=== PATIENT | female | born 1980 | race Caucasian/White ===

== ENCOUNTER 2018-10-27 20:20 | Emergency (ER) | payer SELFPAY ==
[2018-10-27 20:30] VITALS: BP 128/86; PULSE 115; RESP 16; TEMP 36.8; O2SAT 97
--- NOTE | 2018-10-27 21:16 | ED.GENADUL_ITS ---
Discharge Plan Disposition Patient Disposition: HOME Condition: Good Discharge Details Chief Complaint: DentalOral Clinical Impression: Dental abscess Primary Care Provider: Maranda Gamboa ED Provider: Ag Patel Meds and New Rx's Prescriptions: New clindamycin HCl 150 mg capsule 450 mg PO TID Qty: 60 RF: 0 ibuprofen 600 mg tablet 600 mg PO TID-QID PRN (Reason: pain) Qty: 30 RF: 0 Continued methadone 5 MG tablet 58 mg PO DAILY RF: 0 acetaminophen [Mapap Extra Strength] 500 MG tablet 1,000 mg PO Q6H PRNRF: 0 Discontinued amoxicillin-pot clavulanate [Augmentin] 1 EACH tablet 1 ea PO BID Qty: 14 RF: 0 Discharge Instructions Instructions: Dental Abscess (ED) Additional Instructions: Stop the penicillin and start clindamycin. May continue acetaminophen and ibuprofen as needed for pain. Follow-up with a dentist CECILIO. Return to ED for high fevers, difficulty breathing, inability to swallow, facial swelling. Discharge Data Discharge Date/Time-TO BE ENTERED AT DEPARTURE: 10/27/18 21:37 Medical Decision Making Patient with dental abscess involving the hard palate on the right. Topical benzocaine used for anesthetic. Needle aspiration done with a couple of passes made in attempt to drain all of the pus. Ultimately drained a little over 1 mL. We will start patient on clindamycin and discontinue the penicillin. Encouraged to follow-up with a dentist CECILIO. Return to the emergency department for increasing swelling, facial swelling/pain, difficulty breathing, inability to swallow. HPI General Mode of arrival: ambulatory . Date/Time Provider Initiated Documentation: 10/27/18 20:49 . Limitations to Documentation: no limitations . Information obtained by: patient . HPI Narrative: Patient presents to ED with worsening dental pain and now swelling in the roof of her mouth. She has been taking penicillin since Wednesday. She did not see anyone for this, she had a bottle of penicillin left over from previous dental infection. She has pretty severe dental decay to begin with. She reports that the pain from the toothache has been better but now she has swelling to the roof of her mouth. She has had no fever. She has no difficulty swallowing. She has no difficulty breathing. Related Data Home Medications Medication Instructions Recorded Confirmed methadone 58 mg PO DAILY 06/11/17 11/18/17 acetaminophen [Mapap Extra 1,000 mg PO Q6H PRN 11/18/17 01/12/18 Strength] clindamycin HCl 450 mg PO TID #60 cap 10/27/18 ibuprofen 600 mg PO TID-QID PRN #30 tab 10/27/18 Previous Rx's Medication Instructions Recorded clindamycin HCl 450 mg PO TID #60 cap 10/27/18 ibuprofen 600 mg PO TID-QID PRN #30 tab 10/27/18 Allergies Allergy/AdvReac Type Severity Reaction Status Date / Time No Known Allergies Allergy Unverified 01/12/18 10:23 General Stated Complaint: DentalOral JACQUELINE: 4 Review of Systems Review of Systems As documented in HPI otherwise negative as below. Const: no fever, chills, weakness Resp: no cough, SOB, pleuritic pain CV: no CP, diaphoresis, edema, syncope GI: no abdominal pain, nausea, vomiting, diarrhea Neuro: no headache, numbness, focal weakness, confusion PFSH Medical History Hepatitis C Substance use disorder Tobacco use disorder Surgical History Ligation of fallopian tube (08/19/05) Replacement of total knee joint (~2015) left medial minisectomy (03/17/10) Family History Mother Diabetes Essential hypertension HF (heart failure) Neoplasm COPD (chronic obstructive pulmonary disease) MS (multiple sclerosis) Father No problems noted. Maternal Aunt Neoplasm Maternal Aunt Neoplasm Maternal Aunt Neoplasm Maternal Aunt Neoplasm Grandmother Diabetes Social History Smoking/Tobacco Use Status: Current every day Tobacco Type: cigarettes Alcohol Intake: current Drug use: Never Do you feel safe at home: Yes Do you feel safe in your relationship?: Yes Exam Const General: cooperative, comfortable and no acute distress Orientation: alert and oriented x3 HENMT Head: normocephalic and atraumatic Face and sinus: normal facial exam Teeth and gingiva: poor dentition (Extensive decay and fractured teeth throughout.) Other: Fluctuant swelling to the hard palate behind teeth #4, 5, 6. Neck Neck: normal visual inspection, trachea midline and supple Course Vital Signs Temperature 98.2 F 10/27/18 20:30 Pulse 115 H 10/27/18 20:30 Respiratory Rate 16 10/27/18 20:30 Blood Pressure 128/86 10/27/18 20:30 Pulse Oximetry 97 10/27/18 20:30 Temperature 98.2 F 10/27/18 20:30 Temperature Source Skin 10/27/18 20:30 Pulse 115 H 10/27/18 20:30 Respiratory Rate 16 10/27/18 20:30 Blood Pressure 128/86 10/27/18 20:30 Pulse Oximetry 97 10/27/18 20:30 Oxygen Delivery Method Room Air 10/27/18 20:30 Oxygen Flow Rate 0 10/27/18 20:30 Pain Level 8 10/27/18 20:30 Procedures Abscess I/D Site: Other (hard palate) Side (if applicable): Right Local Anesthetic: Other Anesthetic (Topical benzocaine) Technique: Needle Aspiration Amount of fluid expressed (mL): 1 Packing used?: None Complications: Pain
[2018-10-27] MEDS: Ibuprofen 600 MG TAB PO (21:32)
[2018-10-27] MEDS: Clindamycin 150 MG CAP 450 MG PO (21:32)
[2018-10-27] MEDS: Benzocaine 20% Gel 30 GM JAR MM (21:34)
== END 2018-10-27 21:37 | disposition home or self-care (01) ==
PROVIDERS: Emergency Provider Emergency Medicine; PCP Nurse Practitioner Family
DX: K04.7 Periapical abscess without sinus (principal)
CPT/HCPCS: 99283

== ENCOUNTER 2019-07-18 21:16 | Emergency (ER) | payer SELFPAY ==
[2019-07-18 21:21] VITALS: BP 120/73; PULSE 98; RESP 16; TEMP 36.7; O2SAT 99
--- NOTE | 2019-07-18 21:26 | W.ED.GENAD ---
Discharge Plan Disposition Patient Disposition: HOME Condition: Stable Discharge Details Chief Complaint: Orthopedic Clinical Impression: Strain of groin Primary Care Provider: Maranda Gamboa ED Provider: Christa cMcarty Home Meds and New Rx's Prescriptions: New cyclobenzaprine 10 mg tablet 10 mg PO TID PRN (Reason: muscle spasm) Qty: 14 RF: 0 No Action methadone 5 MG tablet 58 mg PO DAILY RF: 0 ibuprofen 600 mg tablet 600 mg PO TID-QID PRN (Reason: pain) Qty: 30 RF: 0 Discharge Instructions Instructions: Groin Strain (ED), RICE Therapy (ED) Additional Instructions: Rest, Ice, elevation. Use crutches and brace as needed for comfort. Take medications as directed. Ibuprofen every 4-6 hours as needed for pain. Referrals: Maranda Gamboa, KNOWLEDGE MANAGEMENT CONSULTANT [Primary Care Provider] - Medical Decision Making Right leg pain after slip and fall yesterday. No crepitus, no deformity. Med orders in place of flexeril and knee brace and crutches ordered. Prescription given for Flexeril 10 mg TID PRN muscle spasm and Lidocaine patch ordered and given in ED by operations staff specialist security. Patient demonstrated proper use of crutches prior to discharge. Instructed to follow up with PCP and RICE procedures given. Return for any concerns. Verbalized understanding. Differential Diagnosis Differential Diagnosis: Fracture, Sprain, Strain, Sciatica Medical Records Medical records reviewed: Yes I reviewed the patient's medical records. HPI General Date/Time Provider Initiated Documentation: 07/18/19 21:22. Limitations to Documentation: no limitations. Information obtained by: patient. History of Present Illness 38 year old F presents to the emergency department with the chief complaint of Right lower extremity pain, described as mild, with intensity rated at 5. Quality is described as other (Shooting), and is localized to the right and lower extremity. Patient extremity. Patient started experiencing this day(s) (1) and it has been intermittent. Immobilization improves symptom(s), Movement worsens symptoms . Patient notes no other symptoms.. Patient did receive the following treatments prior to arrival, NSAID HPI Narrative: Patient here with right leg pain after a slip and fall yesterday while getting into a truck. Reports doing a spread eagleand c/o right groin pain and pain radiation to lateral leg and calf. Related Data Home Medications Medication Instructions Recorded Confirmed methadone 58 mg PO DAILY 06/11/17 11/18/17 ibuprofen 600 mg PO TID-QID PRN #30 tab 10/27/18 cyclobenzaprine 10 mg PO TID PRN #14 tab 07/18/19 Previous Rx's Medication Instructions Recorded ibuprofen 600 mg PO TID-QID PRN #30 tab 10/27/18 cyclobenzaprine 10 mg PO TID PRN #14 tab 07/18/19 Allergies Allergy/AdvReac Type Severity Reaction Status Date / Time No Known Allergies Allergy Unverified 01/12/18 10:23 General Stated Complaint: Orthopedic JACQUELINE: 4 [facility] Medical History Hepatitis C Substance use disorder Tobacco use disorder Surgical History left medial minisectomy (03/17/10) Ligation of fallopian tube (08/19/05) 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 Maternal Aunt , Breast CA at age 41. Neoplasm Breast CA Maternal Aunt , Breast CA at age 43. Neoplasm Breast CA Maternal Aunt , Breast CA at age 44. Neoplasm Breast CA Maternal Aunt Neoplasm Breast CA Grandmother Diabetes Social History Smoking/Tobacco Use Status: Current every day Tobacco Type: cigarettes Alcohol Intake: current Drug use: Never Do you feel safe at home: Yes Do you feel safe in your relationship?: Yes Exam Narrative Exam Narrative: Poor dentition. Alert and oriented. No midline C, T, L-spine pain, Full passive ROM, dorsal pedal pulses intact. Pain with palpation to right hip. Const General: cooperative, comfortable, no acute distress and well developed Nutritional Appearance: average body habitus and well nourished Orientation: alert and oriented x3 Neck Neck: full ROM, supple, nontender and no torticollis Chest Chest: normal inspection of the chest Resp Effort & Inspection: normal respiratory effort and able to speak in complete sentences Auscultation: clear to auscultation bilaterally, no rales, no rhonchi and no wheezes Cardio Rate: regular rate Rhythm: regular rhythm Heart Sounds: S1 normal and S2 normal Back/Spine/Pelvis Back: no CVA tenderness Cervical Spine: normal cervical lordosis, cervical ROM normal, No cervical spinal tenderness and No step off deformity Thoracic/Lumbar Spine: thoracic and lumbar spine normal to inspection, No thoracic spinal tenderness and No lumbar spinal tenderness Pelvis: no unilateral elevation of iliac crest Sacrum: tenderness (Pain with palpation over right illiac crest) on the right Skin General skin exam: no rashes or lesions noted Neuro General: alert, awake, oriented x3, moves all extremities and normal light touch, pain and propioception Motor: muscle tone normal throughout Sensory Exam: no sensory deficits noted Plantar Reflexes: Downgoing: bilateral and Upgoing: bilateral Extrem General: normal capillary refill, normal exam except as noted and no pedal edema Right lower extremity: hip/thigh Details: tenderness and lower leg Details: tenderness and no edema Course Vital Signs Vital signs: Vital Signs Temperature 36.7 C 07/18/19 21:21 Pulse 98 H 07/18/19 21:21 Respiratory Rate 16 07/18/19 21:21 Blood Pressure 120/73 07/18/19 21:21 Pulse Oximetry 99 07/18/19 21:21 Temperature 36.7 C 07/18/19 21:21 Temperature Source Skin 07/18/19 21:21 Pulse 98 H 07/18/19 21:21 Respiratory Rate 16 07/18/19 21:21 Respiratory Effort Non-Labored 07/18/19 21:23 Blood Pressure 120/73 07/18/19 21:21 Blood Pressure Position Sitting 07/18/19 21:21 Pulse Oximetry 99 07/18/19 21:21 Oxygen Delivery Method Room Air 07/18/19 21:21 Oxygen Flow Rate 0 07/18/19 21:21 Pain Level 8 07/18/19 21:23
[2019-07-18] MEDS: Cyclobenzaprine 10 MG TAB PO (22:10)
[2019-07-18] MEDS: Lidocaine 5% Patch 1 PATCH (22:10)
[2019-07-18 22:11] VITALS: BP 120/73; PULSE 98; RESP 16; TEMP 36.7; O2SAT 99
== END 2019-07-18 22:00 | disposition home or self-care (01) ==
PROVIDERS: Emergency Provider Registered Nurse Emergency; PCP Nurse Practitioner Family
DX: S76.811A Strain of other specified muscles, fascia and tendons at thigh level, right thigh, initial encounter (principal); M79.604 Pain in right leg; W00.0XXA Fall on same level due to ice and snow, initial encounter
CPT/HCPCS: 29505; 99283; E0114; L1830

== ENCOUNTER 2019-08-24 18:49 | Emergency (ER) | payer SELFPAY ==
[2019-08-24 18:54] VITALS: BP 121/85; PULSE 100; RESP 20; TEMP 36.3; O2SAT 100
--- NOTE | 2019-08-24 19:03 | W.ED.GENAD ---
Discharge Plan Disposition Patient Disposition: HOME Condition: Stable Discharge Details Chief Complaint: DentalOral Clinical Impression: Acute necrotizing gingivitis Primary Care Provider: Maranda Gamboa ED Provider: Sneha Mallory Home Meds and New Rx's Prescriptions: New clindamycin HCl 300 mg capsule 300 mg PO TID Qty: 29 RF: 0 Lidocaine Viscous 2 % solution 15 ml MM QID PRN (Reason: pain) Qty: 300 RF: 0 hydrogen peroxide 3 % solution 15 ml TP QID Qty: 360 RF: 0 Continued ibuprofen 600 mg tablet 600 mg PO TID-QID PRN (Reason: pain) Qty: 30 RF: 0 Discharge Instructions Instructions: Clindamycin (By mouth), Lidocaine (By mouth), Hydrogen Peroxide (By mouth), Gingivostomatitis (ED) Additional Instructions: Please return immediately to the emergency department if you develop any new or worsening symptoms, if your condition does not improve as expected, or if you become otherwise concerned. It is extremely important that you call soon as possible to make an appointment to be seen in follow-up for this visit by your primary care doctor and by a dentist. Referrals: Maranda Gamboa, BOB [Primary Care Provider] - Medical Decision Making Mora Patel is a 38-year-old woman with a history of opiate use disorder on methadone, poor dentition who presented to the emergency department with painful upper and lower gums without focality, no fevers. On exam patient is well and nontoxic appearing. She has diffuse inflammation of the gingiva without evidence of abscess. Concern for acute necrotizing gingivitis. Exam/history is not not consistent at this time with Radu's angina, impending airway compromise, abscess, sepsis, other acute emergent life-threatening process. Plan for hydrogen peroxide swish and spit, 2% viscous lidocaine swish and spit, clindamycin. Hydroperoxide and lidocaine swish and spit performed in the emergency department. Patient given 3 doses of 2% viscous lidocaine for home use as she reports that she will have difficulty feeling prescriptions tonight. I had a lengthy discussion with Patient regarding return to emergency department precautions, home care including swish and spit hydrogen peroxide and lidocaine, and importance of outpatient follow-up. Pt verbalizes understanding of the plan and is amenable. Patient discharged to home with clear plan for outpatient follow-up. All questions were answered. Disposition decision was made weighing the risks and benefits of hospitalization versus outpatient treatment, the risk for further decompensation, and the patient's wishes. Medical Records Medical records reviewed: Yes I reviewed the patient's medical records. HPI General Mode of arrival: ambulatory. Date/Time Provider Initiated Documentation: 08/24/19 18:53. Limitations to Documentation: no limitations. Information obtained by: patient, RN notes reviewed and old records reviewed. HPI Narrative: Mora Patel is a 38-year-old woman with a history of opioid abuse currently on methadone, poor dentition with recurrent dental infections presenting to the emergency department with mouth pain. Patient reports that all of my teeth and gums started to hurt 2 days ago. Patient reports the pain has been gradually worsening. No localized area of worst pain, she reports that pain is equal throughout her upper and lower gums bilaterally. She denies any other pain, fever, vomiting, diarrhea, rash, difficulty swallowing. Patient reports that she she feels otherwise in her usual state of health. Has been eating and drinking as usual. Patient states that she has been told that she has had multiple teeth pulled, and states that she is planning to do that when she moves to [place] in the next week or so. Related Data Home Medications Medication Instructions Recorded Confirmed ibuprofen 600 mg PO TID-QID PRN #30 tab 10/27/18 08/24/19 clindamycin HCl 300 mg PO TID #29 cap 08/24/19 hydrogen peroxide 15 ml TP QID #360 ml 08/24/19 lidocaine HCl [Lidocaine Viscous] 15 ml MM QID PRN #300 ml 08/24/19 Previous Rx's Medication Instructions Recorded ibuprofen 600 mg PO TID-QID PRN #30 tab 10/27/18 clindamycin HCl 300 mg PO TID #29 cap 08/24/19 hydrogen peroxide 15 ml TP QID #360 ml 08/24/19 lidocaine HCl [Lidocaine Viscous] 15 ml MM QID PRN #300 ml 08/24/19 Allergies Allergy/AdvReac Type Severity Reaction Status Date / Time No Known Allergies Allergy Unverified 08/24/19 18:55 General Stated Complaint: DentalOral JACQUELINE: 4 Review of Systems Narrative: Constitutional: denies fevers Eyes: denies eye pain ENT: denies ear pain, sore throat, reports generalized pain to her gums without focal dental pain Cardiovascular: denies chest pain Respiratory: denies SOB, cough GI: denies abdominal pain, vomiting, diarrhea : denies flank pain MSK: denies back pain, neck pain, arthralgias, myalgias Skin: denies rash Neuro: denies headaches, numbness, weakness [facility] Medical History Hepatitis C Substance use disorder Tobacco use disorder Social History Smoking/Tobacco Use Status: Current every day Tobacco Type: cigarettes Alcohol Intake: current Alcohol Intake frequency: a few times a month Drug use: Never Substance use type: does not use Do you feel safe at home: Yes Do you feel safe in your relationship?: Yes Exam Narrative Exam Narrative: Constitutional: well and [id number], pleasant, conversing normally HENT: head atraumatic/normocephalic/normal inspection, mucous membranes moist, poor dentition throughout with several broken teeth, diffuse inflammation of the gingiva without focal edema or fluctuance, otherwise normal exam of the oropharynx without lesion, edema, elevation of the tongue, pooling of secretions, or drooling. Normal voice. Eyes: conjunctiva normal, sclera normal, pupils 3mm b/l Neck: no stridor, normal ROM, trachea midline Chest: normal inspection Resp: normal work of breathing, LCTAB Cardio: normal rate, normal rhythm, no murmur appreciated Back: normal inspection, no rash Skin: warm, dry, normal color, no rash Neuro: alert, not altered, grossly non-focal, normal tone Ext: Moving all extremities equally Psych: normal mood, normal affect, normal behavior Course Vital Signs Vital signs: Vital Signs Temperature 36.3 C L 08/24/19 18:54 Pulse 100 H 08/24/19 18:54 Respiratory Rate 20 08/24/19 18:54 Blood Pressure 121/85 08/24/19 18:54 Pulse Oximetry 100 08/24/19 18:54 Temperature 36.3 C L 08/24/19 18:54 Temperature Source Temporal Artery Scan 08/24/19 18:54 Pulse 100 H 08/24/19 18:54 Respiratory Rate 20 08/24/19 18:54 Respiratory Effort Non-Labored 08/24/19 18:56 Blood Pressure 121/85 08/24/19 18:54 Blood Pressure Position Sitting 08/24/19 18:54 Pulse Oximetry 100 08/24/19 18:54 Oxygen Delivery Method Room Air 08/24/19 18:54 Oxygen Flow Rate 0 08/24/19 18:54 Pain Level 10 08/24/19 18:56
[2019-08-24] MEDS: Hydrogen Peroxide 3% 480 ML BTL 15 ML TP (19:23)
[2019-08-24] MEDS: Lidocaine 2% Viscous 15 ML CUP PO (19:23)
[2019-08-24] MEDS: Clindamycin 300 MG CAP PO (19:23)
== END 2019-08-24 20:00 | disposition home or self-care (01) ==
PROVIDERS: Emergency Provider Student in an Organized Health Care Education/Training Program; PCP Nurse Practitioner Family
DX: A69.1 Other Vincent's infections (principal); F11.20 Opioid dependence, uncomplicated
CPT/HCPCS: 99283; 99284

== ENCOUNTER 2020-05-20 14:18 | Emergency (ER) | payer SELFPAY ==
[2020-05-20 14:27] VITALS: BP 118/79; PULSE 102; RESP 16; TEMP 36.7; O2SAT 100
[2020-05-20] MEDS: Amoxicillin 500 MG CAP PO (14:51)
[2020-05-20] MEDS: Ketorolac 30 MG/ML VIAL IM (14:56)
--- NOTE | 2020-05-20 15:04 | ED.GENADUL_ITS ---
Discharge Plan Disposition Patient Disposition: HOME Condition: Stable Discharge Details Clinical Impression: Otitis media Primary Care Provider: Maranda Gamboa ED Provider: Sneha Mallory Home Meds and New Rx's Prescriptions: New amoxicillin 500 mg tablet 500 mg PO BID Qty: 19 RF: 0 Discharge Instructions Instructions: Amoxicillin (By mouth), Ruptured Eardrum (ED), Ear Infection (ED) Additional Instructions: Please return immediately to the emergency department if you develop any new or worsening symptoms, if your condition does not improve as expected, or if you become otherwise concerned. It is extremely important that you call soon as possible to make an appointment to be seen in follow-up for this visit by your primary care doctor and an ear, nose, and throat specialist as we discussed. Referrals: Maranda Gamboa NP [Primary Care Provider] - Herson Palomares DO [OSTEOPATHIC DOCTOR] - Discharge Data Discharge Date/Time-TO BE ENTERED AT DEPARTURE: 05/20/20 15:03 Medical Decision Making Mora Patel is a 39-year-old woman with a history of hepatitis C who presented to the emergency department with left-sided ear pain for 5 days. On exam patient is well and nontoxic-appearing. Normal examination of the right ear. There is no facial rash, normal inspection of the last external ear and mastoid, no mastoid tenderness, no pain with manipulation of the pinna or tragus. Normal left canal without discharge. Left TM dull with serous effusion, no perforation noted no inferior medial medial aspect of the TM not fully visualized. Concern for otitis media. Given patient's recent move out of state (6 days ago) and caring for an elderly relative. Will perform Covid testing. Exam/history is not consistent with sepsis, meningitis, mastoiditis, abscess, other deep space infection, acute emergent intracranial process. Plan for amoxicillin. I had a lengthy discussion with Patient regarding return to emergency department precautions, home care, and importance of outpatient follow-up. Pt verbalizes understanding of the plan and is amenable. Patient discharged to home with clear plan for outpatient follow-up. All questions were answered. Disposition decision was made weighing the risks and benefits of hospitalization versus outpatient treatment, the risk for further decompensation, and the patient's wishes. Medical Records Medical records reviewed: Yes I reviewed the patient's medical records. HPI General Mode of arrival: ambulatory . Date/Time Provider Initiated Documentation: 05/20/20 14:42 . Limitations to Documentation: no limitations . Information obtained by: patient, RN notes reviewed and old records reviewed . HPI Narrative: Mora Patel is a 39-year-old woman with a history of hepatitis C presenting to the emergency department with left-sided ear pain. Patient reports the pain started gradually 5 days ago. Patient reports that pain worsened at approximately 3:00 this morning. She reports that when she woke up she noticed discharge from her ear and on her pillow. Patient reports that pain seems somewhat improved but has still been persistent throughout the day. No change in hearing, no ringing in the ears. She denies any trauma. She denies pain to the outside of her ear. She denies any other pain, fevers, shortness of breath, cough, vomiting, diarrhea, numbness, weakness, vertigo. Patient reports that as a child she had many ear infections, but has not had an ear infection as an adult. No known inciting factor. Patient states that she recently moved here from out of state and is caring for a 93-year-old relative. She is concerned about whether she has an ear infection that may be related to Covid. No known positive exposures. Related Data Home Medications Medication Instructions Recorded Confirmed amoxicillin 500 mg PO BID #19 tab 05/20/20 Previous Rx's Medication Instructions Recorded amoxicillin 500 mg PO BID #19 tab 05/20/20 Allergies Allergy/AdvReac Type Severity Reaction Status Date / Time No Known Allergies Allergy Unverified 05/20/20 14:33 General Stated Complaint: EarProblem JACQUELINE: 4 Review of Systems Narrative: Constitutional: denies fevers Eyes: denies eye pain ENT: denies dental pain, sore throat, reports ear pain Cardiovascular: denies chest pain Respiratory: denies SOB, cough GI: denies abdominal pain, vomiting, diarrhea : denies flank pain MSK: denies back pain, neck pain, arthralgias, myalgias Skin: denies rash Neuro: denies headaches, numbness, weakness [facility] Medical History (Updated 05/20/20 @ 14:53 by Sneha Mallory MD) Hepatitis C Substance use disorder Tobacco use disorder Surgical History left medial minisectomy (03/17/10) Ligation of fallopian tube (08/19/05) 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 Maternal Aunt , Breast CA at age 41. Neoplasm Breast CA Maternal Aunt , Breast CA at age 43. Neoplasm Breast CA Maternal Aunt , Breast CA at age 44. Neoplasm Breast CA Maternal Aunt Neoplasm Breast CA Grandmother Diabetes Social History Smoking/Tobacco Use Status: Current every day Tobacco Type: cigarettes Smoking risk assessment performed?: Yes Alcohol Intake: current Alcohol Intake frequency: a few times a month Drug use: Never Substance use type: does not use Do you feel safe at home: Yes Do you feel safe in your relationship?: Yes Exam Narrative Exam Narrative: Constitutional: well and [id number], pleasant, conversing normally HENT: head atraumatic/normocephalic/normal inspection, mucous membranes moist, no facial rash, normal inspection of the left external ear and mastoid, no mastoid tenderness, no pain with manipulation of the pinna or tragus. Normal left canal without discharge. Left TM dull with serous effusion, no perforation noted though inferior medial medial aspect of the TM not fully visualized. TM not injected. Normal external right ear, normal right TM and canal. Normal oropharynx without lesion or edema. Eyes: conjunctiva normal, sclera normal, pupils 3mm b/l Neck: no stridor, normal ROM, trachea midline Resp: normal work of breathing, speaking in full sentences Cardio: normal rate, normal rhythm Skin: warm, dry, normal color, no rash Neuro: alert, not altered, grossly non-focal, normal tone, normal gait Ext: Moving all extremities equally Psych: normal mood, normal affect, normal behavior Course Vital Signs Vital signs: Vital Signs Temperature 36.7 C 05/20/20 14:27 Pulse 102 H 05/20/20 14:27 Respiratory Rate 16 05/20/20 14:27 Blood Pressure 118/79 05/20/20 14:27 Pulse Oximetry 100 05/20/20 14:27 Temperature 36.7 C 05/20/20 14:27 Temperature Source Tympanic 05/20/20 14:27 Pulse 102 H 05/20/20 14:27 Respiratory Rate 16 05/20/20 14:27 Respiratory Effort 05/20/20 14:35 Blood Pressure 118/79 05/20/20 14:27 Pulse Oximetry 100 05/20/20 14:27 Oxygen Delivery Method Room Air 05/20/20 14:27 Oxygen Flow Rate 0 05/20/20 14:27 Pain Level 9 05/20/20 14:56
[2020-05-23 03:57] LABS: Patient Race White; SARS-CoV-2 RNA Undetected (Undetected); SARS-CoV-2 Specimen Source Nasopharynx
--- NOTE | 2020-05-23 08:21 | NUR.NOTE ---
0824--attempted call--unable to leave message-No voice mail set up.Nursing Note:
--- NOTE | 2020-05-23 10:01 | NUR.NOTE ---
Nursing [id number] [facility] Cutter called er--Negative Covid test result given.:
== END 2020-05-20 15:03 | disposition home or self-care (01) ==
PROVIDERS: Emergency Provider Student in an Organized Health Care Education/Training Program; PCP Nurse Practitioner Family
DX: H65.02 Acute serous otitis media, left ear (principal); Z03.818 Encounter for observation for suspected exposure to other biological agents ruled out
CPT/HCPCS: 96372; 99284; U0003; 99283; J1885

== ENCOUNTER 2020-08-01 17:18 | Emergency (ER) | payer SELFPAY ==
[2020-08-01 17:22] VITALS: BP 129/82; PULSE 90; RESP 18; TEMP 36.6; O2SAT 99
--- NOTE | 2020-08-01 18:30 | DI.RAD_ITS ---
EXAM: XR KNEE LT 3V AP,LAT,THEA CLINICAL HISTORY: trauma swelling. TECHNIQUE: 2D digital imaging was performed. COMPARISON: CR LEFT KNEE LIMITED 1 OR 2 VIEWS from 10/30/2015 CR LEFT KNEE LIMITED 1 OR 2 VIEWS from 12/30/2015 FINDINGS: There is stable alignment of the components of the prosthesis. No evidence of fracture. IMPRESSION: DATA REPOSITORY: RADIATION DOSE DELIVERED:
--- NOTE | 2020-08-01 18:42 | ED.GENADUL_ITS ---
Discharge Plan Disposition Patient Disposition: HOME Condition: Stable Discharge Details Clinical Impression: Contusion of knee, left Primary Care Provider: Maranda Gamboa ED Provider: Yesica De La Cruz Home Meds and New Rx's Prescriptions: No Action Multi For Her 18 mg iron-600 mcg-40 mcg Capsule 1 tab-cap PO DAILY RF: 0 Discharge Instructions Instructions: Contusion in Adults (ED) Additional Instructions: Wear Godfrey wrap to provide compression and support. Wear brace as directed Crutches for toe-touch weightbearing only as tolerated Continue ibuprofen 800 mg 3 times daily with food for the next 5 days Can add acetaminophen 650 mg 4 times daily for breakthrough pain Referrals: John Villaseñor MD [MD [facility] STAFF PHYSICIAN] - (Please call in a.m. for a follow-up appointment) Discharge Data Discharge Date/Time-TO BE ENTERED AT DEPARTURE: 08/01/20 19:05 Medical Decision Making <Yesica De La Cruz NP - Last Filed: 08/01/20 18:53> Fall injury yesterday while ice skating. Reports increased pain and swelling today has been using ibuprofen has ambulated in X-rays ordered Will refer outpatient to orthopedics. Godfrey wrap crutches NSAIDs ice Medical Records Medical records reviewed: Yes I reviewed the patient's medical records. Medical records narrative: PROCEDURE INFORMATION: Exam: XR Left Knee Exam date and time: 08/01/2020 6:30 PM Age: 39 years old Clinical indication: Prior surgery; Surgery date: 6+ months; Surgery type: Multiple left knee surgeries, knee replacement +5 years ago. ; Patient HX: Left knee pain after fall ice skating today, pain mainly posteriorly. TECHNIQUE: Imaging protocol: XR Left knee. Views: 3 views. COMPARISON: CR LEFT KNEE LIMITED 1 OR 2 VIEWS 12/30/2015 1:02 PM FINDINGS: Bones/joints: A small suprapatellar effusion is not totally excluded.The patient is status post total left knee replacement. The prosthesis is in place. Soft tissues: There is slight soft tissue swelling anterior to the patella. IMPRESSION: Status post total left knee replacement. The prosthesis is in place. A small suprapatellar effusion is not totally excluded. Dictated and Authenticated by: Jasper Stearns MD. Ordering:LENORA Robert MD <Thierry Mallory MD - Last Filed: 08/17/20 11:07> I did not evaluate this patient. Patient was seen and dispositioned by BOB greco. HPI <Yesica De La Cruz NP - Last Filed: 08/01/20 18:53> General Mode of arrival: ambulatory . Date/Time Provider Initiated Documentation: 08/01/20 17:25 . Limitations to Documentation: no limitations . Information obtained by: patient . HPI Narrative: Hyperextension injury to left knee yesterday while ice skating. She states she fell on her left side also but was able to get up and continued skating. Today reporting increased pain and posterior knee swelling. She is taking ibuprofen last dose prior to arrival 800 mg. Related Data Home Medications Medication Instructions Recorded Confirmed [id number] K 1 tab-cap PO DAILY 08/01/20 08/01/20 [Multi For Her] Allergies Allergy/AdvReac Type Severity Reaction Status Date / Time No Known Allergies Allergy Unverified 08/01/20 17:27 General Stated Complaint: Orthopedic JACQUELINE: 3 Review of Systems <Yesica De La Cruz NP - Last Filed: 08/01/20 18:53> All systems reviewed & are unremarkable except as noted in HPI and below Constitutional Constitutional: Denies fever(s) ENT Ears, Nose, Mouth, and Throat: Denies neck pain Musculoskeletal Musculoskeletal: Denies back pain, Reports myalgias, Denies deformity, Reports arthralgias, Reports joint swelling, Denies neck pain and Reports numbness (Reports numbness and tingling of her entire leg) Integumentary/Breasts Skin/Breast: Denies new lesions and Denies rash Neurologic Neurologic: Reports numbness (Reports numbness and tingling of her entire leg) Hematologic/Lymphatic Hematologic/Lymphatic: Denies easy bleeding and Denies easy bruising PFSH <Yesica De La Cruz NP - Last Filed: 08/01/20 18:53> Medical History (Updated 08/01/20 @ 18:51 by Yesica De La Cruz NP) Acute necrotizing gingivitis Cocaine use disorder remission last 4 years Hepatitis C Hyperlipidemia, unspecified (06/16/17) IFG (impaired fasting glucose) (06/16/17) Opioid use disorder Substance use disorder Tobacco use disorder Surgical History left medial minisectomy (09/13/10) Ligation of fallopian tube (08/19/05) Replacement of total knee joint (~2016) left Family History Mother Diabetes Essential hypertension HF (heart failure) Neoplasm Colon CA COPD (chronic obstructive pulmonary disease) Smoker MS (multiple sclerosis) Father No problems noted. Maternal Aunt , Breast CA at age 41. Neoplasm Breast CA Maternal Aunt , Breast CA at age 43. Neoplasm Breast CA Maternal Aunt , Breast CA at age 44. Neoplasm Breast CA Maternal Aunt Neoplasm Breast CA Grandmother Diabetes Social History Smoking/Tobacco Use Status: Current every day Tobacco Type: cigarettes Smoking risk assessment performed?: Yes Alcohol Intake: former Drug use: Never Substance use type: does not use Do you feel safe at home: Yes Do you feel safe in your relationship?: Yes Exam <Yesica De La Cruz NP - Last Filed: 08/01/20 18:53> Const General: cooperative, disheveled and ill appearing (Older appearing than stated age) chronically Nutritional Appearance: average body habitus Orientation: alert, awake and oriented x3 HENMT Head: normal to inspection, normocephalic and atraumatic Mouth: oral mucosae normal Resp Effort & Inspection: normal respiratory effort Cardio Rate: regular rate (Good pedal pulse) and other Rhythm: regular rhythm Skin General skin exam: no rashes or lesions noted Extrem Left lower extremity: knee (All surgical incisions are well-healed no obvious bruising or swelling note) Details: no lacerations and no ecchymosis; abnormal to inspection Course <Yesica De La Cruz NP - Last Filed: 08/01/20 18:53> Vital Signs Vital signs: Vital Signs Temperature 36.6 C 08/01/20 17:22 Pulse 90 08/01/20 17:22 Respiratory Rate 18 08/01/20 17:22 Blood Pressure 129/82 08/01/20 17:22 Pulse Oximetry 99 08/01/20 17:22 Temperature 36.6 C 08/01/20 17:22 Temperature Source Skin 08/01/20 17:22 Pulse 90 08/01/20 17:22 Respiratory Rate 18 08/01/20 17:22 Respiratory Effort Non-Labored 08/01/20 17:25 Blood Pressure 129/82 08/01/20 17:22 Blood Pressure Position Sitting 08/01/20 17:22 Pulse Oximetry 99 08/01/20 17:22 Oxygen Delivery Method Room Air 08/01/20 17:22 Oxygen Flow Rate 0 08/01/20 17:22 Pain Level 8 08/01/20 17:27
[2020-08-01] MEDS: Acetaminophen 500 MG TAB 1000 MG PO (19:14)
== END 2020-08-01 19:05 | disposition home or self-care (01) ==
PROVIDERS: Emergency Provider Nurse Practitioner Acute Care; PCP Nurse Practitioner Family
DX: S80.02XA Contusion of left knee, initial encounter (principal); V00.211A Fall from ice-skates, initial encounter; Y93.21 Activity, ice skating; Z96.652 Presence of left artificial knee joint
CPT/HCPCS: 29505; 73562; 99283; 99284

== ENCOUNTER 2021-05-19 05:59 | Inpatient (IN) | payer SELFPAY ==
[2021-05-19] VITALS (17 sets, daily range): BP systolic 96–156; BP diastolic 42–98; PULSE 83–110; RESP 16–20; TEMP 36.1–36.8; O2SAT 95–100
--- NOTE | 2021-05-19 06:19 | ED.GENADUL_ITS ---
Discharge Plan Discharge Details Chief Complaint: RespSymp Admit Date/Time: 05/19/21 08:25 Admit Provider: Kevin Sanchez Attending Provider: Kevin Sanchez Primary Care Provider: Maranda Gamboa ED Provider: Sneha Mallory Discharge Data Discharge Date/Time-TO BE ENTERED AT DEPARTURE: 05/19/21 10:32 Medical Decision Making <Eddi Bella DO - Last Filed: 05/19/21 07:34> Patient is a 40-year-old female with a past medical history of prev ious substance abuse, hepatitis C, high cholesterol, previous left knee replacement with subsequent DVT at that time, and no longer on anticoagulants, who presents today for evaluation of multiple symptoms. Patient states that she has been around someone in their family who all tested positive for Covid, and for the last 4 to 5 days she has had fever with T-max of 103, cough, shortness of breath, pleuritic chest pain, congestion, loss of taste, loss of smell, and then in the last 2 to 3 days she has developed abdominal pain, nausea, occasional bloody stool, lower pelvic pain. She denies any vaginal discharge. She denies any recent STDs. Pulmonary complaints are made worse with breathing. Otherwise improved by nothing. Abdominal complaints are worse with movement. She denies any urinary complaints. No other complaints at this time. Patient has not gotten her flu shot or Covid vaccine. Physical exam demonstrates notable lower abdominal tenderness, and also tenderness over the bilateral inguinal canals. Bedside ultrasound shows free air in the right lower quadrant however this may be from the bowel, it is difficult to tell. Concern for ruptured appendix, in conjunction with notable Covid, and dehydration. PE is on the differential as well with the patient's history of DVTs, and her worsening chest pain shortness of breath. Will evaluate for these etiologies, rehydrate, monitor closely and reassess. FINDINGS: Pulmonary arteries: Normal. No pulmonary emboli. Aorta: Unremarkable. No aortic aneurysm. No aortic dissection. Lungs: Bilateral pulmonary opacities include ground-glass infiltrates and areas of crazy paving. The findings are nonspecific but are highly suggestive of COVID-19 pulmonary involvement in the correct clinical setting.. Pleural spaces: Unremarkable. No pneumothorax. No pleural effusion. Heart: Unremarkable. No cardiomegaly. No pericardial effusion. Lymph nodes: Nonspecific small mediastinal lymph nodes are noted. Bones/joints: Unremarkable. No acute fracture. Soft tissues: Unremarkable. IMPRESSION: Bilateral pulmonary opacities include ground-glass infiltrates and areas of crazy paving. The findings are nonspecific but are highly suggestive of COVID-19 pulmonary involvement in the correct clinical setting.. FINDINGS: Aorta: No aortic aneurysm. No aortic dissection. Celiac trunk and mesenteric arteries: No occlusion or significant stenosis. Renal arteries: No occlusion or significant stenosis. Liver: Normal. No mass. Gallbladder and bile ducts: Normal. No calcified stones. No ductal dilation. Pancreas: Normal. No ductal dilation. Spleen: Normal. No splenomegaly. Adrenals: Normal. No mass. Kidneys and ureters: Normal. No hydronephrosis. Stomach and bowel: Unremarkable. No obstruction. No mucosal thickening. Lymph nodes: Unremarkable. No enlarged lymph nodes. Intraperitoneal space: Unremarkable. No free air. No significant fluid collection. Reproductive: Myomatous uterus incidentally noted Bones/joints: Unremarkable. No acute fracture. No dislocation. Soft tissues: Unremarkable IMPRESSION: No acute findings Thank you for allowing us to participate in the care of your patient. Dictated and Authenticated by: Melchor Poe MD 05/19/2021 7:23 AM Eastern Time ([place] & [place]) <Sneha Mallory MD - Last Filed: 05/19/21 12:44> Pt admitted to Dr. Sanchez prior to sign out. Pt signed out at time of shift change with admission pending. Patient admitted upstairs without further issue. Medical Records Medical records reviewed: Yes I reviewed the patient's medical records. HPI <Eddi Bella DO - Last Filed: 05/19/21 07:34> General Date/Time Provider Initiated Documentation: 05/19/21 06:01 . HPI Narrative: Ange torres is a 40-year-old female with a past medical history of previous substance abuse, hepatitis C, high cholesterol, previous left knee replacement with subsequent DVT at that time, and no longer on anticoagulants, who presents today for evaluation of multiple symptoms. Patient states that she has been around someone in their family who all tested positive for Covid, and for the last 4 to 5 days she has had fever with T-max of 103, cough, shortness of breath, pleuritic chest pain, congestion, loss of taste, loss of smell, and then in the last 2 to 3 days she has developed abdominal pain, nausea, occasional bloody stool, lower pelvic pain. She denies any vaginal discharge. She denies any recent STDs. Pulmonary complaints are made worse with breathing. Otherwise improved by nothing. Abdominal complaints are worse with movement. She denies any urinary complaints. No other complaints at this time. Patient has not gotten her flu shot or Covid vaccine. Related Data Home Medications Medication Instructions Recorded Confirmed Unknown [No Known Home Meds] 05/19/21 05/19/21 Allergies Allergy/AdvReac Type Severity Reaction Status Date / Time No Known Allergies Allergy Unverified 08/01/20 17:27 General Stated Complaint: RespSymp JACQUELINE: 3 Review of Systems <Eddi Bella DO - Last Filed: 05/19/21 07:34> All systems reviewed & are unremarkable except as noted in HPI and below PFSH <Eddi Bella DO - Last Filed: 05/19/21 07:34> Medical History Acute necrotizing gingivitis Cocaine use disorder 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 Maternal Aunt , Breast CA at age 41. Neoplasm Breast CA Maternal Aunt , Breast CA at age 43. Neoplasm Breast CA Maternal Aunt , Breast CA at age 44. Neoplasm Breast CA Maternal Aunt Neoplasm Breast CA Grandmother Diabetes Social History Smoking/Tobacco Use Status: Current every day Tobacco Type: cigarettes Smoking risk assessment performed?: Yes Alcohol Intake: former Drug use: Never Substance use type: does not use Do you feel safe at home: Yes Do you feel safe in your relationship?: Yes Exam <Eddi Bella DO - Last Filed: 05/19/21 07:34> Narrative Exam Narrative: 1.Const: Well-nourished, Well-developed, appearing stated age 2.Eyes: PERRL, no conjunctival injection, and symmetrical lids. 3.ENT: Atraumatic external nose and ears. Notably dry MM. Neck: Symmetric, trachea midline, No thyromegaly. 4.CVS: +S1/S2, No murmurs or gallops. Peripheral pulses 2+ and equal in all extremities. Brisk capillary refill in all extremities. 5.RESP: Unlabored respiratory effort. Clear to auscultation bilaterally. No wheezes rales or rhonchi 6.GI: Soft, nondistended, notable tenderness in the left and right lower abdominal quadrants. Minimal pelvic tenderness. There is also tenderness at the inguinal canal bilaterally. Bedside ultrasound demonstrates air in the right lower quadrant however it is challenging to differentiate between bowel air and free air due to her thin habitus.. No clear evidence of DVT in the femoral veins bilaterally. 7.MSK: Normocephalic/Atraumatic, Extremities w/o deformity or ttp No cyanosis or clubbing, Normal movement of all extremities, no calf tenderness. 8.Skin: Warm, Dry. No rashes or lesions. 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 Sensation grossly intact, no focal neurologic deficits. 10.Psych: (AAO) x3. Appropriate mood and affect Course <Eddi Bella DO - Last Filed: 05/19/21 07:34> Vital Signs Vital signs: Vital Signs Temperature 36.8 C 05/19/21 06:06 Pulse 110 H 05/19/21 06:06 Respiratory Rate 20 05/19/21 06:06 Blood Pressure 156/98 H 05/19/21 06:06 Pulse Oximetry 98 05/19/21 06:06 Temperature 36.8 C 05/19/21 06:06 Temperature Source Tympanic 05/19/21 06:06 Pulse 110 H 05/19/21 06:06 Respiratory Rate 20 05/19/21 06:06 Respiratory Effort 05/19/21 06:11 Respiratory Depth Normal 05/19/21 06:11 Blood Pressure 156/98 H 05/19/21 06:06 Blood Pressure Position Sitting 05/19/21 06:06 Pulse Oximetry 98 05/19/21 06:06 Oxygen Delivery Method Room Air 05/19/21 06:06 Oxygen Flow Rate 0 05/19/21 06:06 Pain Level 6 05/19/21 06:06 Lab/Test Results Lab/Test Results: 05/19/21 06:17 Blood Blood Culture - Pending 05/19/21 06:17 Blood Blood Culture - Pending Sign Out <Eddi Bella DO - Last Filed: 05/19/21 07:34> Sign Out Data: Sign Out Comment: Recent Covid, shortness of breath, hypoxemia, generalized pain, reassess after potassium and fluid Last updated by Eddi Bella DO at 05/19/21 08:14
--- NOTE | 2021-05-19 06:30 | RT.EKG_ITS ---
APPROVED REPORT Exam: Resting ECG Reason for Exam: sob Patient Location: E HR:100 bpm ECG Measurements Heart Rate 100 AXIS MS 160 P 58 QRSd 135 QRS 25 QT 411 T 61 QTc 531 Conclusion Sinus tachycardia...rate> 99 Left bundle branch block...QRSd>120, broad/notched R Physician: new LBBB
[2021-05-19] MEDS: HYDROmorphone 2 MG/ML VIAL 1 MG IVP (06:41)
[2021-05-19] MEDS: Normal Saline 1,000 ML 1000 ML IV ×2 (06:42→08:24)
[2021-05-19] MEDS: Ondansetron 4 MG/2 ML VIAL IVP (06:42)
[2021-05-19 06:46] LABS: Source Nasal/Nares
[2021-05-19 06:47] LABS: Abs Immature Grans 0.03 10^3/uL (0.0-0.06); Absolute Basophil Count 0.02 10^3/uL (0.0-0.2); Absolute Eosinophil Count 0.06 10^3/uL (0.0-0.7); Absolute Lymphocyte Count 1.67 10^3/uL (1.2-3.4); Absolute Monocyte Count 0.67 10^3/uL (0.1-0.8); Absolute Neutrophil Count 7.61 10^3/uL (1.2-6.7); Basophils % 0.2; Eosinophils % 0.6; HCT 35.5 % (36.0-46.0); HGB 12.1 g/dL (11.2-15.7); Immature Grans % 0.3; Lymphocytes % 16.6; MCH 32.4 pg (27.0-33.0); MCHC 34.1 % (32.0-36.0); MCV 95.2 fL (80-95); MPV 11.3 fL (8.0-11.0); Monocytes % 6.7; Neutrophils % 75.6; Nucleated RBC 0 %; Platelet Count 269 10^3/uL (130-400); RBC 3.73 10^6/uL (3.93-5.22); RDW 14.6 % (11.7-14.6); RDW-SD 50.7 fL; WBC 10.06 10^3/uL (4.4-10.8)
[2021-05-19 06:49] LABS: Lactate 1.4 mmol/L (0.6-1.4)
--- NOTE | 2021-05-19 07:05 | DI.CT_ITS ---
Exam(s) CT CHEST PE ABD PELVIS W EXAM: CT CHEST PE ABD PELVIS W CLINICAL HISTORY: suspect covid, cp, sob, fever. TECHNIQUE: Imaging Protocol: Axial CT angiography was performed with multi-slice acquisition and m ulti-planar and/or 3D reconstructions. CONTRAST MATERIAL: Intravenous: Omnipaque 350 Contrast volume:100 ml Oral: None COMPARISON: No exams were available for comparison FINDINGS: CHEST: PULMONARY ARTERIES: There are no intra-arterial filling defects to suggest the presence of acute pulm onary emboli. LUNGS: There are patchy ground-glass infiltrates both upper lobes as well as superior segment both lo wer lobes with relative sparing of the basal segments of both lower lobes. There are no pleural effu sions.Suspicious for Covid pneumonia. MEDIASTINUM: There is no hilar nor mediastinal adenopathy. Visualized thyroid unremarkable. CARDIAC: Heart size is normal. There is no pericardial effusion. There is no significant shift of t he interventricular septum.Caliber of the thoracic aorta is within normal limits. OSSEOUS: No significant osseous lesions.. ABDOMEN: There is no ascites. LIVER: There are no focal hepatic lesions nor dilatation of intrahepatic ducts. GALLBLADDER/BILIARY: No obvious gallbladder pathology. CBD is not dilated. PANCREAS: No evidence of pancreatic mass nor dilatation of the pancreatic duct. SPLEEN: Spleen is not enlarged. There are no intrasplenic lesions. Splenic and portal veins are seymour nt. ADRENALS: There are no significant adrenal masses. KIDNEYS:No cysts evident. No calculi nor hydronephrosis. No solid renal masses. ABDOMINAL AORTA: Abdominal aorta is not enlarged. LYMPH NODES: There is no retroperitoneal or para-aortic adenopathy. ABDOMINAL WALL/GI: No evidence of significant anterior abdominal wall hernia. No bowel obstruction. PELVIS: LYMPH NODES: There is no intrapelvic nor inguinal adenopathy. GI: No evidence of appendicitis.No evidence of sigmoid diverticulitis. URINARY BLADDER: No calculi nor masses evident REPRODUCTIVE: There are multiple uterine fibroids. The largest is located right of center and measur es approximately 5 by 4 by 3.5 cm. There are no obvious ovarian masses. Small follicular cysts are noted in both ovaries, largest measuring 1.2 cm. OSSEOUS: No significant osseous lesions. IMPRESSION: 1. The main finding here is patchy and partially confluent ground-glass type infiltrates in both lung s, not associated with pleural effusions nor adenopathy. First consideration is for Covid-19 pneumonia. 2. No significant focal findings in the abdomen. 3. There is no ascites. 4. Fibroid uterus. The largest fibroid is on the right side of the uterus measuring approximately 5 x 4 x 3.5 cm. RADIATION DOSE DELIVERED: 851.53mGy.cm Total DLP DATA REPOSITORY: All CT scans at this facility are submitted to the National Radiology Data Registry (NRDR) Dose Index Registry (DIR) with the [employer] (ACR). RADIATION OPTIMIZATION: All CT scans at this facility use at least one of these dose optimization te chniques: automated exposure control; mA and/or kV adjustment per patient size (includes targeted exa ms where dose is matched to clinical indication); or iterative reconstruction.
[2021-05-19 07:08] LABS: BUN 5 mg/dL (7-18); CREATININE 0.7 mg/dL (0.55-1.02); Calcium 8.9 mg/dL (8.5-10.1); Glucose 135 mg/dL (74-106); Total Protein 8.4 g/dL (6.4-8.2)
[2021-05-19 07:09] LABS: ALT 13 U/L (14-59); AST 11 U/L (15-37); Alkaline Phosphatase 85 U/L (46-116); Anion Gap 13.7 mmol/L (3-11); Bilirubin, Total 0.8 mg/dL (0.2-1.0); CO2 23.3 mmol/L (21.0-32.0); Chloride 102 mmol/L (98-107); Lipase 43 U/L (73-393); Sodium 139 mmol/L (136-145); Troponin I < 0.05 ng/mL (<0.06)
[2021-05-19 07:10] LABS: Potassium 2.9 mmol/L (3.5-5.1)
[2021-05-19] MEDS: Normal Saline - Diluent 50 ML VIAL IV (07:13)
[2021-05-19] MEDS: Omnipaque 350 MG/ML 100 ML BTL IJ (07:14)
--- NOTE | 2021-05-19 07:24 | DI.VRAD_ITS ---
PROCEDURE INFORMATION: Exam: CTA Chest With Contrast Exam date and time: 05/19/2021 6:37 AM Age: 40 years old Clinical indication: Fever and shortness of breath; Patient HX: Suspect covid, cp, SOB fever TECHNIQUE: Imaging protocol: Computed tomographic angiography of the chest with contrast. 3D rendering (Not supervised by radiologist): MIP and/or 3D reconstructed images were created by the technologist. Radiation optimization: All CT scans at this facility use at least one of these dose optimization techniques: automated exposure control; mA and/or kV adjustment per patient size (includes targeted exams where dose is matched to clinical indication); or iterative reconstruction. Contrast material: OMNI-PAQUE 350; Contrast volume: 100 ml; Contrast route: INTRAVENOUS (IV); COMPARISON: No relevant prior studies available. FINDINGS: Pulmonary arteries: Normal. No pulmonary emboli. Aorta: Unremarkable. No aortic aneurysm. No aortic dissection. Lungs: Bilateral pulmonary opacities include ground-glass infiltrates and areas of crazy paving. The findings are nonspecific but are highly suggestive of COVID-19 pulmonary involvement in the correct clinical setting.. Pleural spaces: Unremarkable. No pneumothorax. No pleural effusion. Heart: Unremarkable. No cardiomegaly. No pericardial effusion. Lymph nodes: Nonspecific small mediastinal lymph nodes are noted. Bones/joints: Unremarkable. No acute fracture. Soft tissues: Unremarkable. IMPRESSION: Bilateral pulmonary opacities include ground-glass infiltrates and areas of crazy paving. The findings are nonspecific but are highly suggestive of COVID-19 pulmonary involvement in the correct clinical setting.. PROCEDURE INFORMATION: Exam: CT Angiography Abdomen With Contrast Exam date and time: 05/19/2021 6:37 AM Age: 40 years old Clinical indication: Fever and shortness of breath; Patient HX: Suspect covid, cp, SOB fever TECHNIQUE: Imaging protocol: Computed tomographic angiography images of the abdomen with intravenous contrast material. 3D rendering (Not supervised by radiologist): MIP and/or 3D reconstructed images were created by the technologist. Radiation optimization: All CT scans at this facility use at least one of these dose optimization techniques: automated exposure control; mA and/or kV adjustment per patient size (includes targeted exams where dose is matched to clinical indication); or iterative reconstruction. Contrast material: OMNI-PAQUE 350; Contrast volume: 100 ml; Contrast route: INTRAVENOUS (IV); COMPARISON: No relevant prior studies available. FINDINGS: Aorta: No aortic aneurysm. No aortic dissection. Celiac trunk and mesenteric arteries: No occlusion or significant stenosis. Renal arteries: No occlusion or significant stenosis. Liver: Normal. No mass. Gallbladder and bile ducts: Normal. No calcified stones. No ductal dilation. Pancreas: Normal. No ductal dilation. Spleen: Normal. No splenomegaly. Adrenals: Normal. No mass. Kidneys and ureters: Normal. No hydronephrosis. Stomach and bowel: Unremarkable. No obstruction. No mucosal thickening. Lymph nodes: Unremarkable. No enlarged lymph nodes. Intraperitoneal space: Unremarkable. No free air. No significant fluid collection. Reproductive: Myomatous uterus incidentally noted Bones/joints: Unremarkable. No acute fracture. No dislocation. Soft tissues: Unremarkable. IMPRESSION: No acute findings Dictated and Authenticated by: Melchor Poe MD. Ordering:LUIS MIGUEL Montague MD
--- NOTE | 2021-05-19 07:37 | NUR.NOTE ---
4 silver colored rings given to me by pt with instruction to be given to her daughter Lisa Wagoner who is a pt in ER room #8.
[2021-05-19 07:43] LABS: COVID-19 PCR Negative (Negative)
[2021-05-19] MEDS: Potassium Chloride 20 MEQ TABCR 40 MEQ PO (08:14)
[2021-05-19] MEDS: POTASSIUM CHLORIDE 20 MEQ/100 ML BAG 50 MEQ IVPB (08:20)
[2021-05-19 08:43] LABS: Magnesium 2.1 mg/dL (1.8-2.4)
[2021-05-19 10:01] LABS: COVID-19 PCR Negative (Negative)
[2021-05-19 10:03] LABS: LDH 193 U/L (81-234)
[2021-05-19 10:39] LABS: Procalcitonin 0.5 ng/mL
[2021-05-19 10:47] LABS: Ferritin 52 ng/mL (8-252)
[2021-05-19 10:54] LABS: D-Dimer 255 ng/mlFEU (<500)
[2021-05-19 11:10] LABS: Troponin I < 0.05 ng/mL (<0.06)
[2021-05-19 11:22] LABS: Creatine Kinase 86 U/L (26-192)
[2021-05-19 11:23] LABS: C-Reactive Protein 9.14 mg/dL (0.0-0.3); NT-proBNP 181 pg/mL (<300)
[2021-05-19] MEDS: Enoxaparin 40 MG/0.4 ML SYR SC (11:40)
[2021-05-19] MEDS: Azithromycin 250 MG TAB 500 MG PO (12:21)
[2021-05-19] MEDS: cefTRIAXone 2 GM/50 ML BAG IVPB (12:21)
--- NOTE | 2021-05-19 13:41 | PHA.REVIEW ---
Pharmacy Admission Review - Admission Clinical Review No Known Allergies Allergy (Unverified 08/01/20 17:27) Resuscitation Status Full Code Height 5 ft 2 in Weight 65 kg - Renal Dosing Renal Dosing: BUN 5 mg/dL (7-18) L 05/19/21 06:30 Creatinine 0.7 mg/dL (0.55-1.02) 05/19/21 06:30 Medications needing adjustments: Reviewed (Crcl ~73.19 mL/min current meds okay.) - Anticoagulation Anticoagulation: Hgb 12.1 g/dL (11.2-15.7) 05/19/21 06:30 Hct 35.5 % (36.0-46.0) L 05/19/21 06:30 Plt Count 269 10^3/uL (130-400) 05/19/21 06:30 Creatinine 0.7 mg/dL (0.55-1.02) 05/19/21 06:30 DVT Prophylaxis: Reviewed Medications: Enoxaparin Therapeutic Anticoagulation: N/A - Opiate Usage Evaluate Pain Scale/Pains Meds: N/A - Relevant Labs Sodium 139 mmol/L (136-145) 05/19/21 06:30 Potassium 2.9 mmol/L (3.5-5.1) L 05/19/21 06:30 Chloride 102 mmol/L (98-107) 05/19/21 06:30 Magnesium 2.1 mg/dL (1.8-2.4) 05/19/21 06:30 C-Reactive Protein 9.14 mg/dL (0.0-0.3) H 05/19/21 09:20 Electrolytes, C-Reactive P, ESR: Reviewed (IV and PO K+ replacement given.) - DM Control DM Control: Glucose 135 mg/dL (74-106) H 05/19/21 06:30 Insulin Dosing: N/A - Heart Failure/AK Heart Failure/AK: Troponin I < 0.05 ng/mL (<0.06) 05/19/21 09:20 NT-Pro-B Natriuret Pep 181 pg/mL (<300) 05/19/21 09:20 EF%, OJ's, B-Blockers, Diuretics: Reviewed - BP Control BP Control: Blood Pressure 112/75 Blood Pressure 127/78 Blood Pressure 127/78 Blood Pressure 107/74 Blood Pressure 156/98 If elevated: Reviewed (BP was elevated on admission, but has been within normal limits since.) - Qtc Review If Elevated: Reviewed (QTc 531 on admission, currently has azithromycin ordered.) - IV to PO Switch IV Medications: Reviewed - Home Meds Home Med List reviewed: Reviewed (no known home meds) - Current meds Current Medication Order Review: Intervened (Discontinued DI meds that had already been given.) - Comments Comments/Follow Ups: Watch VS, K+, labs, for culture results and for med changes (avoid QT prolonging meds). Antibiotic Activity - Pharmacy Antibiotic Review Pharmacy Antibiotic Activity: Reviewed, no change (Ceftriaxone and azithromycin started. Blood cultures pending.)
[2021-05-19 15:14] LABS: Potassium 3.7 mmol/L (3.5-5.1); Troponin I < 0.05 ng/mL (<0.06)
--- NOTE | 2021-05-19 17:02 | HPE_ITS ---
Date of service: 05/19/21 Time of Service: 17:03 Assessment and Plan Assessment and plan (1) Pneumonia due to COVID-19 virus: Status: Suspected Assessment and plan: Her hx and sx are certainly consistent w/ COVID-19 pneumonia however, the two negative PCR done in the ER, the normal ferritin, normal LFT (despite her hx of HCV), the lack of a lymphocytopenia and her normal d-dimer all are in contradiction of a COVID-19 pneumonia. I suspect that she probably either has another viral pneumonia or an atypical pneumonia but happened to be exposed to friends w/ COVID. Nevertheless, her close contact w/ people with COVID-19 warrants her close observation and repeat testing. She probably should not have received the MAB in light of two negative PCR tests in the ER. Of note her procalcitonin is not normal at 0.5 and this would suggest another origin for her pneumonia. If her repeat PCR is negative for SARS-COV2 then I will speak w/ our pathologist about running test controls to ensure that no false negative has developed. If she has no worsening of her condition then she could be discharged home. I will test her for mycoplasma and legionella and also RSV and get influenza testing. For now she does not need steroids nor does she require oxygen. I will give her cough medicine and encourage use of Acapella and IS. I will repeat her labs in the a.m. (2) Atypical pneumonia: Status: Acute (3) Hypokalemia: Status: Acute Assessment and plan: repleted (4) Diarrhea: Status: Acute Assessment and plan: will check stool studies i.e. lactoferrin, stool OB, stool bacterial antigens. 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 Patient states that she was exposed to her friend and her friend's children who have COVID-19. Exposure took place approximately 10 days ago. 3 days after exposure she started with her symptoms which was a week ago. At first her symptoms were just loss of sense of taste and smell but was followed by harsh non-productive cough and now she is having fevver up to 101.6 (her temp at home) and now she also has symptoms of nausea but no vomiting and she has been having diarrhea and crampy abdominal pain. She reportedly had some blood w/ her stools today. Workup in the ER included CT scan of the chest/abdomen/pelvis which showed bilateral patchy ground glass opacities, uterine fibroids but otherwise no abdominal pathology. Nasal PCR for COVID-19 was negative. CBC did not demonstrate any leukocytosis but it also did not demonstrate any lymphopenia. CMP did not show any transaminitis. Ferritin and d-dimer were not initially ordered but have since been ordered and both are normal. Her CRP is elevated at 9.1. Pro-BNP and troponin levels are norrmal. Her potassium was low at 2.9 and she was given supplementation and her repeat level is now 3.7. She was started on monoclonal antibodies while repeat SARS-COV2 nasopharyngeal swab was obtained and surprisingly it also came back negative. She is now admitted to the hospital for treatment of an undifferentiated pneumonia w/ ground glass opacities suggestive of a viral pneumonia. Her oxygen levels are normal at 95 to 100% on room air. She will be treated w/ antibiotics (Rocephin and doxcycline; azithromycin was initially given but her EKG shows prolonged QTC of 531 msec. She also has a LBBB on her EKG of undetermined age. She denies any chest pain/pressure despite her coughing. She mostly has lower abdominal pains that she says feels like it is in her pelvis and radiating through to her back. She does not qualify for steroids nor Remdesivir and even giving her the MAB is questionable d/t negative PCR. However, repeat SARS-COV2 will be done tomorrow to ensure that this was not a false negative. Review of Systems All systems reviewed & are unremarkable except as noted in HPI and below [facility] Active Problem List (Updated 05/19/21 @ 20:47 by Kevin Sanchez) Diarrhea (Acute) Atypical pneumonia (Acute) Hypokalemia (Acute) Medical History (Updated 05/19/21 @ 20:47 by Kevin Sanchez) Acute necrotizing gingivitis Cocaine use disorder 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 Maternal Aunt , Breast CA at age 41. Neoplasm Breast CA Maternal Aunt , Breast CA at age 43. Neoplasm Breast CA Maternal Aunt , Breast CA at age 44. Neoplasm Breast CA Maternal Aunt Neoplasm Breast CA Grandmother Diabetes Social History Smoking/Tobacco Use Status: Current every day Tobacco Type: cigarettes Smoking risk assessment performed?: Yes Alcohol Intake: former Drug use: Never Substance use type: does not use Do you feel safe at home: Yes Do you feel safe in your relationship?: Yes Meds Allergies and Home Medications Allergies Allergy/AdvReac Type Severity Reaction Status Date / Time No Known Allergies Allergy Unverified 08/01/20 17:27 Home Medications Medication Instructions Recorded Confirmed Type Unknown [No Known Home Meds] 05/19/21 05/19/21 History Exam Const General: cooperative, well groomed and ill appearing acutely Nutritional Appearance: average body habitus Orientation: alert, awake and oriented x3 HENMT Head: normal to inspection, normocephalic and atraumatic Ears: hearing grossly normal bilaterally and external ears normal General nose exam: external nose normal and nares normal Face and sinus: normal facial exam Mouth: oral mucosae normal, lip normal, tongue normal, oropharynx normal and moist mucous membranes Throat: posterior oropharynx normal Eyes General: appearance normal, both eyes and all related structures Alignment and Position: alignment normal Periorbital: periorbital findings normal Eyelids: eyelids normal Conjunctivae: conjunctivae normal Sclera: sclerae normal Cornea: corneas normal Pupils: PERRL EOM: EOM intact bilaterally Neck Neck: normal visual inspection, full ROM, no lymphadenopathy, no meningeal signs, trachea midline and supple Thyroid: thyroid normal Carotids: normal carotid upstroke Lymphatic: no lymphadenopathy noted Resp Effort & Inspection: able to speak in complete sentences and tachypneic Auscultation: crackles bilaterally at the base, no rhonchi and no wheezes Cardio Jugular venous pressure: no JVD Palpation: normal PMI Rate: regular rate Rhythm: regular rhythm Heart Sounds: S1 normal, S2 normal, no gallops and no murmurs Pulses: normal peripheral pulses GI Inspection: normal to inspection Palpation: soft, no hepatosplenomegaly, no guarding, no hepatosplenomegaly and tender in the LLQ and in the RLQ; with no rebound tenderness Percussion: normal to percussion Auscultation: normal bowel sounds General: bladder normal to palpation and No CVA tenderness Bimanual Exam- Vagina & Uterus: bladder normal to palpation Back/Spine/Pelvis Back: no CVA tenderness Cervical Spine: normal cervical lordosis Thoracic/Lumbar Spine: thoracic and lumbar spine normal to inspection Skin General skin exam: elasticity normal and turgor normal Rashes: other (tatoos over both arms; left forearm has her daughter's name; right has mom) Wounds: no wounds Hair: normal Nails: normal Neuro General: patient alert, patient awake, patient oriented x3, tone normal, moves all extremities, no meningeal signs and no focal motor deficits Cognition: normal cognition Speech: speech normal Motor: muscle tone normal throughout Sensory Exam: no sensory deficits noted Extrem General: normal to inspection, full ROM and capillary refill normal Psych Appearance: grossly normal Mental Status: mental status grossly normal Speech and Movement: speech and movement normal Mood: congruent mood Affect: normal affect Attitude: cooperative Thought Process: normal Thought Content: normal Insight: insight good Judgment: judgment good Results Imaging Abdomen CT scan report/results: report reviewed CT scan - chest: report reviewed and image reviewed CT scan - pelvis: report reviewed EKG: image reviewed Labs Result diagrams: 05/19/21 06:30 05/19/21 14:40 Labs: Laboratory Results - last 24 hr 05/19/21 05/19/21 05/19/21 06:30 06:30 06:30 WBC RBC Hgb Hct MCV MCH MCHC RDW Plt Count MPV Immature Gran % Neutrophils % Lymphocytes % Monocytes % Eosinophils % Basophils % Nucleated RBC % Absolute Neutrophils Absolute Lymphocytes Absolute Monocytes Absolute Eosinophils Absolute Basophils D-Dimer VBG Lactate 1.4 Sodium 139 Potassium 2.9 L Chloride 102 Carbon Dioxide 23.3 Anion Gap 13.7 H BUN 5 L Creatinine 0.7 Estimated GFR/1.73 m2 >= 60.00 Glucose 135 H Calcium 8.9 Magnesium Ferritin Total Bilirubin 0.8 AST 11 L ALT 13 L Alkaline Phosphatase 85 Lactate Dehydrogenase Creatine Kinase Troponin I < 0.05 C-Reactive Protein NT-Pro-B Natriuret Pep Total Protein 8.4 H Albumin 4.0 Lipase 43 Procalcitonin COVID-19 Source Nasal/Nares SARS-CoV-2 (PCR) Negative Patient ABO/Rh Antibody Screen 05/19/21 05/19/21 05/19/21 06:30 06:30 06:30 WBC 10.06 RBC 3.73 L Hgb 12.1 Hct 35.5 L MCV 95.2 H MCH 32.4 MCHC 34.1 RDW 14.6 Plt Count 269 MPV 11.3 H Immature Gran % 0.3 Neutrophils % 75.6 Lymphocytes % 16.6 Monocytes % 6.7 Eosinophils % 0.6 Basophils % 0.2 Nucleated RBC % 0 Absolute Neutrophils 7.61 H Absolute Lymphocytes 1.67 Absolute Monocytes 0.67 Absolute Eosinophils 0.06 Absolute Basophils 0.02 D-Dimer VBG Lactate Sodium Potassium Chloride Carbon Dioxide Anion Gap BUN Creatinine Estimated GFR/1.73 m2 Glucose Calcium Magnesium 2.1 Ferritin Total Bilirubin AST ALT Alkaline Phosphatase Lactate Dehydrogenase Creatine Kinase Troponin I C-Reactive Protein NT-Pro-B Natriuret Pep Total Protein Albumin Lipase Procalcitonin 0.5 COVID-19 Source SARS-CoV-2 (PCR) Patient ABO/Rh Antibody Screen 05/19/21 05/19/21 05/19/21 06:30 08:40 09:20 WBC RBC Hgb Hct MCV MCH MCHC RDW Plt Count MPV Immature Gran % Neutrophils % Lymphocytes % Monocytes % Eosinophils % Basophils % Nucleated RBC % Absolute Neutrophils Absolute Lymphocytes Absolute Monocytes Absolute Eosinophils Absolute Basophils D-Dimer VBG Lactate Sodium Potassium Chloride Carbon Dioxide Anion Gap BUN Creatinine Estimated GFR/1.73 m2 Glucose Calcium Magnesium Ferritin 52 Total Bilirubin AST ALT Alkaline Phosphatase Lactate Dehydrogenase 193 Creatine Kinase 86 Troponin I C-Reactive Protein 9.14 H NT-Pro-B Natriuret Pep 181 Total Protein Albumin Lipase Procalcitonin COVID-19 Source NASOPHARYX SARS-CoV-2 (PCR) Negative Patient ABO/Rh Antibody Screen 05/19/21 05/19/21 05/19/21 09:20 09:20 09:20 WBC RBC Hgb Hct MCV MCH MCHC RDW Plt Count MPV Immature Gran % Neutrophils % Lymphocytes % Monocytes % Eosinophils % Basophils % Nucleated RBC % Absolute Neutrophils Absolute Lymphocytes Absolute Monocytes Absolute Eosinophils Absolute Basophils D-Dimer 255 VBG Lactate Sodium Potassium Chloride Carbon Dioxide Anion Gap BUN Creatinine Estimated GFR/1.73 m2 Glucose Calcium Magnesium Ferritin Total Bilirubin AST ALT Alkaline Phosphatase Lactate Dehydrogenase Creatine Kinase Troponin I < 0.05 C-Reactive Protein NT-Pro-B Natriuret Pep Total Protein Albumin Lipase Procalcitonin COVID-19 Source SARS-CoV-2 (PCR) Patient ABO/Rh A Positive Antibody Screen NEGATIVE 05/19/21 14:40 WBC RBC Hgb Hct MCV MCH MCHC RDW Plt Count MPV Immature Gran % Neutrophils % Lymphocytes % Monocytes % Eosinophils % Basophils % Nucleated RBC % Absolute Neutrophils Absolute Lymphocytes Absolute Monocytes Absolute Eosinophils Absolute Basophils D-Dimer VBG Lactate Sodium Potassium 3.7 D Chloride Carbon Dioxide Anion Gap BUN Creatinine Estimated GFR/1.73 m2 Glucose Calcium Magnesium Ferritin Total Bilirubin AST ALT Alkaline Phosphatase Lactate Dehydrogenase Creatine Kinase Troponin I < 0.05 C-Reactive Protein NT-Pro-B Natriuret Pep Total Protein Albumin Lipase Procalcitonin COVID-19 Source SARS-CoV-2 (PCR) Patient ABO/Rh Antibody Screen Last Vital Signs Temp 36.3 C L 05/19/21 10:26 Pulse 101 H 05/19/21 15:03 Resp 18 05/19/21 11:20 BP 112/75 05/19/21 10:26 Pulse Ox 95 05/19/21 11:20
[2021-05-19] MEDS: DOXYCYCLINE 100 MG in Normal Saline 100 ML IVPB (18:39)
[2021-05-19] MEDS: Normal Saline Flush 10 ML SYR IVP (20:56)
[2021-05-19] MEDS: Normal Saline 500 ML 30 ML IV (20:58)
[2021-05-19] MEDS: Benzonatate 200 MG CAP PO (21:04)
[2021-05-19] MEDS: guaiFENesin/D-METHORPHAN HB 5 ML CUP 10 ML PO (21:05)
[2021-05-20] MEDS: DOXYCYCLINE 100 MG in Normal Saline 100 ML IVPB ×2 (06:00→17:51)
[2021-05-20 07:03] VITALS: PULSE 75
[2021-05-20] MEDS: Benzonatate 200 MG CAP PO ×3 (08:39→20:04)
[2021-05-20 08:44] VITALS: BP 100/66; PULSE 90; RESP 22; TEMP 36.5; O2SAT 98
--- NOTE | 2021-05-20 10:26 | INITIAL_ITS ---
- If Service Date Differs Date of service: 05/20/21 Time of Service: 10:26 Care Management Initial Assess REASON FOR HOSPITALIZATION:: Fever, Dyspnea, Probable Covid 19 Pneumonia PAST MEDICAL HISTORY/PAST SURGICAL HISTORY:: Diarrhea (Acute). Atypical pneumo verna (Acute). Hypokalemia (Acute). Acute necrotizing gingivitis. Cocaine use disorder. remission last 4 years. Hepatitis C. Hyperlipidemia, unspecified (06/16/17). IFG (impaired fasting glucose) (06/16/17). Opioid use disorder. Substance use disorder. Tobacco use disorder. left medial minisectomy (03/17/10). Ligation of fallopian tube (08/19/05). Replacement of total knee joint (~2015). left PREVIOUS FUNCTIONAL STATUS/SOCIAL/FAMILY SUPPORTS:: Resides in [facility], , independent at baseline in the community. CURRENT FUNCTIONAL STATUS:: Mora is currently on med/surg in isolation for CV- 19. ADVANCE DIRECTIVES:: None on file Has patient been provided with info about the portal/API?: Yes Did the patient sign up for the portal?: No CODE STATUS:: Full Code INSURANCE COVERAGE / FINANCIAL ISSUES:: None-[facility] referral anticipated CURRENT HOME/COMMUNITY SERVICES/EQUIPMENT:: None, currently. PRIMARY CARE PHYSICIAN:: Maranda Gamboa POTENTIAL DISCHARGE NEEDS:: Follow up appointments. PATIENT/FAMILY EDUCATION NEEDS:: Review of options for insurance attachment. ANTICIPATED BARRIERS TO DISCHARGE:: None identified. TRANSPORTATION:: Via private vehicle. PLAN:: Anticipate Mora will return home when ready per MD. She will follow up with her PCP and plan of care as prescribed. She will transport via private vehicle with family or a friend.
[2021-05-20 11:13] LABS: HIV-1/2 Ag & Ab Screen Negative (Negative)
[2021-05-20] MEDS: Enoxaparin 40 MG/0.4 ML SYR SC (11:24)
[2021-05-20] MEDS: cefTRIAXone 2 GM/50 ML BAG IVPB (11:24)
[2021-05-20 11:27] LABS: HCT 30.1 % (36.0-46.0); MCV 96.8 fL (80-95); RBC 3.11 10^6/uL (3.93-5.22); WBC 5.34 10^3/uL (4.4-10.8)
[2021-05-20 11:28] LABS: Abs Immature Grans 0.02 10^3/uL (0.0-0.06); Absolute Basophil Count 0.02 10^3/uL (0.0-0.2); Absolute Lymphocyte Count 1.54 10^3/uL (1.2-3.4); Absolute Monocyte Count 0.41 10^3/uL (0.1-0.8); Absolute Neutrophil Count 3.15 10^3/uL (1.2-6.7); Basophils % 0.4; Eosinophils % 3.7; Immature Grans % 0.4; Lymphocytes % 28.8; MCH 32.2 pg (27.0-33.0); MCHC 33.2 % (32.0-36.0); MPV 11.7 fL (8.0-11.0); Monocytes % 7.7; Nucleated RBC 0 %; Platelet Count 199 10^3/uL (130-400); RDW 14.8 % (11.7-14.6); RDW-SD 52.8 fL
[2021-05-20 11:29] LABS: Calcium 7.9 mg/dL (8.5-10.1)
[2021-05-20 11:30] LABS: ALT 12 U/L (14-59); AST 7 U/L (15-37); Albumin 2.7 g/dL (3.4-5.0); Alkaline Phosphatase 60 U/L (46-116); Anion Gap 9.7 mmol/L (3-11); BUN 3 mg/dL (7-18); Bilirubin, Total 0.3 mg/dL (0.2-1.0); CO2 25.3 mmol/L (21.0-32.0); CREATININE 0.5 mg/dL (0.55-1.02); Chloride 109 mmol/L (98-107); Ferritin 41 ng/mL (8-252); Glucose 99 mg/dL (74-106); Potassium 3.6 mmol/L (3.5-5.1); Sodium 144 mmol/L (136-145); TSH (W/Ref FT4) 0.77 uIU/mL (0.36-3.74); Total Protein 6.2 g/dL (6.4-8.2)
[2021-05-20 11:31] LABS: C-Reactive Protein 7.44 mg/dL (0.0-0.3)
[2021-05-20 12:39] LABS: HBs Antibody, Qual Negative (See Note); HBs Antibody, Quant <3.1 mIU/mL (See Note); Hepatitis B Core Antibody Negative (Negative); Hepatitis B surface Ag Negative (Negative); Hepatitis C Ab w Rflx HCV PCR Reactive (Negative)
[2021-05-20 14:38] VITALS: BP 119/74; PULSE 89; RESP 20; TEMP 36; O2SAT 96
--- NOTE | 2021-05-20 14:46 | PGE_ITS ---
Date of Service Date of service: 05/20/21 Time of Service: 14:46 Assessment and Plan Assessment and plan (1) Atypical pneumonia: Status: Acute Assessment and plan: Differential diagnosis includes COVID-19 pneumonia versus other viral pneumonias i.e. RSV, other adenoviruses, versus mycoplasma. Awaiting results of atypical studies as well as repeat nasopharyngeal PCR testing for SARS-CoV-2. Continue supportive care with antitussives, acapella, I-S. We will treat her insomnia with Richard kurtz. Continue current antimicrobial therapy with Rocephin and doxycycline. Of note her CRP was elevated at 9.1 and has come down slightly to 7.4 today and her procalcitonin level on admission was elevated at 0.5. I will recheck her CRP and procalcitonin in the morning. The rest of her inflammatory markers were unremarkable including a normal ferritin level, normal D-dimer, normal troponin, normal LDH and normal transaminases. Also she never had a lymphocytopenia which is in contradistinction to SARS-CoV-2 pneumonia. I will ask Dr. Amanda Joya, cook house laborer to consult on the case tomorrow morning. Subjective Subjective Interval history since last seen: Mora is still having a harsh dry cough. She said she did not sleep well last night. I told her I would give her some Richard kurtz to see if she gets better sleep. Because she has had two negative nasal swabs for PCR testing for COVID-19 I have ordered antibody testing for the core antibody against SARS-CoV-2 and I have ordered repeat nasopharyngeal PCR. I spoke with Dr. Leandro Emanuel, pathologist, about this patient's particular case and he indicated that they are going to run it on a different SARS-CoV-2 platform and if this third test is negative then I think we have to consider either she has an alternative atypical or another viral pneumonia or perhaps she is in a recovery phase from SARS-CoV-2 is no longer shedding virus. He indicated to me that they generally do not order core antibody testing against SARS-CoV-2 but I told him that it would be helpful to know whether she is in the recovery phase from SARS-CoV-2 or do we need to still consider alternative causes for her groundglass pneumonic infiltrates and symptoms of cough and dyspnea. Fortunately the patient has not become hypoxemic has not required further support. Patient did receive monoclonal antibodies while in the emergency department against SARS-CoV-2. However this should not affect the testing for the core antibodies. Exam Narrative Exam Narrative: Thin middle-aged white female sitting up in her bed watching TV talking with her nurse she is wearing her mask. Lungs with bibasilar fine rales no rhonchi no expiratory wheezing Heart regular rate and rhythm Abdomen soft nondistended nontender to palpation Objective Last Vital Signs Temp 36.0 C L 05/20/21 14:38 Pulse 89 05/20/21 14:38 Resp 20 05/20/21 14:38 BP 119/74 05/20/21 14:38 Pulse Ox 96 05/20/21 14:38 Laboratory Results - last 24 hr 05/19/21 05/19/21 05/19/21 09:20 09:20 14:40 WBC RBC Hgb Hct MCV MCH MCHC RDW Plt Count MPV Immature Gran % Neutrophils % Lymphocytes % Monocytes % Eosinophils % Basophils % Nucleated RBC % Absolute Neutrophils Absolute Lymphocytes Absolute Monocytes Absolute Eosinophils Absolute Basophils Sodium Potassium 3.7 D Chloride Carbon Dioxide Anion Gap BUN Creatinine Estimated GFR/1.73 m2 Glucose Calcium Ferritin Total Bilirubin AST ALT Alkaline Phosphatase Troponin I < 0.05 C-Reactive Protein Total Protein Albumin TSH COVID-19 Source Hep Bs Antigen Negative Hep Bs Antibody Negative Hep Bs Antibody, Quant <3.1 Hep B Core Total Ab Negative Hepatitis C Antibody Reactive A HIV 1&2 Ag/Ab, 4th Gen Negative 05/20/21 05/20/21 05/20/21 07:00 07:00 11:53 WBC 5.34 D RBC 3.11 L Hgb 10.0 L D Hct 30.1 L MCV 96.8 H MCH 32.2 MCHC 33.2 RDW 14.8 H Plt Count 199 MPV 11.7 H Immature Gran % 0.4 Neutrophils % 59.0 Lymphocytes % 28.8 Monocytes % 7.7 Eosinophils % 3.7 Basophils % 0.4 Nucleated RBC % 0 Absolute Neutrophils 3.15 Absolute Lymphocytes 1.54 Absolute Monocytes 0.41 Absolute Eosinophils 0.20 Absolute Basophils 0.02 Sodium 144 Potassium 3.6 Chloride 109 H Carbon Dioxide 25.3 Anion Gap 9.7 BUN 3 L Creatinine 0.5 L Estimated GFR/1.73 m2 >= 60.00 Glucose 99 Calcium 7.9 L Ferritin 41 Total Bilirubin 0.3 AST 7 L ALT 12 L Alkaline Phosphatase 60 Troponin I C-Reactive Protein 7.44 H Total Protein 6.2 L Albumin 2.7 L TSH 0.77 COVID-19 Source NASOPHARYX Hep Bs Antigen Hep Bs Antibody Hep Bs Antibody, Quant Hep B Core Total Ab Hepatitis C Antibody HIV 1&2 Ag/Ab, 4th Gen
[2021-05-20 16:42] VITALS: BP 103/71; PULSE 84; RESP 12; TEMP 36.6; O2SAT 96
[2021-05-20 17:36] LABS: COVID-19 PCR Negative (Negative)
[2021-05-20 18:38] LABS: Legionella Ag Detection Urine Negative (Negative)
[2021-05-20 19:56] VITALS: BP 101/75; PULSE 82; RESP 14; TEMP 36; O2SAT 96
[2021-05-20] MEDS: guaiFENesin/D-METHORPHAN HB 5 ML CUP 10 ML PO (21:37)
[2021-05-20] MEDS: Zolpidem 6.25 MG TABCR PO (21:37)
[2021-05-20 22:00] LABS: Influenza A RNA Result Negative (Negative); Influenza B RNA Result Negative (Negative); RSV RNA Result Negative (Negative)
[2021-05-21 00:30] VITALS: BP 103/70; PULSE 76; RESP 18; TEMP 35; O2SAT 97
[2021-05-21 04:20] VITALS: BP 100/65; PULSE 71; RESP 16; TEMP 36.5; O2SAT 97
[2021-05-21] MEDS: DOXYCYCLINE 100 MG in Normal Saline 100 ML IVPB (05:52)
[2021-05-21 06:58] VITALS: PULSE 69
[2021-05-21 07:13] LABS: Abs Immature Grans 0.02 10^3/uL (0.0-0.06); Absolute Basophil Count 0.02 10^3/uL (0.0-0.2); Absolute Eosinophil Count 0.24 10^3/uL (0.0-0.7); Absolute Lymphocyte Count 1.45 10^3/uL (1.2-3.4); Absolute Monocyte Count 0.33 10^3/uL (0.1-0.8); Absolute Neutrophil Count 1.58 10^3/uL (1.2-6.7); Basophils % 0.5; Eosinophils % 6.6; HCT 29.2 % (36.0-46.0); HGB 9.5 g/dL (11.2-15.7); Immature Grans % 0.5; Lymphocytes % 39.8; MCH 31.8 pg (27.0-33.0); MCHC 32.5 % (32.0-36.0); MCV 97.7 fL (80-95); MPV 11.8 fL (8.0-11.0); Monocytes % 9.1; Neutrophils % 43.5; Nucleated RBC 0 %; Platelet Count 216 10^3/uL (130-400); RBC 2.99 10^6/uL (3.93-5.22); RDW 14.6 % (11.7-14.6); RDW-SD 51.9 fL; WBC 3.64 10^3/uL (4.4-10.8)
[2021-05-21 07:33] LABS: ALT 10 U/L (14-59); AST 6 U/L (15-37); Albumin 2.6 g/dL (3.4-5.0); Alkaline Phosphatase 53 U/L (46-116); Anion Gap 10.5 mmol/L (3-11); BUN 5 mg/dL (7-18); Bilirubin, Total 0.2 mg/dL (0.2-1.0); CO2 23.5 mmol/L (21.0-32.0); CREATININE 0.5 mg/dL (0.55-1.02); Calcium 7.7 mg/dL (8.5-10.1); Chloride 110 mmol/L (98-107); Glucose 97 mg/dL (74-106); Potassium 3.9 mmol/L (3.5-5.1); Sodium 144 mmol/L (136-145); Total Protein 6.2 g/dL (6.4-8.2)
[2021-05-21 08:23] VITALS: BP 105/75; PULSE 76; RESP 19; TEMP 36; O2SAT 98
[2021-05-21] MEDS: Benzonatate 200 MG CAP PO ×2 (08:23→13:45)
[2021-05-21 08:41] LABS: Clarity Cloudy (Clear)
[2021-05-21 08:44] LABS: Bacteria Moderate HPF (Negative); Bilirubin Negative (Negative); Blood Large (Negative); Casts Negative LPF (Negative); Crystals Negative HPF (Negative); Epithelial Cells Few HPF (Negative); Glucose Negative (Negative); Ketones Negative (Negative); Leukocyte Esterase Small (Negative); Mucus Negative (Negative); Nitrite Negative (Negative); RBC >50 HPF (0-2); Specific Gravity 1.015 (1.005-1.025); Urobilinogen 0.2 EU/dL (Up TO 0.2); WBC >50 HPF (0-5); pH 6.5 (5-8)
[2021-05-21 08:45] LABS: C & S Indicated? Yes
--- NOTE | 2021-05-21 08:49 | PUCON_ITS ---
General Date Of Service Date of service: 05/21/21 Time of Service: 08:00 Reason for Consult: Abnormal CT SOB Assessment and Plan Assessment and plan (1) Diarrhea: Status: Acute Qualifiers: Diarrhea type: unspecified type Qualified Code(s): R19.7 - Diarrhea, unspecified (2) Atypical pneumonia: Status: Acute (3) Tobacco use disorder: Assessment and plan: This is a 40 yo female admitted for atypical pneumonia. Given the data available, it seems most likely that she is suffering from a viral syndrome that is unlikely to be COVID given [address] negative tests. The chest CT findings, SOB, dry cough and diarrhea point to a viral syndrome. She is on room air and is likely safe for transfer. She should have repeat imaging completed in 2-3 months to ensure that the abnormalities seen in her lungs resolved once she is better from her infection. Viral Syndrome - continue Tessalon Pearles and prn cough syrup - can complete a PO course of antibiotics for atypical pneumonia such as doxycycline - recommend repeat chest imaging in 3 months to assess resolution of infiltrate seen on chest CT - continue good hydration History of Present Illness Narrative: This is a 40 yo female who was admitted for pneumonia and a concern for COVID. She had worsening shortness of breath, dry cough and diarrhea. She also had a significant COVID exposure 2 weeks ago. She was admitted for COVID r/o and has had 3 negative COVID tests during her admission. Her urine antigens are negative for strep pneumo and legionella and her procalcitonin in borderline. She has remained on COVID precautions out of an abundance of caution given her symptoms. Her flu and RSV are negative. She has been receiving ceftriaxone and doxycycline without improvement in her symptoms. She tells me that she has a dry hacking cough and has not been producing much in the way of sputum. She is a smoker (1 pack lasts her 1 week). She denies vaping or other drug inhalations. She does say that her appetite is slowly improving. Looking at her CT, her findings are most consistent with an atypical pneumonia, likely viral given her work up thus far. 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 Maternal Aunt , Breast CA at age 41. Neoplasm Breast CA Maternal Aunt , Breast CA at age 43. Neoplasm Breast CA Maternal Aunt , Breast CA at age 44. Neoplasm Breast CA Maternal Aunt Neoplasm Breast CA Grandmother Diabetes Social History Smoking/Tobacco Use Status: Current every day Tobacco Type: cigarettes Smoking risk assessment performed?: Yes Alcohol Intake: former Drug use: Never Substance use type: does not use Do you feel safe at home: Yes Do you feel safe in your relationship?: Yes Visit Medication and Allergies Active Medications Generic Name Dose Route Start Last Admin Trade Name Freq PRN Reason Stop Dose Admin Acetaminophen 0 mg 05/19/21 08:30 Acetaminophen 325 Mg Tab PO Q4H PRN PRN Al Hydrox/Mg Hydrox/Simethicone 30 ml 05/19/21 08:30 Mylanta Suspension 30 Ml Cup PO Q2H PRN PRN Benzonatate 200 mg 05/19/21 20:50 05/21/21 08:23 Benzonatate 200 Mg Cap PO 200 mg TID RADHA Administration Dimethicone/Zinc Oxide 0 gm 05/19/21 08:30 Adeline Protect Cream 142 Gm Tube TP PRN PRN Docusate Sodium 100 mg 05/19/21 08:30 Docusate Sodium 100 Mg Cap PO TID PRN PRN Enoxaparin Sodium 40 mg 05/19/21 10:00 05/20/21 11:24 Enoxaparin 40 Mg/0.4 Ml Syr SC 40 mg Q24H RADHA Administration Guaifenesin/Dextromethorphan 10 ml 05/19/21 20:50 05/20/21 21:37 Guaifenesin/D-Methorphan Hb 5 Ml Cup PO 10 ml Q4H PRN PRN Administration Ceftriaxone Sodium/Dextrose 2 gm in 50 mls @ 100 mls/hr 05/19/21 12:00 05/20/21 11:24 Rocephin IVPB 100 mls/hr Q24H RADHA Administration Doxycycline Hyclate 100 mg/ 100 mls @ 100 mls/hr 05/19/21 18:00 05/21/21 05:52 Sodium Chloride IVPB 100 mls/hr Q12H RADHA Administration Magnesium Hydroxide 30 ml 05/19/21 08:30 Milk Of Magnesia 30 Ml Cup PO DAILY PRN PRN Polyethylene Glycol 17 gm 05/19/21 08:30 Polyethylene Glycol 3350 17 Gm Packet PO DAILY PRN PRN Constipation Zolpidem Tartrate 6.25 mg 05/20/21 22:00 05/20/21 21:37 Zolpidem 6.25 Mg Tabcr PO 6.25 mg HS RADHA Administration Allergies No Known Allergies Allergy (Unverified 08/01/20 17:27) Exam Const General: no acute distress Nutritional Appearance: well nourished [facility] Head: normocephalic Ears: external ears normal and no periauricular adenopathy General nose exam: external nose normal Face and sinus: sinuses nontender Mouth: oropharynx normal and moist mucous membranes Teeth and gingiva: caries and poor dentition Eyes General: appearance normal, both eyes and all related structures Pupils: PERRL Neck Neck: normal visual inspection and no lymphadenopathy Chest Chest: normal inspection of the chest Resp Effort & Inspection: normal respiratory effort Auscultation: clear to auscultation bilaterally, no rales, no rhonchi and no wheezes Cardio Rate: regular rate Rhythm: regular rhythm Heart Sounds: S1 normal, S2 normal and no murmurs Pulses: radial pulses present bilaterally GI Inspection: normal to inspection Palpation: soft Skin General skin exam: no rashes or lesions noted Neuro General: patient alert, patient awake and patient oriented x3 Extrem General: no clubbing, cyanosis or edema Psych Mental Status: mental status grossly normal Affect: normal affect Attitude: cooperative Results Last Vital Signs Temp 36.0 C L 05/21/21 08:23 Pulse 76 05/21/21 08:23 Resp 19 05/21/21 08:23 BP 105/75 05/21/21 08:23 Pulse Ox 98 05/21/21 08:23 Labs Result diagrams: 05/21/21 06:15 05/21/21 06:15 Labs: Laboratory Results - last 24 hr 05/19/21 05/19/21 05/19/21 09:20 09:20 21:00 WBC RBC Hgb Hct MCV MCH MCHC RDW Plt Count MPV Immature Gran % Neutrophils % Lymphocytes % Monocytes % Eosinophils % Basophils % Nucleated RBC % Absolute Neutrophils Absolute Lymphocytes Absolute Monocytes Absolute Eosinophils Absolute Basophils Sodium Potassium Chloride Carbon Dioxide Anion Gap BUN Creatinine Estimated GFR/1.73 m2 Glucose Calcium Ferritin Total Bilirubin AST ALT Alkaline Phosphatase C-Reactive Protein Total Protein Albumin TSH Urine Color Urine Clarity Urine pH Ur Specific [place] Urine Protein Urine Ketones Urine Blood Urine Nitrite Urine Bilirubin Urine Urobilinogen Ur Leukocyte Esterase Urine RBC Urine WBC Ur Epithelial Cells Urine Crystals Urine Bacteria Urine Casts Urine Mucus Ur Culture Indicated? Urine Glucose Specimen Type Not Applicable COVID-19 Source SARS-CoV-2 (PCR) Hep Bs Antigen Negative Hep Bs Antibody Negative Hep Bs Antibody, Quant <3.1 Hep B Core Total Ab Negative Hepatitis C Antibody Reactive A HIV 1&2 Ag/Ab, 4th Gen Negative Influenza Type A RNA Negative Influenza Type B RNA Negative Urine Legionella Ag RSV RNA Qual (PCR) Negative 05/20/21 05/20/21 05/20/21 07:00 07:00 09:30 WBC 5.34 D RBC 3.11 L Hgb 10.0 L D Hct 30.1 L MCV 96.8 H MCH 32.2 MCHC 33.2 RDW 14.8 H Plt Count 199 MPV 11.7 H Immature Gran % 0.4 Neutrophils % 59.0 Lymphocytes % 28.8 Monocytes % 7.7 Eosinophils % 3.7 Basophils % 0.4 Nucleated RBC % 0 Absolute Neutrophils 3.15 Absolute Lymphocytes 1.54 Absolute Monocytes 0.41 Absolute Eosinophils 0.20 Absolute Basophils 0.02 Sodium 144 Potassium 3.6 Chloride 109 H Carbon Dioxide 25.3 Anion Gap 9.7 BUN 3 L Creatinine 0.5 L Estimated GFR/1.73 m2 >= 60.00 Glucose 99 Calcium 7.9 L Ferritin 41 Total Bilirubin 0.3 AST 7 L ALT 12 L Alkaline Phosphatase 60 C-Reactive Protein 7.44 H Total Protein 6.2 L Albumin 2.7 L TSH 0.77 Urine Color Red Urine Clarity Cloudy Urine pH 6.5 Ur Specific [place] 1.015 Urine Protein 100 H Urine Ketones Negative Urine Blood Large H Urine Nitrite Negative Urine Bilirubin Negative Urine Urobilinogen 0.2 Ur Leukocyte Esterase Small Urine RBC >50 H Urine WBC >50 H Ur Epithelial Cells Few Urine Crystals Negative Urine Bacteria Moderate Urine Casts Negative Urine Mucus Negative Ur Culture Indicated? Yes Urine Glucose Negative Specimen Type COVID-19 Source SARS-CoV-2 (PCR) Hep Bs Antigen Hep Bs Antibody Hep Bs Antibody, Quant Hep B Core Total Ab Hepatitis C Antibody HIV 1&2 Ag/Ab, 4th Gen Influenza Type A RNA Influenza Type B RNA Urine Legionella Ag RSV RNA Qual (PCR) 05/20/21 05/20/21 05/21/21 09:30 11:53 06:15 WBC RBC Hgb Hct MCV MCH MCHC RDW Plt Count MPV Immature Gran % Neutrophils % Lymphocytes % Monocytes % Eosinophils % Basophils % Nucleated RBC % Absolute Neutrophils Absolute Lymphocytes Absolute Monocytes Absolute Eosinophils Absolute Basophils Sodium 144 Potassium 3.9 Chloride 110 H Carbon Dioxide 23.5 Anion Gap 10.5 BUN 5 L Creatinine 0.5 L Estimated GFR/1.73 m2 >= 60.00 Glucose 97 Calcium 7.7 L Ferritin Total Bilirubin 0.2 AST 6 L ALT 10 L Alkaline Phosphatase 53 C-Reactive Protein 3.10 H Total Protein 6.2 L Albumin 2.6 L TSH Urine Color Urine Clarity Urine pH Ur Specific [place] Urine Protein Urine Ketones Urine Blood Urine Nitrite Urine Bilirubin Urine Urobilinogen Ur Leukocyte Esterase Urine RBC Urine WBC Ur Epithelial Cells Urine Crystals Urine Bacteria Urine Casts Urine Mucus Ur Culture Indicated? Urine Glucose Specimen Type COVID-19 Source NASOPHARYX SARS-CoV-2 (PCR) Negative Hep Bs Antigen Hep Bs Antibody Hep Bs Antibody, Quant Hep B Core Total Ab Hepatitis C Antibody HIV 1&2 Ag/Ab, 4th Gen Influenza Type A RNA Influenza Type B RNA Urine Legionella Ag Negative RSV RNA Qual (PCR) 05/21/21 06:15 WBC 3.64 L D RBC 2.99 L Hgb 9.5 L Hct 29.2 L MCV 97.7 H MCH 31.8 MCHC 32.5 RDW 14.6 Plt Count 216 MPV 11.8 H Immature Gran % 0.5 Neutrophils % 43.5 Lymphocytes % 39.8 Monocytes % 9.1 Eosinophils % 6.6 Basophils % 0.5 Nucleated RBC % 0 Absolute Neutrophils 1.58 Absolute Lymphocytes 1.45 Absolute Monocytes 0.33 Absolute Eosinophils 0.24 Absolute Basophils 0.02 Sodium Potassium Chloride Carbon Dioxide Anion Gap BUN Creatinine Estimated GFR/1.73 m2 Glucose Calcium Ferritin Total Bilirubin AST ALT Alkaline Phosphatase C-Reactive Protein Total Protein Albumin TSH Urine Color Urine Clarity Urine pH Ur Specific [place] Urine Protein Urine Ketones Urine Blood Urine Nitrite Urine Bilirubin Urine Urobilinogen Ur Leukocyte Esterase Urine RBC Urine WBC Ur Epithelial Cells Urine Crystals Urine Bacteria Urine Casts Urine Mucus Ur Culture Indicated? Urine Glucose Specimen Type COVID-19 Source SARS-CoV-2 (PCR) Hep Bs Antigen Hep Bs Antibody Hep Bs Antibody, Quant Hep B Core Total Ab Hepatitis C Antibody HIV 1&2 Ag/Ab, 4th Gen Influenza Type A RNA Influenza Type B RNA Urine Legionella Ag RSV RNA Qual (PCR)
[2021-05-21] MEDS: cefTRIAXone 2 GM/50 ML BAG IVPB (11:35)
[2021-05-21] MEDS: Enoxaparin 40 MG/0.4 ML SYR SC (11:36)
[2021-05-21 13:13] VITALS: PULSE 75
--- NOTE | 2021-05-21 13:19 | DSE_ITS ---
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 Patient states that she was exposed to her friend and her friend's children who have COVID-19. Exposure took place approximately 10 days ago. 3 days after exposure she started with her symptoms which was a week ago. At first her symptoms were just loss of sense of taste and smell but was followed by harsh non-productive cough and now she is having fevver up to 101.6 (her temp at home) and now she also has symptoms of nausea but no vomiting and she has been having diarrhea and crampy abdominal pain. She reportedly had some blood w/ her stools today. Workup in the ER included CT scan of the chest/abdomen/pelvis which showed bilateral patchy ground glass opacities, uterine fibroids but otherwise no abdominal pathology. Nasal PCR for COVID-19 was negative. CBC did not demonstrate any leukocytosis but it also did not demonstrate any lymphopenia. CMP did not show any transaminitis. Ferritin and d-dimer were not initially ordered but have since been ordered and both are normal. Her CRP is elevated at 9.1. Pro-BNP and troponin levels are norrmal. Her potassium was low at 2.9 and she was given supplementation and her repeat level is now 3.7. She was started on monoclonal antibodies while repeat SARS-COV2 nasopharyngeal swab was obtained and surprisingly it also came back negative. She is now admitted to the hospital for treatment of an undifferentiated pneumonia w/ ground glass opacities suggestive of a viral pneumonia. Her oxygen levels are normal at 95 to 100% on room air. She will be treated w/ antibiotics (Rocephin and doxcycline; azithromycin was initially given but her EKG shows prolonged QTC of 531 msec. She also has a LBBB on her EKG of undetermined age. She denies any chest pain/pressure despite her coughing. She mostly has lower abdominal pains that she says feels like it is in her pelvis and radiating through to her back. She does not qualify for steroids nor Remdesivir and even giving her the MAB is questionable d/t negative PCR. However, repeat SARS-COV2 will be done tomorrow to ensure that this was not a false negative. Bilateral ground glass opacifications on her admission CT scan c/w viral pneumonitis. Clinically patient improved on doxycycline and Rocephin and bronchodilators but she was not given steroids and multiple nasal and naso- pharyngeal swabs by PCR were negative for SARS-COV2. Nevertheless patient did receive the monoclonal antibody infusion while in the ER. This was given when the first nasal swab was negative and the 2nd OVERLOCK HEMMER swab was pending. Her other lab markers that usually are present in COVID-19 were absent including she had normal d-dimer, she did not have a lymphocytopenia and she did not have elevation of her LDH nor her transaminases. Legionella antigen was negative. Influenza A and B PCR and RSV PCR testing were all negative. Urine strep antigen is pending. Patient never required oxygen supplementation and never went on corticosteroids. Patient will be dc home on 5 days of doxycycline along w/ cough medicine and instructions to stop smoking, get a flu vaccine, get a COVID vaccine and to get repeat CT scan of her chest in 3 months to ensure complete resolution of her bilateral ground glass opacifications. (2) Diarrhea: Status: Resolved Asessment and Plan: part of her viral syndrome and this has resolved. lactoferrin was negative. therefore no evidence for infectious diarrhea. (3) Tobacco use disorder: Asessment and Plan: patient is encouraged to quit smoking. (4) Pneumonia due to COVID-19 virus: Status: Ruled-out Asessment and Plan: Covid pneumonia was ruled out by multiple nasal and nasal-pharyngeal PCR tests. Also many of her labs did not fit the picture of COVID-19 including normal LFT's, normal d-dimer, and lack of a lymphocytopenia. Her bilateral ground glass opacifications on her CT scan are probably d/t another viral pneumonitis. Discharge Plan Disposition Patient Disposition: HOME Condition: Improving Discharge Details Reason For Visit: Fever, Dyspnea, Probable Covid 19 Pneumonia Admit Date/Time: 05/19/21 08:25 Admit Provider: Kevin Sanchez Attending Provider: Kevin Sanchez Primary Care Provider: Maranda Gamboa Home Meds and New Rx's Prescriptions: New doxycycline hyclate 100 mg tablet 100 mg PO BID Qty: 10 RF: 0 benzonatate 200 mg capsule 200 mg PO TID PRN5 Days Qty: 15 RF: 0 guaifenesin [Mucinex] 600 mg tablet extended release 12hr 600 mg PO BID PRN (Reason: congestion) 5 Days Qty: 10 RF: 0 hydrocodone-chlorpheniramine 10-8 mg/5 mL suspension,extended rel 12 hr 5 ml PO Q12H PRN (Reason: cough) Qty: 70 RF: 0 Discharge Instructions Instructions: Viral Pneumonia (DC), Superficial Thrombophlebitis (DC), COVID- 19: Slow the Coronavirus Spread (DC), Face Coverings (Masks) and COVID-19 (DC) Additional Instructions: You presented w/ a viral syndrome of cough, dyspnea and diarrhea and were found to have an atypical pneumonin on your CT scan of the chest which demonstrated bilateral diffuse ground glass opacities. Because of your recent exposure to people w/ Covid-19 there was a high suspicion that you might have Covid-19. However, you have had multiple nasal and nasal/pharyngeal swabs to test for the SARS-Cov2 virus and you have been negative 3 times. This makes it certain w/ great accuracy that you are not currently suffering w/ COVID-19. Your vital signs have been stable and your oxygen levels are normal. You can be safely discharged home. You were treated w/ iv antibiotics but we did not identify any particular organisms. Your blood cultures showed no growth of bacteria. Your studies for Legionella, and for RSV virus as well as for Strep were negative. You are being sent home on a 5 day course of doxycycline which is an antibiotic that treats for atypical bacterial organisms such as mycoplasma. You should get a COVID-19 vaccine in the next 2 to 4 weeks after your recovery. You should wear a mask when out of your home to avoid your coming in contact w/ people who do have COVID-19. Avoid family member who are ill w/ COVID-19 even if you do have your claudia on. Anyone diagnosed w/ Covid-19 will be contagious for 10 to 14 days after they develope symptoms. It is recommended by Dr. Kwan, the drywall application supervisor that you have a follow up CT scan of your chest in 3 months to ensure that there has been complete resolution of the ground glass changes in your lungs. You should try to quit smoking as continued smoking will further damage your lungs. Be sure to get a flu shot after you recover from your current illness. You developed a superficial vein thrombosis in your right arm as a result of an infiltrated iv in which you recevied parenteral potassium supplement. This appears to be improving but you should try to elevate the right arm and use a warming pack or pad to help the thrombosis to resolve. Do this for 3 days. If there is any redness or worsening of the swelling or it looks like it is spredding into the upper arm then return to the ER for evaluation. Stand Alone Forms: Nursing Discharge Form Referrals: Maranda Gamboa NP [Primary Care Provider] - 06/04/21 3:00 pm Activity:: Activity as Tolerated Equipment/Supplies:: No Equipment Needed Diet:: Normal Diet Discharge Orders Discharge Orders: Discharge Order (Routine); Ordered 05/21/21 Ordered By: Kevin Sanchez Other Ambulatory Orders: Basic Metabolic Panel (Routine) Timeframe: 3 Months Facility: [facility] - Location: Laboratory Outpatient Ordered By: Kevin Sanchez CT chest w (Routine) Timeframe: 3 Months Facility: [facility] - Location: DIAGNOSTIC IMAGING DEPT Ordered By: Kevin Sanchez DS: Summary Time Spent with Patient providing and/or coordinating discharge services: Less than 30 minutes Status at Discharge Functional status at discharge: independent ambulation Overall status at discharge: patient is progressing back to baseline Mental Status: mental status grossly normal Speech and Movement: speech and movement normal Mood: congruent mood Affect: normal affect Exam Narrative Exam Narrative: Thin middle-aged white female sitting up in her bed watching TV. she is wearing her mask. Lungs with bibasilar fine rales no rhonchi no expiratory wheezing Heart regular rate and rhythm Abdomen soft nondistended nontender to palpation Psych Mental Status: mental status grossly normal Speech and Movement: speech and movement normal Mood: congruent mood Affect: normal affect DS: Data Vitals/I&O Vitals and I&O: Vital Signs Temperature 36.0 C L 05/21/21 08:23 Temperature Source Tympanic 05/21/21 08:23 Pulse 76 05/21/21 08:23 Pulse Rhythm Regular 05/21/21 08:27 Respiratory Rate 19 05/21/21 08:23 Respiratory Effort Non-Labored 05/21/21 08:27 Respiratory Depth Normal 05/21/21 08:27 Respiratory Pattern Normal 05/21/21 08:27 Blood Pressure 105/75 05/21/21 08:23 Blood Pressure Mean 91 05/19/21 09:30 Blood Pressure Position Sitting 05/19/21 06:06 Pulse Oximetry 98 05/21/21 08:23 Oxygen Delivery Method Room Air 05/21/21 08:23 Oxygen Flow Rate 0 05/21/21 08:23 Pain Level 3 05/21/21 08:23 Intake & Output 05/20/21 05/21/21 05/21/21 23:59 11:59 23:59 Intake Total 100 / 200 290 / 290 Balance 100 / 200 290 / 290 Intake: IV 100 / 200 50 / 50 Oral 240 / 240 Other: Urine Appearance Clear Clear Comment Patient is up voiding independently. Voiding Methods Toilet Data Completed and Pending Labs on day of discharge: Labs from last 24 hours 05/21/21 05/21/21 05/20/21 06:15 06:15 14:30 WBC 3.64 L D RBC 2.99 L Hgb 9.5 L Hct 29.2 L MCV 97.7 H MCH 31.8 MCHC 32.5 RDW 14.6 Plt Count 216 MPV 11.8 H Immature Gran % 0.5 Neutrophils % 43.5 Lymphocytes % 39.8 Monocytes % 9.1 Eosinophils % 6.6 Basophils % 0.5 Nucleated RBC % 0 Absolute Neutrophils 1.58 Absolute Lymphocytes 1.45 Absolute Monocytes 0.33 Absolute Eosinophils 0.24 Absolute Basophils 0.02 Sodium 144 Potassium 3.9 Chloride 110 H Carbon Dioxide 23.5 Anion Gap 10.5 BUN 5 L Creatinine 0.5 L Estimated GFR/1.73 m2 >= 60.00 Glucose 97 Calcium 7.7 L Total Bilirubin 0.2 AST 6 L ALT 10 L Alkaline Phosphatase 53 C-Reactive Protein 3.10 H Total Protein 6.2 L Albumin 2.6 L Urine Color Urine Clarity Urine pH Ur Specific [place] Urine Protein Urine Ketones Urine Blood Urine Nitrite Urine Bilirubin Urine Urobilinogen Ur Leukocyte Esterase Urine RBC Urine WBC Ur Epithelial Cells Urine Crystals Urine Bacteria Urine Casts Urine Mucus Ur Culture Indicated? Urine Glucose Specimen Type Stool Campylobacter PCR Pending Stool Salmonella PCR Pending Stool Shigella PCR Pending SARS-CoV-2 (PCR) Hep Bs Antigen Hep Bs Antibody Hep Bs Antibody, Quant Hep B Core Total Ab Hepatitis C Antibody HCV RNA Qual (PCR) Hepatitis C RNA Quant Influenza Type A RNA Influenza Type B RNA Urine Legionella Ag RSV RNA Qual (PCR) Shiga Toxin (PCR) Pending 05/20/21 05/20/21 05/20/21 11:53 09:30 09:30 WBC RBC Hgb Hct MCV MCH MCHC RDW Plt Count MPV Immature Gran % Neutrophils % Lymphocytes % Monocytes % Eosinophils % Basophils % Nucleated RBC % Absolute Neutrophils Absolute Lymphocytes Absolute Monocytes Absolute Eosinophils Absolute Basophils Sodium Potassium Chloride Carbon Dioxide Anion Gap BUN Creatinine Estimated GFR/1.73 m2 Glucose Calcium Total Bilirubin AST ALT Alkaline Phosphatase C-Reactive Protein Total Protein Albumin Urine Color Red Urine Clarity Cloudy Urine pH 6.5 Ur Specific [place] 1.015 Urine Protein 100 H Urine Ketones Negative Urine Blood Large H Urine Nitrite Negative Urine Bilirubin Negative Urine Urobilinogen 0.2 Ur Leukocyte Esterase Small Urine RBC >50 H Urine WBC >50 H Ur Epithelial Cells Few Urine Crystals Negative Urine Bacteria Moderate Urine Casts Negative Urine Mucus Negative Ur Culture Indicated? Yes Urine Glucose Negative Specimen Type Stool Campylobacter PCR Stool Salmonella PCR Stool Shigella PCR SARS-CoV-2 (PCR) Negative Hep Bs Antigen Hep Bs Antibody Hep Bs Antibody, Quant Hep B Core Total Ab Hepatitis C Antibody HCV RNA Qual (PCR) Hepatitis C RNA Quant Influenza Type A RNA Influenza Type B RNA Urine Legionella Ag Negative RSV RNA Qual (PCR) Shiga Toxin (PCR) 05/19/21 05/19/21 21:00 09:20 WBC RBC Hgb Hct MCV MCH MCHC RDW Plt Count MPV Immature Gran % Neutrophils % Lymphocytes % Monocytes % Eosinophils % Basophils % Nucleated RBC % Absolute Neutrophils Absolute Lymphocytes Absolute Monocytes Absolute Eosinophils Absolute Basophils Sodium Potassium Chloride Carbon Dioxide Anion Gap BUN Creatinine Estimated GFR/1.73 m2 Glucose Calcium Total Bilirubin AST ALT Alkaline Phosphatase C-Reactive Protein Total Protein Albumin Urine Color Urine Clarity Urine pH Ur Specific [place] Urine Protein Urine Ketones Urine Blood Urine Nitrite Urine Bilirubin Urine Urobilinogen Ur Leukocyte Esterase Urine RBC Urine WBC Ur Epithelial Cells Urine Crystals Urine Bacteria Urine Casts Urine Mucus Ur Culture Indicated? Urine Glucose Specimen Type Not Applicable Stool Campylobacter PCR Stool Salmonella PCR Stool Shigella PCR SARS-CoV-2 (PCR) Hep Bs Antigen Negative Hep Bs Antibody Negative Hep Bs Antibody, Quant <3.1 Hep B Core Total Ab Negative Hepatitis C Antibody Reactive A HCV RNA Qual (PCR) Pending Hepatitis C RNA Quant Pending Influenza Type A RNA Negative Influenza Type B RNA Negative Urine Legionella Ag RSV RNA Qual (PCR) Negative Shiga Toxin (PCR) 05/20/21 09:30 Urine - Reflex from Ua Urine Culture - Pending Preliminary micro results at discharge 05/19/21 08:00 Blood Culture - Preliminary Blood NO GROWTH 48 HOURS 05/20/21 09:30 Urine Culture - Pending Urine - Reflex from Ua 05/19/21 06:30 Blood Culture - Preliminary Blood NO GROWTH 48 HOURS PFSH Active Problem List Diarrhea (Acute) Atypical pneumonia (Acute) Hypokalemia (Acute) Medical History Acute necrotizing gingivitis Cocaine use disorder 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 Maternal Aunt , Breast CA at age 41. Neoplasm Breast CA Maternal Aunt , Breast CA at age 43. Neoplasm Breast CA Maternal Aunt , Breast CA at age 44. Neoplasm Breast CA Maternal Aunt Neoplasm Breast CA Grandmother Diabetes Social History Smoking/Tobacco Use Status: Current every day Tobacco Type: cigarettes Smoking risk assessment performed?: Yes Alcohol Intake: former Drug use: Never Substance use type: does not use Do you feel safe at home: Yes Do you feel safe in your relationship?: Yes
[2021-05-21 14:51] LABS: Streptococcus Pneumoniae Ag, U Negative (Negative)
[2021-05-21 15:25] LABS: HCV RNA Qualitative Undetected (Undetected)
--- NOTE | 2021-05-21 16:44 | PDOC.CMDIS ---
- If Service Date Differs Date of service: 05/21/21 Time of Service: 16:44 LACE Index Scoring Tool - Questions: Length of Stay (in days): 2 Acuity (Admit via E.D.?): Yes E.D. Visits: 3 - Answers: Total Score: 8 Risk of Readmission: Low Risk Care Management Discharge Reason for Hospitalization: Fever, Dyspnea, Probable Covid 19 Pneumonia Discharge Plan: Mora returned home today with no new services. She was driven home via private vehicle by family. She will follow up with her PCP and discharge plan of care. Patient/Family Education Needs: Review discharge instructions and limitations, discussion of self care needs including ask me three.
[2021-05-21 20:18] LABS: Campylobacter PCR Negative (Negative); Salmonella PCR Negative (Negative); Shiga Toxin PCR Negative (Negative); Shigella/Enteroinvasive Ecoli Negative (Negative)
[2021-05-22 17:44] LABS: SARS-CoV-2 Nucleocapsid Tot Ab Positive (Negative)
== END 2021-05-21 15:38 | disposition home or self-care (01) | DRG 195 ==
LOC: ER 10:23 → MS 10:32
PROVIDERS: Student in an Organized Health Care Education/Training Program; Admitting Provider Internal Medicine; Emergency Provider Student in an Organized Health Care Education/Training Program; PCP Nurse Practitioner Family; Visit Provider Internal Medicine
DX: J12.9 Viral pneumonia, unspecified (principal); E87.6 Hypokalemia; R19.7 Diarrhea, unspecified; F17.210 Nicotine dependence, cigarettes, uncomplicated; I44.7 Left bundle-branch block, unspecified; Z20.822 Contact with and (suspected) exposure to COVID-19; F14.11 Cocaine abuse, in remission; B19.20 Unspecified viral hepatitis C without hepatic coma; R73.01 Impaired fasting glucose
CPT/HCPCS: 36415; 71275; 74177; 80053; 82550; 83690; 84145; 86704; 86706; 86769; 86803; 86850; 86900; 86901; 87040; 87340; 87389; 87449; 87505; 87522; 87631; 87635; 93005; 96361; 96365; 96366; 96375; 99285; J1650; 81003; 81015; 82728; 83605; 83615; 83630; 83735; 83880; 84132; 84443; 84484; 85025; 85379; 86140; 87086; 87899; 93010; 99223; 99232; 99238; J2405; J3480; J3490

== ENCOUNTER 2021-10-30 07:45 | Emergency (ER) | payer SELFPAY ==
[2021-10-30] VITALS (12 sets, daily range): BP systolic 110–122; BP diastolic 69–79; PULSE 79–100; RESP 10–19; TEMP 36.2; O2SAT 99–100
--- NOTE | 2021-10-30 08:00 | DI.RAD_ITS ---
Exam(s) XR PORTABLE CHEST AP EXAM: XR PORTABLE CHEST AP CLINICAL HISTORY: cough, PUI TECHNIQUE: COMPARISON: No exams were available for comparison FINDINGS: Semi upright chest at 0815 hours. Heart is not enlarged. There are predominantly clear lungs. Dens e costal cartilage calcifications are noted, no definite focal pulmonary consolidation. No pleural e ffusion seen on this frontal film. IMPRESSION: No evidence of acute process. RADIATION DOSE DELIVERED: Total DLP
--- NOTE | 2021-10-30 08:15 | ED.GENADUL_ITS ---
Discharge Plan Disposition Patient Disposition: HOME Condition: Improving Discharge Details Clinical Impression: Hypokalemia, Acute bronchitis Primary Care Provider: Maranda Gamboa ED Provider: John Reyna Home Meds and New Rx's Prescriptions: New doxycycline hyclate 100 mg capsule 100 mg PO BID 10 Days Qty: 20 0RF benzonatate 100 mg capsule 100 mg PO BID PRN (Reason: cough) Qty: 10 0RF hydrocodone-chlorpheniramine 10-8 mg/5 mL suspension,extended rel 12 hr 5 ml PO Q12H PRN (Reason: cough) Qty: 70 0RF Discontinued doxycycline hyclate 100 mg tablet 100 mg PO BID Qty: 10 0RF hydrocodone-chlorpheniramine 10-8 mg/5 mL suspension,extended rel 12 hr 5 ml PO Q12H PRN (Reason: cough) Qty: 70 0RF Discharge Instructions Instructions: Acute Bronchitis (ED), Hypokalemia (ED) Additional Instructions: Your potassium was slightly low today and supplemented in the emergency department. You would benefit from increased dietary potassium over the next 2 days including bananas, strawberries, tree nuts such as almonds and cashews, or leafy greens. Take antibiotics as prescribed until finished. Tessalon as needed for cough during the daytime with the hydrocodone suspension if needed for persistent cough and at bedtime. Follow-up regular doctor if not improved in 5 to 7 days time. Return to the ER for any acute concerns. Medical Decision Making 41-year-old female presents from home with 2 days of cough, body ache, malaise. She is afebrile and oxygenating normally but appears somewhat dehydrated and has borderline tachycardia. High likelihood of viral syndrome including COVID or flu. I screen labs obtained, patient given fluids, parenteral medications. She is given antitussive control with morphine. Portable chest x-ray obtained which does not show focal infiltrate or evidence of acute process. Laboratories note a white count of 6, hematocrit 35, platelets 312. Chemistries with sodium 140, potassium 3.1, chloride 105, bicarb 26, BUN 5, creatinine 0.7. LFTs unremarkable. Influenza/RSV/COVID-negative. Potassium was supplemented in the emergency department. Following 1 L of fluid and medications, patient significantly improved. Cough improved. Most consistent with bronchitis given known findings. Will prescribe antibiotic and antitussive. She is stable for discharge to home. HPI General Mode of arrival: ambulatory . Date/Time Provider Initiated Documentation: 10/30/21 07:56 . Limitations to Documentation: no limitations . Information obtained by: patient . History of Present Illness 41 year old F presents to the emergency department with the chief complaint of 2 days of cough, body ache, persistent coughing fits, malaise., described as moderate, Quality is described as dull and constant, and is localized to the chest. Patient reports no radiation. Patient started experiencing this day(s) and it has been constant. improves with No relieving factors improve symptom(s), No exacerbating factors reported . Patient notes cough, loss of appetite and malaise; denies chest pain, nausea/vomiting, shortness of breath and syncope. Patient did receive the following treatments prior to arrival, none Related Data Home Medications Medication Instructions Recorded Confirmed benzonatate 100 mg capsule 100 mg PO BID PRN #10 cap 10/30/21 doxycycline hyclate 100 mg capsule 100 mg PO BID 10 Days #20 cap 10/30/21 hydrocodone 10 mg-chlorpheniramine 5 ml PO Q12H PRN #70 ml 10/30/21 8 mg/5 mL oral susp extend.rel 12hr Previous Rx's Medication Instructions Recorded benzonatate 100 mg capsule 100 mg PO BID PRN #10 cap 10/30/21 doxycycline hyclate 100 mg capsule 100 mg PO BID 10 Days #20 cap 10/30/21 hydrocodone 10 mg-chlorpheniramine 5 ml PO Q12H PRN #70 ml 10/30/21 8 mg/5 mL oral susp extend.rel 12hr Allergies Allergy/AdvReac Type Severity Reaction Status Date / Time No Known Allergies Allergy Unverified 10/30/21 07:54 General Stated Complaint: RespSymp JACQUELINE: 3 Review of Systems Narrative: No leg pain or swelling. Her partner has been ill with similar symptoms but less so. 8 systems were reviewed and otherwise negative. 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 Maternal Aunt , Breast CA at age 41. Neoplasm Breast CA Maternal Aunt , Breast CA at age 43. Neoplasm Breast CA Maternal Aunt , Breast CA at age 44. Neoplasm Breast CA Maternal Aunt Neoplasm Breast CA Grandmother Diabetes Social History Smoking/Tobacco Use Status: Former Tobacco Use Smoking risk assessment performed?: Yes Alcohol Intake: current Alcohol Intake frequency: a few times a month Drug use: Current Sobriety Do you feel safe at home: Yes Do you feel safe in your relationship?: Yes Exam Narrative Exam Narrative: GEN: awake, alert, oriented 3. Pleasant, well groomed, interactive. HEAD: Normocephalic, atraumatic ENT: Mucous membranes moist, oropharynx unremarkable with note of mild erythema, no swelling or exudate, tympanic membranes clear bilaterally. External ear exam unremarkable EYES: PERRL, EOMI NECK: Full ROM, no GORDY, no menigismus CHEST/RESP: Nontender, persistent coughing fits with slight end expiratory wheeze. No inspiratory wheeze. CARDIOVASCULAR: RRR, no murmur, rub jass. 2+ Rad pulse bilateral ABDOMEN: Soft, nontender, no mass. +Bowel sounds EXT: Full ROM, no edema, no rash Neuro: Grossly normal neurologic exam, conversant, interactive. Psych: Speech fluent, thoughts congruent, affect normal Course Vital Signs Vital signs: Vital Signs Temperature 36.2 C L 10/30/21 07:51 Pulse 100 H 10/30/21 07:51 Respiratory Rate 18 10/30/21 07:51 Blood Pressure 122/79 10/30/21 07:51 Pulse Oximetry 99 10/30/21 07:51 Temperature 36.2 C L 10/30/21 07:51 Temperature Source Temporal Artery Scan 10/30/21 07:51 Pulse 100 H 10/30/21 07:51 Respiratory Rate 18 10/30/21 07:51 Respiratory Effort 10/30/21 07:55 Respiratory Depth Normal 10/30/21 07:55 Blood Pressure 122/79 10/30/21 07:51 Blood Pressure Position Sitting 10/30/21 07:51 Pulse Oximetry 99 10/30/21 07:51 Oxygen Delivery Method Room Air 10/30/21 07:51 Oxygen Flow Rate 0 10/30/21 07:51
[2021-10-30] MEDS: Normal Saline 1,000 ML 1000 ML IV (08:57)
[2021-10-30] MEDS: MORPHine 4 MG/ML SYR IVP (08:58)
[2021-10-30] MEDS: Ketorolac 15 MG/ML VIAL IVP (08:59)
[2021-10-30] MEDS: Ondansetron 4 MG/2 ML VIAL IVP ×2 (08:59→10:28)
[2021-10-30] MEDS: Normal Saline Flush 10 ML SYR IVP (09:00)
[2021-10-30 09:16] LABS: Abs Immature Grans 0.01 10^3/uL (0.0-0.06); Absolute Basophil Count 0.03 10^3/uL (0.0-0.2); Absolute Eosinophil Count 0.15 10^3/uL (0.0-0.7); Absolute Lymphocyte Count 1.62 10^3/uL (1.2-3.4); Absolute Monocyte Count 0.46 10^3/uL (0.1-0.8); Absolute Neutrophil Count 3.78 10^3/uL (1.2-6.7); Basophils % 0.5; Eosinophils % 2.5; HCT 35.1 % (36.0-46.0); HGB 11.3 g/dL (11.2-15.7); Immature Grans % 0.2; Lymphocytes % 26.8; MCH 30.5 pg (27.0-33.0); MCHC 32.2 % (32.0-36.0); MCV 94.6 fL (80-95); MPV 11.1 fL (8.0-11.0); Monocytes % 7.6; Neutrophils % 62.4; Platelet Count 312 10^3/uL (130-400); RBC 3.71 10^6/uL (3.93-5.22); RDW 14.8 % (11.7-14.6); RDW-SD 50.9 fL; WBC 6.05 10^3/uL (4.4-10.8)
[2021-10-30 09:23] LABS: ALT 15 U/L (14-59); AST 10 U/L (15-37); Albumin 3.5 g/dL (3.4-5.0); Alkaline Phosphatase 75 U/L (46-116); Anion Gap 8.9 mmol/L (3-11); BUN 5 mg/dL (7-18); Bilirubin, Total 0.5 mg/dL (0.2-1.0); CO2 26.1 mmol/L (21.0-32.0); CREATININE 0.7 mg/dL (0.55-1.02); Calcium 8.5 mg/dL (8.5-10.1); Chloride 105 mmol/L (98-107); Glucose 106 mg/dL (74-106); Potassium 3.1 mmol/L (3.5-5.1); Sodium 140 mmol/L (136-145); Total Protein 7.2 g/dL (6.4-8.2)
[2021-10-30] MEDS: POTASSIUM CHLORIDE 10 MEQ/100 ML BAG 100 MEQ IVPB (10:20)
[2021-10-30] MEDS: Potassium Chloride 10 MEQ TABCR PO (10:20)
[2021-10-30 10:44] LABS: Bilirubin Negative (Negative); Blood Large (Negative); Clarity Clear (Clear); Glucose Negative (Negative); Ketones Negative (Negative); Leukocyte Esterase Small (Negative); Nitrite Negative (Negative); Urobilinogen 0.2 EU/dL (Up TO 0.2); pH 6.5 (5-8)
[2021-10-30 11:08] LABS: Bacteria Few HPF (Negative); Casts Negative LPF (Negative); Crystals Negative HPF (Negative); Epithelial Cells Many HPF (Negative); Mucus Trace (Negative); RBC 20-50 HPF (0-2)
[2021-10-30 11:09] LABS: C & S Indicated? No/Sq. Contamination
[2021-10-30 11:14] LABS: COVID-19 PCR Negative (Negative); Influenza A PCR Negative (Negative); Influenza B PCR Negative (Negative); RSV PCR Negative (Negative)
--- NOTE | 2021-10-30 11:17 | NUR.NOTE ---
ted provided Nursing Note:
[2021-10-30 11:47] LABS: Source Nasopharynx
== END 2021-10-30 12:11 | disposition home or self-care (01) ==
PROVIDERS: Emergency Provider Emergency Medicine; PCP Nurse Practitioner Family
DX: E87.6 Hypokalemia (principal); J20.9 Acute bronchitis, unspecified
CPT/HCPCS: 80053; 87637; 96361; 96365; 96375; 96376; 99284; 71045; 81003; 81015; 85025; J1885; J2270; J2405; J3480

== ENCOUNTER 2023-05-15 23:34 | Observation (INO) | payer SELFPAY ==
--- NOTE | 2023-05-15 23:30 | DI.CT_ITS ---
Exam(s) CT ABDOMEN PELVIS CTA EXAM: CT ABDOMEN PELVIS CTA CLINICAL HISTORY: pain RLQ, out of proportion, sudden onset. TECHNIQUE: Imaging Protocol: Axial computed tomography images with coronal and sagittal reformatted images were created and reviewed CONTRAST MATERIAL: Intravenous: Omnipaque 350 Contrast volume:100 ml Oral: None FINDINGS: Visualized lung bases are clear and there are no pleural effusions. AORTA: There are no significant atherosclerotic findings in the abdominal aorta, aortic bifurcation and aort o iliac segments. Both common femoral arteries also appear unremarkable. No aneurysms. Evidence of dissection. With respect to the abdominal aortic branches: The celiac and superior mesenteric arteries are patent.No evidence of plaque and no intraluminal fill ing defects to suggest emboli. The inferior mesenteric artery is also patent. Both renal arteries a re patent without ostial stenosis nor other stenosis nor evidence of fibromuscular dysplasia of the r enal arteries. GI: There are no ischemic appearing bowel loops. No ascites. No free air. Small cyst or hemangioma is noted in the medial right hepatic lobe measuring approximately 9 x 6 mm. There is no ascites. LIVER: There are no focal hepatic lesions nor dilatation of intrahepatic ducts. GALLBLADDER/BILIARY: No obvious gallbladder pathology. CBD is not dilated. PANCREAS: No evidence of pancreatic mass nor dilatation of the pancreatic duct. SPLEEN: Spleen is not enlarged. There are no intrasplenic lesions. ADRENALS: There are no significant adrenal masses. KIDNEYS: No cysts evident. No calculi nor hydronephrosis. No solid renal masses. ABDOMINAL AORTA: As above. Unremarkable. LYMPH NODES: There is no retroperitoneal nor para-aortic adenopathy. No obvious mesenteric masses. ABDOMINAL WALL: No evidence of significant anterior abdominal wall hernia. GI: There is no evidence of bowel obstruction, free air, nor abscess. PELVIS: LYMPH NODES: There is no intrapelvic nor inguinal adenopathy. GI: No evidence of appendicitis.No evidence of sigmoid diverticulitis. URINARY BLADDER: Uniform thickening of the bladder wall noted but possibly exaggerated by under diste nsion. REPRODUCTIVE: There is a large enhancing 5 x 4.5 cm right-sided uterine fibroid. Another smaller fib roid is seen at the fundus level measuring approximately 2 point 2 x 1.8 cm. There is a peripherally enhancing corpus luteal cyst in the right ovary which measures 1.6 x 1.5 cm. No findings in the lef t adnexa. No free fluid in the adnexal regions are cul-de-sac. OSSEOUS: No significant osseous lesions. No fractures. IMPRESSION: 1. No significant findings in the abdominal aorta, aortoiliac segments and main branches of the abdom inal aorta. No ischemic appearing bowel loops. No significant atherosclerotic disease nor embolus e vident within the mesenteric arteries. 2. Large 5 x 4.5 cm right-sided myometrial fibroid in the uterus and a smaller fibroid is noted at th e level the fundus. 3. Corpus luteal cyst noted in the right ovary measuring 16 x 15 mm. No free fluid. No extraovarian adnexal masses. RADIATION DOSE DELIVERED: Total DLP DATA REPOSITORY: All CT scans at this facility are submitted to the National Radiology Data Registry (NRDR) Dose Index Registry (DIR) with the [employer] (ACR). RADIATION OPTIMIZATION: All CT scans at this facility use at least one of these dose optimization te chniques: automated exposure control; mA and/or kV adjustment per patient size (includes targeted exa ms where dose is matched to clinical indication); or iterative reconstruction.
[2023-05-15 23:39] VITALS: O2SAT 98
[2023-05-15 23:41] VITALS: PULSE 142; RESP 26; TEMP 36.1; O2SAT 97
--- NOTE | 2023-05-15 23:42 | ED.GENADUL_ITS ---
Discharge Plan Disposition Patient Disposition: Admit to [facility] Condition: Stable Discharge Details Chief Complaint: Abd Prob Clinical Impression: Abdominal pain, right lower quadrant, Fibroid, uterine Primary Care Provider: Maranda Gamboa ED Provider: Eddi Bella Home Meds and New Rx's Prescriptions: No Action benzonatate 100 mg capsule 100 mg PO BID PRN (Reason: cough) Qty: 10 0RF hydrocodone-chlorpheniramine 10-8 mg/5 mL suspension,extended rel 12 hr 5 ml PO Q12H PRN (Reason: cough) Qty: 70 0RF Medical Decision Making Patient is a 42-year-old female with a past medical history of previous substance abuse, hepatitis C, high cholesterol, previous left knee replacement with subsequent DVT at that time, and no longer on anticoagulants, presents today for evaluation of sudden onset right lower quadrant abdominal pain. Patient states that 1 hour ago the pain came on, cause vomiting secondary to its severity. She describes it as constant, unremitting, and unchanging. She states that it is the worst pain she has ever felt in her life. She denies any radiation anywhere else. She denies any urinary frequency or hematuria. She did admit to some diarrhea earlier today, but none currently. She denies any chest pain or shortness of breath. No fever or chills. No other complaints at this time. Exam demonstrates an extremely uncomfortable patient, unable to sit still at all secondary to the pain. Pain appears to be localized to the right lower quadrant. Worsened on exam with palpation. Differential is high for kidney stone, appendicitis, mesenteric ischemia, less likely ovarian torsion. Patient denies any vaginal discharge or other complaints otherwise. We will get a CTA, treat the patient's pain, monitor closely and reassess. 1 AM Laboratory work-up demonstrates no white count bandemia or left shift. Lactate minimally elevated at 1.6. Renal function stable. Urinalysis shows no evidence of significant infection, or blood. Pain is still somewhat severe. It is transitioned from constant to a bit more colicky in nature now. CTA shows large fibroid in the uterus, on the right. No other acute process. I did call the radiologist and discussed the case and findings specifically with him. He really reviewed the image. He sees no evidence of mesenteric ischemia, vascular blockage, appendicitis, or kidney stone. There is a small ovarian cyst noted, but there is good vascular flow in the right ovary per radiology. We will reach out to obstetrics for further discussion. 1:46 AM Despite 3 mg of Dilaudid, Toradol, and Ofirmev patient still has somewhat severe colicky pain localized in the right lower quadrant. No right upper left upper or left lower pain. Patient denies any vaginal discharge or bleeding. No irregularity to her periods. No bloody stools. She has had some dry heaving while here. Dr. Resendez of obstetrics has come and evaluated the patient. With the vascular flow present in the ovaries, symptoms appear inconsistent with ovarian torsion on imaging. We did contact Dr. Siddiqui of surgery as well, discussed the case and imaging findings with him. With no evidence of perforation, mesenteric ischemia, dissection, or other abnormality, he to does not see an indication for emergent surgical intervention. With the patient's continued pain and symptoms I do not feel that discharge is appropriate at this time. We will keep the patient for continued monitoring, lactate trending, potential reimaging and potential surgical assessment/potential operative management in the morning if clinically indicated. Discussed the case with Dr. Resendez. She agrees with the plan and will admit. I have extensively reviewed the treatment plan with the patient. I have addressed all patient concerns at this time. I have also discussed the plan with the admitting physician and they agree with the current assessment and plan and have agreed to assume responsibility for the patient. All parties demonstrate verbal understanding and agreement with our assessment and plan at this time. The documentation in this chart was dictated using [employer] dictation software. Please excuse any dictation errors. FINDINGS: Aorta: No aortic aneurysm. No aortic dissection. Celiac trunk and mesenteric arteries: No occlusion or significant stenosis. Renal arteries: No occlusion or significant stenosis. Right iliac arteries: No occlusion or significant stenosis. Left iliac arteries: No occlusion or significant stenosis. Liver: No mass. Gallbladder and bile ducts: Unremarkable. No calcified stones. No ductal dilation. Pancreas: Unremarkable. No mass. No ductal dilation. Spleen: Unremarkable. No splenomegaly. Adrenal glands: Unremarkable. No mass. Kidneys and ureters: Unremarkable. No solid mass. No hydronephrosis. Stomach and bowel: Unremarkable. No obstruction. No mucosal thickening. Appendix: No evidence of appendicitis. Intraperitoneal space: Unremarkable. No free air. No significant fluid collection. Lymph nodes: Unremarkable. No enlarged lymph nodes. Urinary bladder: Unremarkable. No mass. Reproductive: Uterus is enlarged with multiple mass lesions compatible with uterine fibroids, the largest measuring 6.4 cm in the right side of the uterus. 1.5 cm peripherally enhancing cyst in the right ovary compatible with corpus luteum cyst. Bones/joints: Moderate degenerative disc changes at L2-L3. No vertebral body compression or acute fracture. Soft tissues: Unremarkable. IMPRESSION: No acute abnormality evident. Fibroid uterus and small right ovarian cyst, likely physiologic. No further imaging is recommended. (Reference: Vini) HPI General Date/Time Provider Initiated Documentation: 05/15/23 23:35 . HPI Narrative: Patient is a 42-year-old female with a past medical history of previous substance abuse, hepatitis C, high cholesterol, previous left knee replacement with subsequent DVT at that time, and no longer on anticoagulants, presents today for evaluation of sudden onset right lower quadrant abdominal pain. Patient states that 1 hour ago the pain came on, cause vomiting secondary to its severity. She describes it as constant, unremitting, and unchanging. She states that it is the worst pain she has ever felt in her life. She denies any radiation anywhere else. She denies any urinary frequency or hematuria. She did admit to some diarrhea earlier today, but none currently. She denies any chest pain or shortness of breath. No fever or chills. No other complaints at this time. Related Data Home Medications Medication Instructions Recorded Confirmed benzonatate 100 mg capsule 100 mg PO BID PRN cough #10 caps 10/30/21 hydrocodone 10 mg-chlorpheniramine 5 ml PO Q12H PRN cough #70 mL 10/30/21 8 mg/5 mL oral susp extend.rel 12hr Previous Rx's Medication Instructions Recorded benzonatate 100 mg capsule 100 mg PO BID PRN cough #10 caps 10/30/21 hydrocodone 10 mg-chlorpheniramine 5 ml PO Q12H PRN cough #70 mL 10/30/21 8 mg/5 mL oral susp extend.rel 12hr Allergies Allergy/AdvReac Type Severity Reaction Status Date / Time No Known Allergies Allergy Unverified 05/15/23 23:39 General JACQUELINE: 3 Review of Systems All systems reviewed & are unremarkable except as noted in HPI and below PFSH All Active Problems (Updated 05/16/23 @ 01:50 by Eddi R Montrose, DO) Fibroid, uterine (Acute) Abdominal pain, right lower quadrant (Acute) Atypical pneumonia (Acute) Hypokalemia (Acute) Medical History Acute necrotizing gingivitis Cocaine use disorder 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 Maternal Aunt , Breast CA at age 41. Neoplasm Breast CA Maternal Aunt , Breast CA at age 43. Neoplasm Breast CA Maternal Aunt , Breast CA at age 44. Neoplasm Breast CA Maternal Aunt Neoplasm Breast CA Grandmother Diabetes Social History Smoking/Tobacco Use Status: Former Tobacco Use Smoking risk assessment performed?: Yes Alcohol Intake: current Alcohol Intake frequency: a few times a month Alcohol type: beer Drug use: Current Sobriety Housing: house Do you feel safe at home: Yes Do you feel safe in your relationship?: Yes Exam Narrative Exam Narrative: 1.Const: Well-nourished, Well-developed, appearing stated age 2.Eyes: PERRL, no conjunctival injection, and symmetrical lids. 3.ENT: Atraumatic external nose and ears. Moist MM. Neck: Symmetric, trachea midline, No thyromegaly. 4.CVS: +S1/S2, No murmurs or gallops. Peripheral pulses 2+ and equal in all extremities. Brisk capillary refill in all extremities. 5.RESP: Unlabored respiratory effort. Clear to auscultation bilaterally. No wheezes rales or rhonchi 6.GI: Soft, nondistended. Guarding is present on the right lower quadrant. Pain notably present on palpation in the right lower quadrant. Generalized tenderness throughout though. Focal examination notably challenging secondary to the patient's persistent movement and discomfort 7.MSK: Normocephalic/Atraumatic, Extremities w/o deformity or ttp No cyanosis or clubbing, Normal movement of all extremities 8.Skin: Warm, Dry. No rashes or lesions. 9.Neuro: front end driver II-XII grossly intact. Sensation grossly intact, no focal neurologic deficits. 10.Psych: (AAO) x3. Extremely agitated, unable to sit still at all.
[2023-05-15] MEDS: Normal Saline 1,000 ML 1000 ML IV (23:50)
[2023-05-15] MEDS: Normal Saline Flush 10 ML SYR IVP (23:50)
[2023-05-15] MEDS: HYDROmorphone 2 MG/ML SYR 1 MG IVP (23:50)
[2023-05-15] MEDS: Ondansetron 4 MG/2 ML VIAL IVP (23:50)
[2023-05-15] MEDS: Normal Saline - Diluent 50 ML VIAL IJ (23:51)
[2023-05-15] MEDS: Omnipaque 350 MG/ML 100 ML BTL IJ (23:52)
[2023-05-15 23:53] LABS: Lactate 1.6 mmol/L (0.6-1.4)
[2023-05-15 23:55] LABS: Abs Immature Grans 0.02 10^3/uL (0.0-0.06); Absolute Basophil Count 0.07 10^3/uL (0.0-0.2); Absolute Lymphocyte Count 3.29 10^3/uL (1.2-3.4); Absolute Neutrophil Count 2.46 10^3/uL (1.2-6.7); Basophils % 1.1; Eosinophils % 1.5; HCT 34.8 % (36.0-46.0); HGB 11.6 g/dL (11.2-15.7); Immature Grans % 0.3; Lymphocytes % 50.3; MCH 29.9 pg (27.0-33.0); MCHC 33.3 % (32.0-36.0); MCV 90 fL (80-95); MPV 11.2 fL (8.0-11.0); Monocytes % 9.2; Neutrophils % 37.6; Platelet Count 287 10^3/uL (130-400); RBC 3.88 10^6/uL (3.93-5.22); RDW 14.6 % (11.7-14.6); WBC 6.54 10^3/uL (4.4-10.8)
[2023-05-15 23:59] LABS: Bilirubin Negative (Negative); Blood Negative (Negative); Clarity Clear (Clear); Glucose Negative (Negative); Ketones Negative (Negative); Leukocyte Esterase Trace (Negative); Nitrite Negative (Negative); Urobilinogen 0.2 mg/dL (Up to 0.2); pH 5.5 (5-8)
[2023-05-16] VITALS (22 sets, daily range): BP systolic 85–109; BP diastolic 52–89; PULSE 78–99; RESP 14–20; TEMP 36–37.5; O2SAT 89–98
--- NOTE | 2023-05-16 | DI.US_ITS ---
Exam(s) US PELVIS TRANSVAGINAL EXAM: US PELVIS TRANSVAGINAL CLINICAL HISTORY: pelvic pain TECHNIQUE: Ultrasound of the pelvis was performed both transabdominal and transvaginal. COMPARISON: US ABDOMEN ULTRASOUND (P) from 06/21/[address] ABDOMEN PELVIS CTA from 05/15/2023 FINDINGS: UTERUS: Nongravid and anteverted and contains multiple fibroids. The largest is on the right side of the uterus and measures approximately 6 x 5 cm, corresponding to what is seen on recent CT scan. A smaller 2 cm fibroid is noted left of center at the fundus level. Measures 10 cm length x 5 cm AP x 6 cm wide. Endometrial thickness measures 15 mm. There is no fluid in the endometrial canal. CERVIX: There are no obvious nabothian cysts. RIGHT OVARY: Measures 2.2 x 2.1 x 2.1 cm Contains a corpus luteal cyst measuring 1.8 x 1.6 x 1.6 cm. No surrounding fluid. Vascular flow in the ovary demonstrated. LEFT OVARY: Measures 2.6 x 0.9 x 1.9 cm No significant cysts nor masses evident in the left ovary. There no extraovarian adnexal masses evident. CUL-DE-SAC: No free fluid evident. IMPRESSION: 1. Large 6 cm x 5 cm fibroid noted on the right side of the uterus, commensurate with what is seen on CT scan 2. There is a corpus luteal cyst in the right ovary measuring 18 x 16 x 16 mm. No evidence of torsio n. 3. Endometrium is thickened at 15 mm thickness. No free fluid in the endometrial cavity evident. 4. No free fluid evident DATA REPOSITORY:
[2023-05-16 00:06] LABS: Bacteria Few HPF (Negative); C & S Indicated? Yes; Casts Negative LPF (Negative); Crystals Negative HPF (Negative); Epithelial Cells Few HPF (Negative); Mucus Negative (Negative); RBC Negative HPF (0-2)
[2023-05-16 00:08] LABS: PTT Activated 23.6 sec (23.6-32.8); Prothrombin Time 10.2 sec (9.1-11.1)
[2023-05-16 00:10] LABS: ALT 18 U/L (14-59); AST 29 U/L (15-37); Alkaline Phosphatase 59 U/L (46-116); Anion Gap 12.6 mmol/L (3-11); BUN 1 mg/dL (7-18); Bilirubin, Total 0.4 mg/dL (0.2-1.0); CO2 20.4 mmol/L (21.0-32.0); CREATININE 0.6 mg/dL (0.55-1.02); Calcium 8.8 mg/dL (8.5-10.1); Chloride 107 mmol/L (98-107); Estimated GFR 114.15 (mL/min/1.73m2); Glucose 116 mg/dL (74-106); Lipase 57 U/L (16-77); Potassium 4.5 mmol/L (3.5-5.1); Sodium 140 mmol/L (136-145); Total Protein 7.5 g/dL (6.4-8.2)
--- NOTE | 2023-05-16 00:34 | DI.VRAD_ITS ---
Addendum created by Matthew Major MD on 05/16/2023 12:55:20 AM EST: Findings were discussed with RHONDA PYLE at 05/16/2023 12:55 AM EST. Initial report created on 05/16/2023 12:33:51 AM EST: PROCEDURE INFORMATION: Exam: CTA Abdomen and Pelvis With Contrast Exam date and time: 05/15/2023 11:52 PM Age: 42 years old Clinical indication: Abdominal pain; Localized; Right lower quadrant (rlq); Patient HX: Pain rlq, out of proportion, sudden onset, ? mesenteric ischemia TECHNIQUE: Imaging protocol: Computed tomographic angiography of the abdomen and pelvis with contrast. Exam focused on the arteries. 3D rendering (Not supervised by radiologist): MIP and/or 3D reconstructed images were created by the technologist. Contrast material: OMNIPAQUE 350; Contrast volume: 100 ml; Contrast route: INTRAVENOUS (IV); COMPARISON: CT CHEST PE ABD PELVIS W 05/19/2021 7:00 AM FINDINGS: Aorta: No aortic aneurysm. No aortic dissection. Celiac trunk and mesenteric arteries: No occlusion or significant stenosis. Renal arteries: No occlusion or significant stenosis. Right iliac arteries: No occlusion or significant stenosis. Left iliac arteries: No occlusion or significant stenosis. Liver: No mass. Gallbladder and bile ducts: Unremarkable. No calcified stones. No ductal dilation. Pancreas: Unremarkable. No mass. No ductal dilation. Spleen: Unremarkable. No splenomegaly. Adrenal glands: Unremarkable. No mass. Kidneys and ureters: Unremarkable. No solid mass. No hydronephrosis. Stomach and bowel: Unremarkable. No obstruction. No mucosal thickening. Appendix: No evidence of appendicitis. Intraperitoneal space: Unremarkable. No free air. No significant fluid collection. Lymph nodes: Unremarkable. No enlarged lymph nodes. Urinary bladder: Unremarkable. No mass. Reproductive: Uterus is enlarged with multiple mass lesions compatible with uterine fibroids, the largest measuring 6.4 cm in the right side of the uterus. 1.5 cm peripherally enhancing cyst in the right ovary compatible with corpus luteum cyst. Bones/joints: Moderate degenerative disc changes at L2-L3. No vertebral body compression or acute fracture. Soft tissues: Unremarkable. IMPRESSION: No acute abnormality evident. Fibroid uterus and small right ovarian cyst, likely physiologic. No further imaging is recommended. (Reference: Vini) References: Vini et al. Management of Incidental Adnexal Findings on CT and MRI: A White Paper of the ACR Incidental Findings Committee, J Am Jakob Radiol. 2019;17(2):248-254. Dictated and Authenticated by: Matthew Major MD. Ordering:LUIS MIGUEL Montague MD
[2023-05-16] MEDS: ACETAMINOPHEN 1,000 MG/100 ML BTL 400 MG IVPB (00:46)
[2023-05-16] MEDS: Ketorolac 15 MG/ML VIAL IVP (00:46)
[2023-05-16] MEDS: HYDROmorphone 2 MG/ML SYR IVP (00:50)
[2023-05-16 01:08] LABS: Source Nasal/Nares
[2023-05-16 01:36] LABS: COVID-19 PCR Negative (Negative)
[2023-05-16] MEDS: HYDROmorphone 2 MG/ML SYR 1 MG IVP ×3 (01:52→17:04)
--- NOTE | 2023-05-16 02:03 | W.PM.HP.N ---
Date of service: 05/16/23 Time of Service: 02:03 Assessment and Plan Assessment and plan (1) Abdominal pain, right lower quadrant: Status: Acute Assessment and plan: Patient is a 42-year-old 2 para 2 with acute onset of right lower quadrant pain. She has a normal-appearing right ovary with a 1.5 cm ovarian cyst. She has multiple uterine fibroids, largest being approximately 6 cm in greatest dimension which is consistent with her previous imaging studies. There is no other intra-abdominal or pelvic pathology that is noted. The angiogram had been performed without evidence of vascular abnormality. She does have a mildly elevated lactate at 1.6 which will be followed in a serial fashion. We will repeat her CBC in the morning as well. We will have pain control and repeat imaging studies in the morning. General surgical consultation has been asked for in light of this is unclear picture of the etiology of her right lower quadrant pain. Differential could be early vascular abnormality, degenerating uterine fibroid, intermittent right ovarian torsion. (2) Fibroid, uterine: Status: Acute (3) Hepatitis C: (4) Cocaine use disorder: Assessment and plan: Denies use in the last 4 years (5) Ligation of fallopian tube: (6) History of DVT of lower extremity: Status: Acute Assessment and plan: No current anticoagulation. History of Present Illness History of Present Illness Chief Complaint: Right lower quadrant pain Consults Consult date: 05/16/23 Requesting physician: Melchor Siddiqui Narrative: Patient is a 42-year-old female 2 para 2 with acute onset of right lower quadrant pain. She states she was ambulating in the the pain began and brought her to her knees. She was with her sister at the time of the event. She was brought to the emergency department in significant pain. She had laboratory studies and diagnostic imaging performed she has a normal white blood cell count. She is afebrile. Remainder of her laboratory studies are relatively normal. She does have a mildly elevated lactate at 1.6. She is currently afebrile. She was tachycardic in the 140s on presentation which is now to the low 100s. She had a CT scan that was performed which shows no evidence of intra-abdominal or pelvic pathology with the exception of uterine fibroids which measures 6 cm in greatest dimension. On review of her previous imaging. She has had multiple fibroids in the past as well with a very slight enlargement over the course of the past 2 to 3 years. She is also noted to have a 1.5 cm ovarian cyst which appears benign and normal with good blood flow. There is no evidence of mesenteric ischemia, nor is there evidence of gynecologic pathology. She herself states that she had some associated nausea with the pain. She has had regular normal bowel movements and a normal appetite. She denies any abdominal trauma, or any precipitating events. In significant pain and writhing. The pain appears colicky in nature when she was seen in the emergency department she was alert and coherent, though intermittently Review of Systems Narrative: As per HPI, patient had acute onset of right lower quadrant pain with associated nausea vomiting. This is pain is now colicky in nature and rated as a 10 out of 10 when it is the most intense. She denies fevers or chills. She has had no recent change in her medical conditions or social history. Constitutional Constitutional: Reports as per HPI, Denies body ache(s), Denies chills, Denies fever(s), Denies headache(s), Denies increased appetite, Denies lethargy, Denies poor appetite and Denies weakness Eyes Eyes: Reports system reviewed and no additional complaints, except as documented ENT Ears, Nose, Mouth, and Throat: Reports system reviewed and no additional complaints, except as documented and Denies headache(s) Cardiovascular Cardiovascular: Reports as per HPI, Denies chest pain, Denies syncope and Denies irregular heart rhythm Respiratory Respiratory: Reports as per HPI, Denies chest congestion and Denies cough Gastrointestinal Gastrointestinal: Reports as per HPI, Denies change in bowel habits, Denies change in stool character, Denies constipation, Reports cramping, Denies diarrhea, Denies loose stools and Reports nausea Genitourinary Genitourinary: Reports system reviewed and no additional complaints, except as documented, Reports as per HPI, Denies abnormal menses, Denies abnormal vaginal bleeding, Denies amenorrhea, Denies difficulty voiding, Denies menorrhagia, Denies dysmenorrhea, Denies dysuria, Reports pelvic pain and Denies vaginal discharge Musculoskeletal Musculoskeletal: Reports system reviewed and no additional complaints, except as documented, Reports as per HPI and Reports back pain Integumentary/Breasts Skin/Breast: Reports system reviewed and no additional complaints, except as documented Neurologic Neurologic: Reports system reviewed and no additional complaints, except as documented, Denies syncope, Denies headache(s) and Denies weakness Psychiatric Psychiatric: Reports system reviewed and no additional complaints, except as documented Endocrine Endocrine: Reports system reviewed and no additional complaints, except as documented Hematologic/Lymphatic Hematologic/Lymphatic: Reports system reviewed and no additional complaints, except as documented PFSH All Active Problems (Updated 05/16/23 @ 02:13 by Shruti Resendez DO) History of DVT of lower extremity (Acute) Fibroid, uterine (Acute) Abdominal pain, right lower quadrant (Acute) Atypical pneumonia (Acute) Medical History Acute necrotizing gingivitis Cocaine use disorder 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 Maternal Aunt , Breast CA at age 41. Neoplasm Breast CA Maternal Aunt , Breast CA at age 43. Neoplasm Breast CA Maternal Aunt , Breast CA at age 44. Neoplasm Breast CA Maternal Aunt Neoplasm Breast CA Grandmother Diabetes Social History Smoking/Tobacco Use Status: Former Tobacco Use Smoking risk assessment performed?: Yes Alcohol Intake: current Alcohol Intake frequency: a few times a month Alcohol type: beer Drug use: Current Sobriety Housing: house Do you feel safe at home: Yes Do you feel safe in your relationship?: Yes Female Reproductive History Menstrual Age of Menarche: 11 Duration of menses: 3-5 days Date of last menstrual period: 04/25/23 control method: permanent sterilization History History 2 Para Hx # Term Pregnancies 2 Multiple births Hx # Pregnancies Ectopic pregnancies AB induced Hx Number of Living Children 2 AB spontaneous Meds Allergies and Home Medications Allergies Allergy/AdvReac Type Severity Reaction Status Date / Time No Known Allergies Allergy Unverified 05/15/23 23:39 Home Medications Medication Instructions Recorded Confirmed Type benzonatate 100 mg capsule 100 mg PO BID PRN cough #10 caps 10/30/21 Rx hydrocodone 10 mg-chlorpheniramine 5 ml PO Q12H PRN cough #70 mL 10/30/21 Rx 8 mg/5 mL oral susp extend.rel 12hr Exam Narrative Exam Narrative: Patient seen, with colicky abdominal pain, worse in the right lower quadrant, and low back. Const General: cooperative, in distress, anxious and disheveled Nutritional Appearance: average body habitus Orientation: alert, awake and oriented x3 HENMT Head: normal to inspection Mouth: oral mucosae normal Teeth and gingiva: poor dentition Eyes General: appearance normal, both eyes and all related structures Eyelids: eyelids normal Conjunctivae: conjunctivae normal Sclera: sclerae normal Neck Neck: normal visual inspection Resp Effort & Inspection: normal respiratory effort Auscultation: clear to auscultation bilaterally, no rales and no rhonchi GI Inspection: normal to inspection, no edema, non-distended and no obesity Palpation: soft, not firm, guarding, no masses, not rigid and tender Skin General skin exam: no rashes or lesions noted Extrem General: normal to inspection Results Labs 05/15/23 23:45 05/15/23 23:45 Labs: Laboratory Results - last 24 hr 05/15/23 05/15/23 05/16/23 23:45 23:55 01:03 WBC 6.54 RBC 3.88 L Hgb 11.6 Hct 34.8 L MCV 90 MCH 29.9 MCHC 33.3 RDW 14.6 Plt Count 287 MPV 11.2 H Immature Gran % 0.3 Neutrophils % 37.6 Lymphocytes % 50.3 Monocytes % 9.2 Eosinophils % 1.5 Basophils % 1.1 Nucleated RBC % 0.0 Absolute Neutrophils 2.46 Absolute Lymphocytes 3.29 Absolute Monocytes 0.60 Absolute Eosinophils 0.10 Absolute Basophils 0.07 PT 10.2 INR 1.0 APTT 23.6 VBG Lactate 1.6 H Sodium 140 Potassium 4.5 Chloride 107 Carbon Dioxide 20.4 L Anion Gap 12.6 H BUN 1 L Creatinine 0.6 Est GFR (CKD-EPI 2020) 114.15 Glucose 116 H Calcium 8.8 Total Bilirubin 0.4 AST 29 ALT 18 Alkaline Phosphatase 59 Total Protein 7.5 Albumin 4.0 Lipase 57 Urine Color Yellow Urine Clarity Clear Urine pH 5.5 Ur Specific [place] 1.010 Urine Protein Negative Urine Ketones Negative Urine Blood Negative Urine Nitrite Negative Urine Bilirubin Negative Urine Urobilinogen 0.2 Ur Leukocyte Esterase Trace H Urine RBC Negative Urine WBC 3-5 Ur Epithelial Cells Few Urine Crystals Negative Urine Bacteria Few Urine Casts Negative Urine Mucus Negative Ur Culture Indicated? Yes Urine Glucose Negative COVID-19 Source Nasal/Nares SARS-CoV-2 (PCR) Negative Patient ABO/Rh A Positive Antibody Screen NEGATIVE Last Vital Signs Temp 97 F L 05/15/23 23:41 Pulse 90 05/16/23 01:27 Resp 26 H 05/15/23 23:41 BP 107/84 05/16/23 01:27 Pulse Ox 95 05/16/23 01:40 PAWSS Have you Been Recently Intoxicated or Drunk Within the Last 30 days?: No Have you Ever Experienced Previous Episodes of Alcohol Withdrawal?: No Have you ever Experienced Withdrawal Seizures?: No Have you ever Experienced Delirium Tremens(DT)s?: No Have you ever undergone Alcohol Rehabilitation Treatment (i.e, inpt ot outpatient treatment programs)?: No Have you ever Experienced Blackouts?: No Have you ever Combined Alcohol with other Downers within the last 90 days?: No Have you ever Combined Alcohol with any other Substance of Abuse during the last 90 days?: No Positive Blood Alcohol level on Presentation? [PCS.BAL]: No Evidence of Increased Autonomic Activity (i.e. HR>120, tremor, sweating, agitation, nausea)?: No Result: 0 Time Spent Time spent with Patient: 55-74 minutes Time was spent: preparing to see the patient(eg.review tests), obtaining and/or reviewing separately otained hiistory, ordering medications,tests, procedures, referring, communicating with other health animal caretaker, indepentently interpreting results, counseling the patient and care coordination
[2023-05-16 02:05] LABS: *AMPHETAMINES SCREEN URINE Negative (Negative); *BARBITURATES SCREEN URINE Negative (Negative); *BENZODIAZEPINES SCREEN URINE Negative (Negative); Cannabinoids THC Negative (Negative); Cocaine Screen,Urine Positive (Negative); METHADONE URINE SCREEN Negative (Negative); OPIATES URINE SCREEN Negative (Negative)
[2023-05-16 02:08] LABS: Tricyclic Antidepressants Negative (Negative)
--- NOTE | 2023-05-16 03:56 | PGE_ITS ---
Date of Service Date of service: 05/16/23 Time of Service: 03:56 Assessment and Plan Assessment and plan (1) Abdominal pain, right lower quadrant: Status: Acute Assessment and plan: Some improvement of right lower quadrant pain though increasing nausea and vomiting with some coffee-ground emesis. We will add Pepcid, and Reglan. (2) Fibroid, uterine: Status: Acute (3) History of DVT of lower extremity: Status: Acute (4) Elevated ETOH level: Status: Acute Assessment and plan: Monitor for signs of withdrawal. Stable electrolytes. (5) Positive urine drug screen: Status: Acute Assessment and plan: Continue to monitor closely for signs of withdrawal Subjective Subjective Interval history since last seen: Patient seen and examined this morning, pain is better. She is continuing to have some nausea with some coffee-ground appearing emesis. She has significant anxiety. Nursing assessment was that she appeared to have some alcohol on board. Retrospective alcohol level performed with her previous blood level was noted to be 231. Urine drug screen was also positive for cocaine, the patient denies use of substances other than alcohol. Exam Const General: comfortable, anxious, disheveled and intoxicated appearing Orientation: alert, awake and oriented x3 HENMT Head: normal to inspection Eyes General: appearance normal, both eyes and all related structures Cardio Rate: regular rate Rhythm: regular rhythm Psych Appearance: disheveled Mental Status: mental status grossly normal Speech and Movement: agitated and restless Affect: animated and anxious affect Objective Last Vital Signs Temp 96.8 F L 05/16/23 03:11 Pulse 90 05/16/23 03:11 Resp 19 05/16/23 03:11 BP 96/63 L 05/16/23 03:11 Pulse Ox 98 05/16/23 03:11 Laboratory Results - last 24 hr 05/15/23 05/15/23 05/15/23 00:00 23:45 23:55 WBC 6.54 RBC 3.88 L Hgb 11.6 Hct 34.8 L MCV 90 MCH 29.9 MCHC 33.3 RDW 14.6 Plt Count 287 MPV 11.2 H Immature Gran % 0.3 Neutrophils % 37.6 Lymphocytes % 50.3 Monocytes % 9.2 Eosinophils % 1.5 Basophils % 1.1 Nucleated RBC % 0.0 Absolute Neutrophils 2.46 Absolute Lymphocytes 3.29 Absolute Monocytes 0.60 Absolute Eosinophils 0.10 Absolute Basophils 0.07 PT 10.2 INR 1.0 APTT 23.6 VBG Lactate 1.6 H Sodium 140 Potassium 4.5 Chloride 107 Carbon Dioxide 20.4 L Anion Gap 12.6 H BUN 1 L Creatinine 0.6 Est GFR (CKD-EPI 2020) 114.15 Glucose 116 H Calcium 8.8 Total Bilirubin 0.4 AST 29 ALT 18 Alkaline Phosphatase 59 Total Protein 7.5 Albumin 4.0 Lipase 57 Urine Color Yellow Urine Clarity Clear Urine pH 5.5 Ur Specific [place] 1.010 Urine Protein Negative Urine Ketones Negative Urine Blood Negative Urine Nitrite Negative Urine Bilirubin Negative Urine Urobilinogen 0.2 Ur Leukocyte Esterase Trace H Urine RBC Negative Urine WBC 3-5 Ur Epithelial Cells Few Urine Crystals Negative Urine Bacteria Few Urine Casts Negative Urine Mucus Negative Ur Culture Indicated? Yes Urine Glucose Negative Urine Opiates Screen Urine Methadone Screen Ur Barbiturates Screen Ur Tricyclics Screen Ur Amphetamines Screen U Benzodiazepines Scrn Urine Cocaine Screen Ur THC Screen Ethyl Alcohol 231.0 H COVID-19 Source SARS-CoV-2 (PCR) Patient ABO/Rh A Positive Antibody Screen NEGATIVE 05/16/23 05/16/23 00:00 01:03 WBC RBC Hgb Hct MCV MCH MCHC RDW Plt Count MPV Immature Gran % Neutrophils % Lymphocytes % Monocytes % Eosinophils % Basophils % Nucleated RBC % Absolute Neutrophils Absolute Lymphocytes Absolute Monocytes Absolute Eosinophils Absolute Basophils PT INR APTT VBG Lactate Sodium Potassium Chloride Carbon Dioxide Anion Gap BUN Creatinine Est GFR (CKD-EPI 2020) Glucose Calcium Total Bilirubin AST ALT Alkaline Phosphatase Total Protein Albumin Lipase Urine Color Urine Clarity Urine pH Ur Specific [place] Urine Protein Urine Ketones Urine Blood Urine Nitrite Urine Bilirubin Urine Urobilinogen Ur Leukocyte Esterase Urine RBC Urine WBC Ur Epithelial Cells Urine Crystals Urine Bacteria Urine Casts Urine Mucus Ur Culture Indicated? Urine Glucose Urine Opiates Screen Negative Urine Methadone Screen Negative Ur Barbiturates Screen Negative Ur Tricyclics Screen Negative Ur Amphetamines Screen Negative U Benzodiazepines Scrn Negative Urine Cocaine Screen Positive A Ur THC Screen Negative Ethyl Alcohol COVID-19 Source Nasal/Nares SARS-CoV-2 (PCR) Negative Patient ABO/Rh Antibody Screen PAWSS Have you Been Recently Intoxicated or Drunk Within the Last 30 days?: No Have you Ever Experienced Previous Episodes of Alcohol Withdrawal?: No Have you ever Experienced Withdrawal Seizures?: No Have you ever Experienced Delirium Tremens(DT)s?: No Have you ever undergone Alcohol Rehabilitation Treatment (i.e, inpt ot outpatient treatment programs)?: No Have you ever Experienced Blackouts?: No Have you ever Combined Alcohol with other Downers within the last 90 days?: No Have you ever Combined Alcohol with any other Substance of Abuse during the last 90 days?: No Positive Blood Alcohol level on Presentation? [PCS.BAL]: No Evidence of Increased Autonomic Activity (i.e. HR>120, tremor, sweating, agitation, nausea)?: No Result: 0 Time Spent with Patient Time Spent with Patient: 25-34 minutes Time was spent: preparing to see the patient(eg.review tests), obtaining and/or reviewing separately otained hiistory, ordering medications,tests, procedures, referring, communicating with other health critical care nurse practitioner, indepentently interpreting results and counseling the patient
[2023-05-16] MEDS: Metoclopramide 10 MG/2 ML VIAL IVP (04:09)
[2023-05-16] MEDS: Famotidine 20 MG/2 ML VIAL IVP (04:09)
[2023-05-16 05:44] LABS: HCT 30.9 % (36.0-46.0); HGB 10.1 g/dL (11.2-15.7); Lactate 1.2 mmol/L (0.6-1.4); MCH 30.1 pg (27.0-33.0); MCHC 32.7 % (32.0-36.0); MCV 92 fL (80-95); MPV 10.8 fL (8.0-11.0); Platelet Count 206 10^3/uL (130-400); RBC 3.35 10^6/uL (3.93-5.22); RDW 14.8 % (11.7-14.6); RDW-SD 50.5 fL; WBC 8.55 10^3/uL (4.4-10.8)
[2023-05-16] MEDS: Ondansetron 4 MG/2 ML VIAL IVP (06:43)
--- NOTE | 2023-05-16 06:58 | PGE_ITS ---
Date of Service Date of service: 05/16/23 Time of Service: 06:58 Assessment and Plan Assessment and plan (1) Abdominal pain, right lower quadrant: Status: Acute Assessment and plan: Right lower quadrant pain. Nausea vomiting. Await evaluation per general surgery. Etiology of her pain is unclear in light of the fact that she has had a persistent fibroid, and small, benign appearing ovarian cyst. (2) Fibroid, uterine: Status: Acute Assessment and plan: Uterine fibroid as seen on CT scan, and in previous imaging studies. (3) History of DVT of lower extremity: Status: Acute (4) Elevated ETOH level: Status: Acute (5) Positive urine drug screen: Status: Acute Subjective Subjective Interval history since last seen: Patient seen and examined this morning. Continues to have intermittent, colicky, lower pelvic and abdominal pain. She continues to have nausea with dry heaving, scant emesis. She remains afebrile with stable vital signs, relatively normal laboratory studies with a slight drop in hemoglobin, most likely due to hydration status. Exam Const General: cooperative, anxious and disheveled Nutritional Appearance: average body habitus [facility] Head: normal to inspection Eyes General: appearance normal, both eyes and all related structures Neck Neck: normal visual inspection and supple Resp Effort & Inspection: normal respiratory effort and no cough Cardio Rate: regular rate Rhythm: regular rhythm GI Inspection: normal to inspection and non-distended Palpation: soft and tender Extrem General: normal to inspection and no clubbing, cyanosis or edema Objective Last Vital Signs Temp 96.8 F L 05/16/23 03:11 Pulse 90 05/16/23 03:11 Resp 19 05/16/23 03:11 BP 109/89 05/16/23 04:26 Pulse Ox 98 05/16/23 03:11 Laboratory Results - last 24 hr 05/15/23 05/15/23 05/15/23 00:00 23:45 23:55 WBC 6.54 RBC 3.88 L Hgb 11.6 Hct 34.8 L MCV 90 MCH 29.9 MCHC 33.3 RDW 14.6 Plt Count 287 MPV 11.2 H Immature Gran % 0.3 Neutrophils % 37.6 Lymphocytes % 50.3 Monocytes % 9.2 Eosinophils % 1.5 Basophils % 1.1 Nucleated RBC % 0.0 Absolute Neutrophils 2.46 Absolute Lymphocytes 3.29 Absolute Monocytes 0.60 Absolute Eosinophils 0.10 Absolute Basophils 0.07 PT 10.2 INR 1.0 APTT 23.6 VBG Lactate 1.6 H Sodium 140 Potassium 4.5 Chloride 107 Carbon Dioxide 20.4 L Anion Gap 12.6 H BUN 1 L Creatinine 0.6 Est GFR (CKD-EPI 2020) 114.15 Glucose 116 H Calcium 8.8 Total Bilirubin 0.4 AST 29 ALT 18 Alkaline Phosphatase 59 Total Protein 7.5 Albumin 4.0 Lipase 57 Urine Color Yellow Urine Clarity Clear Urine pH 5.5 Ur Specific [place] 1.010 Urine Protein Negative Urine Ketones Negative Urine Blood Negative Urine Nitrite Negative Urine Bilirubin Negative Urine Urobilinogen 0.2 Ur Leukocyte Esterase Trace H Urine RBC Negative Urine WBC 3-5 Ur Epithelial Cells Few Urine Crystals Negative Urine Bacteria Few Urine Casts Negative Urine Mucus Negative Ur Culture Indicated? Yes Urine Glucose Negative Urine Opiates Screen Urine Methadone Screen Ur Barbiturates Screen Ur Tricyclics Screen Ur Amphetamines Screen U Benzodiazepines Scrn Urine Cocaine Screen Ur THC Screen Ethyl Alcohol 231.0 H COVID-19 Source SARS-CoV-2 (PCR) Patient ABO/Rh A Positive Antibody Screen NEGATIVE 05/16/23 05/16/23 05/16/23 00:00 01:03 05:35 WBC 8.55 RBC 3.35 L Hgb 10.1 L Hct 30.9 L MCV 92 MCH 30.1 MCHC 32.7 RDW 14.8 H Plt Count 206 MPV 10.8 Immature Gran % Neutrophils % Lymphocytes % Monocytes % Eosinophils % Basophils % Nucleated RBC % Absolute Neutrophils Absolute Lymphocytes Absolute Monocytes Absolute Eosinophils Absolute Basophils PT INR APTT VBG Lactate 1.2 Sodium Potassium Chloride Carbon Dioxide Anion Gap BUN Creatinine Est GFR (CKD-EPI 2020) Glucose Calcium Total Bilirubin AST ALT Alkaline Phosphatase Total Protein Albumin Lipase Urine Color Urine Clarity Urine pH Ur Specific [place] Urine Protein Urine Ketones Urine Blood Urine Nitrite Urine Bilirubin Urine Urobilinogen Ur Leukocyte Esterase Urine RBC Urine WBC Ur Epithelial Cells Urine Crystals Urine Bacteria Urine Casts Urine Mucus Ur Culture Indicated? Urine Glucose Urine Opiates Screen Negative Urine Methadone Screen Negative Ur Barbiturates Screen Negative Ur Tricyclics Screen Negative Ur Amphetamines Screen Negative U Benzodiazepines Scrn Negative Urine Cocaine Screen Positive A Ur THC Screen Negative Ethyl Alcohol COVID-19 Source Nasal/Nares SARS-CoV-2 (PCR) Negative Patient ABO/Rh Antibody Screen PAWSS Have you Been Recently Intoxicated or Drunk Within the Last 30 days?: No Have you Ever Experienced Previous Episodes of Alcohol Withdrawal?: No Have you ever Experienced Withdrawal Seizures?: No Have you ever Experienced Delirium Tremens(DT)s?: No Have you ever undergone Alcohol Rehabilitation Treatment (i.e, inpt ot outpatient treatment programs)?: No Have you ever Experienced Blackouts?: No Have you ever Combined Alcohol with other Downers within the last 90 days?: No Have you ever Combined Alcohol with any other Substance of Abuse during the last 90 days?: No Positive Blood Alcohol level on Presentation? [PCS.BAL]: No Evidence of Increased Autonomic Activity (i.e. HR>120, tremor, sweating, agitation, nausea)?: No Result: 0 Time Spent with Patient Time Spent with Patient: 25-34 minutes Time was spent: preparing to see the patient(eg.review tests), obtaining and/or reviewing separately otained hiistory, ordering medications,tests, procedures, referring, communicating with other health home care and home health aides teacher, indepentently interpreting results and counseling the patient
--- NOTE | 2023-05-16 07:24 | W.SURGCON ---
Date of service: 05/16/23 Time of Service: 08:30 Assessment and Plan Assessment and plan (1) Abdominal pain, right lower quadrant: Status: Acute Assessment and plan: 42-year-old woman with acute on chronic lower abdominal/pelvic pain of unknown etiology or significance. She is hemodynamically stable and is certainly not dying or getting worse. She definitely arrived intoxicated and at this point the nausea and vomiting that she is having is probably secondary to the amount of alcohol she had board and is essentially a hangover. I do not think this explains her abdominal pain, but the amount of alcohol she had would definitely explain the dry heaving and nausea. Who knows, perhaps the dry heaving and persistent vomiting has irritated whatever chronic lower pelvic/abdominal process is happening. It is very difficult to tell. Even now she is still somewhat under the influence of alcohol. Her story has changed a fair amount between last night and this morning in between family members and today, her fianc?. She definitely has significant tenderness in the right lower quadrant and it is very low. It is hard to ignore the fibroid seen on CT scan since it is either directly underneath or within a couple of centimeters of the focal tenderness that the patient has. There is no CAT scan evidence of appendicitis or any other inflammatory process in the abdomen. There is no free air and there is no free fluid. The differential diagnosis here of course includes appendicitis as well as Meckel's diverticulitis as well as sigmoid diverticulitis to name a few. Any of these are possibilities and it may be that the imaging was done too soon to catch the inflammation. For that reason I recommended that no antibiotics be given in case this is an inflammatory process that needs to come to fruition in order for us to better understand and identify it. I have personally reviewed her CTA scan in careful detail. I do not see free air or free fluid anywhere. I do not see any stranding to suggest inflammation anywhere. I looked carefully on coronal and axial images for any mesenteric swirling and none is appreciated. All the vessels are patent. The SMA is patent all the way down to the small tributary branches. The KIRA is also visible and patent. There is nothing that looks like a bowel obstruction or volvulus. No inflammation in the right lower quadrant. The gallbladder looks normal. The uterine fibroid has a lot of vasculature going to it and is directly in the region of pain. I just wonder if this is the underlying culprit. At this time, in the absence of peritoneal signs and in the absence of any findings that warrant emergency exploration on cross-sectional imaging, observation remains the best management strategy. I do not think this is pain out of proportion to exam because I actually found that her abdominal exam was more tender than her subjective complaints. She says she is having abdominal pain but is able to easily and quickly move about and converse and discuss it which would be unusual if her pain was as severe as she says it is. However, on exam, she is pretty tender, focal, in the right lower quadrant. I have no objective or subjective findings, at this point, to be concerned about acute mesenteric ischemia. I am pessimistic that she is probably going to need operative exploration in the near future for what ever this chronic process has been since it sounds like she has been suffering from abdominal and pelvic pain for the last month or so. Certainly my guess is that this is related to the uterine fibroid 1 way or another and it may be causing adhesions to small bowel or something like that which is causing her chronic pain. So in short I do think she is probably going to need operative exploration at some point in tandem with [facility] surgery to explore the right lower quadrant. Nonetheless, she remains under the influence of alcohol at the time of this dictation note and does not have any laboratory values, hemodynamics/vital sign concerns, physical exam or radiographic findings that warrant operative exploration and I think it would be prudent for us to take her time and ensure a complete and thorough work-up. For now she can have sips of clear liquids as she continues to detox from the acute alcohol ingestion. She can have pain control as needed. We will continue to observe and monitor her for any worsening signs or symptoms but for now, I think the best management strategy is to repeat cross-sectional imaging this evening after 12-18 hours has passed since the onset of her symptoms. If this is something such as appendicitis or some sort of colitis or other inflammatory process, it may have been missed by having imaging done too soon and perhaps we will better?identify her acute problem now that some time is passed and she has not gotten any antibiotics. Her lab work remains unimpressive so I do not know if this is going to be beneficial or not. Certainly we may not see any process and be in the same position of wondering. We will continue IV fluid hydration. I discussed all of this management strategy and care plan with the attending [facility] [employer] [facility] Dr. Resendez. She is in agreement. Overall plan: Repeat CT abdomen pelvis later this afternoon Serial abdominal exams/observation If no significant improvement by tomorrow afternoon, then a semi-urgent, scheduled surgical exploration in tandem with [facility] If anything worsens or there are new findings on CT scan, potential laparoscopic exploration this evening. History of Present Illness Narrative: Called by ED last night because of the patient with acute, sudden onset of right lower quadrant/pelvic pain that dropped her to her knees. CTA was negative and showed intact blood flow throughout the mesenteric mesocolon blood vessels. No evidence of intra-abdominal inflammation or any other pathology. No free air. [facility] excepted patient for observation because of the low?pelvic discomfort, the only finding on CT scan being a large fibroid on the right?side and concerned about possible ovarian torsion. The patient had a blood alcohol level of 231 at the time that her blood was drawn. Her fianc? and her both say she does not drink very often. Her urine tox screen was positive for cocaine. She admits to cocaine use but says that was 5 or 6 years ago. She has been clean for years now. At the bedside, the patient is more awake this morning, her recent blood alcohol from an hour or 2 ago is down to 68. Her fianc? is with her in the room. This history is per the patient and her fianc? together. She is a 42-year-old woman. Her and her fianc? endorse that she has been dealing with progressive lower abdominal pain over the last month or so. She says over the last 2 weeks it has been slowly worsening. She went to [facility] a month ago and was evaluated in the emergency department and there were no findings other than a fibroid on her uterus is what she says. Her fianc? says he has been trying to get her to come to a doctor for the last few weeks but she refuses. She describes all of the pain she has been dealing with in her lower abdomen/pelvis and across the entire pelvis. The pain last night is different and that it is all on the right?side. She said it is sudden and it dropped me to my knees. Her family members brought her in because of the acute severity. The patient herself endorses that this is the worst it has been in the last month. At the bedside she then jumps up and is on all fours on her bed attempting to vomit and dry heaves. She moves around quite quickly. I asked her about nausea and vomiting and bowel habits and she says those have been normal. She is not having this issue on a daily basis. This is acute this morning and last night. She has not had any diarrhea. She does say she has been passing gas. Her vomiting is just dry heaving and nothing is coming up. She endorses that she is vomiting because she feels nauseated and it is not related to the pain. She says the pain is constant and in the right lower part of her abdomen. She does not want to be touched there. Touching it hurts more. Surgical history is significant for laparoscopic tubal ligation. She does not have gallstones that she is aware of. She still has her appendix. She has had many other surgeries but nothing else in her abdominal cavity. She has not had upper and lower endoscopy. PFSH All Active Problems (Updated 05/16/23 @ 07:01 by Shruti Resendez DO) Positive urine drug screen (Acute) Cocaine + 05/15/2023, denies use in the last 6 years Elevated ETOH level (Acute) History of DVT of lower extremity (Acute) Fibroid, uterine (Acute) Abdominal pain, right lower quadrant (Acute) Medical History (Updated 05/16/23 @ 07:01 by Shruti Resendez DO) Atypical pneumonia Hepatitis C Hyperlipidemia, unspecified (06/16/17) IFG (impaired fasting glucose) (06/16/17) Cocaine use disorder remission last 4 years Opioid use disorder Acute necrotizing gingivitis Tobacco use disorder Substance use disorder Surgical History left medial minisectomy (03/17/10) Ligation of fallopian tube (08/19/05) 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 Maternal Aunt , Breast CA at age 41. Neoplasm Breast CA Maternal Aunt , Breast CA at age 43. Neoplasm Breast CA Maternal Aunt , Breast CA at age 44. Neoplasm Breast CA Maternal Aunt Neoplasm Breast CA Grandmother Diabetes Social History Smoking/Tobacco Use Status: Former Tobacco Use Smoking risk assessment performed?: Yes Alcohol Intake: current Alcohol Intake frequency: a few times a month Alcohol type: beer Drug use: Current Sobriety Housing: house Do you feel safe at home: Yes Do you feel safe in your relationship?: Yes Female Reproductive History Menstrual Age of Menarche: 11 Duration of menses: 3-5 days control method: permanent sterilization History History 2 Para Hx # Term Pregnancies 2 Multiple births Hx # Pregnancies Ectopic pregnancies AB induced Hx Number of Living Children 2 AB spontaneous Exam Narrative Exam Narrative: General: Nontoxic, tired, fatigued but overall in no extremis. She is interactive and focused. She really does not appear to be in any significant pain and is able to converse and talk easily. She moves about very quickly and readily to vomit and throw up. Her rapid and quick moving about on the bed does not appear to cause pain. She quickly moved from laying flat to being on all fours on her bed while she dry heaves into a bag. Nursing staff was with me and witnessed this. Neuro: Alert and oriented x3, there is some movement impairment still. Seems that she has asterixis - when she holds out her arm, she has tremor Psych: Somewhat mildly anxious, cooperative and not agitated but appears mildly irritated. Her history, insight and understanding seems slightly impaired still. This may be due to the substances still in her body. Chest: Nonlabored breathing, no wheezing Heart: Regular Abdomen: Soft, nondistended, focal right lower quadrant tenderness is pretty significant. The other 3 quadrants are completely nontender. There are no peritoneal signs. Extremities: Free range of motion x4 Results Last Vital Signs Temp 97.5 F L 05/16/23 06:57 Pulse 90 05/16/23 06:57 Resp 20 05/16/23 06:57 BP 108/76 05/16/23 06:57 Pulse Ox 96 05/16/23 06:57 Labs 05/16/23 05:35 05/16/23 07:47 Labs: Laboratory Results - last 24 hr 05/15/23 05/15/23 05/15/23 00:00 23:45 23:55 WBC 6.54 RBC 3.88 L Hgb 11.6 Hct 34.8 L MCV 90 MCH 29.9 MCHC 33.3 RDW 14.6 Plt Count 287 MPV 11.2 H Immature Gran % 0.3 Neutrophils % 37.6 Lymphocytes % 50.3 Monocytes % 9.2 Eosinophils % 1.5 Basophils % 1.1 Nucleated RBC % 0.0 Absolute Neutrophils 2.46 Absolute Lymphocytes 3.29 Absolute Monocytes 0.60 Absolute Eosinophils 0.10 Absolute Basophils 0.07 PT 10.2 INR 1.0 APTT 23.6 VBG Lactate 1.6 H Sodium 140 Potassium 4.5 Chloride 107 Carbon Dioxide 20.4 L Anion Gap 12.6 H BUN 1 L Creatinine 0.6 Est GFR (CKD-EPI 2020) 114.15 Glucose 116 H Calcium 8.8 Total Bilirubin 0.4 AST 29 ALT 18 Alkaline Phosphatase 59 Total Protein 7.5 Albumin 4.0 Lipase 57 Urine Color Yellow Urine Clarity Clear Urine pH 5.5 Ur Specific [place] 1.010 Urine Protein Negative Urine Ketones Negative Urine Blood Negative Urine Nitrite Negative Urine Bilirubin Negative Urine Urobilinogen 0.2 Ur Leukocyte Esterase Trace H Urine RBC Negative Urine WBC 3-5 Ur Epithelial Cells Few Urine Crystals Negative Urine Bacteria Few Urine Casts Negative Urine Mucus Negative Ur Culture Indicated? Yes Urine Glucose Negative Urine Opiates Screen Urine Methadone Screen Ur Barbiturates Screen Ur Tricyclics Screen Ur Amphetamines Screen U Benzodiazepines Scrn Urine Cocaine Screen Ur THC Screen Ethyl Alcohol 231.0 H COVID-19 Source SARS-CoV-2 (PCR) Patient ABO/Rh A Positive Antibody Screen NEGATIVE 05/16/23 05/16/23 05/16/23 00:00 01:03 05:35 WBC 8.55 RBC 3.35 L Hgb 10.1 L Hct 30.9 L MCV 92 MCH 30.1 MCHC 32.7 RDW 14.8 H Plt Count 206 MPV 10.8 Immature Gran % Neutrophils % Lymphocytes % Monocytes % Eosinophils % Basophils % Nucleated RBC % Absolute Neutrophils Absolute Lymphocytes Absolute Monocytes Absolute Eosinophils Absolute Basophils PT INR APTT VBG Lactate 1.2 Sodium Potassium Chloride Carbon Dioxide Anion Gap BUN Creatinine Est GFR (CKD-EPI 2020) Glucose Calcium Total Bilirubin AST ALT Alkaline Phosphatase Total Protein Albumin Lipase Urine Color Urine Clarity Urine pH Ur Specific [place] Urine Protein Urine Ketones Urine Blood Urine Nitrite Urine Bilirubin Urine Urobilinogen Ur Leukocyte Esterase Urine RBC Urine WBC Ur Epithelial Cells Urine Crystals Urine Bacteria Urine Casts Urine Mucus Ur Culture Indicated? Urine Glucose Urine Opiates Screen Negative Urine Methadone Screen Negative Ur Barbiturates Screen Negative Ur Tricyclics Screen Negative Ur Amphetamines Screen Negative U Benzodiazepines Scrn Negative Urine Cocaine Screen Positive A Ur THC Screen Negative Ethyl Alcohol COVID-19 Source Nasal/Nares SARS-CoV-2 (PCR) Negative Patient ABO/Rh Antibody Screen
[2023-05-16 07:54] LABS: Lactate 1.7 mmol/L (0.6-1.4)
[2023-05-16 08:22] LABS: ALT 17 U/L (14-59); AST 15 U/L (15-37); Albumin 3.3 g/dL (3.4-5.0); Alkaline Phosphatase 50 U/L (46-116); BUN 2 mg/dL (7-18); Bilirubin, Total 0.2 mg/dL (0.2-1.0); CREATININE 0.6 mg/dL (0.55-1.02); Calcium 7.4 mg/dL (8.5-10.1); Chloride 111 mmol/L (98-107); Estimated GFR 114.15 (mL/min/1.73m2); Glucose 100 mg/dL (74-106); Magnesium 1.9 mg/dL (1.8-2.4); Potassium 3.7 mmol/L (3.5-5.1); Sodium 145 mmol/L (136-145)
--- NOTE | 2023-05-16 10:38 | PGE_ITS ---
Date of Service Date of service: 05/16/23 Time of Service: 10:38 Assessment and Plan Assessment and plan (1) Abdominal pain, right lower quadrant: Status: Acute Assessment and plan: Patient has consistently slightly improved right lower quadrant discomfort. On further questioning of her and her mother, she has had discomfort worsening over the course of the past month or 2. She currently reports that she is thirsty, continues to have some nausea and dry heaves. The plan will be repeat imaging studies with ultrasound, followed by CT scan. Possibility for surgical int ervention if no significant improvement. Surgery would be possibility of diagnostic, possible operative laparoscopy, possible laparotomy, possible hysterectomy (2) Fibroid, uterine: Status: Acute (3) History of DVT of lower extremity: Status: Acute (4) Elevated ETOH level: Status: Acute (5) Positive urine drug screen: Status: Acute Subjective Subjective Interval history since last seen: Patient was seen and examined and case discussed with general surgery. Patient continues to have right lower quadrant discomfort, and nausea and vomiting. Laboratory studies appear appropriate this morning. Vital signs are stable. Plan will be for repeat imaging with pelvic ultrasound as scheduled at approximately 11 AM, followed by a repeat CT scan at approximately 4 PM. We will base surgical intervention and recommendations on her clinical picture, and diagnostics. Exam Const General: cooperative, uncomfortable and not in acute distress Resp Effort & Inspection: normal respiratory effort, no audible wheezes and no cough GI Inspection: normal to inspection and non-distended Palpation: soft, guarding and tender in the RLQ Skin General skin exam: no rashes or lesions noted Extrem General: normal to inspection and no clubbing, cyanosis or edema Objective Last Vital Signs Temp 98.2 F 05/16/23 07:56 Pulse 78 05/16/23 07:56 Resp 16 05/16/23 07:56 BP 98/52 L 05/16/23 07:56 Pulse Ox 96 05/16/23 07:56 Laboratory Results - last 24 hr 05/15/23 05/15/23 05/15/23 00:00 23:45 23:55 WBC 6.54 RBC 3.88 L Hgb 11.6 Hct 34.8 L MCV 90 MCH 29.9 MCHC 33.3 RDW 14.6 Plt Count 287 MPV 11.2 H Immature Gran % 0.3 Neutrophils % 37.6 Lymphocytes % 50.3 Monocytes % 9.2 Eosinophils % 1.5 Basophils % 1.1 Nucleated RBC % 0.0 Absolute Neutrophils 2.46 Absolute Lymphocytes 3.29 Absolute Monocytes 0.60 Absolute Eosinophils 0.10 Absolute Basophils 0.07 PT 10.2 INR 1.0 APTT 23.6 VBG Lactate 1.6 H Sodium 140 Potassium 4.5 Chloride 107 Carbon Dioxide 20.4 L Anion Gap 12.6 H BUN 1 L Creatinine 0.6 Est GFR (CKD-EPI 2020) 114.15 Glucose 116 H Calcium 8.8 Magnesium Total Bilirubin 0.4 AST 29 ALT 18 Alkaline Phosphatase 59 Total Protein 7.5 Albumin 4.0 Lipase 57 Urine Color Yellow Urine Clarity Clear Urine pH 5.5 Ur Specific [place] 1.010 Urine Protein Negative Urine Ketones Negative Urine Blood Negative Urine Nitrite Negative Urine Bilirubin Negative Urine Urobilinogen 0.2 Ur Leukocyte Esterase Trace H Urine RBC Negative Urine WBC 3-5 Ur Epithelial Cells Few Urine Crystals Negative Urine Bacteria Few Urine Casts Negative Urine Mucus Negative Ur Culture Indicated? Yes Urine Glucose Negative Urine Opiates Screen Urine Methadone Screen Ur Barbiturates Screen Ur Tricyclics Screen Ur Amphetamines Screen U Benzodiazepines Scrn Urine Cocaine Screen Ur THC Screen Ethyl Alcohol 231.0 H COVID-19 Source SARS-CoV-2 (PCR) Patient ABO/Rh A Positive Antibody Screen NEGATIVE 05/16/23 05/16/23 05/16/23 00:00 01:03 05:35 WBC 8.55 RBC 3.35 L Hgb 10.1 L Hct 30.9 L MCV 92 MCH 30.1 MCHC 32.7 RDW 14.8 H Plt Count 206 MPV 10.8 Immature Gran % Neutrophils % Lymphocytes % Monocytes % Eosinophils % Basophils % Nucleated RBC % Absolute Neutrophils Absolute Lymphocytes Absolute Monocytes Absolute Eosinophils Absolute Basophils PT INR APTT VBG Lactate 1.2 Sodium Potassium Chloride Carbon Dioxide Anion Gap BUN Creatinine Est GFR (CKD-EPI 2020) Glucose Calcium Magnesium Total Bilirubin AST ALT Alkaline Phosphatase Total Protein Albumin Lipase Urine Color Urine Clarity Urine pH Ur Specific [place] Urine Protein Urine Ketones Urine Blood Urine Nitrite Urine Bilirubin Urine Urobilinogen Ur Leukocyte Esterase Urine RBC Urine WBC Ur Epithelial Cells Urine Crystals Urine Bacteria Urine Casts Urine Mucus Ur Culture Indicated? Urine Glucose Urine Opiates Screen Negative Urine Methadone Screen Negative Ur Barbiturates Screen Negative Ur Tricyclics Screen Negative Ur Amphetamines Screen Negative U Benzodiazepines Scrn Negative Urine Cocaine Screen Positive A Ur THC Screen Negative Ethyl Alcohol COVID-19 Source Nasal/Nares SARS-CoV-2 (PCR) Negative Patient ABO/Rh Antibody Screen 05/16/23 05/16/23 07:47 07:47 WBC RBC Hgb Hct MCV MCH MCHC RDW Plt Count MPV Immature Gran % Neutrophils % Lymphocytes % Monocytes % Eosinophils % Basophils % Nucleated RBC % Absolute Neutrophils Absolute Lymphocytes Absolute Monocytes Absolute Eosinophils Absolute Basophils PT INR APTT VBG Lactate 1.7 H Sodium 145 Potassium 3.7 Chloride 111 H Carbon Dioxide 22.0 Anion Gap 12.0 H BUN 2 L Creatinine 0.6 Est GFR (CKD-EPI 2020) 114.15 Glucose 100 Calcium 7.4 L Magnesium 1.9 Cancelled Total Bilirubin 0.2 AST 15 ALT 17 Alkaline Phosphatase 50 Total Protein 6.0 L Albumin 3.3 L Lipase Urine Color Urine Clarity Urine pH Ur Specific [place] Urine Protein Urine Ketones Urine Blood Urine Nitrite Urine Bilirubin Urine Urobilinogen Ur Leukocyte Esterase Urine RBC Urine WBC Ur Epithelial Cells Urine Crystals Urine Bacteria Urine Casts Urine Mucus Ur Culture Indicated? Urine Glucose Urine Opiates Screen Urine Methadone Screen Ur Barbiturates Screen Ur Tricyclics Screen Ur Amphetamines Screen U Benzodiazepines Scrn Urine Cocaine Screen Ur THC Screen Ethyl Alcohol 68.0 H COVID-19 Source SARS-CoV-2 (PCR) Patient ABO/Rh Antibody Screen PAWSS Have you Been Recently Intoxicated or Drunk Within the Last 30 days?: No Have you Ever Experienced Previous Episodes of Alcohol Withdrawal?: No Have you ever Experienced Withdrawal Seizures?: No Have you ever Experienced Delirium Tremens(DT)s?: No Have you ever undergone Alcohol Rehabilitation Treatment (i.e, inpt ot outpatient treatment programs)?: No Have you ever Experienced Blackouts?: No Have you ever Combined Alcohol with other Downers within the last 90 days?: No Have you ever Combined Alcohol with any other Substance of Abuse during the last 90 days?: No Positive Blood Alcohol level on Presentation? [PCS.BAL]: No Evidence of Increased Autonomic Activity (i.e. HR>120, tremor, sweating, agitati on, nausea)?: No Result: 0 Time Spent with Patient Time Spent with Patient: 35-49 minutes Time was spent: preparing to see the patient(eg.review tests), obtaining and/or reviewing separately [facility], ordering medications,tests, procedures, referring, communicating with other health personal carer, indepentently interpreting results and counseling the patient
[2023-05-16] MEDS: Normal Saline 1,000 ML 250 ML IV ×2 (10:49→14:32)
--- NOTE | 2023-05-16 12:31 | DI.VRAD_ITS ---
PROCEDURE INFORMATION: Exam: US Pelvis Complete, Transabdominal and US Pelvis, Transvaginal Exam date and time: 05/16/2023 10:54 AM Age: 42 years old Clinical indication: Other: Sever rlq pain; R/O ovarian torsion TECHNIQUE: Imaging protocol: Real-time complete transabdominal and transvaginal pelvic ultrasound with image documentation. Transvaginal imaging was used for better evaluation of the endometrium, adnexa, and/or cervix. COMPARISON: CT ABDOMEN PELVIS CTA 05/15/2023 11:52 PM FINDINGS: Uterus: Uterus measured 10.5 x 5.5 x 6.4 cm. Multiple rounded mass lesions of uterus compatible with fibroids, with the largest measured at about 6 cm. Probable nabothian/retention cysts cervix. Central endometrial echo complex measured at about 15 mm total AP double-layer thickness, nonspecific in a patient having menstrual cycles (LMP 04/26/2023). Right ovary/adnexa: Right ovary measured at 2.20 by 2.14 x 2.09 cm, appears to contain rounded structure measured at about 1.8 cm with surrounding vascular ring, ring of flow demonstrated on color Doppler suggesting possible resolving/evolving corpus luteum. Evidence of flow, vascularity demonstrated with color and spectral Doppler. No current right ovarian torsion demonstrated. Left ovary/adnexa: Left ovary measured at 2.63 x 1.85 x 0.90 cm, appears to contain follicles. Intraperitoneal space: No free pelvic fluid collections demonstrated. Urinary bladder: Unremarkable. IMPRESSION: No current evidence of right ovarian torsion demonstrated. Dictated and Authenticated by: Mario Salazar MD. Ordering:GINA Bahena MD
--- NOTE | 2023-05-16 16:00 | DI.CT_ITS ---
Exam(s) CT ABDOMEN PELVIS W EXAM: CT ABDOMEN PELVIS W CLINICAL HISTORY: RLQ abdominal pain - R/o inflammatory process. TECHNIQUE: Imaging Protocol: Axial computed tomography images with coronal and sagittal reformatted images were created and reviewed CONTRAST MATERIAL: Intravenous: Omnipaque-350 100cc Oral: None COMPARISON: CT CT ABDOMEN PELVIS CTA from 05/15/2023 FINDINGS: VISUALIZED LUNG BASES: No nodules nor pleural effusions evident. ABDOMEN: There is no ascites. LIVER: There are no focal hepatic lesions evident. No dilated intrahepatic ducts. GALLBLADDER/BILIARY: Lumen contains contrast. CBD is not dilated. PANCREAS: No evidence of pancreatic mass nor dilatation of the pancreatic duct. SPLEEN: Spleen is not enlarged. No obvious intrasplenic lesions. Splenic and portal veins are paten t. ADRENALS: There are no significant adrenal masses. KIDNEYS:No cysts evident. No solid renal masses. No calculi nor hydronephrosis.. ABDOMINAL AORTA: Abdominal aorta is not enlarged. LYMPH NODES:There is no retroperitoneal nor paraaortic adenopathy. ABDOMINAL WALL: No evidence of significant anterior abdominal wall nor inguinal hernia. GI: There is no evidence of bowel obstruction, free air, nor abscess. PELVIS: GI: Appendix is not identified. No obvious appendicitis.No evidence of sigmoid diverticulitis. LYMPH NODES: There is no intrapelvic nor inguinal adenopathy. REPRODUCTIVE: Large enhancing 5 x 4.5 cm right-sided uterine fibroid again noted. Other smaller fibr oids are seen at the level the fundus. There is again noted a peripherally enhancing corpus luteal c yst in the right ovary measuring 16 x 15 millimeters. No surrounding free fluid nor fluid in the cul -de-sac. Left adnexa unremarkable. URINARY BLADDER: Small. Under distension. OSSEOUS: No fractures and no significant osseous lesions. IMPRESSION: 1. Compared to the prior CT scan of 05/15/2023 (yesterday) there are again noted multiple uterine fib roids, the largest again being right-sided measuring 5 x 4.5 cm and with smaller fibroids in the uppe r fundus region noted. No left adnexal findings. 2. Corpus luteal cyst in the right ovary again noted measuring 16 x 15 mm and not associated with inc reasing free fluid in the adnexal and cul-de-sac. 3. Again the appendix is difficult to isolate as a separate structure. There is no obvious swollen appendix to suggest acute appendicitis.. 4. RADIATION DOSE DELIVERED: Total DLP DATA REPOSITORY: All CT scans at this facility are submitted to the National Radiology Data Registry (NRDR) Dose Index Registry (DIR) with the [employer] (ACR). RADIATION OPTIMIZATION: All CT scans at this facility use at least one of these dose optimization te chniques: automated exposure control; mA and/or kV adjustment per patient size (includes targeted exa ms where dose is matched to clinical indication); or iterative reconstruction.
[2023-05-16] MEDS: Normal Saline - Diluent 50 ML VIAL IJ (16:13)
[2023-05-16] MEDS: Omnipaque 350 MG/ML 100 ML BTL IJ (16:14)
[2023-05-16] MEDS: Normal Saline Flush 10 ML SYR IVP ×2 (16:33→17:17)
--- NOTE | 2023-05-16 16:38 | DI.VRAD_ITS ---
PROCEDURE INFORMATION: Exam: CT Abdomen And Pelvis With Contrast Exam date and time: 05/16/2023 3:59 PM Age: 42 years old Clinical indication: Patient HX: Rlq abdominal pain - R/O inflammatory process. R/O appendicitis, R/O colitis, ? fibroid necrosis TECHNIQUE: Imaging protocol: Computed tomography of the abdomen and pelvis with contrast. Contrast material: OMNIPQUE 350; Contrast volume: 100 ml; Contrast route: INTRAVENOUS (IV); COMPARISON: CT ABDOMEN PELVIS CTA 05/15/2023 11:52 PM FINDINGS: Lungs: No consolidations or pleural effusions. Liver: Normal. No mass. Gallbladder and bile ducts: Vicarious excretion of contrast into the gallbladder. No wall thickening or pericholecystic fluid. Pancreas: The pancreas is normal. Spleen: The spleen is normal. Adrenal glands: The adrenal glands are normal. Kidneys and ureters: Normal. No hydronephrosis. Stomach and bowel: The stomach has a moderate amount of fluid within it. The wall shows no formed enhancement. No dilated loops of small bowel nor is there wall thickening. The colon also has no wall thickening. Very little fluid or air within the descending colon through the rectum. No surrounding mesenteric edema to suggest colitis. There are : diverticula. Appendix: The appendix is not identified, but there are no inflammatory changes in its expected region. Intraperitoneal space: No free air or free fluid within the peritoneal cavity. Vasculature: Unremarkable. No abdominal aortic aneurysm. Lymph nodes: Unremarkable. No enlarged lymph nodes. Urinary bladder: Unremarkable as visualized. Reproductive: Similar to this morning's examination there are multiple uterine fibroids. Variable enhancement. No central necrosis or calcification. The surrounding mesentery shows no inflammation. Dominant follicle/corpus luteum in the right ovary. Bones/joints: Unremarkable. No acute fracture. Soft tissues: Small fat containing umbilical hernia. IMPRESSION: 1. Multiple uterine fibroids showing variable enhancement. No definite findings of necrosis. 2. Nonobstructive bowel-gas pattern. While there are colonic diverticula there are no inflammatory changes to suggest colitis. Dictated and Authenticated by: Lex Mcintosh MD. Ordering:ALFRED Roche MD
--- NOTE | 2023-05-16 17:31 | W.PM.PROGNOT ---
Date of Service Date of service: 05/16/23 Time of Service: 05:30 Assessment and Plan Assessment and plan (1) Abdominal pain, right lower quadrant: Status: Acute Assessment and plan: At this point the patient is improved. She has improved clinically and subjectively just looking at her. Her abdominal exam is less tender than before but it must be said that it remains quite tender overall. I do think something is going on in the right lower quadrant, I just think it is somewhat of a chronic process - such that warrants a complete and comprehensive work-up. I do think there is time to do this on a non-? emergent basis over the next few days or weeks. Discussed the case again with Dr. Resendez. The only objective finding is the right uterine fibroid. This is certainly not an emergent condition but it is the only thing in the region of pain that is being seen on cross-sectional imaging. I defer to her judgment on whether or not hysterectomy is warranted but I would certainly favor the opinion of diagnostic laparoscopy with hysterectomy and removal of the fibroid as long as nothing else is seen is an obvious culprit. Overall my recommendations are: No urgent operative exploration for now since she is improving clinically and there are no new findings on CT scan Semi-? elective diagnostic laparoscopy with hysterectomy to be decided by [employer] surgeons -General surgery is certainly willing to perform the case in tandem to run the bowel and assess the right lower quadrant structures which include the appendix, the cecum and the terminal ileum. (Loop of sigmoid colon is also near the right lower quadrant) She can have clear liquids tonight and if tolerates them can have a regular diet tomorrow and probably be discharged for further work-up on an outpatient basis. I think she would benefit from both upper and lower endoscopy as part of her work-up. Though very unlikely, a cecal tumor could be the underlying culprit. Overall, though I think it is nothing emergent, my sense is that the uterine fibroid is the underlying problem here It may not be the fibroid itself but it may be that the fibroid is adherent to the sigmoid colon or causing some other secondary problem because of its presence. General surgery will continue to follow along until she is discharged or into the OR for operative exploration if this progresses that way. Subjective Subjective Interval history since last seen: At the bedside the patient endorses significant improvement though her pain is still persistent. She feels a lot better. The nausea is gone. She is no longer dry heaving. She wants to know if she can eat regular food. She said that her fianc? went out to buy her sandwich. We went over CT scan results. Essentially no new findings. Exam Narrative Exam Narrative: General: Nontoxic, much more comfortable, interactive Neuro: Alert and oriented x3 Psych: Improved mood and affect, better insight and understanding Abdomen: Soft, nondistended, still with focal tenderness in the right lower quadrant but less than previous and without peritoneal signs. Objective Last Vital Signs Temp 99.1 F 05/16/23 17:04 Pulse 97 H 05/16/23 15:45 Resp 20 05/16/23 15:45 BP 101/64 05/16/23 15:45 Pulse Ox 97 05/16/23 15:45 Laboratory Results - last 24 hr 05/15/23 05/15/23 05/15/23 00:00 23:45 23:55 WBC 6.54 RBC 3.88 L Hgb 11.6 Hct 34.8 L MCV 90 MCH 29.9 MCHC 33.3 RDW 14.6 Plt Count 287 MPV 11.2 H Immature Gran % 0.3 Neutrophils % 37.6 Lymphocytes % 50.3 Monocytes % 9.2 Eosinophils % 1.5 Basophils % 1.1 Nucleated RBC % 0.0 Absolute Neutrophils 2.46 Absolute Lymphocytes 3.29 Absolute Monocytes 0.60 Absolute Eosinophils 0.10 Absolute Basophils 0.07 PT 10.2 INR 1.0 APTT 23.6 VBG Lactate 1.6 H Sodium 140 Potassium 4.5 Chloride 107 Carbon Dioxide 20.4 L Anion Gap 12.6 H BUN 1 L Creatinine 0.6 Est GFR (CKD-EPI 2020) 114.15 Glucose 116 H Calcium 8.8 Magnesium Total Bilirubin 0.4 AST 29 ALT 18 Alkaline Phosphatase 59 Total Protein 7.5 Albumin 4.0 Lipase 57 Urine Color Yellow Urine Clarity Clear Urine pH 5.5 Ur Specific [place] 1.010 Urine Protein Negative Urine Ketones Negative Urine Blood Negative Urine Nitrite Negative Urine Bilirubin Negative Urine Urobilinogen 0.2 Ur Leukocyte Esterase Trace H Urine RBC Negative Urine WBC 3-5 Ur Epithelial Cells Few Urine Crystals Negative Urine Bacteria Few Urine Casts Negative Urine Mucus Negative Ur Culture Indicated? Yes Urine Glucose Negative Urine Opiates Screen Urine Methadone Screen Ur Barbiturates Screen Ur Tricyclics Screen Ur Amphetamines Screen U Benzodiazepines Scrn Urine Cocaine Screen Ur THC Screen Ethyl Alcohol 231.0 H COVID-19 Source SARS-CoV-2 (PCR) Patient ABO/Rh A Positive Antibody Screen NEGATIVE 05/16/23 05/16/23 05/16/23 00:00 01:03 05:35 WBC 8.55 RBC 3.35 L Hgb 10.1 L Hct 30.9 L MCV 92 MCH 30.1 MCHC 32.7 RDW 14.8 H Plt Count 206 MPV 10.8 Immature Gran % Neutrophils % Lymphocytes % Monocytes % Eosinophils % Basophils % Nucleated RBC % Absolute Neutrophils Absolute Lymphocytes Absolute Monocytes Absolute Eosinophils Absolute Basophils PT INR APTT VBG Lactate 1.2 Sodium Potassium Chloride Carbon Dioxide Anion Gap BUN Creatinine Est GFR (CKD-EPI 2020) Glucose Calcium Magnesium Total Bilirubin AST ALT Alkaline Phosphatase Total Protein Albumin Lipase Urine Color Urine Clarity Urine pH Ur Specific [place] Urine Protein Urine Ketones Urine Blood Urine Nitrite Urine Bilirubin Urine Urobilinogen Ur Leukocyte Esterase Urine RBC Urine WBC Ur Epithelial Cells Urine Crystals Urine Bacteria Urine Casts Urine Mucus Ur Culture Indicated? Urine Glucose Urine Opiates Screen Negative Urine Methadone Screen Negative Ur Barbiturates Screen Negative Ur Tricyclics Screen Negative Ur Amphetamines Screen Negative U Benzodiazepines Scrn Negative Urine Cocaine Screen Positive A Ur THC Screen Negative Ethyl Alcohol COVID-19 Source Nasal/Nares SARS-CoV-2 (PCR) Negative Patient ABO/Rh Antibody Screen 05/16/23 05/16/23 07:47 07:47 WBC RBC Hgb Hct MCV MCH MCHC RDW Plt Count MPV Immature Gran % Neutrophils % Lymphocytes % Monocytes % Eosinophils % Basophils % Nucleated RBC % Absolute Neutrophils Absolute Lymphocytes Absolute Monocytes Absolute Eosinophils Absolute Basophils PT INR APTT VBG Lactate 1.7 H Sodium 145 Potassium 3.7 Chloride 111 H Carbon Dioxide 22.0 Anion Gap 12.0 H BUN 2 L Creatinine 0.6 Est GFR (CKD-EPI 2020) 114.15 Glucose 100 Calcium 7.4 L Magnesium 1.9 Cancelled Total Bilirubin 0.2 AST 15 ALT 17 Alkaline Phosphatase 50 Total Protein 6.0 L Albumin 3.3 L Lipase Urine Color Urine Clarity Urine pH Ur Specific [place] Urine Protein Urine Ketones Urine Blood Urine Nitrite Urine Bilirubin Urine Urobilinogen Ur Leukocyte Esterase Urine RBC Urine WBC Ur Epithelial Cells Urine Crystals Urine Bacteria Urine Casts Urine Mucus Ur Culture Indicated? Urine Glucose Urine Opiates Screen Urine Methadone Screen Ur Barbiturates Screen Ur Tricyclics Screen Ur Amphetamines Screen U Benzodiazepines Scrn Urine Cocaine Screen Ur THC Screen Ethyl Alcohol 68.0 H COVID-19 Source SARS-CoV-2 (PCR) Patient ABO/Rh Antibody Screen PAWSS Have you Been Recently Intoxicated or Drunk Within the Last 30 days?: No Have you Ever Experienced Previous Episodes of Alcohol Withdrawal?: No Have you ever Experienced Withdrawal Seizures?: No Have you ever Experienced Delirium Tremens(DT)s?: No Have you ever undergone Alcohol Rehabilitation Treatment (i.e, inpt ot outpatient treatment programs)?: No Have you ever Experienced Blackouts?: No Have you ever Combined Alcohol with other Downers within the last 90 days?: No Have you ever Combined Alcohol with any other Substance of Abuse during the last 90 days?: No Positive Blood Alcohol level on Presentation? [PCS.BAL]: No Evidence of Increased Autonomic Activity (i.e. HR>120, tremor, sweating, agitation, nausea)?: No Result: 0 Time Spent with Patient Time Spent with Patient: 35-49 minutes Time was spent: ordering medications,tests, procedures, indepentently interpreting results, counseling the patient and care coordination
[2023-05-17 04:47] VITALS: BP 102/80; PULSE 84; RESP 18; TEMP 37.1; O2SAT 97
[2023-05-17 06:33] LABS: Abs Immature Grans 0.01 10^3/uL (0.0-0.06); Absolute Basophil Count 0.02 10^3/uL (0.0-0.2); Absolute Eosinophil Count 0.11 10^3/uL (0.0-0.7); Absolute Lymphocyte Count 1.68 10^3/uL (1.2-3.4); Absolute Monocyte Count 0.33 10^3/uL (0.1-0.8); Absolute Neutrophil Count 2.95 10^3/uL (1.2-6.7); Basophils % 0.4; Eosinophils % 2.2; HCT 26.4 % (36.0-46.0); HGB 8.6 g/dL (11.2-15.7); Immature Grans % 0.2; Lymphocytes % 32.9; MCH 30.1 pg (27.0-33.0); MCHC 32.6 % (32.0-36.0); MCV 92 fL (80-95); MPV 11.4 fL (8.0-11.0); Monocytes % 6.5; Neutrophils % 57.8; Platelet Count 162 10^3/uL (130-400); RBC 2.86 10^6/uL (3.93-5.22); RDW 15.2 % (11.7-14.6); RDW-SD 51.6 fL
[2023-05-17 06:47] LABS: Anion Gap 8.7 mmol/L (3-11); BUN 1 mg/dL (7-18); CO2 24.3 mmol/L (21.0-32.0); CREATININE 0.7 mg/dL (0.55-1.02); Calcium 7.3 mg/dL (8.5-10.1); Chloride 109 mmol/L (98-107); Estimated GFR 109.98 (mL/min/1.73m2); Glucose 113 mg/dL (74-106); Sodium 142 mmol/L (136-145)
[2023-05-17 06:58] LABS: Potassium 2.9 mmol/L (3.5-5.1)
[2023-05-17 07:51] VITALS: BP 115/73; PULSE 86; RESP 20; TEMP 36.7; O2SAT 97
[2023-05-17] MEDS: Ibuprofen 600 MG TAB PO (08:08)
[2023-05-17] MEDS: oxyCODONE 5 mg/Acetaminophen 325 mg TAB 1 TAB PO ×2 (08:08→12:50)
[2023-05-17] MEDS: Famotidine 20 MG TAB PO (08:16)
--- NOTE | 2023-05-17 08:16 | W.PM.PROGNOT ---
Date of Service Date of service: 05/17/23 Time of Service: 08:16 Assessment and Plan Assessment and plan (1) Abdominal pain, right lower quadrant: Status: Acute Assessment and plan: Patient has improvement of her right lower quadrant abdominal pain, though it is somewhat persistent. She has a known uterine fibroid and my recommendation for surgical intervention should be as planned, scheduled, and with appropriate preoperative evaluation. Today, she will be transition from parenteral to oral pain medication and have IV supplementation of fluids, and potassium along with a banana bag. She will be seen in the office in short interval follow-up for Pap smear and endometrial sampling. She will be scheduled for outpatient surgery in the near future. All of her questions were answered to the best of my ability. (2) Fibroid, uterine: Status: Acute Assessment and plan: Stable (3) History of DVT of lower extremity: Status: Acute Assessment and plan: Patient will need DVT prophylaxis both with mechanical, and chemical prophylaxis prior to surgery (4) Positive urine drug screen: Status: Acute Assessment and plan: Patient admits to recreational cocaine use, and denies need for intervention. Support was given Subjective Subjective Interval history since last seen: Patient seen and examined this morning. Care discussed. She states that over the night she had poor sleep, however according to nursing slept reasonably well throughout the evening with no IV pain medication. This morning, she has no nausea or vomiting. She feels hungry and would like to eat solid food. She states that she is voiding without difficulty. Her pain is a 7 out of 10 though she feels significantly better than previous. We discussed an appropriate care plan which would be not to do an unsupported emergent surgery today. I do think that she would benefit from hysterectomy in the future, however she is not up-to-date with Pap smear, endometrial sampling, and clearly has had some issues of substance misuse with an elevated alcohol level and a positive cocaine drug screen. My plan would be to transition her from parenteral to oral pain medication. We will advance her diet and see how she tolerates that. We will replace her potassium, and give her a banana bag today. I would anticipate discharge later today with follow-up in the office in approximately 2 to 3 days for completion of Pap smear and endometrial sampling. She will be scheduled for surgical intervention in the future which would be proposed as laparoscopically assisted vaginal hysterectomy, possible right oophorectomy, possible total abdominal hysterectomy, with general surgery on standby for needed intervention if necessary. She and her agree with this plan. We did discuss her alcohol level, and her cocaine positive drug screen. She did admit to recreational use of a line of cocaine prior to her coming to the hospital. Support was given. Interventions were offered. Exam Const General: cooperative, comfortable, no acute distress and does not appear intoxicated Nutritional Appearance: average body habitus Orientation: alert, awake and oriented x3 HENMT Head: normal to inspection Eyes General: appearance normal, both eyes and all related structures Neck Neck: normal visual inspection, trachea midline and supple Resp Effort & Inspection: normal respiratory effort Cardio Rate: regular rate Rhythm: regular rhythm GI Inspection: normal to inspection and non-distended Palpation: soft and not firm Extrem General: normal to inspection and no clubbing, cyanosis or edema Objective Last Vital Signs Temp 98.1 F 05/17/23 07:51 Pulse 86 05/17/23 07:51 Resp 20 05/17/23 07:51 BP 115/73 05/17/23 07:51 Pulse Ox 97 05/17/23 07:51 Laboratory Results - last 24 hr 05/16/23 05/17/23 07:47 06:09 WBC 5.10 RBC 2.86 L Hgb 8.6 L Hct 26.4 L MCV 92 MCH 30.1 MCHC 32.6 RDW 15.2 H Plt Count 162 MPV 11.4 H Immature Gran % 0.2 Neutrophils % 57.8 Lymphocytes % 32.9 Monocytes % 6.5 Eosinophils % 2.2 Basophils % 0.4 Nucleated RBC % 0.0 Absolute Neutrophils 2.95 Absolute Lymphocytes 1.68 Absolute Monocytes 0.33 Absolute Eosinophils 0.11 Absolute Basophils 0.02 Sodium 145 142 Potassium 3.7 2.9 L* Chloride 111 H 109 H Carbon Dioxide 22.0 24.3 Anion Gap 12.0 H 8.7 BUN 2 L 1 L Creatinine 0.6 0.7 Est GFR (CKD-EPI 2020) 114.15 109.98 Glucose 100 113 H Calcium 7.4 L 7.3 L Magnesium 1.9 Total Bilirubin 0.2 AST 15 ALT 17 Alkaline Phosphatase 50 Total Protein 6.0 L Albumin 3.3 L Ethyl Alcohol 68.0 H PAWSS Have you Been Recently Intoxicated or Drunk Within the Last 30 days?: No Have you Ever Experienced Previous Episodes of Alcohol Withdrawal?: No Have you ever Experienced Withdrawal Seizures?: No Have you ever Experienced Delirium Tremens(DT)s?: No Have you ever undergone Alcohol Rehabilitation Treatment (i.e, inpt ot outpatient treatment programs)?: No Have you ever Experienced Blackouts?: No Have you ever Combined Alcohol with other Downers within the last 90 days?: No Have you ever Combined Alcohol with any other Substance of Abuse during the last 90 days?: No Positive Blood Alcohol level on Presentation? [PCS.BAL]: No Evidence of Increased Autonomic Activity (i.e. HR>120, tremor, sweating, agitation, nausea)?: No Result: 0 Time Spent with Patient Time Spent with Patient: >50 minutes Time was spent: preparing to see the patient(eg.review tests), obtaining and/or reviewing separately otained hiistory, ordering medications,tests, procedures, referring, communicating with other health patient care nursing assistant, indepentently interpreting results and counseling the patient
--- NOTE | 2023-05-17 08:54 | DSE_ITS ---
Date of service: 05/17/23 Time of Service: 08:54 DS: Diagnosis Discharge Diagnosis (1) Abdominal pain, right lower quadrant: Status: Acute Asessment and Plan: Improved (2) Fibroid, uterine: Status: Acute Asessment and Plan: Stable (3) History of DVT of lower extremity: Status: Acute Asessment and Plan: No evidence of recurrence (4) Positive urine drug screen: Status: Acute Asessment and Plan: Discussed today, positive for cocaine. History of cocaine misuse. Patient was offered support, services, intervention and declines. She stated that her cocaine use currently is recreational only. She does admit to doing a line of cocaine prior to her admission to the hospital. (5) Hypokalemia: Status: Acute Asessment and Plan: Receiving potassium supplementation prior to discharge Discharge Plan Disposition Patient Disposition: Home Condition: Improving Discharge Details Reason For Visit: Right lower quadrant pain Admit Date/Time: 05/16/23 03:09 Admit Provider: Shruti Resendez Attending Provider: Shruti Resendez Primary Care Provider: Maranda Gamboa Hospital Course Hospital Course: This patient is a 42-year-old female 2 para 2 who presented with acute onset of right lower quadrant pain to the emergency department in the late hours of 05/15/2023. She was seen and evaluated and had pain somewhat out of proportion to her examination. She had imaging studies performed with a CTA confirming the presence of known uterine fibroids, and a small right ovarian cyst. There is no other inflammatory process noted. Her white blood cell count at that point was normal, she was afebrile, and the picture of her acute onset of right lower quadrant pain was somewhat unclear in etiology. She was admitted to the floor for pain control, continued observation, and general surgery consultation. She remained hemodynamically stable with appropriate laboratory studies. General surgery consultation was performed. She had repeat imaging with both pelvic ultrasound to rule out ovarian torsion, and a repeat CAT scan approximately 18 hours after her sudden onset of right lower quadrant discomfort. These all remained unchanged with no acute findings. Over the course of the next 24 hours, she was transitioned to clear liquids which she tolerated without difficulty. She was noted to have a positive urine drug screen for cocaine with a history of cocaine misuse in the past, and a blood alcohol level of 0.23. Her alcohol intoxication masked the ability to obtain a clear history from the patient. This morning, we discussed at length her ongoing pelvic discomfort, her known uterine fibroids, and the eventual need for surgical intervention which at this point is not emergent. She was transition from parenteral pain medication and clear liquids to oral pain medication and a regular diet. She will be discharged to home to have close follow-up. We will complete the evaluation for a preoperative examination for upcoming potential hysterectomy. She will have a Pap smear and endometrial sampling in the office to rule out cervical and endometrial pathology and be scheduled in the near future. General surgery consultation was performed during the course of her stay for assistance in diagnostics, and possible need for surgical intervention. They will also be available at the time of her surgery if there is issue with things such as adhesive disease, bowel involvement, or other. She will be discharged to home 05/17/2023 with follow-up in [facility] in the next 48 hours for completion of her diagnostics. Home Meds and New Rx's Prescriptions: New oxycodone-acetaminophen [Percocet] 5-325 mg tablet 1 tab PO TID PRNQty: 14 0RF ibuprofen 600 mg tablet 600 mg PO Q8H PRNQty: 30 1RF famotidine [Pepcid] 40 mg tablet 40 mg PO DAILY Qty: 60 1RF docusate sodium [Colace] 100 mg capsule 100 mg PO BID PRNQty: 30 1RF Discharge Instructions Additional Instructions: Follow-up in [facility] 05/19/2023 for Pap smear and endometrial sampling Activity:: Activity as Tolerated Equipment/Supplies:: No Equipment Needed Diet:: As Tolerated Discharge Orders Discharge Orders: Discharge Order (Routine); Ordered 05/17/23 Ordered By: Shruti Resendez DS: Summary Time Spent with Patient providing and/or coordinating discharge services: Less than 30 minutes Status at Discharge Functional status at discharge: independent ambulation Overall status at discharge: patient is progressing back to baseline Mental Status: mental status grossly normal Speech and Movement: speech and movement normal Mood: congruent mood Affect: normal affect Exam Narrative Exam Narrative: See physical exam from progress note dated 05/17/2023 Psych Mental Status: mental status grossly normal Speech and Movement: speech and movement normal Mood: congruent mood Affect: normal affect DS: Data Vitals/I&O Vitals and I&O: Vital Signs Temperature 98.1 F 05/17/23 07:51 Temperature Source Oral 05/17/23 07:51 Pulse 86 05/17/23 07:51 Pulse Rhythm Regular 05/16/23 20:42 Respiratory Rate 20 05/17/23 07:51 Respiratory Effort Normal, Non-Labored 05/16/23 04:10 Respiratory Depth Normal 05/16/23 04:10 Respiratory Pattern Normal 05/16/23 04:10 Blood Pressure 115/73 05/17/23 07:51 Blood Pressure Mean 89 05/16/23 02:30 Blood Pressure Position Sitting 05/16/23 02:45 Pulse Oximetry 97 05/17/23 07:51 Oxygen Delivery Method Room Air 05/17/23 07:51 Oxygen Flow Rate 0 05/17/23 07:51 Pain Level 7 05/17/23 07:51 Intake & Output 05/16/23 05/16/23 05/17/23 11:59 23:59 11:59 Intake Total 1220 / 2149.167 929.167 / 2149.167 1400 / 1400 Output Total 550 / 950 400 / 950 900 / 900 Balance 670 / 1199.167 529.167 / 1199.167 500 / 500 Intake: IV 1100 / 2029.167 929.167 / 2029.167 1000 / 1000 Oral 120 / 120 0 / 120 400 / 400 Output: Urine 100 / 500 400 / 500 900 / 900 Emesis 450 / 450 Other: Urine Color Pale Urine Appearance Clear Data Completed and Pending Labs on day of discharge: Labs from last 24 hours 05/17/23 06:09 WBC 5.10 RBC 2.86 L Hgb 8.6 L Hct 26.4 L MCV 92 MCH 30.1 MCHC 32.6 RDW 15.2 H Plt Count 162 MPV 11.4 H Immature Gran % 0.2 Neutrophils % 57.8 Lymphocytes % 32.9 Monocytes % 6.5 Eosinophils % 2.2 Basophils % 0.4 Nucleated RBC % 0.0 Absolute Neutrophils 2.95 Absolute Lymphocytes 1.68 Absolute Monocytes 0.33 Absolute Eosinophils 0.11 Absolute Basophils 0.02 Sodium 142 Potassium 2.9 L* Chloride 109 H Carbon Dioxide 24.3 Anion Gap 8.7 BUN 1 L Creatinine 0.7 Est GFR (CKD-EPI 2020) 109.98 Glucose 113 H Calcium 7.3 L 05/15/23 23:55 Urine - Reflex from [facility] Urine Culture - Pending Preliminary micro results at discharge 05/15/23 23:55 Urine Culture - Pending Urine - Reflex from [facility] All Active Problems (Updated 05/17/23 @ 08:54 by Shruti Resendez DO) Hypokalemia (Acute) Positive urine drug screen (Acute) Cocaine + 05/15/2023, denies use in the last 6 years History of DVT of lower extremity (Acute) Fibroid, uterine (Acute) Abdominal pain, right lower quadrant (Acute) Medical History (Updated 05/17/23 @ 08:54 by Shruti Resendez DO) Atypical pneumonia Hepatitis C Hyperlipidemia, unspecified (06/16/17) IFG (impaired fasting glucose) (06/16/17) Cocaine use disorder remission last 4 years Opioid use disorder Acute necrotizing gingivitis Tobacco use disorder Substance use disorder Surgical History left medial minisectomy (03/17/10) Ligation of fallopian tube (08/19/05) 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 Maternal Aunt , Breast CA at age 41. Neoplasm Breast CA Maternal Aunt , Breast CA at age 43. Neoplasm Breast CA Maternal Aunt , Breast CA at age 44. Neoplasm Breast CA Maternal Aunt Neoplasm Breast CA Grandmother Diabetes Social History Smoking/Tobacco Use Status: Former Tobacco Use Smoking risk assessment performed?: Yes Alcohol Intake: current Alcohol Intake frequency: a few times a month Alcohol type: beer Drug use: Current Sobriety Housing: house Do you feel safe at home: Yes Do you feel safe in your relationship?: Yes Female Reproductive History Menstrual Age of Menarche: 11 Duration of menses: 3-5 days control method: permanent sterilization History History 2 Para Hx # Term Pregnancies 2 Multiple births Hx # Pregnancies Ectopic pregnancies AB induced Hx Number of Living Children 2 AB spontaneous Time Spent with Patient Time Spent with Patient: 45-69 minutes Time was spent: preparing to see the patient(eg.review tests), obtaining and/or reviewing separately otained hiistory, ordering medications,tests, procedures, referring, communicating with other health vision care associate, indepentently interpreting results, counseling the patient and care coordination
[2023-05-17 12:18] VITALS: BP 114/61; PULSE 79; RESP 20; TEMP 36.7; O2SAT 98
== END 2023-05-17 13:10 | disposition home or self-care (01) ==
LOC: ER 05-16 02:32 → OBS 05-16 04:40
PROVIDERS: Admitting Provider Obstetrics & Gynecology; Emergency Provider Student in an Organized Health Care Education/Training Program; PCP Nurse Practitioner Family; Visit Provider Obstetrics & Gynecology
DX: R10.31 Right lower quadrant pain (principal); D25.9 Leiomyoma of uterus, unspecified; F10.129 Alcohol abuse with intoxication, unspecified; R11.2 Nausea with vomiting, unspecified; B19.20 Unspecified viral hepatitis C without hepatic coma; F14.10 Cocaine abuse, uncomplicated; E87.6 Hypokalemia; Z86.718 Personal history of other venous thrombosis and embolism; Z96.652 Presence of left artificial knee joint; Z79.899 Other long term (current) drug therapy; E78.00 Pure hypercholesterolemia, unspecified; Y90.7 Blood alcohol level of 200-239 mg/100 ml
CPT/HCPCS: 00123; 36415; 80048; 80053; 80307; 83690; 85027; 86850; 86900; 86901; 87635; 96361; 96365; 96366; 96375; 96376; 99285; 74174; 74177; 76830; 76856; 80320; 81003; 81015; 83605; 83735; 85025; 85610; 85730; 87086; G0378; J0131; J1170; J1885; J2405; J2765; J3490

== ENCOUNTER 2023-05-19 11:20 | Outpatient (REF) | payer SELFPAY ==
--- NOTE | 2023-05-19 08:20 | PAPFT_PTH ---
PATIENT: Mora Patel LOC: N U#:[id number] AGE/SX: 42/F ROOM: RE05/19/[address]: Shruti Resendez DO : 1980 BED: DIS: 05/19/2023 SPEC #: [id number] RECD: 05/19/23 13:07 STATUS: RADHA RE #: [id number] SARAH: 05/19/23 08:[address]: Shruti Resendez DEPT: [facility] Cytology RECD BY: Yasmine La ENTERED: 05/19/23 13:07 SP TYPE: PAPFT OTHR DR: Maranda Gamboa APRN Tissues: 1 - CX/ENDOCX FOR PAP SMEARS Procedures: PAP THIN PREP/UVM Screening HPV DNA PROBE Comments: [id number] (CHLAMYDIA/GC)
--- NOTE | 2023-05-19 08:20 | ENDOMET_PTH ---
PATIENT: Mora Patel LOC: N U#:[id number] AGE/SX: 42/F ROOM: RE05/19/[address]: Shruti Resendez DO : 1980 BED: DIS: 05/19/2023 SPEC #: [id number] RECD: 05/19/23 12:54 STATUS: RADHA REQ #: [id number] SARAH: 05/19/23 08:[address]: Shruti Resendez DEPT: Surgical Specimen RECD BY: Yasmine La ENTERED: 05/19/23 12:55 SP TYPE: Endomet OTHR DR: Maranda Gamboa APRN Tissues: 1 - ENDOMETRIUM BX/CURRETTE Procedures: GROSS AND MICRO LEVEL 4 Comments: [id number]
[2023-05-20 14:38] LABS: Chlamydia Result Negative (Negative); GC Result Negative (Negative)
== END 2023-05-19 11:21 | disposition home or self-care (01) ==
LOC: LBN 11:20
PROVIDERS: PCP Nurse Practitioner Family; Visit Provider Obstetrics & Gynecology
DX: Z12.4 Encounter for screening for malignant neoplasm of cervix (principal); R87.619 Unspecified abnormal cytological findings in specimens from cervix uteri
CPT/HCPCS: 87491; 87591; 88142; 88305; 87624

== ENCOUNTER 2023-06-01 03:13 | Outpatient (CLI) | payer SELFPAY ==
[2023-06-01 09:10] LABS: Abs Immature Grans 0.01 10^3/uL (0.0-0.06); Absolute Basophil Count 0.04 10^3/uL (0.0-0.2); Absolute Eosinophil Count 0.18 10^3/uL (0.0-0.7); Absolute Lymphocyte Count 1.99 10^3/uL (1.2-3.4); Absolute Monocyte Count 0.42 10^3/uL (0.1-0.8); Basophils % 0.6; Eosinophils % 2.7; HCT 38.4 % (36.0-46.0); HGB 12.5 g/dL (11.2-15.7); Immature Grans % 0.1; Lymphocytes % 29.5; MCH 30.3 pg (27.0-33.0); MCHC 32.6 % (32.0-36.0); MCV 93 fL (80-95); MPV 10.9 fL (8.0-11.0); Monocytes % 6.2; Neutrophils % 60.9; Platelet Count 270 10^3/uL (130-400); RBC 4.12 10^6/uL (3.93-5.22); RDW 14.8 % (11.7-14.6); RDW-SD 51.2 fL; WBC 6.74 10^3/uL (4.4-10.8)
[2023-06-01 09:19] LABS: Anion Gap 8.9 mmol/L (3-11); BUN 8 mg/dL (7-18); CO2 26.1 mmol/L (21.0-32.0); CREATININE 0.6 mg/dL (0.55-1.02); Chloride 104 mmol/L (98-107); Estimated GFR 114.15 (mL/min/1.73m2); Sodium 139 mmol/L (136-145)
== END 2023-06-01 03:14 | disposition home or self-care (01) ==
LOC: LBO 03:13
PROVIDERS: PCP Nurse Practitioner Family; Visit Provider Obstetrics & Gynecology
DX: Z01.818 Encounter for other preprocedural examination (principal)
CPT/HCPCS: 36415; 80051; 84520; 86850; 86900; 86901; 82565; 85025

== ENCOUNTER 2023-06-02 09:05 | Inpatient (IN) | payer SELFPAY ==
--- NOTE | 2023-06-02 09:35 | PGE_ITS ---
Date of Service Date of service: 06/02/23 Time of Service: 09:35 Assessment and Plan Assessment and plan (1) Fibroid, uterine: Status: Acute Assessment and plan: Significant pain from her large right fibroid. Will manage with pain medication as an outpatient with both Dilaudid, Cataflam. Her surgery will be scheduled in the near future. (2) Abdominal pain, right lower quadrant: Status: Acute (3) History of DVT of lower extremity: Status: Acute Assessment and plan: Patient will have preoperative chemical and mechanical DVT prophylaxis at the time of her surgical intervention. (4) Trichomonas vaginalis (TV) infection: Status: Acute Assessment and plan: Flagyl, 500 mg IV while here. Will be discharged, and reevaluate for the presence of trichomonas prior to surgical procedure. Surgery will be rescheduled. Subjective Subjective Interval history since last seen: Patient seen with her partner this morning. Upon review of her Pap smear which we just received, she does have trichomonas vaginalis present. We discussed the issues with a sexually transmitted infection, and inflammation at the vaginal cuff postoperatively. I feel that it is best to postpone her surgery and treat her sexually transmitted infection. She will receive Flagyl, 500 mg IV while she is here at the hospital. She is also having as she reports an 8 out of 10 on a pain scale and will receive Dilaudid, 1 mg IV. We at length, discussed her pain management until her surgical correction occurs. At this point, prescription for both Cataflam, and oral Dilaudid will be sent to the pharmacy for her. Her partner will also be treated. We will retest for trichomonas prior to her procedure in approximately 2 weeks. All of her questions were answered to the best of my ability. We will arrange her surgical intervention in the near future. Time Spent with Patient Time Spent with Patient: 25-34 minutes Time was spent: preparing to see the patient(eg.review tests), obtaining and/or reviewing separately otained hiistory, ordering medications,tests, procedures, referring, communicating with other health healthcare facility administrator, indepentently interpreting results, counseling the patient and care coordination
[2023-06-02 09:41] VITALS: BP 111/83; PULSE 72; RESP 16; TEMP 36.8; O2SAT 98
[2023-06-02] MEDS: HYDROmorphone 2 MG/ML SYR 1 MG IVP (10:01)
[2023-06-02] MEDS: Normal Saline Flush 10 ML SYR IV (10:01)
[2023-06-02] MEDS: metroNIDAZOLE 500 MG/100 ML BAG 100 MG IVPB (10:02)
--- NOTE | 2023-06-02 11:26 | NUR.NOTE ---
Tolerated Flagyl IV without incident. Good effect from Dilaudid. Discharge to MD office with boyfriend in attendance. Nursing Note:
== END 2023-06-02 11:25 | disposition home or self-care (01) | DRG 759 ==
PROVIDERS: Admitting Provider Obstetrics & Gynecology; PCP Nurse Practitioner Family; Visit Provider Obstetrics & Gynecology
DX: A59.01 Trichomonal vulvovaginitis (principal); D25.9 Leiomyoma of uterus, unspecified; Z86.718 Personal history of other venous thrombosis and embolism
CPT/HCPCS: J1170

== ENCOUNTER 2023-06-08 02:12 | Outpatient (CLI) | payer MEDICAID, SELFPAY ==
[2023-06-08 16:01] LABS: Abs Immature Grans 0.02 10^3/uL (0.0-0.06); Absolute Basophil Count 0.04 10^3/uL (0.0-0.2); Absolute Eosinophil Count 0.02 10^3/uL (0.0-0.7); Absolute Lymphocyte Count 1.58 10^3/uL (1.2-3.4); Absolute Neutrophil Count 4.85 10^3/uL (1.2-6.7); Basophils % 0.6; Eosinophils % 0.3; HCT 36.1 % (36.0-46.0); HGB 11.9 g/dL (11.2-15.7); Immature Grans % 0.3; Lymphocytes % 22.9; MCH 30.3 pg (27.0-33.0); MCV 92 fL (80-95); MPV 11.4 fL (8.0-11.0); Monocytes % 5.8; Neutrophils % 70.1; Platelet Count 216 10^3/uL (130-400); RBC 3.93 10^6/uL (3.93-5.22); RDW 15.1 % (11.7-14.6); RDW-SD 51.8 fL; WBC 6.91 10^3/uL (4.4-10.8)
[2023-06-08 16:20] LABS: Anion Gap 10.8 mmol/L (3-11); BUN 6 mg/dL (7-18); CO2 21.2 mmol/L (21.0-32.0); CREATININE 0.7 mg/dL (0.55-1.02); Chloride 106 mmol/L (98-107); Estimated GFR 109.98 (mL/min/1.73m2); Potassium 3.5 mmol/L (3.5-5.1); Sodium 138 mmol/L (136-145)
== END 2023-06-08 02:13 | disposition home or self-care (01) ==
LOC: LBO 02:13
PROVIDERS: PCP Nurse Practitioner Family; Visit Provider Obstetrics & Gynecology
DX: Z01.818 Encounter for other preprocedural examination (principal)
CPT/HCPCS: 36415; 80051; 84520; 86850; 86900; 86901; 82565; 85025

== ENCOUNTER 2023-06-09 10:10 | Outpatient (REF) | payer MEDICAID, SELFPAY ==
[2023-06-09 13:44] LABS: *AMPHETAMINES SCREEN URINE Negative (Negative); *BARBITURATES SCREEN URINE Negative (Negative); *BENZODIAZEPINES SCREEN URINE Negative (Negative); Cannabinoids THC Negative (Negative); Cocaine Screen,Urine Positive (Negative); METHADONE URINE SCREEN Negative (Negative); OPIATES URINE SCREEN Negative (Negative); Tricyclic Antidepressants Negative (Negative)
== END 2023-06-09 10:11 | disposition home or self-care (01) ==
LOC: LBN 10:10
PROVIDERS: PCP Nurse Practitioner Family; Visit Provider Obstetrics & Gynecology
DX: Z01.812 Encounter for preprocedural laboratory examination (principal); F12.90 Cannabis use, unspecified, uncomplicated
CPT/HCPCS: 80307

== ENCOUNTER 2023-06-16 05:57 | Inpatient (IN) | payer MEDICAID, SELFPAY ==
[2023-06-16] VITALS (21 sets, daily range): BP systolic 93–120; BP diastolic 52–87; PULSE 60–87; RESP 10–71; TEMP 36–37.6; O2SAT 94–100; BMI 29.4
--- NOTE | 2023-06-16 07:03 | ANES.PREOP_ITS ---
General Info Date of Service Date Performed: 06/16/23 Height: 5 ft 2 in Weight: 73 kg Body Mass Index (BMI): 29.4 Surgical Procedure: Operation Date: 06/16/23 07:40 Proposed Procedure Side Surgeon p Hysterectomy Vaginal Laparoscopic Assist, Bi-Lat Salpingectomy, Possible Open Shruti Resendez DO [place] Allergies and Home Medications Allergies Allergy/AdvReac Type Severity Reaction Status Date / Time No Known Allergies Allergy Unverified 06/16/23 06:43 Home Medication Medication Instructions Recorded docusate sodium 100 mg capsule 100 mg PO BID #30 caps 05/17/23 (Colace) ibuprofen 600 mg tablet 600 mg PO Q6H PRN #60 tabs 05/17/23 diclofenac potassium 50 mg tablet 50 mg PO Q12H PRN #30 tabs 06/02/23 oxycodone-acetaminophen 5 mg-325 1 tab PO Q6H PRN pain #16 tabs 06/09/23 mg tablet (Percocet) Current Visit Medications: Current Medications Generic Name Dose Route Start Last Admin Trade Name Freq PRN Reason Stop Dose Admin Enoxaparin Sodium 40 mg 06/16/23 06:00 Enoxaparin 40 Mg/0.4 Ml Syr SC 06/16/23 23:59 PREOP [facility] Ringer's Solution 1,000 mls @ 125 mls/hr 06/16/23 06:00 IV 07/15/23 23:59 INFUSION RADHA Cefazolin Sodium/Dextrose 2 gm in 50 mls @ 100 mls/hr 06/16/23 06:00 Ancef Duplex IVPB 07/15/23 23:59 PREOP [facility] IV Miscellaneous Supplies 1 each 06/16/23 06:00 Iv Access IV 07/15/23 23:59 DIRECTED RADHA Sodium Chloride 0 ml 06/16/23 06:00 Normal Saline Flush 10 Ml Syr IV 07/15/23 23:59 PRN PRN Sodium Chloride 0 ml 06/16/23 06:00 Normal Saline 10 Ml Vial IJ 07/15/23 23:59 DIRECTED PRN Sterile Water 0 ml 06/16/23 06:00 Water,Injection,Sterile 10 Ml Vial IJ 07/15/23 23:59 DIRECTED PRN PFSH Active Problems Active Problems: Problem Status Onset Code Trichomonas vaginalis (TV) infection A59.01 Hypokalemia E87.6 Positive urine drug screen R82.5 History of DVT of lower extremity Z86.718 Fibroid, uterine D25.9 Abdominal pain, right lower quadrant R10.31 Medical History Medical History Atypical pneumonia Hepatitis C Per pt Treated Hyperlipidemia, unspecified (06/16/17) IFG (impaired fasting glucose) (06/16/17) Cocaine use disorder remission last 4 years Opioid use disorder Acute necrotizing gingivitis Tobacco use disorder Substance use disorder Medical History Comments:: Pt. states she has severe anxiety when she wakes up, and goes into panic mode and hold her breath. Pt vaped before coming into [facility] 06/16/23. 06/16/23 pt reports has not used drugs n 2 weeks,. 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 06/16/23: pt reports last used recreational drugs 2 weeks ago Prental History History 2 2 Para Hx # Term Pregnancies 2 Multiple births Hx # Pregnancies Ectopic pregnancies AB induced Hx Number of Living Children 2 AB spontaneous Vital Signs and Lab Results Vital Signs Most Recent Vital Signs in EMR: Most Recent Vital Signs Temp Pulse Resp BP Pulse Ox 36.6 C 74 16 120/87 99 06/16/23 06:37 06/16/23 06:37 06/16/23 06:37 06/16/23 06:37 06/16/23 06:37 Point of Care Results Point of Care Results: POC- Test(urine) Negative 06/16/23 06:33 Lab Results 06/16/23 06:56 Blood Type / Crossmatch: 2 Patient ABO/Rh A Positive 06/08/23 Antibody Screen NEGATIVE 06/08/23 Complete Blood Count: 2 White Blood Count 6.91 10^3/uL (4.4-10.8) 06/08/23 15:45 Red Blood Count 3.93 10^6/uL (3.93-5.22) 06/08/23 15:45 Hemoglobin 11.9 g/dL (11.2-15.7) 06/08/23 15:45 Hematocrit 36.1 % (36.0-46.0) 06/08/23 15:45 Platelet Count 216 10^3/uL (130-400) 06/08/23 15:45 Complete Metabolic Panel: 2 Sodium 138 mmol/L (136-145) 06/08/23 15:45 Potassium 3.5 mmol/L (3.5-5.1) 06/08/23 15:45 Chloride 106 mmol/L (98-107) 06/08/23 15:45 Carbon Dioxide 21.2 mmol/L (21.0-32.0) 06/08/23 15:45 BUN 6 mg/dL (7-18) L 06/08/23 15:45 Creatinine 0.7 mg/dL (0.55-1.02) 06/08/23 15:45 Est GFR (CKD-EPI 2020) 109.98 (mL/min/1.73m2) 06/08/23 15:45 Liver Function Panel: 2 No Data to Display Coagulation Panel: 2 No Data to Display Cardiac Panel: 2 No Data to Display Arterial Blood Gas: 2 No Data to Display Venous Blood Gas: 2 No Data to Display Pancreas Panel: 2 No Data to Display Thyroid Panel: 2 No Data to Display Infectious Disease: 2 Neisseria gonorrhoeae DNA Probe Negative (Negative) 05/19/23 0 8:20 Blood Cultures: 2 No Data to Display Toxicology Panel: 2 Urine Amphetamines Screen Negative (Negative) 06/09/23 10:00 Urine Benzodiazepines Screen Negative (Negative) 06/09/23 10:0 0 Urine Barbiturates Screen Negative (Negative) 06/09/23 10:00 Urine Cocaine Screen Positive (Negative) A 06/09/23 10:00 Urine Methadone Screen Negative (Negative) 06/09/23 10:00 Urine Opiates Screen Negative (Negative) 06/09/23 10:00 Ur Tricyclic Antidepressants Screen Negative (Negative) 10:00 Ur Tetrahydrocannabinol (THC) Scrn Negative (Negative) 3 10:00 Panel: 2 Urine HCG, Qualitative Negative 05/19/23 08:19 Imaging and Studies Imaging and Studies Study information below may be from another EMR and interpreted by another provider. Please see original notes in EMR for more complete details. EKG Summary: 05/19/2021: Exam: Resting ECG Reason for Exam: sob Patient Location: E HR:100 bpm ECG Measurements Heart Rate 100 AXIS ME 160 P 58 QRSd 135 QRS 25 QT 411 T61 QTc 531 Conclusion Sinus tachycardia...rate> 99 Left bundle branch block...QRSd>120, broad/notched R Physician: new LBBB Negative for SCARBOSSA Anesthesia Assessment and Plan Anesthesia History Personal History: No History of Anesthesia Complications Family History: No Family History of Anesthesia Complications Exercise Tolerance Exercise Tolerance: Metabolic Equivalents>4 Pertinent Negatives Pertinent Negatives: No Symptoms of GERD, No Major Cardiovascular Symptoms or Complaints and No Major Pulmonary Symptoms or Complaints Cardiac & Pulmonary Exam Cardiac Exam: Normal S1/S2 Heart Sounds Pulmonary Exam: Clear Bilateral Breath Sounds Implantable Cardiac Device Does patient have a Pacemaker or an ICD?: No Airway Exam Known Difficult Airway: No Mallampati Class: 3 Mouth Opening: Normal (> 3cm) Thyromental Distance: Greater than 3 cm Neck Range of Motion: Full ROM Neck Circumference: Normal Teeth Condition: Generalized Poor Dentition (Few teeth on bottom, poor dentition) ASA Classification ASA Score: ASA 2 Emergency Case?: No NPO Status NPO Status: NPO Clears >2 hours, Solids >8 hours Status Status: Negative HCG Anesthesia Plan Resuscitation Status: Full Code Anesthesia Technique: General Anesthesia Airway Planned: Endotracheal Tube Monitors Used: Standard Monitors Preoperative Comments:: Refuses Intrathecal Analgesia, plan for TAP at end of procedure if open and indicated
[2023-06-16] MEDS: Enoxaparin 40 MG/0.4 ML SYR SC (07:08)
[2023-06-16] MEDS: Lactated Ringers 1,000 ML 125 ML IV ×3 (07:27→20:56)
[2023-06-16] MEDS: Normal Saline Flush 10 ML SYR IV ×4 (07:30→17:28)
[2023-06-16] MEDS: ceFAZolin 2 GM/50 ML BAG IVPB (08:03)
[2023-06-16] MEDS: Lactated Ringers 1,000 ML 30 ML IV (08:10)
[2023-06-16] MEDS: Bupivacaine 0.5% Pres-Free 30 ML VIAL (08:15)
--- NOTE | 2023-06-16 09:49 | UTER_PTH ---
PATIENT: Mora Patel LOC: U#:[id number] AGE/SX: 42/F ROOM: RE06/16/[address]: Shruti Resendez DO : 1980 BED: A DIS: 06/18/2023 SPEC #: [id number] RECD: 06/16/23 12:48 STATUS: SOUT REQ #: [id number] SARAH: 06/16/23 09:[address]: Shruti Resendez DEPT: Surgical Specimen RECD BY: Yasmine La ENTERED: 06/16/23 12:49 SP TYPE: UTER OTHR DR: Maranda Gamboa APRN Tissues: 1 - UTERUS W OR W/O OVARIES(NOT TUMOR/PROLAPSE) Procedures: GROSS AND MICRO LEVEL 5 Comments: [id number]
[2023-06-16] MEDS: Bupivacaine LIPOSOME/PF 133 MG/10 ML VIAL IJ (10:14)
[2023-06-16] MEDS: Bupivacaine 0.25% Pres-Free 30 ML VIAL (10:14)
[2023-06-16] MEDS: Bupivacaine 0.25% Pres-Free 10 ML VIAL (10:14)
--- NOTE | 2023-06-16 10:39 | W.PM.OP ---
Date of service: 06/16/23 Time of Service: 10:39 Operative Note Operative Note DATE OF PROCEDURE: 06/16/23 PRE-OP DIAGNOSIS: Severe right lower quadrant pain, multiple uterine fibroids POST-OP DIAGNOSIS: same PROCEDURE: Operative laparoscopy with conversion to total abdominal hysterectomy, bilateral salpingectomy, and cystoscopy. SURGEON: Shruti Resendez ASSISTING SURGEON: Heather Huizar ANESTHESIA TYPE: Local By Surgeon and General LMA/ETT Refer to Anesthesia Record ESTIMATED BLOOD LOSS: 50 PATHOLOGY: other (Bilateral fallopian tubes, uterus, cervix) COMPLICATIONS: None Patient was transported to: PACU Patient's condition: stable Indications: Severe and chronic right lower quadrant pain, multiple uterine fibroids. Findings: Globular uterus with multiple uterine fibroids the largest being approximately 6 cm, anterior mid body with lower uterine segment fibroid. Normal-appearing ovaries bilaterally. Fallopian tubes with indication of previous partial salpingectomy. Small area of adhesion of the lower rectosigmoid colon epiploica to the left pelvic sidewall secondary to apparent endometriosis implant Procedure Description: After full informed consent was obtained and IV started, patient was taken the operating suite with her IV running. She was placed in the supine position for administration of general anesthesia via endotracheal intubation. She was then placed in the modified dorsolithotomy position in [facility] and prepped and draped in the usual fashion. She received 1 dose of Lovenox, 40 mg subcu x 1 for DVT prophylaxis. She had pneumatic compression stockings placed for additional DVT prophylaxis throughout her surgery and received 2 g of Ancef for surgical site infection prophylaxis. Exam under anesthesia revealed a uterus that was approximately 12 weeks size, globular, reasonably mobile, however also noted was a lower uterine segment fibroid. Kendrick catheter was inserted for continuous bladder drainage. Speculum was inserted into the vaginal vault and a single-tooth tenaculum used to grasp the anterior lip of the cervix. Cervical os dilated to the point that a ZUMI uterine manipulator could be placed within for uterine manipulation. Tenaculum and speculum were then removed. Attention was then turned to the abdomen where the infraumbilical area was infiltrated with half percent Marcaine. A vertical umbilical incision was made and the intra-abdominal wall elevated with sharp towel clips. Veress needle inserted into the abdomen and pneumoperitoneum created with CO2 gas to a maximum pressure of 12 mmHg. Under direct visualization with a 5 mm scope and a 12 mm trocar, the abdomen was entered. On inspection there was no evidence of trauma. There is no significant scarring or free fluid. After infiltration of half percent Marcaine a second and third right and left lower quadrant trocar was placed under direct visualization. The uterus was elevated and noted to be approximately 12 weeks size and globular with multiple uterine fibroids. The ovaries bilaterally appeared normal. There was evidence of her previous partial salpingectomy and tubal disruption on both fallopian tubes. There was noted to be adhesions of the rectosigmoid epiploica to the left pelvic sidewall which were meticulously sharply dissected to allow better visualization of the left adnexal structures. At this point attention was turned to the left remnant of fallopian tube which was elevated and cautery transected and removed from the abdomen. A similar procedure was carried out on the remnant of the right fallopian tube. At this point the left round ligament was cautery transected allowing exposure of the left broad ligament. On dissection into the left broad ligament there was noted to be a lower uterine segment fibroid which somewhat obscured visualization. Attention was turned to the right round ligament and due to proximity of the lower uterine segment fibroid to the left pelvic sidewall and difficulty in ensuring that the left ureter would be free from damage, the decision was made to convert to an open laparotomy for completion of her hysterectomy. At this point pneumoperitoneum was released and the 12 mm and bilateral right 5 mm trocars were removed. At this point, a Pfannenstiel skin incision was made carried down to the underlying fascia which was nicked in the midline and the fascial incision extended laterally. The fascia was split from the rectus muscles, rectus muscle in the midline and the peritoneum identified, tented up, and entered sharply. The peritoneal incision was then extended superiorly and inferiorly and the abdomen was inspected. An O'Kalpesh-O'Rios self-retaining retractor was placed and the bowel was meticulously packed away. The uterus was then elevated and attention turned to the right round ligament which was clamped transected and ligated allowing access to the right broad ligament. The bladder flap was created as the broad ligament was dissected. On the left side, the left uterine artery and vein were identified clamped x 2, cut, and ligated. The remainder of the broad ligament was dissected away to create the bladder flap and the bladder was pushed low below the cervix anteriorly. The right uterine vessels were then clamped x 2 cut and ligated. At this point, the cervical vaginal interface could be identified, was clamped with Zeppelin clamps, and the cervix removed from the vaginal cuff. Vaginal cuff was then closed using 0 Vicryl suture in a running locked fashion after the vaginal apices were fixed. Cuff was inspected and noted to be hemostatic. At this point surgical procedure was completed and again all pedicles were inspected and noted to be hemostatic. Abdomen was irrigated with copious amounts of normal saline and all laparotomy sponges and retractors were removed. With assurance of hemostasis, the fascial incision at the umbilicus was oversewn with a single stitch of 0 Vicryl and the remainder fascial incision was closed using 0 Vicryl suture. Subcutaneous tissue irrigated with copious amounts of normal saline. 3-0 Vicryl was used to reapproximate the subcu space. The stab wounds, and a Pfannenstiel skin incision were closed with 4-0 undyed Monocryl suture and sterile dressings were placed. Upon completion of the hysterectomy, cystoscopy was performed. Patient received Bludigo intravenously. Her previously placed Kendrick catheter was removed and cystoscopy performed. Both ureteric orifice ease were noted to be jetting blue-tinged urine and the remainder of the bladder was intact with no evidence of trauma or disruption. After assurance of patency of both ureters bilaterally and the bladder to be atraumatic, cystoscopy was discontinued and Kendrick catheter reinserted. Patient was returned to the dorsal supine position after tap block was performed by anesthesia. She was taken the recovery room in stable condition with a Kendrick catheter draining blue-tinged urine. Complications: None apparent Findings as above with 12 weeks size globular multiple uterine fibroids, evidence of previous tubal ligation, and normal-appearing ovaries. There is also an area in the left pelvic sidewall clinically which appeared to be significant for an endometriotic implant. EBL: 50 mL Fluids: Crystalloid per anesthesia Pathology: Bilateral fallopian tubes, uterus, cervix for examination.
[2023-06-16] MEDS: HYDROmorphone 2 MG/ML SYR IVP ×2 (11:04→11:14)
[2023-06-16] MEDS: Normal Saline 10 ML VIAL IJ ×2 (11:06→11:20)
--- NOTE | 2023-06-16 11:07 | W.ANESNERVE ---
Nerve Block Single Injection Procedure Date and Time Date Performed: 06/16/23 Procedure Start: 10:29 Location Where Procedure Performed Procedure Location: Operating Room Procedure Stop: 10:37 Reason Performed: Postoperative Analgesia Requesting Provider: Shruti Resendez Timeout Performed Timeout Performed: Yes Monitoring Used ECG, Blood Pressure, SpO2, ETCO2 and See EMR for corresponding vital signs Sterility Sterility: Hand Hygiene, Surgical Cap, Surgical Mask, Sterile Gloves and Chlorhexidine Sedation Given During Procedure Sedation Given (Indicate Dose Given): No Sedation given Patient Mental Status Patient Mental Status: Performed under general anesthesia Nerve Block 1st Nerve Block: Laterality: Bilateral Block Type: TAP Bilateral Ultrasound Image Saved?: Yes Needle / Catheter Used: 100mm SonoPlex II Local Anesthetic Bolus (Indicate Dose Given): None, Injected in 3-5ml increments after negative blood aspiration, Half of Total block solution given into each side, Bupivacaine 0.25% Dose:: 20mL and Exparel Dose:: 20mL Additives (Indicate Dose Given): None Ultrasound: Sterile probe cover and gel used Nerve Stimulator: Not Used Paresthesia: None Procedure Tolerated: No Complications Procedure Outcome: Successful Performed By: Carla Low
[2023-06-16] MEDS: LORazepam 2 MG/ML VIAL 0.5 MG IVP ×3 (11:19→23:15)
[2023-06-16] MEDS: fentaNYL 100 MCG/2 ML VIAL IVP ×2 (11:29→11:54)
[2023-06-16] MEDS: Ketorolac 30 MG/ML VIAL 15 MG IVP ×3 (11:39→22:12)
[2023-06-16] MEDS: oxyCODONE 5 mg/Acetaminophen 325 mg TAB PO ×2 (13:57→19:46)
--- NOTE | 2023-06-16 14:38 | PGE_ITS ---
Date of Service Date of service: 06/16/23 Time of Service: 14:38 Assessment and Plan Assessment and plan (1) Status post total abdominal hysterectomy: Status: Acute Assessment and plan: Postop day 0 with pain issues. Vital signs are stable. 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 Subjective Subjective Interval history since last seen: Patient seen in the immediate postoperative period with severe pain. Her partner is at her bedside. She states that she cannot stand the pain and appears very anxious and animated. Her vital signs are stable she has blue- tinged urine in her Kendrick catheter. We discussed the fact that her surgery was smooth and uncomplicated. We discussed pain control options. I will consult with anesthesia for further recommendations. Exam Const General: uncomfortable, anxious and disheveled Eyes General: appearance normal, both eyes and all related structures Resp Effort & Inspection: normal respiratory effort Cardio Rate: regular rate Rhythm: regular rhythm GI Inspection: normal to inspection Other: Patient would not allow examination Psych Speech and Movement: agitated Affect: animated Thought Process: flight of ideas Objective Last Vital Signs Temp 97.7 F 06/16/23 14:12 Pulse 77 06/16/23 14:12 Resp 16 06/16/23 14:12 BP 100/65 06/16/23 14:12 Pulse Ox 95 06/16/23 14:12 Laboratory Results - last 24 hr 06/16/23 06:56 WBC Cancelled RBC Cancelled Hgb Cancelled Hct Cancelled MCV Cancelled MCH Cancelled MCHC Cancelled RDW Cancelled Plt Count Cancelled MPV Cancelled Immature Gran % Cancelled Neutrophils % Cancelled Band Neutrophils % Cancelled Lymphocytes % Cancelled Atypical Lymphs % Cancelled Monocytes % Cancelled Eosinophils % Cancelled Basophils % Cancelled Metamyelocytes % Cancelled Myelocytes % Cancelled Promyelocytes % Cancelled Other Cells % Cancelled Nucleated RBC % Cancelled Absolute Neutrophils Cancelled Absolute Lymphocytes Cancelled Absolute Monocytes Cancelled Absolute Eosinophils Cancelled Absolute Basophils Cancelled RBC Morphology Cancelled Polychromasia Cancelled Hypochromasia Cancelled Poikilocytosis Cancelled Basophilic Stippling Cancelled Anisocytosis Cancelled Microcytosis Cancelled Macrocytosis Cancelled Spherocytes Cancelled Tear Drop Cells Cancelled Ovalocytes Cancelled Stomatocytes Cancelled [place] Bodies Cancelled [place] Cells/Echinocytes Cancelled Acanthocytes (Spur) Cancelled Schistocytes Cancelled Patient ABO/Rh Cancelled Time Spent with Patient Time Spent with Patient: 25-34 minutes Time was spent: preparing to see the patient(eg.review tests), obtaining and/or reviewing separately otained hiistory, ordering medications,tests, procedures, referring, communicating with other health care aid, indepentently interpreting results, counseling the patient and care coordination
[2023-06-16] MEDS: Ondansetron 4 MG/2 ML VIAL IVP (15:34)
[2023-06-16] MEDS: HYDROmorphone 2 MG/ML SYR 1 MG IVP ×3 (15:35→22:12)
[2023-06-16] MEDS: Docusate Sodium 100 MG CAP PO (19:46)
[2023-06-17] MEDS: HYDROmorphone 2 MG/ML SYR 1 MG IVP ×4 (04:08→16:37)
[2023-06-17] MEDS: Ketorolac 30 MG/ML VIAL 15 MG IVP ×2 (04:08→16:36)
[2023-06-17] MEDS: oxyCODONE 5 mg/Acetaminophen 325 mg TAB PO ×3 (04:08→15:24)
[2023-06-17] MEDS: Lactated Ringers 1,000 ML 125 ML IV (04:31)
[2023-06-17 07:20] VITALS: BP 91/54; PULSE 74; RESP 17; TEMP 36.5; O2SAT 99
[2023-06-17] MEDS: Docusate Sodium 100 MG CAP PO ×2 (07:43→20:21)
[2023-06-17] MEDS: Normal Saline Flush 10 ML SYR IV ×3 (07:43→15:39)
[2023-06-17] MEDS: Ondansetron 4 MG/2 ML VIAL IVP ×2 (09:04→20:24)
[2023-06-17 10:28] LABS: HCT 28.6 % (36.0-46.0); HGB 9.5 g/dL (11.2-15.7); MCH 30.9 pg (27.0-33.0); MCV 93 fL (80-95); RBC 3.07 10^6/uL (3.93-5.22); WBC 6.89 10^3/uL (4.4-10.8)
[2023-06-17 10:29] LABS: MCHC 33.2 % (32.0-36.0); MPV 11.8 fL (8.0-11.0); Platelet Count 202 10^3/uL (130-400); RDW 15.3 % (11.7-14.6); RDW-SD 52.3 fL
--- NOTE | 2023-06-17 10:35 | W.PM.PROGNOT ---
Date of Service Date of service: 06/17/23 Time of Service: 10:35 Assessment and Plan Assessment and plan (1) Status post total abdominal hysterectomy: Status: Acute Assessment and plan: Patient is postoperative day #1 status post total abdominal hysterectomy with bilateral salpingectomy. Overall she is doing well. She states that her preoperative pain from her uterine fibroids has significantly improved, though she has significant incisional pain from her surgery. We discussed this at length today. We will attempt pain control with oral pain medications which include nonsteroidal anti-inflammatories with ibuprofen, paired with Percocet. In order to enhance gut function, she will have Colace and Mylicon today. Her Kendrick catheter is out, will continue accurate I's and O's. I would anticipate discharge home in the next 24 hours. All of her questions were answered. (2) Positive urine drug screen: Status: Acute (3) History of DVT of lower extremity: Status: Acute Assessment and plan: Patient received preoperative subcutaneous Lovenox, 40 mg for prophylaxis, pneumatic compression stockings throughout her surgery and in the postoperative period. She is on a daily baby aspirin as well. No signs or symptoms of recurrence of deep venous thrombosis today. Will continue to monitor. Subjective Subjective Interval history since last seen: Patient seen and examined this morning. Her pain is under much better control today. She states that overall, she feels like her pain is diminished. The intra-abdominal discomfort that she had from her fibroids is now gone, however she continues to have significant incisional pain. She is passing flatus. She is tolerating oral intake. She has no nausea. She is somewhat distended. We had a lengthy conversation today regarding her surgery, and her postoperative care and follow-up. She does know that she will have incisional pain, which should improve on a daily basis. Will try to manage this to the best of our ability with oral narcotic pain medication and nonsteroidal pain medication. She does understand that there is an increase in GI dysfunction with increased narcotics, so that balance of pain medication to GI function will be important. She denies fevers or chills. She has a small amount of vaginal spotting. She is hopeful that she will be discharged home tomorrow and has a care plan to be housed with her sister for the next 5 to 7 days. Exam Narrative Exam Narrative: Alert, oriented, animated Const General: cooperative, comfortable and well groomed Nutritional Appearance: average body habitus [facility] Head: normal to inspection Eyes General: appearance normal, both eyes and all related structures Neck Neck: normal visual inspection Resp Effort & Inspection: normal respiratory effort, no audible wheezes and no cough Cardio Rate: regular rate Rhythm: regular rhythm GI Inspection: normal to inspection, distended (Mild) and incision (Dressed with Band-Aids and Mepilex, no shadowing or erythema) Neuro General: patient alert, patient awake and patient oriented x3 Extrem General: normal to inspection, no clubbing, cyanosis or edema, no calf tenderness bilaterally and no pedal edema Psych Appearance: grossly normal Mental Status: mental status grossly normal Speech and Movement: pressured speech Mood: congruent mood Affect: animated Attitude: cooperative Thought Content: normal Judgment: judgment good Objective Last Vital Signs Temp 97.7 F 06/17/23 07:20 Pulse 74 06/17/23 07:20 Resp 17 06/17/23 07:20 BP 91/54 L 06/17/23 07:20 Pulse Ox 99 06/17/23 07:20 Laboratory Results - last 24 hr 06/17/23 06:15 WBC 6.89 RBC 3.07 L Hgb 9.5 L Hct 28.6 L MCV 93 MCH 30.9 MCHC 33.2 RDW 15.3 H Plt Count 202 MPV 11.8 H Time Spent with Patient Time Spent with Patient: 25-34 minutes Time was spent: preparing to see the patient(eg.review tests), obtaining and/or reviewing separately otained hiistory, ordering medications,tests, procedures, referring, communicating with other health acute care clinical nurse specialist, indepentently interpreting results, counseling the patient and care coordination
--- NOTE | 2023-06-17 10:46 | INITIAL_ITS ---
Date of service: 06/17/23 Time of Service: 10:46 Care Management Initial Assmt Initial Assessment REASON FOR HOSPITALIZATION:: MOE PREVIOUS FUNCTIONAL STATUS/SOCIAL/FAMILY SUPPORTS:: Mora lives in [place], [place] with her abby Phelps. She has 2 daughters ages 18 and 22 who live independently. Mora shared that they are good girls and are very responsible. Mora is not currently working due to her medical issues but plans to return to work once she has recuperated from surgery. 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 Mora ids independent at baseline and doers not receive any community services, although she identified some food insecurity. CURRENT FUNCTIONAL STATUS:: Mora was lying in bed when CM met with her. She stated that she was having a lot of incisional pain but had been medicated. In conversation, Mora identified some difficulty with affording food. CM contacted [employer] who provided contact information for [employer], which CM gave to Mora. Melissa informed CM that she would follow up with Mora next week to make sure she was able to have her questions answered and to see if she needed any additional resources. ADVANCE DIRECTIVES:: none Has patient been provided with info about the portal/API?: Yes Did the patient sign up for the portal?: No CODE STATUS:: Full Code INSURANCE COVERAGE / FINANCIAL ISSUES:: Medicaid CURRENT HOME/COMMUNITY SERVICES/EQUIPMENT:: none PRIMARY CARE PHYSICIAN:: Maranda Gamboa POTENTIAL DISCHARGE NEEDS:: follow up with PCP, surgeon and plan of care PATIENT/FAMILY EDUCATION NEEDS:: review of discharge instructions, activity, follow up plan, discuss Ask Me Three: ANTICIPATED BARRIERS TO DISCHARGE:: pain control TRANSPORTATION:: via private vehicle PLAN:: Anticipate Mora will discharge home to her parent's house this weekend as her fijesse?e is working. She will follow up with her analytical strategist and PCP and plan of care and transport with family. CM will follow and continue to assess for discharge needs. PFSH All Active Problems (Updated 06/16/23 @ 10:52 by Shruti Resendez DO) Status post total abdominal hysterectomy (Acute) Operative laparoscopy converted to total abdominal hysterectomy with bilateral salpingectomy. Positive urine drug screen (Acute) Cocaine + 05/15/2023, denies use in the last 6 years History of DVT of lower extremity (Acute) Fibroid, uterine (Acute) Abdominal pain, right lower quadrant (Acute) Suspect pain from fibroids and vascular compromise due to cocaine use. 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 Maternal Aunt , Breast CA at age 41. Neoplasm Breast CA Maternal Aunt , Breast CA at age 43. Neoplasm Breast CA Maternal Aunt , Breast CA at age 44. Neoplasm Breast CA Maternal Aunt Neoplasm Breast CA Grandmother Diabetes Social History Smoking/Tobacco Use Status: Current-Occasional Tobacco Type: e-cigarettes Smoking risk assessment performed?: Yes Alcohol Intake: current Alcohol Intake frequency: a few times a month Alcohol type: beer Drug use: Occasionally Substance use type: marijuana and crack/cocaine Details: edible x1. 06/16/23: pt reports last used recreational drugs 2 weeks ago Housing: house Do you feel safe at home: Yes (unabe to assess privately) Do you feel safe in your relationship?: Yes Female Reproductive History Menstrual Age of Menarche: 11 Duration of menses: 3-5 days control method: permanent sterilization History History 2 Para Hx # Term Pregnancies 2 Multiple births Hx # Pregnancies Ectopic pregnancies AB induced Hx Number of Living Children 2 AB spontaneous
[2023-06-17 11:26] VITALS: BP 98/58; PULSE 86; RESP 16; TEMP 36.7; O2SAT 98
[2023-06-17 15:34] VITALS: BP 120/80; PULSE 74; RESP 18; TEMP 36.6; O2SAT 97
--- NOTE | 2023-06-17 15:44 | W.ANESPOSTOP ---
Postoperative Evaluation Date, Time and Location Date Performed: 06/17/23 Time Performed: 15:44 Patient Location: Med/Surg Vital Signs Most Recent Imported Vital Signs: Most Recent Vital Signs Temp Pulse Resp BP Pulse Ox 36.6 C 74 18 120/80 97 06/17/23 15:34 06/17/23 15:34 06/17/23 15:34 06/17/23 15:34 06/17/23 15:34 Pain Score Most Recent Pain Score: Most Recent Pain Score Pain Level 10 06/17/23 15:34 Assessment Mental Status: Awake (Alert & Oriented to Patient Baseline) Airway and Respiratory Function: Patent airway with normal (patient baseline) respiratory exam Cardiovascular Function: Hemodynamically Stable Hydration Status: Adequately Hydrated Nausea & Vomiting: No Nausea or Vomiting Pain: Pain is Moderate or Severe Postoperative Pain Management: Pain being addressed with medication Peripheral Nerve Block: Patient did not receive a nerve block
--- NOTE | 2023-06-17 16:48 | W.PM.PROGNOT ---
Date of Service Date of service: 06/17/23 Time of Service: 16:48 Subjective Subjective Interval history since last seen: Patient seen and examined this evening. Very unhappy with her pain control throughout the course of the afternoon. She claims that she was not given pain medication at the appropriate interval. We had a conversation regarding oral versus parenteral pain medication. She will receive an additional 1 mg of Dilaudid IV now, and then be converted to oral Dilaudid, 2 mg p.o. every 6 hours as needed. She is agreeable to this change and states that this is worked well for her at home in the past. Prescriptions were changed that went to the pharmacy for discharge. She will continue with a dose of Ativan, IV tonight for anxiety and sleep. She will not receive Ativan at home with her narcotic pain medication. She understands this as well. We discussed criteria for discharge home tomorrow which would be stable vital signs, reasonable pain control, ambulation, passing flatus, and tolerating oral diet. The only portion of this that we have left to achieve is discontinuation of her parenteral medication and conversion to oral medication. All of her questions were answered to the best of my ability tessie. My partner will see her in the morning for discharge home tomorrow Objective Last Vital Signs Temp 97.9 F 06/17/23 15:34 Pulse 74 06/17/23 15:34 Resp 18 06/17/23 15:34 BP 120/80 06/17/23 15:34 Pulse Ox 97 06/17/23 15:34 Laboratory Results - last 24 hr 06/17/23 06:15 WBC 6.89 RBC 3.07 L Hgb 9.5 L Hct 28.6 L MCV 93 MCH 30.9 MCHC 33.2 RDW 15.3 H Plt Count 202 MPV 11.8 H Time Spent with Patient Time Spent with Patient: 25-34 minutes Time was spent: preparing to see the patient(eg.review tests), obtaining and/or reviewing separately otained hiistory, ordering medications,tests, procedures, referring, communicating with other health certified caregiver and counseling the patient
--- NOTE | 2023-06-17 17:03 | CHAPLAIN ---
Mora was resting in bed when I visited. Her dad was visiting with her. I explained my role and offered support.
[2023-06-17 19:42] VITALS: BP 135/86; PULSE 77; RESP 20; TEMP 36.5; O2SAT 98
[2023-06-17] MEDS: LORazepam 2 MG/ML VIAL 0.5 MG IVP (20:21)
[2023-06-17] MEDS: HYDROmorphone 2 MG TAB PO (20:21)
[2023-06-17 23:38] VITALS: BP 100/61; PULSE 73; RESP 18; TEMP 36.9; O2SAT 95
[2023-06-18 07:33] VITALS: BP 114/72; PULSE 74; RESP 17; TEMP 37.7; O2SAT 97
[2023-06-18] MEDS: Docusate Sodium 100 MG CAP PO (08:18)
[2023-06-18] MEDS: Aspirin 81 MG CHEW PO (08:18)
[2023-06-18] MEDS: HYDROmorphone 2 MG TAB PO (08:19)
--- NOTE | 2023-06-18 09:03 | W.PM.DS.N ---
Date of service: 06/18/23 Time of Service: 09:03 DS: Diagnosis Discharge Diagnosis (1) Status post total abdominal hysterectomy: Status: Acute (2) Positive urine drug screen: Status: Acute (3) History of DVT of lower extremity: Status: Acute Discharge Plan Disposition Patient Disposition: Home Condition: Improving Discharge Details Reason For Visit: S/P MOE Admit Date/Time: 06/16/23 05:57 Admit Provider: Shruti Resendez Attending Provider: Shruti Resendez Primary Care Provider: Maranda Gamboa Hospital Course Hospital Course: Patient underwent an operative laparoscopy with conversion to open laparotomy for completion of total abdominal hysterectomy with bilateral salpingectomy. She has significant known uterine fibroids, and at the time of surgery, due to uterine fibroids low in the lower uterine segment particular on the left side and difficulty in accessing pelvic structures appropriately, conversion was made to a total abdominal hysterectomy. Her hysterectomy at that point was uncomplicated. To this point, she has had a normal postoperative recovery. Her vital signs have remained stable. She does have significant incisional tenderness and discomfort which is, as per typical with the patient somewhat out of proportion to examination. The anticipation would be for her to be discharged home at the 48-hour josé miguel with stable vital signs, on oral pain medication which will include Percocet, and ibuprofen along with Colace, and Mylicon. She will be seen in the office in 1 week for postoperative management. Her trocar site incisions can remain undressed with Steri-Strips in place, and Mepilex dressing will remain in place until she is seen in the office. She understands that she should have no heavy lifting, minimize her stair climbing, she should not drive. And she will be seen in close follow-up. Home Meds and New Rx's Prescriptions: New docusate sodium [Colace] 100 mg capsule 100 mg PO BID Qty: 60 0RF simethicone 80 mg tablet,chewable 80 mg PO QD-BID PRNQty: 30 1RF aspirin [Children's Aspirin] 81 mg Tablet,Chewable 81 mg PO DAILY Qty: 60 0RF hydromorphone 4 mg Tablet 2 mg PO Q6H PRN PRNQty: 14 0RF Continued docusate sodium [Colace] 100 mg capsule 100 mg PO BID Qty: 30 0RF ibuprofen 600 mg tablet 600 mg PO Q6H PRNQty: 60 1RF diclofenac potassium 50 mg tablet 50 mg PO Q12H PRNQty: 30 1RF Discontinued oxycodone-acetaminophen [Percocet] 5-325 mg tablet 1 tab PO Q6H MDD 4 PRN (Reason: pain) Qty: 16 0RF Discharge Instructions Additional Instructions: Follow up with Dr. Resendez 06/23/2023. Leave the dressing covering your incision in place until you see Dr. Resendez in the office next week. Take the Dilaudid and Ibuprofen together every 6 hours. They work on different types of pain and can be taken together. You may become constipated so continue the stool softener 100mg twice daily. Stand Alone Forms: [employer] SurgeryW/Incision Activity:: Pelvic rest, lifting Equipment/Supplies:: No Equipment Needed Diet:: As Tolerated Discharge Orders Discharge Orders: Discharge Order (Routine); Ordered 06/18/23 Ordered By: Heather Huizar DS: Summary Time Spent with Patient providing and/or coordinating discharge services: Less than 30 minutes Status at Discharge Functional status at discharge: independent ambulation Overall status at discharge: patient is progressing back to baseline Mental Status: mental status grossly normal Speech and Movement: speech and movement normal Mood: anxious mood Affect: normal affect Exam Narrative Exam Narrative: POD 2. MOE fibroid uterus. No BM yet. Lots of flatus. Pain controlled with Dilaudid 2mg at bedtime and this am. Has not been taking Ibuprofen along with Dilaudid. Const General: cooperative and other (uncomfortable when moving in bed. abd incision and gas discomfort.) Nutritional Appearance: average body habitus Orientation: alert, awake and oriented x3 HENMT Teeth and gingiva: poor dentition Neck Neck: normal visual inspection Resp Effort & Inspection: normal respiratory effort Auscultation: clear to auscultation bilaterally Cardio Rate: regular rate Rhythm: regular rhythm GI Inspection: distended and incision (covered with dry sterile dressing.) Palpation: soft, no masses and tender (generalized in LLQ and RLQ) Percussion: tympanic to percussion (mildly ) Auscultation: normal bowel sounds Rectal Exam - female: deferred General: deferred Back/Spine/Pelvis Back: no CVA tenderness Skin General skin exam: no rashes or lesions noted Neuro Cognition: normal cognition Speech: speech normal Gait: normal gait Motor: muscle tone normal throughout Extrem General: normal to inspection (SCDs currently off. Pt reports that she wore them overnight.) Psych Appearance: grossly normal Mental Status: mental status grossly normal Speech and Movement: speech and movement normal Mood: anxious mood Affect: normal affect Attitude: cooperative Thought Process: normal Thought Content: normal Insight: insight good Judgment: judgment good DS: Data Vitals/I&O Vitals and I&O: Vital Signs Temperature 99.9 F H 06/18/23 07:33 Temperature Source Tympanic 06/18/23 07:33 Pulse 74 06/18/23 07:33 Pulse Rhythm Regular 06/17/23 23:11 Respiratory Rate 17 06/18/23 07:33 Respiratory Effort Normal, Non-Labored 06/17/23 23:11 Respiratory Depth Normal 06/17/23 23:11 Respiratory Pattern Normal 06/17/23 23:11 Blood Pressure 114/72 06/18/23 07:33 Pulse Oximetry 97 06/18/23 07:33 Respiratory End-tidal CO2 36 06/16/23 11:45 Oxygen Delivery Method Room Air 06/18/23 07:33 Oxygen Flow Rate 0 06/18/23 07:33 Pain Level 6 06/18/23 07:33 Comment bp called over radio 06/17/23 07:20 Intake & Output 06/17/23 06/17/23 06/18/23 11:59 23:59 11:59 Intake Total 1240 / 4240 3000 / 4240 Output Total 200 / 650 450 / 650 Balance 1040 / 3590 2550 / 3590 Intake: IV 1000 / 4000 3000 / 4000 Oral 240 / 240 Output: Urine 200 / 650 450 / 650 Other: Urine Color Yellow Yellow Yellow Urine Appearance Clear Clear Clear Voiding Methods Toilet Toilet Data Completed and Pending Labs on day of discharge: Labs from last 24 hours 06/17/23 06:15 WBC 6.89 RBC 3.07 L Hgb 9.5 L Hct 28.6 L MCV 93 MCH 30.9 MCHC 33.2 RDW 15.3 H Plt Count 202 MPV 11.8 H PFSH All Active Problems (Updated 06/16/23 @ 10:52 by Shruti Resendez DO) Status post total abdominal hysterectomy (Acute) Operative laparoscopy converted to total abdominal hysterectomy with bilateral salpingectomy. Positive urine drug screen (Acute) Cocaine + 05/15/2023, denies use in the last 6 years History of DVT of lower extremity (Acute) Fibroid, uterine (Acute) Abdominal pain, right lower quadrant (Acute) Suspect pain from fibroids and vascular compromise due to cocaine use. 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 Maternal Aunt , Breast CA at age 41. Neoplasm Breast CA Maternal Aunt , Breast CA at age 43. Neoplasm Breast CA Maternal Aunt , Breast CA at age 44. Neoplasm Breast CA Maternal Aunt Neoplasm Breast CA Grandmother Diabetes Social History Smoking/Tobacco Use Status: Current-Occasional Tobacco Type: e-cigarettes Smoking risk assessment performed?: Yes Alcohol Intake: current Alcohol Intake frequency: a few times a month Alcohol type: beer Drug use: Occasionally Substance use type: marijuana and crack/cocaine Details: edible x1. 06/16/23: pt reports last used recreational drugs 2 weeks ago Housing: house Do you feel safe at home: Yes (unabe to assess privately) Do you feel safe in your relationship?: Yes Female Reproductive History Menstrual Age of Menarche: 11 Duration of menses: 3-5 days control method: permanent sterilization History History 2 Para Hx # Term Pregnancies 2 Multiple births Hx # Pregnancies Ectopic pregnancies AB induced Hx Number of Living Children 2 AB spontaneous Time Spent with Patient Time Spent with Patient: <45 minutes Time was spent: preparing to see the patient(eg.review tests) and counseling the patient
--- NOTE | 2023-06-18 10:35 | CMDISCH_ITS ---
Date of service: 06/18/23 Time of Service: 10:35 LACE Index Scoring Tool Questions: Length of Stay (in days): 2 Was the patient admitted via the E.D.?: No Comorbidities: Liver or Renal Disease E.D. Visits: 1 Answers: Total Score: 8 Risk of Readmission: Low Risk Care Management Discharge Plan Reason for Hospitalization: MOE Discharge Plan: Mora will be discharged home with no new services. 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 Patient/Family Education Needs: review of discharge instructions, activity, follow up plan, discuss Ask Me Three:
[2023-06-18] MEDS: Ibuprofen 600 MG TAB PO (13:35)
== END 2023-06-18 13:40 | disposition home or self-care (01) | DRG 743 ==
LOC: PDS 05:57 → MS 12:27
PROVIDERS: Admitting Provider Obstetrics & Gynecology; PCP Nurse Practitioner Family; Visit Provider Obstetrics & Gynecology
PROC: 0UT9FZZ Resection of Uterus, Via Natural or Artificial Opening With Percutaneous Endoscopic Assistance (ICD-10-PCS; CPT 58150; principal; 2023-06-16 07:30)
DX: D25.9 Leiomyoma of uterus, unspecified (principal); E87.6 Hypokalemia; Z86.718 Personal history of other venous thrombosis and embolism; F14.10 Cocaine abuse, uncomplicated; F17.290 Nicotine dependence, other tobacco product, uncomplicated; F11.10 Opioid abuse, uncomplicated; F12.90 Cannabis use, unspecified, uncomplicated; R10.2 Pelvic and perineal pain; Z86.19 Personal history of other infectious and parasitic diseases; R73.01 Impaired fasting glucose; Z53.31 Laparoscopic surgical procedure converted to open procedure; N83.8 Other noninflammatory disorders of ovary, fallopian tube and broad ligament
CPT/HCPCS: 58150; 36415; 85027; 86900; 86901; J1650; 85025; 88307; J0131; J0690; J1100; J1170; J1885; J2001; J2060; J2250; J2405; J2704; J3010; J3475

== ENCOUNTER 2023-09-06 13:37 | Outpatient (CLI) | payer MEDICAID, SELFPAY ==
--- NOTE | 2023-09-06 09:01 | DI.RAD_ITS ---
Exam(s) XR KNEE LT 3V AP,LAT,THEA EXAM: XR KNEE LT 3V AP,LAT,THEA CLINICAL HISTORY: Painful L TKR. TECHNIQUE: 2D digital imaging was performed. Three images were obtained. AP, merchant's and lateral views were obtained. COMPARISON: Comparison is made with prior examinations. FINDINGS: BONES: There are stable post operative changes of a left total knee replacement present. No fracture or dislocation. JOINTS: The orthopedic hardware is in good position. No evidence of hardware loosening. SOFT TISSUE: Normal. IMPRESSION: Stable left total knee replacement. DATA REPOSITORY: RADIATION DOSE DELIVERED:
== END 2023-09-06 13:38 | disposition home or self-care (01) ==
LOC: DIORS 13:37
PROVIDERS: PCP Nurse Practitioner Family; Visit Provider Physician Assistant
DX: T84.84XA Pain due to internal orthopedic prosthetic devices, implants and grafts, initial encounter (principal); Z96.652 Presence of left artificial knee joint; Z98.890 Other specified postprocedural states
CPT/HCPCS: 73562

== ENCOUNTER 2023-09-06 14:10 | Outpatient (REF) | payer MEDICAID, SELFPAY ==
[2023-09-06 11:12] LABS: Crystals (BF) No Crystals seen
[2023-09-06 11:51] LABS: Clarity Cloudy; Mononuclear Cells 49 %; Nucleated Cells 2512 uL (0); Polynuclear Cells 51 %
== END 2023-09-06 14:11 | disposition home or self-care (01) ==
LOC: LBN 14:10
PROVIDERS: PCP Nurse Practitioner Family; Visit Provider Student in an Organized Health Care Education/Training Program
DX: T84.84XA Pain due to internal orthopedic prosthetic devices, implants and grafts, initial encounter (principal); Z96.652 Presence of left artificial knee joint
CPT/HCPCS: 87070; 87205; 89051; 89060

== ENCOUNTER 2023-10-10 03:02 | Emergency (ER) | payer MEDICAID, SELFPAY ==
[2023-10-10] VITALS (136 sets, daily range): BP systolic 84–167; BP diastolic 42–110; PULSE 75–110; RESP 12–32; O2SAT 94–99
--- NOTE | 2023-10-10 03:00 | RT.EKG_ITS ---
APPROVED REPORT Exam: Resting ECG Reason for Exam: chest pain Patient Location: E HR:106 bpm ECG Measurements Heart Rate 106 AXIS NC 153 P 58 QRSd 138 QRS 37 QT 392 T 94 QTc 520 Conclusion Sinus tachycardia...rate> 99 Left bundle branch block...QRSd>120, broad/notched R Sgarbossa negative
[2023-10-10] MEDS: LORazepam 1 MG TAB PO ×2 (03:28→04:19)
--- NOTE | 2023-10-10 03:31 | DI.RAD_ITS ---
Exam(s) XR CHEST 1V IN DI DEPT EXAM: XR CHEST 1V IN DI DEPT CLINICAL HISTORY: chest pain. TECHNIQUE: 2D digital imaging was performed. COMPARISON: CR XR PORTABLE CHEST AP from 10/30/2021 FINDINGS: Single AP portable view. Heart size is upper normal. The mediastinum is not widened. Lungs are clear. No infiltrates nor obvious pleural effusions. IMPRESSION: No acute pulmonary findings on this single AP portable view of the chest. DATA REPOSITORY: RADIATION DOSE DELIVERED:
--- NOTE | 2023-10-10 03:36 | W.ED.GENAD ---
Discharge Plan Disposition Patient Disposition: Home Condition: Good Discharge Details Clinical Impression: Syncope Primary Care Provider: Maranda Gamboa ED Provider: Alda Maria Home Meds and New Rx's Prescriptions: Continued melatonin 5 mg capsule 5 mg PO HS MAY REPEAT X1 Qty: 60 0RF ibuprofen 600 mg tablet 600 mg PO Q6H PRN (Reason: pain) Qty: 60 1RF simethicone 80 mg tablet,chewable 80 mg PO QD-BID PRNQty: 30 1RF aspirin [Children's Aspirin] 81 mg Tablet,Chewable 81 mg PO DAILY Qty: 60 0RF Discontinued diclofenac potassium 50 mg tablet 50 mg PO Q12H PRNQty: 30 1RF Discharge Instructions Instructions: Syncope (ED) Additional Instructions: Follow up with cardiology; they will call you to schedule an appointment. Call your primary care doctor tomorrow to schedule an appointment within the next three days to followup on your visit here. Return to the emergency department for new or worsening symptoms including new/different/worse pain, if you feel like you are going to pass out again or if you pass out, or if you have any other concerns. Referrals: Maranda Gamboa, BOB [Primary Care Provider] - [facility] General Mode of arrival: EMS. Date/Time Provider Initiated Documentation: 10/10/23 03:13. Limitations to Documentation: no limitations. Information obtained by: patient, family and EMS. HPI Narrative: 42yo F with hx of polysubstance use (opiates, cocaine), hx total abdominal hysterectomy, presenting via EMS after syncopal episode. History from patient, EMS, and significant other. This evening drank three twisted teas, then felt unwell. Denies any other substance use. Went to bathroom and urinated, when she stood up from the toilet she felt nausated and then lost consciousness. Significant other said she vomited with foamy non-bloody non-bilious emesis coming out of her mouth and nose, and had whole-body shaking. Unclear how long this lasted, more than 15 minutes less than an hour. Does not think she struck her head. When she regained consciousness she was not confused. No history of seizures. No further vomiting. Patient reports that after she regained consciousness she had left sided chest pain and RLQ abdominal pain. Chest pain is sharp, severe, does not radiate it to her arm or back, and has no alleviating or aggravating factors. RLQ pain is sharp, severe, and does not radiate. She also reports feeling short of breath since regaining consciousness, persisting here. Main complaint at time of arrival is anxiety and panic. She is otherwise in her usual state of health with no fevers, chills, rash, dysuria, hematuria, numbness, tingling, weakness, or other concerns. Related Data Home Medications Medication Instructions Recorded Confirmed aspirin 81 mg chewable tablet 81 mg PO DAILY #60 tabs 06/17/23 10/10/23 (Children's Aspirin) simethicone 80 mg chewable tablet 80 mg PO QD-BID PRN #30 tabs 06/17/23 10/10/23 ibuprofen 600 mg tablet 600 mg PO Q6H PRN pain #60 tabs 07/07/23 10/10/23 melatonin 5 mg capsule 5 mg PO HS MAY REPEAT X1 #60 caps 07/09/23 10/10/23 Previous Rx's Medication Instructions Recorded aspirin 81 mg chewable tablet 81 mg PO DAILY #60 tabs 06/17/23 (Children's Aspirin) simethicone 80 mg chewable tablet 80 mg PO QD-BID PRN #30 tabs 06/17/23 ibuprofen 600 mg tablet 600 mg PO Q6H PRN pain #60 tabs 07/07/23 melatonin 5 mg capsule 5 mg PO HS MAY REPEAT X1 #60 caps 07/09/23 Allergies Allergy/AdvReac Type Severity Reaction Status Date / Time No Known Allergies Allergy Unverified 09/06/23 08:31 General Stated Complaint: Chest Pain JACQUELINE: 3 Review of Systems Narrative: see HPI Exam Narrative Exam Narrative: General: Alert, anxious, clinically intoxicated Head: Normocephalic, atraumatic Neck: Trachea midline, ?Neck supple. ENT: ?MMM.? Cardiac: ?RRR, no murmurs appreciated Resp: No respiratory distress. CTAB. Chest: Anterior left mid-chest/breast TTP. No overlying rash. Abd: ?Soft, non-distended, RLQ TTP with no rebound or guarding. : ?No suprapubic tenderness. No CVA tenderness. Extremities: ?No deformities.? No peripheral edema. Neuro: ? GCS 15.?Slightly slurred speech. Motor- 5/5 strength symmetric bilateral upper and lower extremities Sensation- ?Intact to light touch and symmetric multiple dermatomes including upper and lower extremities Coordination- No dysmetria on finger to nose CRANIAL NERVES: II: Pupils equal and reactive, III, IV, : EOM intact, no gaze preference or deviation, no nystagmus. V: normal sensation in V1, V2, and V3 segments bilaterally VII: no asymmetry, no nasolabial fold flattening VIII: normal hearing to speech IX, X: normal palatal elevation, no uvular deviation XI: 5/5 head turn and 5/5 shoulder shrug bilaterally XII: midline tongue protrusion Course Vital Signs Vital signs: Vital Signs Pulse 110 H 10/10/23 03:05 Respiratory Rate 24 10/10/23 03:05 Pulse Oximetry 99 10/10/23 03:05 Temperature Source Tympanic 10/10/23 03:05 Pulse 98 H 10/10/23 03:21 Respiratory Rate 16 10/10/23 03:23 Respiratory Effort Normal 10/10/23 03:24 Respiratory Depth Normal 10/10/23 03:24 Respiratory Pattern Normal 10/10/23 03:24 Blood Pressure 114/65 10/10/23 03:21 Blood Pressure Position Sitting 10/10/23 03:05 Pulse Oximetry 98 10/10/23 03:23 Oxygen Delivery Method Room Air 10/10/23 03:05 Oxygen Flow Rate 0 10/10/23 03:05 Pain Level 10 10/10/23 03:24 Medical Decision Making 42yo F with hx of polysubstance use (opiates, cocaine), hx total abdominal hysterectomy, presenting via EMS after syncopal episode. History from patient, EMS, and significant other. This evening drank three twisted teas, then felt unwell. Denies any other substance use. Went to bathroom and urinated, when she stood up from the toilet she felt nausated and then lost consciousness. Significant other said she vomited with foamy non-bloody non-bilious emesis coming out of her mouth and nose, and had whole-body shaking. Unclear how long this lasted, more than 15 minutes less than an hour. For EMS reported chest pain and shortness of breath. On arrival to the ED reports chest pain, abdominal pain, shortness of breath, and anxiety. Hypertensive and tachycardiac on arrival, clinically intoxicated. Reproducible left chest tenderness on exam, slight RLQ tenderness with no peritoneal signs. Normal neurologic exam. Description of event most consistent with convulsive syncope. No history of seizures and not post-ictal per description of event. May be situational or vagal in the setting of intoxication, micturation, and standing; will evaluate further with labs and imaging as below. Given ativan for anxiety, tylenol & toradol for pain. -EKG sinus tachycardia, LBBB (present in prior EKG on [facility] record review), Sgarbossa negative. Somewhat prolonged QTc ~520, also present on prior EKG. -CXR independently reviewed, no focal pneumonia or pneumothorax on my view, agree with radiology read below. -CT head independently reviewed, no bleed or mass on my view, agree with radiology read below. -CT abd/pelv independently reviewed, no obstruction or free fluid on my view, agree with radiology read below. -Labs reviewed as below, CBC reassuring with no leukocytosis or anemia, CMP with normal electrolytes, normal Mg, dimer negative (would not further pursue pulmonary embolism with CT imaging), lipase normal (unlikely pancreatitis), troponin negative x 2 (would not further pursue ACS). UA negative. ETOH 136. On reassessment patient is well appearing, resting comfortably. Vital signs normalized. Clinically sober. Does have QT prolongation of several years duration and cannot recall if she has discussed this with a coverage specialist at any point. Normal electrolytes here, not currently taking an QT prolong meds, and event associated with prodrome less consistent with episode of significant arrhythmia/torsades. Patient would strongly prefer to go home and followup with cardiology outpatient which is not unreasonable. However just prior to discharge when she sat up, rhythm on monitor appeared to have slightly wider QRS/QT, however repeat EKG with essentially unchanged intervals. Discussed with patient and she is amenable to staying while we speak with cardiology here. Signed out to oncoming physician; plan to consult [facility] cardiology, consider admission vs discharge to outpatient followup pending cardiology reccs and shared decision making with patient. Medical Records Medical records reviewed: Yes I reviewed the patient's medical records. Medical records narrative: Laboratory Tests Range/Units 10/10/23 10/10/23 03:10 03:34 WBC (4.4-10.8) 10^3/uL 8.69 RBC (3.93-5.22) 10^6/uL 3.92 L Hgb (11.2-15.7) g/dL 12.5 Hct (36.0-46.0) % 37.4 MCV (80-95) fL 95 MCH (27.0-33.0) pg 31.9 MCHC (32.0-36.0) % 33.4 RDW (11.7-14.6) % 15.8 H Plt Count (130-400) 10^3/uL 295 MPV (8.0-11.0) fL 11.1 H Immature Gran % 0.5 Neutrophils % 56.4 Lymphocytes % 32.5 Monocytes % 6.8 Eosinophils % 3.0 Basophils % 0.8 Nucleated RBC % (0.0-0.3) % 0.0 Absolute Neutrophils (1.2-6.7) 10^3/uL 4.91 Absolute Lymphocytes (1.2-3.4) 10^3/uL 2.82 Absolute Monocytes (0.1-0.8) 10^3/uL 0.59 Absolute Eosinophils (0.0-0.7) 10^3/uL 0.26 Absolute Basophils (0.0-0.2) 10^3/uL 0.07 D-Dimer (<500) ng/mlFEU 420 Sodium (136-145) mmol/L 141 Potassium (3.5-5.1) mmol/L 3.8 Chloride (98-107) mmol/L 105 Carbon Dioxide (21.0-32.0) mmol/L 25.7 Anion Gap (3-11) mmol/L 10.3 BUN (7-18) mg/dL 4 L Creatinine (0.55-1.02) mg/dL 0.6 Est GFR (CKD-EPI 2020) (mL/min/1.73m2) 114.15 Glucose (74-106) mg/dL 121 H Calcium (8.5-10.1) mg/dL 8.5 Magnesium (1.8-2.4) mg/dL 2.0 Total Bilirubin (0.2-1.0) mg/dL 0.2 AST (15-37) U/L 14 L ALT (14-59) U/L 24 Alkaline Phosphatase (46-116) U/L 92 Troponin I (< or =60) ng/L < 50 Total Protein (6.4-8.2) g/dL 7.5 Albumin (3.4-5.0) g/dL 3.7 Lipase (16-77) U/L 35 Beta HCG, Quant (1-3) mIU/mL < 1 L Urine Color (Yellow) Yellow Urine Clarity (Clear) Clear Urine pH (5-8) 7.0 Ur Specific [place] (1.005-1.025) 1.015 Urine Protein (Neg-Trace) mg/dL Negative Urine Ketones (Negative) mg/dL Negative Urine Blood (Negative) Negative Urine Nitrite (Negative) Negative Urine Bilirubin (Negative) Negative Urine Urobilinogen (Up to 0.2) mg/dL 0.2 Ur Leukocyte Esterase (Negative) Negative Urine Glucose (Negative) mg/dL Negative Ethyl Alcohol (<10) mg/dL 136.6 H Imaging Data Radiologic Study: Imaging: X-Ray Radiologist's impression: IMPRESSION: No evidence for acute pulmonary disease. Radiologic Study #2: Imaging: CT Scan Radiologist's impression: IMPRESSION: No acute intracranial process. Radiologic Study #3: Imaging: CT Scan Radiologist's impression: IMPRESSION: 1. Appendix normal where at least partially visualized. If there is high or increasing clinical concern for appendicitis, may consider followup CT after the administration of intravenous, oral and/or rectal contrast. 2. 2.8 cm left pelvic cystic lesion, likely ovarian. May consider ultrasound. 3. Minor sigmoid colonic diverticulosis without evidence for diverticulitis. Lab Data Lab results reviewed: Yes I reviewed the patient's lab results. Labs: Laboratory Tests Range/Units 10/10/23 10/10/23 03:10 03:34 WBC (4.4-10.8) 10^3/uL 8.69 RBC (3.93-5.22) 10^6/uL 3.92 L Hgb (11.2-15.7) g/dL 12.5 Hct (36.0-46.0) % 37.4 MCV (80-95) fL 95 MCH (27.0-33.0) pg 31.9 MCHC (32.0-36.0) % 33.4 RDW (11.7-14.6) % 15.8 H Plt Count (130-400) 10^3/uL 295 MPV (8.0-11.0) fL 11.1 H Immature Gran % 0.5 Neutrophils % 56.4 Lymphocytes % 32.5 Monocytes % 6.8 Eosinophils % 3.0 Basophils % 0.8 Nucleated RBC % (0.0-0.3) % 0.0 Absolute Neutrophils (1.2-6.7) 10^3/uL 4.91 Absolute Lymphocytes (1.2-3.4) 10^3/uL 2.82 Absolute Monocytes (0.1-0.8) 10^3/uL 0.59 Absolute Eosinophils (0.0-0.7) 10^3/uL 0.26 Absolute Basophils (0.0-0.2) 10^3/uL 0.07 D-Dimer (<500) ng/mlFEU 420 Sodium (136-145) mmol/L 141 Potassium (3.5-5.1) mmol/L 3.8 Chloride (98-107) mmol/L 105 Carbon Dioxide (21.0-32.0) mmol/L 25.7 Anion Gap (3-11) mmol/L 10.3 BUN (7-18) mg/dL 4 L Creatinine (0.55-1.02) mg/dL 0.6 Est GFR (CKD-EPI 2020) (mL/min/1.73m2) 114.15 Glucose (74-106) mg/dL 121 H Calcium (8.5-10.1) mg/dL 8.5 Magnesium (1.8-2.4) mg/dL 2.0 Total Bilirubin (0.2-1.0) mg/dL 0.2 AST (15-37) U/L 14 L ALT (14-59) U/L 24 Alkaline Phosphatase (46-116) U/L 92 Troponin I (< or =60) ng/L < 50 Total Protein (6.4-8.2) g/dL 7.5 Albumin (3.4-5.0) g/dL 3.7 Lipase (16-77) U/L 35 Beta HCG, Quant (1-3) mIU/mL < 1 L Urine Color (Yellow) Yellow Urine Clarity (Clear) Clear Urine pH (5-8) 7.0 Ur Specific [place] (1.005-1.025) 1.015 Urine Protein (Neg-Trace) mg/dL Negative Urine Ketones (Negative) mg/dL Negative Urine Blood (Negative) Negative Urine Nitrite (Negative) Negative Urine Bilirubin (Negative) Negative Urine Urobilinogen (Up to 0.2) mg/dL 0.2 Ur Leukocyte Esterase (Negative) Negative Urine Glucose (Negative) mg/dL Negative Ethyl Alcohol (<10) mg/dL 136.6 H Quality:SDOH Health Related Social Needs: No Data to Display PFSH All Active Problems (Updated 10/10/23 @ 07:27 by Alda Maria MD) Syncope (Chronic) Painful total knee replacement, left (Acute) Status post total abdominal hysterectomy (Acute) Operative laparoscopy converted to total abdominal hysterectomy with bilateral salpingectomy. Positive urine drug screen (Acute) Cocaine + 05/15/2023, denies use in the last 6 years History of DVT of lower extremity (Acute) Abdominal pain, right lower quadrant (Acute) Suspect pain from fibroids and vascular compromise due to cocaine use. Suspect fibroid necrosis Medical History (Updated 10/10/23 @ 07:27 by Alda Maria MD) Atypical pneumonia Hepatitis C Per pt Treated Hyperlipidemia, unspecified (06/16/17) IFG (impaired fasting glucose) (06/16/17) Cocaine use disorder remission last 4 years Opioid use disorder Acute necrotizing gingivitis Tobacco use disorder Substance use disorder Surgical History (Updated 09/06/23 @ 08:44 by CHINEDU Linton) History of total left knee replacement (TKR) (12/30/15) left medial minisectomy (03/17/10) Ligation of fallopian tube (08/19/05) Family History Mother Diabetes Essential hypertension HF (heart failure) Neoplasm Colon CA COPD (chronic obstructive pulmonary disease) Smoker MS (multiple sclerosis) Father No problems noted. Maternal Aunt , Breast CA at age 41. Neoplasm Breast CA Maternal Aunt , Breast CA at age 43. Neoplasm Breast CA Maternal Aunt , Breast CA at age 44. Neoplasm Breast CA Maternal Aunt Neoplasm Breast CA Grandmother Diabetes Social History Smoking/Tobacco Use Status: Current-Occasional Tobacco Type: e-cigarettes Smoking risk assessment performed?: Yes Alcohol Intake: current Alcohol Intake frequency: a few times a week Alcohol type: beer Drug use: Current Sobriety Substance use type: former substance user, marijuana, crack/cocaine, heroin and opiates Details: edible x1. 06/16/23: pt reports last used recreational drugs 2 weeks ago Housing: house Do you feel safe at home: Yes (unabe to assess privately) Do you feel safe in your relationship?: Yes Female Reproductive History Menstrual Age of Menarche: 11 Duration of menses: 3-5 days control method: permanent sterilization History History 2 Para Hx # Term Pregnancies 2 Multiple births Hx # Pregnancies Ectopic pregnancies AB induced Hx Number of Living Children 2 AB spontaneous PAWSS Have you Been Recently Intoxicated or Drunk Within the Last 30 days?: Yes Have you Ever Experienced Previous Episodes of Alcohol Withdrawal?: No Have you ever Experienced Withdrawal Seizures?: No Have you ever Experienced Delirium Tremens(DT)s?: No Have you ever undergone Alcohol Rehabilitation Treatment (i.e, inpt ot outpatient treatment programs)?: No Have you ever Experienced Blackouts?: No Have you ever Combined Alcohol with other Downers within the last 90 days?: No Have you ever Combined Alcohol with any other Substance of Abuse during the last 90 days?: No Positive Blood Alcohol level on Presentation? [PCS.BAL]: Unable to Obtain Result: 1
[2023-10-10 03:43] LABS: Abs Immature Grans 0.04 10^3/uL (0.0-0.06); Absolute Basophil Count 0.07 10^3/uL (0.0-0.2); Absolute Eosinophil Count 0.26 10^3/uL (0.0-0.7); Absolute Lymphocyte Count 2.82 10^3/uL (1.2-3.4); Absolute Monocyte Count 0.59 10^3/uL (0.1-0.8); Absolute Neutrophil Count 4.91 10^3/uL (1.2-6.7); Basophils % 0.8; HCT 37.4 % (36.0-46.0); HGB 12.5 g/dL (11.2-15.7); Immature Grans % 0.5; Lymphocytes % 32.5; MCH 31.9 pg (27.0-33.0); MCHC 33.4 % (32.0-36.0); MCV 95 fL (80-95); MPV 11.1 fL (8.0-11.0); Monocytes % 6.8; Neutrophils % 56.4; Platelet Count 295 10^3/uL (130-400); RBC 3.92 10^6/uL (3.93-5.22); RDW 15.8 % (11.7-14.6); WBC 8.69 10^3/uL (4.4-10.8)
[2023-10-10 03:52] LABS: Bilirubin Negative (Negative); Blood Negative (Negative); Clarity Clear (Clear); Glucose Negative (Negative); Ketones Negative (Negative); Leukocyte Esterase Negative (Negative); Nitrite Negative (Negative); Specific Gravity 1.015 (1.005-1.025); Urobilinogen 0.2 mg/dL (Up to 0.2)
[2023-10-10] MEDS: Acetaminophen 500 MG TAB 1000 MG PO (03:52)
[2023-10-10] MEDS: Ketorolac 15 MG/ML VIAL IVP (03:57)
[2023-10-10 04:04] LABS: ALT 24 U/L (14-59); AST 14 U/L (15-37); Albumin 3.7 g/dL (3.4-5.0); Alkaline Phosphatase 92 U/L (46-116); Anion Gap 10.3 mmol/L (3-11); BUN 4 mg/dL (7-18); Bilirubin, Total 0.2 mg/dL (0.2-1.0); CO2 25.7 mmol/L (21.0-32.0); CREATININE 0.6 mg/dL (0.55-1.02); Calcium 8.5 mg/dL (8.5-10.1); Chloride 105 mmol/L (98-107); ETHANOL BLOOD 136.6 mg/dL (<10); Estimated GFR 114.15 (mL/min/1.73m2); Glucose 121 mg/dL (74-106); Lipase 35 U/L (16-77); Potassium 3.8 mmol/L (3.5-5.1); Sodium 141 mmol/L (136-145); Total Protein 7.5 g/dL (6.4-8.2); Troponin I < 50 ng/L (< or =60)
[2023-10-10 04:31] LABS: D-Dimer 420 ng/mlFEU (<500)
[2023-10-10 04:32] LABS: HCG Quant, Pregnancy < 1 mIU/mL (1-3)
--- NOTE | 2023-10-10 05:38 | DI.CT_ITS ---
Exam(s) CT HEAD WO EXAM: CT HEAD WO CLINICAL HISTORY: syncope. TECHNIQUE: Imaging Protocol: Axial computed tomography images with coronal and sagittal reformatted images were created and reviewed COMPARISON: No exams were available for comparison FINDINGS: There are no skull fractures. There is no fluid in the visualized paranasal sinuses. There is no evidence of intracranial hemorrhage, mass effect, or shift of midline structures. There are no extra-axial fluid collections. The ventricles are not enlarged or shifted and there is no blo od within the ventricular system nor within the basal cisterns. IMPRESSION: No acute intracranial findings on this noninfused CT scan of the brain. RADIATION DOSE DELIVERED: Total DLP DATA REPOSITORY: All CT scans at this facility are submitted to the National Radiology Data Registry (NRDR) Dose Index Registry (DIR) with the [employer] (ACR). RADIATION OPTIMIZATION: All CT scans at this facility use at least one of these dose optimization te chniques: automated exposure control; mA and/or kV adjustment per patient size (includes targeted exa ms where dose is matched to clinical indication); or iterative reconstruction.
--- NOTE | 2023-10-10 05:49 | DI.CT_ITS ---
Exam(s) CT ABDOMEN PELVIS WO EXAM: CT ABDOMEN PELVIS WO CLINICAL HISTORY: rlq abd pain. TECHNIQUE: Imaging Protocol: Axial computed tomography images with coronal and sagittal reformatted images were created and reviewed CONTRAST MATERIAL: Intravenous: none Oral: None COMPARISON: CT CT ABDOMEN PELVIS W from 10/10/2023 FINDINGS: VISUALIZED LUNG BASES: No nodules nor pleural effusions evident. ABDOMEN: There is no ascites. LIVER: There are no obvious focal hepatic lesions evident of this noninfused study. GALLBLADDER/BILIARY: No obvious gallbladder pathology. CBD is not dilated. PANCREAS: No evidence of pancreatic mass nor dilatation of the pancreatic duct. SPLEEN: Spleen is not enlarged. No obvious intrasplenic lesions. ADRENALS: There are no significant adrenal masses. KIDNEYS:No cysts evident. No solid renal masses. No calculi nor hydronephrosis. . ABDOMINAL AORTA: Abdominal aorta is not enlarged. LYMPH NODES: There is no retroperitoneal nor paraaortic adenopathy. ABDOMINAL WALL: No evidence of significant anterior abdominal wall nor inguinal hernia. GI: There is no evidence of bowel obstruction, free air, nor abscess. No evidence of appendicitis. PELVIS: LYMPH NODES: There is no intrapelvic nor inguinal adenopathy. GI: No evidence of appendicitis.No evidence of sigmoid diverticulitis. URINARY BLADDER: No calculi nor obvious masses evident REPRODUCTIVE: Uterus surgically absent. Right adnexa unremarkable there is a cyst in the left adnexa -left ovary measuring 3 by 2.2 cm. No free fluid. OSSEOUS: No significant osseous lesions. IMPRESSION: 1. No evidence of appendicitis nor diverticulitis. 2. Left ovarian cyst measuring approximately 3 x 2.2 cm. No free fluid. 3. No other significant findings in the abdomen and pelvis. RADIATION DOSE DELIVERED: Total DLP DATA REPOSITORY: All CT scans at this facility are submitted to the National Radiology Data Registry (NRDR) Dose Index Registry (DIR) with the [employer] (ACR). RADIATION OPTIMIZATION: All CT scans at this facility use at least one of these dose optimization te chniques: automated exposure control; mA and/or kV adjustment per patient size (includes targeted exa ms where dose is matched to clinical indication); or iterative reconstruction.
[2023-10-10 06:38] LABS: Troponin I < 50 ng/L (< or =60)
--- NOTE | 2023-10-10 06:59 | DI.VRAD_ITS ---
PROCEDURE INFORMATION: Exam: CT Head Without Contrast Exam date and time: 10/10/2023 4:56 AM Age: 42 years old Clinical indication: Other: Syncope TECHNIQUE: Imaging protocol: Computed tomography of the head without contrast. COMPARISON: No relevant prior studies available. FINDINGS: There is no evidence of intraparenchymal hemorrhage, mass effect or extra-axial collection. Ventricular size is normal. Visualized intraorbital soft tissues are normal. The sinuses are well-aerated. IMPRESSION: No acute intracranial process. Dictated and Authenticated by: Alda Dodson MD. Ordering:SILVANA Lizama MD
--- NOTE | 2023-10-10 07:14 | DI.VRAD_ITS ---
PROCEDURE INFORMATION: Exam: XR Chest Exam date and time: 10/10/2023 5:28 AM Age: 42 years old Clinical indication: Other: Chest pain TECHNIQUE: Imaging protocol: Radiologic exam of the chest. Views: 1 view. COMPARISON: CR XR PORTABLE CHEST AP 10/30/2021 8:03 AM FINDINGS: Lungs: Unremarkable. No consolidation. Pleural spaces: Unremarkable. No pleural effusion. No pneumothorax. Heart/Mediastinum: The cardiomediastinal silhouette is fairly stable in appearance. Bones/joints: Unremarkable. IMPRESSION: No evidence for acute pulmonary disease. Dictated and Authenticated by: Hayden Camara MD. Ordering:SILVANA Lizama MD
--- NOTE | 2023-10-10 07:23 | DI.VRAD_ITS ---
PROCEDURE INFORMATION: Exam: CT Abdomen And Pelvis Without Contrast Exam date and time: 10/10/2023 5:21 AM Age: 42 years old Clinical indication: Other: Rlq pain; Prior surgery; Surgery date: 1-6 months; Surgery type: Emergency complete hysterectomy. ; Additional info: Er wanted this study done with contrast. Right hand iv started to leak during the injection. It was aborted mid-injection. Called er to have them put in a new iv and they stated to do the study without contrast. PT got less than 20ml of contrast before the iv started leaking. Did the non-con scan about 7-8 minutes after the injection of the <20ml injection. TECHNIQUE: Imaging protocol: Computed tomography of the abdomen and pelvis without contrast. COMPARISON: CT ABDOMEN PELVIS W 05/16/2023 3:59 PM FINDINGS: Limitations: Evaluation of the solid and vascular structures is somewhat limited by lack of IV contrast. Lungs: The visualized lung bases demonstrate minor dependent atelectasis. Liver: The liver contains similar subcentimeter hypodense lesions, too small to characterize. It appears otherwise grossly unremarkable. Gallbladder and bile ducts: No gallstones are evident, but ultrasound would be more sensitive. No gross biliary ductal dilatation. Pancreas: Grossly unremarkable. Spleen: Grossly unremarkable. Adrenal glands: Grossly unremarkable. Kidneys and ureters: There is contrast in the renal collecting systems and ureters. Kidneys themselves appear grossly unremarkable. Stomach and bowel: The unopacified small bowel is not significantly distended to suggest obstruction. There is minor sigmoid colonic diverticulosis without evidence for diverticulitis. The large bowel is otherwise grossly unremarkable in appearance. Appendix: The appendix appears normal where at least partially visualized, and there is no inflammatory change in the region. Intraperitoneal space: No free air or significant free fluid. Vasculature: The abdominal aorta is nonaneurysmal. Lymph nodes: No gross pathologic lymphadenopathy. Urinary bladder: Contains some layering contrast, but otherwise grossly unremarkable. Reproductive: There has been interval hysterectomy. A 2.8 cm cystic lesion in the left pelvis is likely ovarian. Bones/joints: Degenerative changes again involve the spine and hips. Soft tissues: Unremarkable. IMPRESSION: 1. Appendix normal where at least partially visualized. If there is high or increasing clinical concern for appendicitis, may consider followup CT after the administration of intravenous, oral and/or rectal contrast. 2. 2.8 cm left pelvic cystic lesion, likely ovarian. May consider ultrasound. 3. Minor sigmoid colonic diverticulosis without evidence for diverticulitis. Dictated and Authenticated by: Hayden Camara MD. Ordering:SILVANA Lizama MD
--- NOTE | 2023-10-10 07:29 | NUR.NOTE ---
Faxed a referral to Cardiology for the Pt to be seen this week for follow up to Chest Pain and Prolonged QT
--- NOTE | 2023-10-10 07:30 | RT.EKG_ITS ---
APPROVED REPORT Exam: Resting ECG Reason for Exam: Chest Pain Patient Location: E HR:82 bpm ECG Measurements Heart Rate 82 AXIS LA 186 P 34 QRSd 132 QRS 6 QT 445 T 113 QTc 520 Conclusion Sinus rhythm...normal P axis, V-rate 60- 99 Left bundle branch block...QRSd>120, broad/notched R
[2023-10-10] MEDS: Lactated Ringers 1,000 ML 1000 ML IV (08:21)
[2023-10-10] MEDS: Ondansetron 4 MG/2 ML VIAL IVP (08:58)
[2023-10-10] MEDS: MORPHine 4 MG/ML SYR IVP (08:59)
[2023-10-10] MEDS: Normal Saline - Diluent 50 ML VIAL IJ (09:52)
[2023-10-10] MEDS: Omnipaque 350 MG/ML 100 ML BTL IJ (09:54)
--- NOTE | 2023-10-10 09:56 | DI.CT_ITS ---
Exam(s) CT ABDOMEN PELVIS W EXAM: CT ABDOMEN PELVIS W CLINICAL HISTORY: rlq abdominal pain. TECHNIQUE: Imaging Protocol: Axial computed tomography images with coronal and sagittal reformatted images were created and reviewed CONTRAST MATERIAL: Intravenous: Omnipaque-350 100cc Oral: None COMPARISON: CT CT ABDOMEN PELVIS WO from 10/10/2023 FINDINGS: VISUALIZED LUNG BASES: No nodules nor pleural effusions evident. ABDOMEN: There is no ascites. LIVER: There are no focal hepatic lesions evident. No dilated intrahepatic ducts. GALLBLADDER/BILIARY: No obvious gallbladder pathology. CBD is not dilated. PANCREAS: No evidence of pancreatic mass nor dilatation of the pancreatic duct. SPLEEN: Spleen is not enlarged. No obvious intrasplenic lesions. Splenic and portal veins are paten t. ADRENALS: There are no significant adrenal masses. KIDNEYS:No cysts evident. No solid renal masses. No calculi nor hydronephrosis.. ABDOMINAL AORTA: Abdominal aorta is not enlarged. LYMPH NODES:There is no retroperitoneal nor paraaortic adenopathy. ABDOMINAL WALL: No evidence of significant anterior abdominal wall nor inguinal hernia. GI: There is no evidence of bowel obstruction, free air, nor abscess. PELVIS: GI: Appendix not identified as a separate structure but there are no obvious signs of acute appendici tis.No evidence of sigmoid diverticulitis. LYMPH NODES: There is no intrapelvic nor inguinal adenopathy. REPRODUCTIVE: Uterus is surgically absent. There is a left ovarian cyst measuring 3 by 2.5 cm. URINARY BLADDER: No calculi nor obvious masses evident OSSEOUS: No fractures and no significant osseous lesions. Moderate disc space narrowing at L2-3 noted. No listhesis. IMPRESSION: 1. Appendix is not identified as a separate structure but there are no inflammatory changes in the ri ght lower quadrant. 2. There is a 3 x 2.5 cm left ovarian cyst again noted. 3. Uterus is again noted be surgically absent. 4. No evidence of ascites nor bowel obstruction. No free air. RADIATION DOSE DELIVERED: Total DLP DATA REPOSITORY: All CT scans at this facility are submitted to the National Radiology Data Registry (NRDR) Dose Index Registry (DIR) with the [employer] (ACR). RADIATION OPTIMIZATION: All CT scans at this facility use at least one of these dose optimization te chniques: automated exposure control; mA and/or kV adjustment per patient size (includes targeted exa ms where dose is matched to clinical indication); or iterative reconstruction.
--- NOTE | 2023-10-10 10:11 | DI.VRAD_ITS ---
PROCEDURE INFORMATION: Exam: CT Abdomen And Pelvis With Contrast Exam date and time: 10/10/2023 9:50 AM Age: 42 years old Clinical indication: Abdominal pain; Localized; Right lower quadrant (rlq) TECHNIQUE: Imaging protocol: Computed tomography of the abdomen and pelvis with contrast. Radiation optimization: All CT scans at this facility use at least one of these dose optimization techniques: automated exposure control; mA and/or kV adjustment per patient size (includes targeted exams where dose is matched to clinical indication); or iterative reconstruction. Contrast material: OMNI 350; Contrast volume: 100 ml; Contrast route: INTRAVENOUS (IV); COMPARISON: CT ABDOMEN PELVIS WO 10/10/2023 5:21 AM FINDINGS: Lungs: The visualized lung bases demonstrate minor dependent atelectasis. Liver: The liver again contains a few small hypodense lesions, some compatible with cysts, some, subcentimeter, too small to characterize. It appears otherwise unremarkable. Gallbladder and bile ducts: No gallstones are evident, but ultrasound would be more sensitive. No gross biliary ductal dilatation. Pancreas: Normal. No ductal dilation. Spleen: Splenules are present. The spleen itself appears unremarkable. Adrenal glands: Normal. No mass. Kidneys and ureters: The right kidney appears unremarkable. The left kidney contains a subcentimeter, homogeneous hypodense lesion. It appears otherwise unremarkable. Stomach and bowel: The unopacified small bowel is not significantly distended to suggest obstruction. There is again minor sigmoid colonic diverticulosis without evidence for diverticulitis. Appendix: The appendix is presently not well-visualized. There is no significant inflammatory change in its expected region. Intraperitoneal space: No free air or significant free fluid. Vasculature: Unremarkable. No abdominal aortic aneurysm. Lymph nodes: Unremarkable. No enlarged lymph nodes. Urinary bladder: Unremarkable. Reproductive: There again appears to be a 2.8 cm left ovarian cyst. Bones/joints: Degenerative changes again involve the spine and hips. Soft tissues: A small fat containing umbilical hernia is again present. IMPRESSION: 1. Appendix not well-visualized, without significant inflammatory change in its expected region. 2. Appearance of a 2.8 cm left ovarian cyst, as on earlier the same day. 3. Other similar nonemergent findings. Dictated and Authenticated by: Hayden Camara MD. Ordering:MAXWELL Wheeler MD
--- NOTE | 2023-10-10 10:19 | ED.PROG_ITS ---
Date of service: 10/10/23 Time of Service: 10:19 Medical Decision Making I, Liam Rojas, took signout on this patient. In summary 42-year-old female presents after a syncopal episode With chest pain and abdominal pain. Extensive workup including CT head, chest x-ray, EKG, labs unremarkable. CT abdomen pelvi s was unremarkable as well but could not definitively rule out appendicitis. Signed out to me out of concern with symptomatic dizziness and prolonged QT on EKG. EKG is sinus rhythm with no ischemic changes and does have a left bundle branch block. Spoke to [facility] cardiology and they believe the prolonged QTc is likely only secondary to the left bundle branch block and she can follow-up with our cardiology team here and consider cardiac monitoring. She was still having the abdominal pain and given the CT finding above obtain CT abdomen pelvis with IV contrast and no acute pathology identified. Did not distinctly identify the appendix but no inflammatory changes found and does not have a white count here so I think that this is very unlikely. Symptoms improved here. Will discharge with return precautions. Imaging Data Radiologic Study: Radiologist's impression: ct abd and pelvis with contrast IMPRESSION: 1. Appendix not well-visualized, without significant inflammatory change in its expected region. 2. Appearance of a 2.8 cm left ovarian cyst, as on earlier the same day. 3. Other similar nonemergent findings. ECG Data Interpretation: Normal sinus rhythm with left bundle branch block. QTc prolonged likely secondary to left bundle. Otherwise nonischemic and otherwise unremarkable EKG. Quality:SDOH Health Related Social Needs: No Data to Display Discharge Plan Disposition Patient Disposition: Home Condition: Good Discharge Details Clinical Impression: Syncope Primary Care Provider: Maranda Gamboa ED Provider: Liam Rojas Home Meds and New Rx's Prescriptions: Continued melatonin 5 mg capsule 5 mg PO HS MAY REPEAT X1 Qty: 60 0RF ibuprofen 600 mg tablet 600 mg PO Q6H PRN (Reason: pain) Qty: 60 1RF simethicone 80 mg tablet,chewable 80 mg PO QD-BID PRNQty: 30 1RF aspirin [Children's Aspirin] 81 mg Tablet,Chewable 81 mg PO DAILY Qty: 60 0RF Discontinued diclofenac potassium 50 mg tablet 50 mg PO Q12H PRNQty: 30 1RF Discharge Instructions Instructions: Syncope (ED) Additional Instructions: Follow up with cardiology; they will call you to schedule an appointment. Call your primary care doctor tomorrow to schedule an appointment within the next three days to followup on your visit here. Return to the emergency department for new or worsening symptoms including new/different/worse pain, if you feel like you are going to pass out again or if you pass out, or if you have any other concerns. Referrals: Maranda Gamboa NP [Primary Care Provider] -
== END 2023-10-10 10:31 | disposition home or self-care (01) ==
PROVIDERS: Student in an Organized Health Care Education/Training Program; Emergency Provider Student in an Organized Health Care Education/Training Program; PCP Nurse Practitioner Family
DX: R07.9 Chest pain, unspecified (principal); R55 Syncope and collapse; R10.31 Right lower quadrant pain; I44.7 Left bundle-branch block, unspecified; Z79.82 Long term (current) use of aspirin; Z90.49 Acquired absence of other specified parts of digestive tract; F17.290 Nicotine dependence, other tobacco product, uncomplicated
CPT/HCPCS: 00123; 36415; 80053; 83690; 93005; 96372; 96374; 99285; 70450; 71045; 74176; 74177; 80320; 81003; 83735; 84484; 84702; 85025; 85379; 93010; 99284; J1885; J2270; J2405; J3490

== ENCOUNTER 2023-10-26 08:19 | Outpatient (CLI) | payer MEDICAID, SELFPAY | END 2023-10-26 08:20 | disposition home or self-care (01) | LOC: DI.CARD 08:20 | PROVIDERS: PCP Nurse Practitioner Family; Visit Provider Internal Medicine Cardiovascular Disease | CPT/HCPCS: 93010 ==

== ENCOUNTER 2023-10-27 18:25 | Emergency (ER) | payer MEDICAID, SELFPAY ==
[2023-10-27] VITALS (30 sets, daily range): BP systolic 112–174; BP diastolic 59–103; PULSE 68–98; RESP 12–29; O2SAT 97–100
--- NOTE | 2023-10-27 18:15 | RT.EKG_ITS ---
APPROVED REPORT Exam: Resting ECG Reason for Exam: chest pain Patient Location: E HR:79 bpm ECG Measurements Heart Rate 79 AXIS MN 163 P 55 QRSd 101 QRS 48 QT 425 T -6 QTc 489 Conclusion Sinus rhythm...normal P axis, V-rate 60- 99 Abnormal T, consider ischemia, anterior leads...T <-0.20mV, V2-V4
[2023-10-27] MEDS: LORazepam 0.5 MG TAB PO ×2 (18:52→21:54)
--- NOTE | 2023-10-27 18:58 | DI.CT_ITS ---
Exam(s) CT THORAX ABD/PEL CTA EXAM: CT THORAX ABD/PEL CTA CLINICAL HISTORY: r/o aortic or coronary artery dissection. TECHNIQUE: Imaging Protocol: Axial CT angiography was performed with multi-slice acquisition and mu lti-planar and/or 3D reconstructions. CONTRAST MATERIAL: Intravenous: Omnipaque 350 Contrast volume:100 ml COMPARISON: CT CT ABDOMEN PELVIS W from 10/10/2023 FINDINGS: CHEST: Pulmonary Arteries: No evidence of filling defects to suggest pulmonary emboli. Tracheobronchial tree: No bronchiectasis or mucus plugging. Mediastinum and Corine: No dominant adenopathy or fluid collection. Pulmonary parenchyma: No consolidation or dominant measurable mass. Pleura: No effusion. No pneumothorax. Heart: The heart is notdilated. No coronary artery calcifications are seen. No pericardial effusio n. Aorta: Thoracic aorta non-dilated. Bones: Unremarkable for age. Tubes, Catheters, and Lines: None. Soft tissues: 2.2 centimeter rounded density in the left breast, likely cyst. ABDOMEN and PELVIS: Liver: Normal size. Normal density. No suspicious measurable mass. Stable tiny hypodensities. Gallbladder and Biliary Tract: No radiodense calculus. No biliary dilatation. Pancreas: Normal density, no abnormal calcifications or inflammatory process. Spleen: Normal. Adrenals: No masses seen. Kidneys: Normal size, contour and axis. No radiodense stones. No obstructive uropathy. No masses seen . Vasculature: Abdominal aorta non-dilated. No significant atherosclerotic changes. Celiac artery, SM A and KIRA as well as renal arteries are patent. Iliac arteries show no significant stenosis or aneur ysm. Bowel: No obstruction or bowel wall thickening. Appendix is unremarkable. Peritoneal Cavity: No ascites, collection or mesenteric inflammatory response. Lymph Nodes: Within normal limits. Soft Tissues: Tiny fatty containing umbilical hernia. Bladder: Symmetric distention, no gross wall thickening. Reproductive Organs: Status post hysterectomy. Follicle on left ovary. Bones: Unremarkable for age.. IMPRESSION: 1. No evidence of pulmonary embolism or aortic dissection. No significant atherosclerotic changes. 2. No acute abdominal or pelvic process. Vasculature is normal. 3. 2.2 centimeter rounded density in the left breast, likely cysts. Mammogram and ultrasound recomme nded for further evaluation. RADIATION DOSE DELIVERED: 1,092.08mGy.cm Total DLP 1,092.08mGy.cm Total DLP DATA REPOSITORY: All CT scans at this facility are submitted to the National Radiology Data Registry (NRDR) Dose Index Registry (DIR) with the [employer] ([employer]). RADIATION OPTIMIZATION: All CT scans at this facility use at least one of these dose optimization te chniques: automated exposure control; mA and/or kV adjustment per patient size (includes targeted exa ms where dose is matched to clinical indication); or iterative reconstruction.
--- NOTE | 2023-10-27 19:04 | ED.GENADUL_ITS ---
Discharge Plan Disposition Patient Disposition: Home Condition: Stable Discharge Details Clinical Impression: Abdominal pain, Breast lump, Hypokalemia Primary Care Provider: Maranda Gamboa ED Provider: Keya Damian Home Meds and New Rx's Prescriptions: Continued acetaminophen [Tylenol] 325 mg capsule 650 mg PO TID PRN ibuprofen 600 mg tablet 600 mg PO Q6H PRN (Reason: pain) Qty: 60 1RF aspirin [Children's Aspirin] 81 mg Tablet,Chewable 81 mg PO DAILY Qty: 60 0RF Discharge Instructions Additional Instructions: Please call [facility] internal medicine first thing in the morning to discuss the finding of a breast lesion on CT scan. You should have a mammogram ordered to urgently evaluate this. Your workup today was reassuring. The cause of your chest and abdominal pain is unclear. You may continue to take ibuprofen 600 mg 3 times a day as needed for discomfort. Heat and/or ice may also be helpful. Return to emergency care if you develop new chest pain, difficulty breathing, episodes of passing out, uncontrollable vomiting, severe abdominal pain that is changed from current, or if you are very concerned and need to be rechecked again immediately Referrals: Luna Matthews NP [NURSE PRACTITIONER] - HPI General Date/Time Provider Initiated Documentation: 10/27/23 18:28 . HPI Narrative: Song is a 42 year old female who presents to the emergency dept for evaluation of worsening L sided chest and R sided abdominal pain. This started suddenly on 10/10/23, she had ED workup which was significant for EKG with prolonged QTc and stable ovarian cyst. She reports pain is constant in the left neck/shoulder accompanied by tingling, she says that it radiates up from the right lower quadrant. She had been taking Tylenol/ibuprofen without improvement in symptoms. She reports she has occasional dizziness when standing up, occipital headaches at night x 2 weeks. Abdominal pain is accompanied by bloating, she says that her stomach is never as distended as it is now. She denies fever/chills, sore throat, cough, shortness of breath, nausea/vomiting, change in bowel or bladder function, black/tarry stools. Having normal bowel movements 3 times a day. She has a remote history of IV drug use, 9 years since last opioid use. She does take crack cocaine occasionally, marijuana edibles. Denies ETOH use. Related Data Home Medications Medication Instructions Recorded Confirmed aspirin 81 mg chewable tablet 81 mg PO DAILY #60 tabs 06/17/23 10/27/23 (Children's Aspirin) ibuprofen 600 mg tablet 600 mg PO Q6H PRN pain #60 tabs 07/07/23 10/27/23 acetaminophen 325 mg capsule 650 mg PO TID PRN 10/27/23 10/27/23 (Tylenol) Previous Rx's Medication Instructions Recorded aspirin 81 mg chewable tablet 81 mg PO DAILY #60 tabs 06/17/23 (Children's Aspirin) ibuprofen 600 mg tablet 600 mg PO Q6H PRN pain #60 tabs 07/07/23 Allergies Allergy/AdvReac Type Severity Reaction Status Date / Time ketorolac [From Toradol] Allergy Intermediate Diarrhea Unverified 10/27/23 19:19 General Stated Complaint: Chest Pain JACQUELINE: 2 Review of Systems Narrative: see HPI Exam Const General: cooperative, healthy appearing and anxious Nutritional Appearance: average body habitus HENMT Head: normal to inspection Ears: hearing grossly normal bilaterally General nose exam: external nose normal Teeth and gingiva: poor dentition Eyes Pupils: PERRL EOM: EOM intact bilaterally and No nystagmus Chest Breast inspection: abnormal inspection of the breast (2 cm round nodule, tender to palpation) left upper outer normal nipple, normal areola and no retraction; no erythema and no peau d'orange Resp Effort & Inspection: normal respiratory effort and able to speak in complete sentences Auscultation: clear to auscultation bilaterally Cardio Rate: regular rate Rhythm: regular rhythm GI Inspection: distended Palpation: soft, no pulsatile masses and not rigid Auscultation: normal bowel sounds Neuro General: patient alert and patient awake Cranial Nerves: CN's II-XI intact bilaterally, PERRL, EOM intact bilaterally, no nystagmus, facial strength normal and no nystagmus Cognition: normal cognition Speech: speech normal Motor: strength 5/5 throughout Sensory Exam: no sensory deficits noted Extrem General: capillary refill normal and no pedal edema Course Vital Signs Vital signs: Vital Signs Pulse 98 H 10/27/23 18:28 Respiratory Rate 26 H 10/27/23 18:28 Blood Pressure 174/98 H 10/27/23 18:28 Pulse Oximetry 100 10/27/23 18:28 Pulse 98 H 10/27/23 18:28 Respiratory Rate 13 10/27/23 18:53 Respiratory Effort Normal, Non-Labored 10/27/23 18:53 Respiratory Depth Normal 10/27/23 18:53 Respiratory Pattern Normal 10/27/23 18:53 Blood Pressure 174/98 H 10/27/23 18:28 Blood Pressure Position Sitting 10/27/23 18:28 Pulse Oximetry 100 10/27/23 18:28 Oxygen Delivery Method Room Air 10/27/23 18:28 Oxygen Flow Rate 0 10/27/23 18:28 Pain Level 8 10/27/23 18:28 Medical Decision Making Song is a 42 year old female who presents to the emergency dept for evaluation of worsening L sided chest and R sided abdominal pain. This started suddenly on 10/10/23, she had ED workup which was significant for EKG with prolonged QTc and stable ovarian cyst. She reports pain is constant in the left neck/shoulder accompanied by tingling, she says that it radiates up from the right lower quadrant. She had been taking Tylenol/ibuprofen without improvement in symptoms. She reports she has occasional dizziness when standing up, occipital headaches at night x 2 weeks. Abdominal pain is accompanied by bloating, she says that her stomach is never as distended as it is now. She denies fever/chills, sore throat, cough, shortness of breath, nausea/vomiting, change in bowel or bladder function, black/tarry stools. Having normal bowel movements 3 times a day. She has a remote history of IV drug use, 9 years since last opioid use. She does take crack cocaine occasionally, marijuana edibles. Denies ETOH use. Physical exam remarkable for significantly distended abdomen, soft, tender to palpation in the right lower quadrant and left upper quadrant. Normoactive bowel sounds. Easy work of breathing, lung sounds clear bilaterally. Normal heart sounds. Pulses equal bilaterally to upper and lower extremities. No calf swelling noted. Cranial nerves II through XII intact as tested, normal [id number], rapid alternating movements, 5 out of 5 muscle strength upper extremities. PERRL, EOMs intact, no nystagmus noted. DDx includes but is not limited to aortic or carotid artery dissection, ACS, appendicitis, hepatitis, pancreatitis, cholecystitis/choledocholithiasis, gastritis, constipation, partial bowel obstruction I independently interpreted the following tests: CBC reassuring, no leukocytosis or anemia noted. CMP notable for mild hypokalemia, potassium 3.3. Troponin negative. EKG reassuring, normal sinus rhythm rate 79. Normal SC interval and QTc. Inverted T waves noted V1 to V5, this is new since previous on 10/10/2023. Urine significant for 15 ketones, VBG drawn to rule out ketoacidosis; reassuring. EtOH negative. While in the emergency department breath received 0.5 mg lorazepam p.o. and 2 mg morphine with good relief of anxiety and pain. Liquid potassium given for mild hypokalemia. Famotidine given for possible gastritis. CT remarkable for point 12.5 cm spherical lesion in the left upper breast, suspected cyst. Further evaluation outpatient recommended. Unclear etiology of chest/abdominal pain. Possibly related to breast lesion. Today's workup was reassuring, no acute findings noted. Reviewed CT findings with patient. Recommend outpatient follow-up with PCP for further evaluation. 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 Page 1 of 3 PROCEDURE INFORMATION: Exam: CTA Chest With Contrast CTA Abdomen and Pelvis With Contrast Exam date and time: 10/27/2023 8:27 PM Age: 42 years old Clinical indication: Other: Rlq pain radiating to L chest/neck; Additional info: R/O aortic or coronary artery dissection TECHNIQUE: Imaging protocol: Computed tomographic angiography of the chest with contrast. Exam focused on the arteries. Computed tomographic angiography of the abdomen and pelvis with contrast. Exam focused on the arteries. 3D rendering (Not supervised by radiologist): MIP and/or 3D reconstructed images were created by the technologist. Contrast material: OMNI 350; Contrast volume: 100 ml; Contrast route: INTRAVENOUS (IV); COMPARISON: CT CHEST PE ABD PELVIS W 05/19/2021 7:00 AM FINDINGS: VASCULATURE: Pulmonary arteries: No pulmonary embolism identified. Aorta: No thoracic or abdominal aortic aneurysm or dissection. Celiac trunk and mesenteric arteries: Celiac artery, superior mesenteric artery, and inferior mesenteric artery widely patent. Renal arteries: Right and left renal arteries widely patent. Right iliac arteries: Right common iliac, internal iliac, and external iliac arteries widely patent. Right femoral/popliteal arteries: Right common femoral and visualized proximal right superficial femoral arteries widely patent. Left iliac arteries: Left common iliac, internal iliac, and external iliac arteries widely patent. SONG GUERRERO Preliminary Radiology Report Page 2 of 3 Left femoral/popliteal arteries: Left common femoral and visualized proximal left superficial femoral arteries widely patent. Thyroid: Thyroid gland partially excluded from view but grossly unremarkable through its visualized portion. CHEST: Lungs: No pulmonary consolidation. Pleural spaces: No pleural effusion or pneumothorax. Heart: Normal-sized heart. ABDOMEN AND PELVIS: Liver: Small indeterminate hypoattenuating hepatic lesions, incompletely characterized but most likely small cysts and/or hemangiomas. Gallbladder and bile ducts: Gallbladder partially collapsed. No calcified gallstones seen. No biliary dilatation. Pancreas: Normal appearing pancreas. Spleen: Normal appearing spleen. Adrenal glands: Normal appearing adrenal glands. Kidneys and ureters: Normal appearing kidneys. No hydronephrosis. Stomach and bowel: No oral contrast. Stomach part ially decompressed. No small bowel dilatation to suggest obstruction. Normal- appearing colon. No evidence of diverticulitis or colitis. Appendix: Normal appendix. Intraperitoneal space: Trace fluid in the deep pelvis. No free air. Urinary bladder: Normal appearing urinary bladder. Reproductive: Prior hysterectomy. Normal-sized ovaries. Ovarian follicles noted on the left with the largest two measuring 1.9 cm x 1.4 cm on image 1028 and 1.5 cm x 1.5 cm on image 997 of series 6. Lymph nodes: No pathologically enlarged mediastinal or hilar lymph nodes. No pathologically enlarged mesenteric, retroperitoneal, or pelvic sidewall lymph nodes. Bones/joints: No acute fracture seen among the bones of the chest, abdomen, or pelvis. Moderate discogenic degeneration at L2-L3. Soft tissues: 2.5 cm spherical homogeneous low-attenuation lesion in the upper left breast measuring -3 Hounsfield units on image 215 of series 6. Small fat containing ventral hernia at the umbilicus. IMPRESSION: 1. 2.5 cm spherical lesion of homogeneous density in the upper left breast measuring -3 Hounsfield units density. Although a cyst is suspected, follow-up in the mammography department is recommended for further evaluation by dedicated breast ultrasound to determine the need for further evaluation by fine-needle aspiration. 2. No thoracic aortic aneurysm or dissection. 3. No pulmonary embolism identified. 4. Dominant ovarian follicles on the left as described. Trace free pelvic fluid. Dictated and Authenticated by: Yonatan Morgan MD 10/27/2023 9:27 PM Eastern Time ([place] & [place]) Quality:SDOH Health Related Social Needs: No Data to Display PFSH All Active Problems (Updated 10/27/23 @ 21:56 by Keya Natarajan) Hypokalemia (Acute) Breast lump (Acute) Abdominal pain (Acute) Syncope (Chronic) Painful total knee replacement, left (Acute) Status post total abdominal hysterectomy (Acute) Operative laparoscopy converted to total abdominal hysterectomy with bilateral salpingectomy. Positive urine drug screen (Acute) Cocaine + 05/15/2023, denies use in the last 6 years History of DVT of lower extremity (Acute) Abdominal pain, right lower quadrant (Acute) Suspect pain from fibroids and vascular compromise due to cocaine use. Suspect fibroid necrosis Medical History (Updated 10/27/23 @ 21:56 by Keya Natarajan) Atypical pneumonia Hepatitis C Per pt Treated Hyperlipidemia, unspecified (06/16/17) IFG (impaired fasting glucose) (06/16/17) Cocaine use disorder remission last 4 years Opioid use disorder Acute necrotizing gingivitis Tobacco use disorder Substance use disorder Surgical History (Updated 09/06/23 @ 08:44 by CHINEDU Linton) History of total left knee replacement (TKR) (12/30/15) left medial minisectomy (03/17/10) Ligation of fallopian tube (08/19/05) Family History Mother Diabetes Essential hypertension HF (heart failure) Neoplasm Colon CA COPD (chronic obstructive pulmonary disease) Smoker MS (multiple sclerosis) Father No problems noted. Maternal Aunt , Breast CA at age 41. Neoplasm Breast CA Maternal Aunt , Breast CA at age 43. Neoplasm Breast CA Maternal Aunt , Breast CA at age 44. Neoplasm Breast CA Maternal Aunt Neoplasm Breast CA Grandmother Diabetes Social History Smoking/Tobacco Use Status: Current-Occasional Tobacco Type: e-cigarettes Smoking risk assessment performed?: Yes Alcohol Intake: current Alcohol Intake frequency: a few times a week Alcohol type: beer Drug use: Current Sobriety Substance use type: former substance user, marijuana, crack/cocaine, heroin and opiates Details: edible x1. 06/16/23: pt reports last used recreational drugs 2 weeks ago Housing: house Do you feel safe at home: Yes (unabe to assess privately) Do you feel safe in your relationship?: Yes Female Reproductive History Menstrual Age of Menarche: 11 Duration of menses: 3-5 days control method: permanent sterilization History History 2 Para Hx # Term Pregnancies 2 Multiple births Hx # Pregnancies Ectopic pregnancies AB induced Hx Number of Living Children 2 AB spontaneous
[2023-10-27 19:07] LABS: Abs Immature Grans 0.01 10^3/uL (0.0-0.06); Absolute Basophil Count 0.04 10^3/uL (0.0-0.2); Absolute Eosinophil Count 0.18 10^3/uL (0.0-0.7); Absolute Lymphocyte Count 2.17 10^3/uL (1.2-3.4); Absolute Neutrophil Count 3.51 10^3/uL (1.2-6.7); Basophils % 0.6; Eosinophils % 2.9; HCT 35.5 % (36.0-46.0); HGB 11.8 g/dL (11.2-15.7); Immature Grans % 0.2; Lymphocytes % 34.4; MCH 31.7 pg (27.0-33.0); MCHC 33.2 % (32.0-36.0); MCV 95 fL (80-95); MPV 11.3 fL (8.0-11.0); Monocytes % 6.3; Neutrophils % 55.6; Platelet Count 250 10^3/uL (130-400); RBC 3.72 10^6/uL (3.93-5.22); RDW 14.9 % (11.7-14.6); RDW-SD 52.5 fL; WBC 6.31 10^3/uL (4.4-10.8)
[2023-10-27] MEDS: MORPHine 10 MG/ML VIAL 2 MG IVP (19:13)
[2023-10-27] MEDS: Normal Saline 1,000 ML 1000 ML IV (19:14)
[2023-10-27 19:21] LABS: ALT 24 U/L (14-59); AST 20 U/L (15-37); Albumin 3.6 g/dL (3.4-5.0); Alkaline Phosphatase 80 U/L (46-116); Anion Gap 10.8 mmol/L (3-11); BUN 9 mg/dL (7-18); Bilirubin, Total 0.4 mg/dL (0.2-1.0); CO2 24.2 mmol/L (21.0-32.0); CREATININE 0.7 mg/dL (0.55-1.02); Calcium 8.6 mg/dL (8.5-10.1); Chloride 105 mmol/L (98-107); Estimated GFR 109.98 (mL/min/1.73m2); Glucose 103 mg/dL (74-106); Lipase 51 U/L (16-77); Potassium 3.3 mmol/L (3.5-5.1); Sodium 140 mmol/L (136-145); Total Protein 6.9 g/dL (6.4-8.2)
[2023-10-27 19:35] LABS: Troponin I < 50 ng/L (< or =60)
[2023-10-27 19:58] LABS: Bilirubin Negative (Negative); Blood Negative (Negative); Clarity Clear (Clear); Glucose Negative (Negative); Ketones 15 mg/dL (Negative); Leukocyte Esterase Small (Negative); Nitrite Negative (Negative); Urobilinogen 0.2 mg/dL (Up to 0.2); pH 6.5 (5-8)
[2023-10-27 20:17] LABS: Bacteria Rare HPF (Negative); C & S Indicated? No/Sq. Contamination; Casts Negative LPF (Negative); Crystals Negative HPF (Negative); Epithelial Cells Moderate HPF (Negative); Mucus Negative (Negative); RBC 0-2 HPF (0-2)
[2023-10-27 20:27] LABS: Lactate 0.6 mmol/L (0.6-1.4)
[2023-10-27 20:28] LABS: BE (Venous) -2 mmol/L (-2-3); HCO3 (Venous) 24 mmol/L (23-28); O2 Sat (Venous) 74 %; TCO2 (Venous) 22 mmol/L (24-29); pCO2 (Venous) 42 mmHg (41-51); pH (Venous) 7.37 (7.31-7.41); pO2 (Venous) 41 mmHg
[2023-10-27] MEDS: Potassium Chloride Liquid 20 MEQ PKT PO (20:44)
[2023-10-27] MEDS: Normal Saline - Diluent 50 ML VIAL IJ (20:44)
[2023-10-27] MEDS: Omnipaque 350 MG/ML 100 ML BTL IJ (20:45)
[2023-10-27 20:48] LABS: ETHANOL BLOOD 3.1 mg/dL (<10)
[2023-10-27] MEDS: Famotidine 20 MG/2 ML VIAL IVP (20:57)
--- NOTE | 2023-10-27 21:28 | DI.VRAD_ITS ---
PROCEDURE INFORMATION: Exam: CTA Chest With Contrast CTA Abdomen and Pelvis With Contrast Exam date and time: 10/27/2023 8:27 PM Age: 42 years old Clinical indication: Other: Rlq pain radiating to L chest/neck; Additional info: R/O aortic or coronary artery dissection TECHNIQUE: Imaging protocol: Computed tomographic angiography of the chest with contrast. Exam focused on the arteries. Computed tomographic angiography of the abdomen and pelvis with contrast. Exam focused on the arteries. 3D rendering (Not supervised by radiologist): MIP and/or 3D reconstructed images were created by the technologist. Contrast material: OMNI 350; Contrast volume: 100 ml; Contrast route: INTRAVENOUS (IV); COMPARISON: CT CHEST PE ABD PELVIS W 05/19/2021 7:00 AM FINDINGS: VASCULATURE: Pulmonary arteries: No pulmonary embolism identified. Aorta: No thoracic or abdominal aortic aneurysm or dissection. Celiac trunk and mesenteric arteries: Celiac artery, superior mesenteric artery, and inferior mesenteric artery widely patent. Renal arteries: Right and left renal arteries widely patent. Right iliac arteries: Right common iliac, internal iliac, and external iliac arteries widely patent. Right femoral/popliteal arteries: Right common femoral and visualized proximal right superficial femoral arteries widely patent. Left iliac arteries: Left common iliac, internal iliac, and external iliac arteries widely patent. Left femoral/popliteal arteries: Left common femoral and visualized proximal left superficial femoral arteries widely patent. Thyroid: Thyroid gland partially excluded from view but grossly unremarkable through its visualized portion. CHEST: Lungs: No pulmonary consolidation. Pleural spaces: No pleural effusion or pneumothorax. Heart: Normal-sized heart. ABDOMEN AND PELVIS: Liver: Small indeterminate hypoattenuating hepatic lesions, incompletely characterized but most likely small cysts and/or hemangiomas. Gallbladder and bile ducts: Gallbladder partially collapsed. No calcified gallstones seen. No biliary dilatation. Pancreas: Normal appearing pancreas. Spleen: Normal appearing spleen. Adrenal glands: Normal appearing adrenal glands. Kidneys and ureters: Normal appearing kidneys. No hydronephrosis. Stomach and bowel: No oral contrast. Stomach partially decompressed. No small bowel dilatation to suggest obstruction. Normal-appearing colon. No evidence of diverticulitis or colitis. Appendix: Normal appendix. Intraperitoneal space: Trace fluid in the deep pelvis. No free air. Urinary bladder: Normal appearing urinary bladder. Reproductive: Prior hysterectomy. Normal-sized ovaries. Ovarian follicles noted on the left with the largest two measuring 1.9 cm x 1.4 cm on image 1028 and 1.5 cm x 1.5 cm on image 997 of series 6. Lymph nodes: No pathologically enlarged mediastinal or hilar lymph nodes. No pathologically enlarged mesenteric, retroperitoneal, or pelvic sidewall lymph nodes. Bones/joints: No acute fracture seen among the bones of the chest, abdomen, or pelvis. Moderate discogenic degeneration at L2-L3. Soft tissues: 2.5 cm spherical homogeneous low-attenuation lesion in the upper left breast measuring -3 Hounsfield units on image 215 of series 6. Small fat containing ventral hernia at the umbilicus. IMPRESSION: 1. 2.5 cm spherical lesion of homogeneous density in the upper left breast measuring -3 Hounsfield units density. Although a cyst is suspected, follow-up in the mammography department is recommended for further evaluation by dedicated breast ultrasound to determine the need for further evaluation by fine-needle aspiration. 2. No thoracic aortic aneurysm or dissection. 3. No pulmonary embolism identified. 4. Dominant ovarian follicles on the left as described. Trace free pelvic fluid. Dictated and Authenticated by: Yonatan Morgan MD. Ordering:RONALDO Laura MD
[2023-10-27] MEDS: Ibuprofen 600 MG TAB PO (21:53)
[2023-10-27 22:26] LABS: Troponin I < 50 ng/L (< or =60)
--- NOTE | 2023-10-30 07:13 | NUR.NOTE ---
Accessed chart to reconcile orders for EKG with EKG?s in [employer]. Duplicate order cancelled. Nursing Note:
== END 2023-10-27 22:13 | disposition home or self-care (01) ==
PROVIDERS: Emergency Provider Nurse Practitioner Family; PCP Nurse Practitioner Family
DX: R07.9 Chest pain, unspecified (principal); R10.9 Unspecified abdominal pain; M54.2 Cervicalgia; E87.6 Hypokalemia; N63.20 Unspecified lump in the left breast, unspecified quadrant
CPT/HCPCS: 36415; 71275; 80053; 82805; 83690; 93005; 96361; 96374; 96375; 99285; 74174; 80320; 81003; 81015; 83605; 84484; 85025; 93010; 99283; J2270; J3490

== ENCOUNTER 2023-11-04 21:10 | Emergency (ER) | payer MEDICAID, SELFPAY ==
[2023-11-04 21:12] VITALS: BP 162/101; PULSE 114; RESP 18; TEMP 36.3; O2SAT 99
--- NOTE | 2023-11-04 21:24 | ED.GENADUL_ITS ---
Discharge Plan Disposition Patient Disposition: Home Condition: Stable Discharge Details Clinical Impression: Dysuria Primary Care Provider: Maranda Gamboa ED Provider: Hayden Rojas Home Meds and New Rx's Prescriptions: Continued acetaminophen [Tylenol] 325 mg capsule 650 mg PO TID PRN trazodone 50 mg tablet See Rx Instructions PO QHS PRN (Reason: sleep) Qty: 60 3RF Rx Instructions: 1-2 tabs at HS PRN ibuprofen 600 mg tablet 600 mg PO Q6H PRN (Reason: pain) Qty: 60 1RF aspirin [Children's Aspirin] 81 mg Tablet,Chewable 81 mg PO DAILY Qty: 60 0RF Discharge Instructions Additional Instructions: Follow-up with your primary care provider within 1 week if symptoms continue You develop fevers, severe mid back pain or persistent vomiting return to the emergency department for reevaluation HPI General Mode of arrival: ambulatory . Date/Time Provider Initiated Documentation: 11/04/23 21:14 . Limitations to Documentation: no limitations . Information obtained by: patient . History of Present Illness 43 year old F presents to the emergency department with the chief complaint of Painful urination, described as moderate, Quality is described as burning, Patient started experiencing this day(s) (2) and it has been constant. No relieving factors improve symptom(s), No exacerbating factors reported . Patient notes denies fever/chills. Patient did receive the following treatments prior to arrival, none Related Data Home Medications Medication Instructions Recorded Confirmed aspirin 81 mg chewable tablet 81 mg PO DAILY #60 tabs 06/17/23 11/04/23 (Children's Aspirin) ibuprofen 600 mg tablet 600 mg PO Q6H PRN pain #60 tabs 07/07/23 11/04/23 acetaminophen 325 mg capsule 650 mg PO TID PRN 10/27/23 11/04/23 (Tylenol) trazodone 50 mg tablet See Rx Instructions PO QHS PRN 11/01/23 11/04/23 sleep #60 tabs Previous Rx's Medication Instructions Recorded aspirin 81 mg chewable tablet 81 mg PO DAILY #60 tabs 06/17/23 (Children's Aspirin) ibuprofen 600 mg tablet 600 mg PO Q6H PRN pain #60 tabs 07/07/23 trazodone 50 mg tablet See Rx Instructions PO QHS PRN 04/29/24 sleep #60 tabs Allergies Allergy/AdvReac Type Severity Reaction Status Date / Time ketorolac [From Toradol] Allergy Intermediate Diarrhea Unverified 11/04/23 21:15 General Stated Complaint: Urinary JACQUELINE: 3 Review of Systems All systems reviewed & are unremarkable except as noted in HPI and below Constitutional Constitutional: Denies chills, Denies fever(s) and Denies weakness Cardiovascular Cardiovascular: Denies chest pain and Denies dyspnea Respiratory Respiratory: Denies cough and Denies dyspnea Gastrointestinal Gastrointestinal: Denies abdominal pain, Denies nausea and Denies vomiting Genitourinary Genitourinary: Reports dysuria Musculoskeletal Musculoskeletal: Denies joint swelling Integumentary/Breasts Skin/Breast: Denies rash Neurologic Neurologic: Denies weakness Exam Const General: no acute distress Orientation: alert HENMT Head: normal to inspection Ears: external ears normal General nose exam: external nose normal Mouth: moist mucous membranes Eyes General: appearance normal, both eyes and all related structures Neck Neck: normal visual inspection Resp Effort & Inspection: normal respiratory effort and able to speak in complete sentences Cardio Rate: regular rate GI Palpation: soft and nontender Back/Spine/Pelvis Back: no CVA tenderness Skin General skin exam: no rashes or lesions noted Neuro General: patient alert and patient oriented x3 Extrem General: normal to inspection Psych Mental Status: mental status grossly normal Course Vital Signs Vital signs: Vital Signs Temperature 36.3 C L 11/04/23 21:12 Pulse 114 H 11/04/23 21:12 Respiratory Rate 18 11/04/23 21:12 Blood Pressure 162/101 H 11/04/23 21:12 Pulse Oximetry 99 11/04/23 21:12 Temperature 36.3 C L 11/04/23 21:12 Temperature Source Skin 11/04/23 21:12 Pulse 114 H 11/04/23 21:12 Respiratory Rate 18 11/04/23 21:12 Respiratory Effort Normal, Non-Labored 11/04/23 21:16 Blood Pressure 162/101 H 11/04/23 21:12 Blood Pressure Position Sitting 11/04/23 21:12 Pulse Oximetry 99 11/04/23 21:12 Oxygen Delivery Method Room Air 11/04/23 21:12 Oxygen Flow Rate 0 11/04/23 21:12 Pain Level 2 11/04/23 21:12 Medical Decision Making 43-year-old female with a history of hepatitis C, substance use, who comes in with complaint of 2 days of burning with urination. She says it feels exactly like her prior UTIs. Denies any fevers, denies any abdominal pain to me or back pain. She appears well, speaking in full sentences, on bladder scan has 80 cc per nursing. She has no abdominal tenderness or CVA tenderness. She is clinically sober on exam. I ordered a urinalysis but patient advised nursing she has a lot of stay to give a urine. Discussed that there could be a UTI and the urinalysis is due to the past test of diagnosis. She still does not want to stay and give a urine, I will offer her a one-time dose of fosfomycin to treat a potential UTI, she will follow-up with her primary care provider, return precautions given. Differential Diagnosis Differential Diagnosis: UTI, dysuria Medical Records Medical records reviewed: Yes I reviewed the patient's medical records. Quality:SDOH Health Related Social Needs: No Data to Display PFSH All Active Problems (Updated 11/04/23 @ 21:24 by Hayden Rojas MD) Dysuria (Acute) Hypokalemia (Acute) Breast lump (Acute) Abdominal pain (Acute) Syncope (Chronic) Painful total knee replacement, left (Acute) Status post total abdominal hysterectomy (Acute) Operative laparoscopy converted to total abdominal hysterectomy with bilateral salpingectomy. Positive urine drug screen (Acute) Cocaine + 05/15/2023, denies use in the last 6 years History of DVT of lower extremity (Acute) Abdominal pain, right lower quadrant (Acute) Suspect pain from fibroids and vascular compromise due to cocaine use. Suspect fibroid necrosis Medical History (Updated 11/04/23 @ 21:24 by Hayden Rojas MD) Atypical pneumonia Hepatitis C Per pt Treated Hyperlipidemia, unspecified (06/16/17) IFG (impaired fasting glucose) (06/16/17) Cocaine use disorder remission last 4 years Opioid use disorder Acute necrotizing gingivitis Tobacco use disorder Substance use disorder Surgical History (Updated 09/06/23 @ 08:44 by CHINEDU Linton) History of total left knee replacement (TKR) (12/30/15) left medial minisectomy (03/17/10) Ligation of fallopian tube (08/19/05) Family History Mother Diabetes Essential hypertension HF (heart failure) Neoplasm Colon CA COPD (chronic obstructive pulmonary disease) Smoker MS (multiple sclerosis) Father No problems noted. Maternal Aunt , Breast CA at age 41. Neoplasm Breast CA Maternal Aunt , Breast CA at age 43. Neoplasm Breast CA Maternal Aunt , Breast CA at age 44. Neoplasm Breast CA Maternal Aunt Neoplasm Breast CA Grandmother Diabetes Social History Smoking/Tobacco Use Status: Current-Occasional Tobacco Type: e-cigarettes Smoking risk assessment performed?: Yes Alcohol Intake: current Alcohol Intake frequency: a few times a week Alcohol type: beer Drug use: Current Sobriety Substance use type: former substance user, marijuana, crack/cocaine, heroin and opiates Details: edible x1. 06/16/23: pt reports last used recreational drugs 2 weeks ago Housing: house Do you feel safe at home: Yes (unabe to assess privately) Do you feel safe in your relationship?: Yes Female Reproductive History Menstrual Age of Menarche: 11 Duration of menses: 3-5 days control method: permanent sterilization History History 2 Para Hx # Term Pregnancies 2 Multiple births Hx # Pregnancies Ectopic pregnancies AB induced Hx Number of Living Children 2 AB spontaneous
[2023-11-04] MEDS: Fosfomycin Tromethamine 3 GM PACKET PO (21:28)
== END 2023-11-04 21:37 | disposition home or self-care (01) ==
PROVIDERS: Emergency Provider Emergency Medicine; PCP Nurse Practitioner Family
DX: R30.0 Dysuria (principal); R10.30 Lower abdominal pain, unspecified
CPT/HCPCS: 99283; J3490

== ENCOUNTER → 2023-11-10 02:05 | Outpatient (CLI) | payer MEDICAID, SELFPAY ==
--- NOTE | 2023-11-10 08:24 | DI.US_ITS ---
Exam(s) US BREAST LT COMPLETE US BREAST RT COMPLETE MG MAMMO DIAGNOSTIC BI EXAM: MG MAMMO DIAGNOSTIC BI CLINICAL HISTORY: left breast mass seen CT,N63.20. TECHNIQUE: Craniocaudal and mediolateral oblique Full Field Digital Mammography views with Computer Aided Diagnosis followed by Tomosynthesis and bilateral breast ultrasound. COMPARISON: US US BREAST RT COMPLETE from 11/10/2023 US US BREAST LT COMPLETE from 11/10/2023. Baseline examination. FINDINGS: Mammography/Tomosynthesis: Masses: At least 2 circumscribed nodules are noted in the superior left breast. Multiple small circu mscribed nodules are seen in the right breast. Architectural Distortion: None seen. Microcalcifictions: No suspicious pleomorphic-type are seen. Skin Thickening/Nipple Retraction: None. Left breast US: Echotexture: Normal appearance of the glandular tissue. Shadowing: No suspicious foci. Cyst: Multiple. 1.9 centimeter cyst 1 o'clock position 3 cm from the nipple. 2 x 2.4 x 2.9 centimet er cyst 10 o'clock position 8 cm cm from the nipple. This corresponds to the palpable abnormality. Solid lesions: None seen. Ductal dilation: None. Right breast US: Echotexture: Normal appearance of the glandular tissue. Shadowing: No suspicious foci. Cyst: Multiple in the 10 o'clock position, 1 cm from the nipple, there are 2 cyst measuring 12 millim eters each. Additional 10 millimeter cysts are noted in the 9 o'clock position 1 cm from the nipple. Other smaller scattered cysts are seen. Solid lesions: None seen. Ductal dilation: None. IMPRESSION: 1. No evidence of malignancy is noted. Multiple bilateral cysts, larger on the left the corresponding to the palpable abnormality.. 2. Unless there is more urgent need, follow-up screening mammography is recommended, as per [place] [employer] guidelines. BI-RADS Category 2 - Benign Findings Breast Density - Category C - Heterogeneously dense Breast density category C or D implies that the patient has dense breast tissue. Dense breast tissue is very common and is not abnormal but dense breast tissue can make it harder to find cancer on a ma mmogram. Also, dense breast tissue may increase their breast cancer risk. This information about the result of the mammogram report was provided to the patient to raise their awareness. Use this report when you speak with the patient about their risks for breast cancer, which includes their family hist ory. At that time, you may recommend for more screening tests (Ultrasound or MRI) as they might be us eful based on their risk. A negative radiographic report should not delay biopsy if a dominant or clinically suspicious mass is present. Up to ten percent of cancers are not identified on mammography. A negative report may reinforce clinical impression. Adenosis and dense breasts may obscure an underlying neoplasm. False positive reports average 6 to 10%. Patient will receive a letter notifying them of these results.
== END ==
PROVIDERS: PCP Nurse Practitioner Family; Visit Provider Nurse Practitioner
DX: Z12.31 Encounter for screening mammogram for malignant neoplasm of breast (principal); N63.22 Unspecified lump in the left breast, upper inner quadrant
CPT/HCPCS: 76642; 77062; 77066; G0279

== ENCOUNTER 2024-06-06 16:04 | Outpatient (CLI) | payer MEDICAID, SELFPAY ==
--- NOTE | 2024-06-06 16:00 | RT.EKG_ITS ---
APPROVED REPORT Exam: Resting ECG Reason for Exam: syncope Patient Location: O HR:86 bpm ECG Measurements Heart Rate 86 AXIS NV 164 P 38 QRSd 140 QRS 29 QT 430 T 62 QTc 515 Conclusion Sinus rhythm...normal P axis, V-rate 50- 99 Left bundle branch block...QRSd>120, broad/notched R
== END 2024-06-06 16:05 | disposition home or self-care (01) ==
LOC: DI.KIM 16:05
PROVIDERS: PCP Student in an Organized Health Care Education/Training Program; Visit Provider Nurse Practitioner Family
DX: R55 Syncope and collapse (principal)
CPT/HCPCS: 93010

== ENCOUNTER 2024-06-21 03:44 | Outpatient (CLI) | payer MEDICAID, SELFPAY ==
--- NOTE | 2024-06-21 13:00 | DI.US_ITS ---
Exam(s) US BREAST LT COMPLETE EXAM: US BREAST LT COMPLETE CLINICAL HISTORY: assess for increase in size/character of cyst lt breast,n60.02 TECHNIQUE: Ultrasound left breast performed using standard protocol. A complete left breast ultraso und was performed. All 4 quadrants of the left breast were evaluated sonographically. In addition, the axilla and retroareolar regions were evaluated. COMPARISON: Comparison is made with prior examinations. Most recent examination was dated 11/10/2023. FINDINGS: There are multiples cystic lesions in the left breast. There has been interval increase in size of t he cyst at the 1 o'clock position of the left breast 3 cm from the nipple. This now measures 1.3 x 2 .6 x 3.1 cm. This compares to 1.1 x 1.9 x 1.9 cm. It is still a simple cyst. There has been interv al decrease in size of the cyst at the 12 o'clock position of the left breast 5 cm from the nipple. Currently it measures 0.6 x 0.7 x 0.7 cm. Previously it measured 1.1 x 1.2 x 1.6 cm. There is some internal debris which may reflect hemorrhage. No solid component is seen. There has been slight int erval decrease in size of the simple cyst at the 10 o'clock position of the left breast. This measur es 1.9 x 2.4 x 2.7 cm. This compares to 2.0 x 2.2 x 2.9 cm. No new or suspicious cysts are seen in the left breast. No solid masses are present. IMPRESSION: Multiple cysts seen in the left breast as described above. No suspicious cysts are seen. BI-RADS Category 2 - Benign Findings DATA REPOSITORY:
== END 2024-06-21 04:04 ==
LOC: DI 03:44
PROVIDERS: PCP Student in an Organized Health Care Education/Training Program; Visit Provider Student in an Organized Health Care Education/Training Program
DX: N60.02 Solitary cyst of left breast (principal)
CPT/HCPCS: 76642

== ENCOUNTER 2024-07-11 16:26 | Outpatient (CLI) | payer MEDICAID, SELFPAY ==
--- OUTSIDE RECORDS SUMMARY | 2024-07-11 16:28 | XMS_ITS | Encounter Summary ---
Author Organization [facility] Address [address] [place] [address] Care Team Providers Care Supervisor Locomotive Name Role Phone Unknown, Provider Primary Care Provider Unadebbie ilmitul Encounter Details Date Type Department Care Team (Late st Contact Info) Description 06/16/2023 Lab Requisition [facility] Pathology & Laboratory Medicine - [address] [address] Shruti Resendez [address] [place] [address] [place] [phone] Encounter for other general examination Social History Tobacco Use Types Packs/Day Years Used Date Smoking Tobacco: Never Assessed Comments Unknown Sex and Gender Information Value Date Recorded Sex Assigned at Not on file Legal Sex Female 18:24 EST Gender Identity Not on file Sexual Orientation Not on file documented as of this encounter Plan of Treatment Not on file documented as of this encounter Procedures Procedure Name Priority Date/Time Associated Diagnosis Comments SURGICAL PATHOLOGY Today 06/16/2023 9: 49 EST Encounter for other general examination documented in this encounter Results * SURGICAL PATHOLOGY (06/16/2023 9:49 EST) Note to Patient The following pathology results have been interpreted by your pathologist and may be available to you before your health provider has had the opportunity to review them. Please allow time for your provider to receive these results and explore management options, if applicable. 06/21/2023 15:08 EST [facility] Final Diagnosis A. UTERUS, CERVIX, AND FALLOPIAN TUBES, HYSTERECTOMY AND BILATERAL SALPINGECTOMY: - Endometrium: - Secretory endometrium. - Myometrium: - Leiomyomata (5.0 cm in maximum dimension). - Adenomyosis. - Cervix: - No specific pathologic features. - Serosa: - No specific pathologic features. - Fallopian tubes: - Paratubal cysts, otherwise no specific pathologic features. 06/21/2023 15:08 [facility] Attestation There was significant resident/fellow involvement in the diagnostic evaluation of this case. By the signature below, the attending physician certifies that they have personally conducted a gross and/or microscopic examination of the described specimens and rendered or confirmed the above diagnosis. 06/21/2023 15:08 [facility] at 1508 Clinical History Multiple uterine fibroids 06/21/2023 15:08 [facility] Gross Description A. Received in formalin labelled with proper patient identification (initials C, B) and uterus, cervix, bilateral fallopian tubes is a 315.0 g intact, unopened uterus (13.6 cm fundus to cervix by 8.5 cm cornu to cornu by 7.0 cm anterior to posterior) and detached, unoriented fimbriated fallopian tubes (2.5 cm in length by 0.6 cm in diameter and 4.0 cm in length by 0.6 cm in diameter). The serosa is smooth and pink-dhaliwal. The cervix (3.5 cm in diameter) is covered by smooth, pink-dhaliwal ectocervical mucosa and has an ovoid os (0.9 cm in diameter). The endocervical canal (2.9 cm in length) is lined by somewhat denuded dhaliwal mucosa. The endometrial cavity (4.5 cm cornu to cornu by 7.5 cm in length) is lined by soft, red-brown to pale dhaliwal endometrium (0.7 cm in maximum thickness). The the dhaliwal, finely trabeculated myometrium (2.6 cm in maximum thickness) contains multiple well-circumscribe d whorled, pink-white intramural nodules (ranging from 0.3 cm to 5.0 cm in greatest dimension) which no evidence of hemorrhage or necrosis. The fimbriated fallopian tubes have smooth, purple-gr serosal surfaces with multiple clear fluid-filled paratubal cysts (ranging up to 1.0 cm in greatest dimension). No excrescences identified. Sectioning reveals patent, unremarkable cut surfaces. Neurophysiological Technician sections are submitted as follows: BLOCK POWELL A1-A2- anterior cervix to lower uterine segment, bisected A3-A4- posterior cervix to lower uterine segment, bisected A5-A6- anterior endomyometrium A7-A8- posterior endomyometrium A9- intramural nodules A10-A11- shorter fallopian tube, to include the bisected fimbria A12-A13- longer fallopian tube, to include the bisected fimbria CHINEDU MINER(ASCP) 06/17/2023 10:27 06/21/2023 15:08 EST [facility] Resident/New w: Reynaldo Garduno MD 06/21/2023 15:08 EST [facility] Performing Lab [facility] 06/21/2023 15:08 EST [facility] Scanned Images 06/21/2023 15:08 EST [facility] Tissue UTERINE STRUCTURE / Unknown 06/16/2023 9:49 EST 06/16/2023 17:28 EST Shruti Resendez PATHOLOGY ORDERABLES Final Resul t [facility] [address] [place] [address] documented in this encounter Visit Diagnoses Diagnosis Encounter for other general examination documented in this encounter Care Teams Supervisor Locomotive Relationship Specialty Start Date End Date Unknown, Provider, PCP - General 07/05/22 documented as of this encounter
--- OUTSIDE RECORDS SUMMARY | 2024-07-11 16:28 | XMS_ITS | Encounter Summary ---
Author Organization [facility] Address [address] [place] [address] Care Team Providers Care Energy Project Engineer Name Role Phone Unknown, Provider Primary Care Provider Unava ilable Encounter Details Date Type Department Care Team (Late st Contact Info) Description 05/20/2023 Lab Requisition [facility] Pathology & Laboratory Medicine - [address] [address] Shruti Resendez [address] [place] [address] [place] [phone] Encounter for other general examination Social History [...] Procedure Name Priority Date/Time Associated Diagnosis Comments PAP TEST Today 05/19/2023 8:20 EST Encounter for other general examination HPV DNA DETECTION WITH GENOTYPING, PCR Today 05/19/2023 8:20 EST Encounter for other general examination documented in this encounter Results * HUMAN PAPILLOMAVIRUS (HPV) DETECTION-HIGH RISK TYPES (05/19/2023 8:20 EST) HPV other High Risk types, PCR Negative Negative 06/01/2023 15:19 EST [facility] Comment:No E6 or E7 mRNA is detected from HPV types 16,18,31,33,35,39,45,51,52,56,58,59,66, and 68 by therapeutic recreation director mediated amplification. Pap Test CERVIX UTERI STRUCTURE / Unknown 05/19/2023 8:20 EST 06/01/2023 7:43 EST us Shruti Resendez MICROBIOLOGY - GENERAL ORDERABLE S Final Result [facility] [address] [place] [address] * PAP TEST (05/19/2023 8:20 EST) Specimens A. Cervix and/or Endocervix , ThinPrep Imaging System with Manual Evaluation 06/01/2023 15:19 [facility] Specimen Adequacy Satisfactory for Evaluation - transformation zone component absent 06/01/2023 15:19 EST [facility] General Categorization Negative for intraepithelial lesion or malignancy 06/01/2023 15:19 [facility] Descriptive Diagnosis Trichomonas vaginalis present. 06/01/2023 15:19 [facility] Attestation . 06/01/2023 15:19 [facility] at 1519 Clinical History SEE BELOW 06/01/20 15:19 [facility] HPV The result for the Human Papillomavirus (HPV) Detection-High Risk Types is Negative. No E6 or E7 mRNA is detected from HPV types 16,18,31,33,35,39 ,45,51,52,56,58,5 9,66, and 68 by therapeutic recreation director mediated amplification.Ashley ting was performed on specimen [id number] and was resulted on 06/01/2023 1519 EST by MILLIE, LAB INSTRUMENT RESULTS IN 06/01/2023 15:19 EST [facility] Performing Lab [facility] 06/01/2023 15:19 EST [facility] Scanned Images 06/01/2023 15:19 [facility] Pap Test CERVIX UTERI STRUCTURE / Unknown 05/19/2023 8:20 EST 05/20/2023 9:59 EST us Shruti Resendez PATHOLOGY ORDERABLES Final Resul t [facility] [address] [place] [address] documented in this encounter Visit Diagnoses Diagnosis Encounter for other general examination documented in this encounter Care Teams Energy Project Engineer Relationship Specialty Start Date End Date Unknown, Provider, PCP - General 07/05/22 documented as of this encounter
--- OUTSIDE RECORDS SUMMARY | 2024-07-11 16:28 | XMS_ITS | Continuity of Care Document ---
Author Organization [facility] Address [address] [place] [address] Encounter LTTL_[id number] FIN NBR [id number] Date(s): 04/07/23 - 04/07/23 [facility] [address], [place] [id number] Encounter Diagnosis Abdominal pain(Discharge Diagnosis) - 04/07/23 Fibroids(Discharge Diagnosis) - 04/07/23 Unspecified abdominal pain(Final) - Discharge Disposition: Home or Self Care Attending Physician: John Lagunas MD Admitting Physician: John Lagunas MD Allergies, Adverse Reactions, Alerts No Known Allergies Functional Status 04/07/23 Family Member Travel History No recent t ravel Recent Travel History No recent travel Other exposure to Infectious Disease Non e Medications ketorolac 10 mg oral tablet 10 mg = 1 tab, Oral, QID, PRN as needed for pain, not to exceed 40 mg/day and 5 days duration for all dose forms, # 20 tab, 0 Refill(s), 04/12/23 9:28:00 PM CDT, Pharmacy: [facility] #[id number], cm, 04/07/23 20:28:00 EDT, Height/Length Dosing, 64.41, kg, 04/07/23 20:28:00 EDT, Weight Dosing Start Date: 04/07/23 Stop Date: 04/12/23 Status: Ordered Mental Status 04/07/23 Eye Opening Response Hines Spontaneous ly Best Verbal Response Hines Oriented Best Motor Response Katie Obeys comman ds Hines Coma Score 15 Results Laboratory List Name Date Lactic Acid 04/07/23 .Manual Differential (LTTL) 04/07/23 CBC w/ Diff 04/07/23 Comprehensive Metabolic Panel (CMP) 04/07 Lactic Acid 04/07/23 Lipase Level 04/07/23 Test Urine Qual 04/07/23 Urinalysis Microscopic 04/07/23 Urinalysis with Micro if Indicated and C ulture if Indicated 04/07/23 Most recent to oldest [Reference Range]: 1 2 WBC [4.8-10.8 K/mcL] 6.7 K/mcL (04/07/23 8:54 PM) RBC [4.20-5.40 Million/mcL] 3.63 Million /mcL *LOW* (04/07/23 8:54 PM) Segs Man 53 *NA* (04/07/23 8:54 PM) Lymph Man [20.5-51.1 %] 38.0 % (04/07/23 8:54 PM) Bond Man [1.7-9.3 %] 5.0 % (04/07/23 8:54 PM) Eos Man [0.00-3.00 %] 3.00 % (04/07/23 8:54 PM) BUN [8-26 mg/dL] 8 mg/dL (04/07/23 8:54 PM) UA Color LIGHT YELL *NA* (04/07/23 8:14 PM) UA WBC [0-3] 6-10 *ABN* (04/07/23 8:14 PM) Glucose Level [74-106 mg/dL] 83 mg/dL (04/07/23 8:54 PM) Potassium Level [3.5-5.1 mmol/L] 3.1 mmo l/L *LOW* (04/07/23 8:54 PM) MCV [81.0-99.0 fL] 93.9 fL (04/07/23 8:54 PM) UA Urobilinogen [0.2] 0.2 (04/07/23 8:14 PM) RBC Morph [Normal] Abnormal *ABN* (04/07/23 8:54 PM) UA Bili [Negative] Negative (04/07/23 8:14 PM) UA Ketones [Negative] Negative (04/07/23 8:14 PM) AST [15-41 IntlUnit/L] 16 IntlUnit/L (04/07/23 8:54 PM) ALT [14-54 IntlUnit/L] 10 IntlUnit/L *LOW* (04/07/23 8:54 PM) MCHC [32.0-36.0 g/dL] 32.6 g/dL (04/07/23 8:54 PM) Osmolality [275-295 mOsm/kg] 277 mOsm/kg (04/07/23 8:54 PM) Sodium Level [134-143 mmol/L] 140 mmol/L (04/07/23 8:54 PM) UA RBC [0-3] 0-3 (04/07/23 8:14 PM) UA Leuk Est [Negative] Trace *ABN* (04/07/23 8:14 PM) UA Nitrite [Negative] Negative (04/07/23 8:14 PM) UA Glucose [Negative] Negative (04/07/23 8:14 PM) Hct [37.0-47.0 %] 34.1 % *LOW* (04/07/23 8:54 PM) UA Bacteria [None Seen] None Seen (04/07/23 8:14 PM) Lipase Level [18-51 unit/L] 43 unit/L 1 (04/07/23 8:54 PM) Calcium Level [8.9-10.3 mg/dL] 8.3 mg/dL *LOW* (04/07/23 8:54 PM) Albumin Level [3.5-5.0 g/dL] 3.6 g/dL (04/07/23 8:54 PM) Protein Total [6.5-8.1 g/dL] 6.5 g/dL (04/07/23 8:54 PM) UA Protein [Negative] Negative (04/07/23 8:14 PM) MCH [27.0-31.0 pg] 30.6 pg (04/07/23 8:54 PM) Bilirubin Total [0.2-1.2 mg/dL] 0.4 mg/d L (04/07/23 8:54 PM) Hgb [12.0-16.0 g/dL] 11.1 g/dL *LOW* (04/07/23 8:54 PM) Alk Phos [38-130 IntlUnit/L] 45 IntlUnit /L (04/07/23 8:54 PM) UA Blood [Negative] Negative (04/07/23 8:14 PM) MPV [7.4-10.4 fL] 11.4 fL *HI* (04/07/23 8:54 PM) Band Man 0 % *NA* (04/07/23 8:54 PM) Teardrop Cells 1+ *ABN* (04/07/23 8:54 PM) UA Spec Grav [1.001-1.030] 1.010 (04/07/23 8:14 PM) Platelets [130-400 K/mcL] 254 K/mcL (04/07/23 8:54 PM) CO2 [22-32 mmol/L] 21 mmol/L *LOW* (04/07/23 8:54 PM) Lactic Acid Lvl [0.5-2.2 mmol/L] 1.2 mmo l/L (04/07/23 9:53 PM) 3.2 mmol/L *HI* (04/07/23 8:54 PM) UA Squam Epithelial [0-3] 6-10 *ABN* (04/07/23 8:14 PM) UA pH [5.00-9.00] 6.50 (04/07/23 8:14 PM) UA Appear [Clear] Clear (04/07/23 8:14 PM) Chloride Level [98-111 mmol/L] 110 mmol/ L (04/07/23 8:54 PM) RDW-CV [11.5-14.5 %] 14.6 % *HI* (04/07/23 8:54 PM) A/G Ratio [1.0-2.5 g/dL] 1.2 g/dL (04/07/23 8:54 PM) BUN/Creat Ratio [8.0-20.0] 12.5 (04/07/23 8:54 PM) Globulin [2.3-3.5 g/dL] 2.9 g/dL (04/07/23 8:54 PM) Ovalocytes 1+ *ABN* (04/07/23 8:54 PM) Slide Review Man Diff (04/07/23 8:54 PM) UA Culture Ind?. [No] No (04/07/23 8:14 PM) Urine Srce Clean Catch (04/07/23 8:14 PM) UA Amorph [None Seen] Few *ABN* (04/07/23 8:14 PM) Abs Baso Man [0.0-0.2 K/mcL] 0.1 K/mcL (04/07/23 8:54 PM) Abs Eos Man [0.0-0.2 K/mcL] 0.2 K/mcL (04/07/23 8:54 PM) Abs Lymph Man [1.2-3.4 K/mcL] 2.5 K/mcL (04/07/23 8:54 PM) Abs Bond Man [0.1-0.6 K/mcL] 0.3 K/mcL (04/07/23 8:54 PM) Abs Neut Man [1.4-6.5 K/mcL] 3.6 K/mcL (04/07/23 8:54 PM) Creatinine Level [0.44-1.00 mg/dL] 0.64 mg/dL (04/07/23 8:54 PM) Plt Estimation Normal (04/07/23 8:54 PM) Anion Gap [3.0-12.0] 9.0 (04/07/23 8:54 PM) Baso Man [0.0-0.8 %] 1.0 % *HI* (04/07/23 8:54 PM) U hCG Ql [Negative] Negative (04/07/23 8:14 PM) eGFR CKD-EPI [>=60 mL/min/1.73 m2] 112 m L/min/1.73 m2 (04/07/23 8:54 PM) 1Interpretive Data: T-tjgpzi-l-benzoquinone imine (meabolite of Acetaminophen) will generate erroneously low lipase results in samples for patients that have taken toxic doses of acetaminophen. Radiology Reports * Exam Date Time Procedure Performing Provider Status 04/07/23 9:[address] Abdomen and Pelvis w/ Contrast Vick Stock (Verified) Notes: (CT Abdomen and Pelvis w/ Contrast) Reason For Exam: Abdominal pain CT Abdomen and Pelvis w/ Contrast PROCEDURE INFORMATION: Exam: CT Abdomen And Pelvis With Contrast Exam date and time: 04/07/2023 8:57 PM Age: 42 years old Clinical indication: Abdominal pain TECHNIQUE: Imaging protocol: Computed tomography of the abdomen and pelvis with contrast. Radiation optimization: All CT scans at this facility use at least one of these dose optimization techniques: automated exposure control; mA and/or kV adjustment per patient size (includes targeted exams where dose is matched to clinical indication); or iterative reconstruction. Contrast material: ISOVUE 300; Contrast volume: 100 ml; Contrast route: INTRAVENOUS (IV); REPORTING DATA: Count of CT and Cardiac NM exams in prior 12 months: This patient has received 0 known CTs and 0 known cardiac nuclear medicine studies in the 12 months prior to the current study. COMPARISON: CR XR HIP RIGHT W PELVIS 07/05/2022 12:13 PM FINDINGS: Liver: Normal. No mass. Gallbladder and bile ducts: Normal. No calcified stones. No ductal dilation. Pancreas: Normal. No ductal dilation. Spleen: Normal. No splenomegaly. Adrenal glands: Normal. No mass. Kidneys and ureters: Normal. No hydronephrosis. Stomach and bowel: Unremarkable. No obstruction. No mucosal thickening. Appendix: No evidence of appendicitis. Intraperitoneal space: Unremarkable. No free air. No significant fluid collection. Vasculature: Unremarkable. No abdominal aortic aneurysm. Lymph nodes: Unremarkable. No enlarged lymph nodes. Urinary bladder: Unremarkable as visualized. Reproductive: Multiple rounded lesions in uterus most likely fibroids, largest measures roughly 5 cm Bones/joints: Unremarkable. No acute fracture. Soft tissues: Unremarkable. IMPRESSION: Likely fibroid uterus. THIS DOCUMENT HAS BEEN ELECTRONICALLY SIGNED BY OMAR SANCHEZ MD on 04/07/2023 09:43 PM Final Signed by: Omar Sanchez MD Signed (Electronic Signature): 04/07/2023 9:43 pm Vital Signs Most recent to oldest [Reference Range]: 1 2 Temperature Temporal Artery [36-38 Deg C ] 36.1 Deg C (04/07/23 7:40 PM) Peripheral Pulse Rate [60-100 bpm] 78 bp m (04/07/23 9:31 PM) 93 bpm (04/07/23 7:40 PM) Respiratory Rate [12-24 br/min] 20 br/mi n (04/07/23 7:40 PM) Blood Pressure [90-140/60-90 mmHg] 125/8 0mmHg (04/07/23 9:31 PM) 130/79mmHg (04/07/23 7:40 PM) Mean Arterial Pressure Cuff 94 mmHg (04/07/23 9:31 PM) Weight Dosing 64.41 kg (04/07/23 8:28 PM) Weight Estimated 64.41 kg (04/07/23 7:40 PM) Height/Length Dosing 158.000 cm (04/07/23 8:28 PM) Height/Length Estimated 158.000 cm (04/07/23 7:40 PM) Social History Social History Type Response Tobacco Never tobacco user T obacco Use:. Sex Discharge instructions * Event Display: Discharge Instructions Emergency department Discharge instructions * John Lagunas MD: PERFORM Event Display: ED Discharge Information Authored Date: [id number] SONG LAM :1980 Age:42 years Sex:Female Visit Date:04/07/2023 Discharge Instructions We would like to thank you for allowing us to assist you with your healthcare needs. The following includes patient education materials and information regarding your injury/illness. Diagnosis from Today's Visit Abdominal pain Fibroids Discharge Vitals Temperature??(Temporal Artery) 97.0 ??F (36.1 ??C) Heart Rate??(Peripheral) 78 Respiratory Rate?? 20 Blood Pressure?? 125/80?? Height?? 62.20 in (158.000 cm) Weight??(Estimated) 142.02 lb (64.41 kg) Allergies No Known Allergies What to Do Next Instructions from Your Care Team We did not clearly identify the cause of your abdominal discomfort. ??Your labs??had no significantabnormalities; the CT scan showed??fibroids but otherwise no acute process.?? Take Tylenol??and/or Toradol for discomfort as necessary. ??Do not combine Toradol (given only for 5 days)??and other nons teroidal drugs (like ibuprofen,??Advil, Naprosyn etc.).?? Follow-up with??[facility]PA[facility]??(Dr. Lamb,??Dr. Kelly, or Dr. Hernández)??here at [place]??for further management of your fibroids??if you are having persistent discomforts and heavy periods. You were treated today on an emergency basis; it may be castañeda to contact your primary care provider to notify them of your visit today. You may have been referred to your regular doctor or a specialist, please follow up as instructed. If your condition worsens or you can't get in to see the doctor, contact the Emergency Department. Medications What How Much When Why Instructions Next Dose New ketorolac (ketorolac 10 mg oral tablet) 1 tab Oral (given by mouth) 4 times a day as needed for as needed for pain Abdominal pain Fibroids not to exceed 40 mg/ day and 5 days duration for all dose forms ?? [id number] Pharmacy Information [id number]: [address], [place] [id number] [phone] Abdomen and Pelvis w/ Contrast 04/07/2023 21:43 EDT Medications and Immunizations Administered Given NS drip, 1000 mL, IV Bolus ketorolac, 15 mg, IV Push morphine, 4 mg, IV ondansetron, 4 mg, IV Push Lab Test Name Test Result Date/Time WBC 6.7 K/mcL 04/07/2023 20:54 EDT RBC 3.63 Million/mcL 04/07/2023 20:54 EDT Hgb 11.1 g/dL 04/07/2023 20:54 EDT Hct 34.1 % 04/07/2023 20:54 EDT MCV 93.9 fL 04/07/2023 20:54 EDT MCH 30.6 pg 04/07/2023 20:54 EDT MCHC 32.6 g/dL 04/07/2023 20:54 EDT RDW-CV 14.6 % 04/07/2023 20:54 EDT Platelets 254 K/mcL 04/07/2023 20:54 EDT MPV 11.4 fL 04/07/2023 20:54 EDT Segs Man 53 04/07/2023 20:54 EDT Lymph Man 38.0 % 04/07/2023 20:54 EDT Bond Man 5.0 % 04/07/2023 20:54 EDT Eos Man 3.00 % 04/07/2023 20:54 EDT Baso Man 1.0 % 04/07/2023 20:54 EDT Band Man 0 % 04/07/2023 20:54 EDT Abs Neut Man 3.6 K/mcL 04/07/2023 20:54 EDT Abs Lymph Man 2.5 K/mcL 04/07/2023 20:54 EDT Abs Bond Man 0.3 K/mcL 04/07/2023 20:54 EDT Abs Eos Man 0.2 K/mcL 04/07/2023 20:54 EDT Abs Baso Man 0.1 K/mcL 04/07/2023 20:54 EDT RBC Morph Abnormal 04/07/2023 20:54 EDT Ovalocytes 1+ 04/07/2023 20:54 EDT Plt Estimation Normal 04/07/2023 20:54 EDT Teardrop Cells 1+ 04/07/2023 20:54 EDT Slide Review Man Diff 04/07/2023 20:54 EDT Sodium Level 140 mmol/L 04/07/2023 20:54 EDT Potassium Level 3.1 mmol/L 04/07/2023 20:54 EDT Chloride Level 110 mmol/L 04/07/2023 20:54 EDT CO2 21 mmol/L 04/07/2023 20:54 EDT Alk Phos 45 IntlUnit/L 04/07/2023 20:54 EDT AST 16 IntlUnit/L 04/07/2023 20:54 EDT ALT 10 IntlUnit/L 04/07/2023 20:54 EDT BUN 8 mg/dL 04/07/2023 20:54 EDT Glucose Level 83 mg/dL 04/07/2023 20:54 EDT Creatinine Level 0.64 mg/dL 04/07/2023 20:54 EDT BUN/Creat Ratio 12.5 04/07/2023 20:54 EDT eGFR CKD-EPI 112 mL/min/1.73 m2 04/07/2023 20:54 EDT Calcium Level 8.3 mg/dL 04/07/2023 20:54 EDT Protein Total 6.5 g/dL 04/07/2023 20:54 EDT Albumin Level 3.6 g/dL 04/07/2023 20:54 EDT Globulin 2.9 g/dL 04/07/2023 20:54 EDT A/G Ratio 1.2 g/dL 04/07/2023 20:54 EDT Bilirubin Total 0.4 mg/dL 04/07/2023 20:54 EDT Anion Gap 9.0 04/07/2023 20:54 EDT Lactic Acid Lvl 3.2 mmol/L 04/07/2023 20:54 EDT Lipase Level 43 unit/L 04/07/2023 20:54 EDT Osmolality 277 mOsm/kg 04/07/2023 20:54 EDT U hCG Ql Negative 04/07/2023 20:14 EDT Urine Srce Clean Catch 04/07/2023 20:14 EDT UA Color LIGHT YELL 04/07/2023 20:14 EDT UA Appear CLEAR. 04/07/2023 20:14 EDT UA Glucose NEGATIVE 04/07/2023 20:14 EDT UA Bili NEGATIVE 04/07/2023 20:14 EDT UA Ketones NEGATIVE 04/07/2023 20:14 EDT UA Spec Grav 1.010 04/07/2023 20:14 EDT UA Blood NEGATIVE 04/07/2023 20:14 EDT UA pH 6.50 04/07/2023 20:14 EDT UA Protein NEGATIVE 04/07/2023 20:14 EDT UA Urobilinogen 0.2 04/07/2023 20:14 EDT UA Nitrite NEGATIVE 04/07/2023 20:14 EDT UA Leuk Est TRACE 04/07/2023 20:14 EDT UA Culture Ind?. No 04/07/2023 20:14 EDT UA WBC 6-10 04/07/2023 20:14 EDT UA RBC 0-3 04/07/2023 20:14 EDT UA Squam Epithelial 6-10 04/07/2023 20:14 EDT UA Bacteria None Seen 04/07/2023 20:14 EDT UA Amorph Few 04/07/2023 20:14 EDT Patient/Under Ground Miner Signature Patient Name:SONG LAM Janine I have received this information and my questions have been answered. Patient/Under Ground Miner Name: Patient/Under Ground Miner Signature: Relationship to Patient: Witness Name/Signature: Date: Electronically Signed on: 04/07/2023 22:28 EDTSigned by:JOSIANE Patient Care team information Care Team Personnel Name: Brie Manrique Position: Nurse Member Role: ED Nurse Name: John Lagunas MD Position: Physician Member Role: Admitting Physician Address: Address: [facility] Care Team Related Persons Name: BOBBY GUAMAN
--- OUTSIDE RECORDS SUMMARY | 2024-07-11 16:28 | XMS_ITS | Continuity of Care Document ---
Author Organization [facility] Address [address] [place] [address] Encounter LTTL_NC FIN NBR [id number] Date(s): 09/11/23 - 09/11/23 [facility] [address], [place] [address] Encounter Diagnosis Vasovagal syncope(Discharge Diagnosis) - 09/11/23 Chest pain of unknown etiology(Discharge Diagnosis) - 09/11/23 Discharge Disposition: Home f/u External Provider Attending Physician: Mario Burks MD Admitting Physician: Mario Burks MD Allergies, Adverse Reactions, Alerts No Known Allergies Assessment and Plan Extracted from: Title:ED Provider Note Author:CHINEDU Rosado Date:09/11/23 Assessment/Plan 1.??Vasovagal syncope??R55 Patient safe to be discharged home.?? Her parents are now with her at discharge.?? Plans to stay well-hydrated and continue alternating Tylenol and ibuprofen.?? PCP follow-up within the week strict return precautions with any worsening of chest pain, shortness of breath or fevers or cough. Ordered: Discharge Patient, 09/11/23 14:15:00 EST, Home Independently ?? 2.??Chest pain of unknown etiology??R07.9 Ordered: Discharge Patient, 09/11/23 14:15:00 EST, Home Independently ?? Orders: XR Shoulder Complete 2+ Views Left, 09/11/23 12:56:00 EST, Stat, Reason: shoulder pain after fall, Transport Mode: Portable Patient Education Chest Wall Pain Follow Up With When Contact Information Follow up with primary care provider Within 1 month Additional Instructions: Medications No Known Medications Mental Status 09/11/[address] Spontaneous ly Best Verbal Response Katie Oriented Best Motor Response [address] Obeys comman ds [address] Coma Score 15 Results Laboratory List Name Date Troponin-I High Sensitivity (High Sensit ivityTroponin-I) 09/11/23 .Morphology (LTTL) 09/11/23 BNP 09/11/23 CBC w/ Diff 09/11/23 Comprehensive Metabolic Panel (CMP) Troponin-I High Sensitivity (High Sensit ivityTroponin-I) 09/11/23 Automated Diff 09/11/23 Most recent to oldest [Reference Range]: 1 2 WBC [4.8-10.8 K/mcL] 6.6 K/mcL (09/11/23 10:39 AM) RBC [4.20-5.40 Million/mcL] 3.97 Million /mcL *LOW* (09/11/23 10:39 AM) Neutro Auto [42.2-75.2 %] 59.7 % (09/11/23 10:39 AM) Lymph Auto [20.5-51.1 %] 29.3 % (09/11/23 10:39 AM) [place] Auto [1.7-9.3 %] 7.4 % (09/11/23 10:39 AM) Basophil Auto [0.0-0.8 %] 0.7 % (09/11/23 10:39 AM) BUN [7-25 mg/dL] 6 mg/dL *LOW* (09/11/23 10:39 AM) Glucose Level [70-109 mg/dL] 99 mg/dL (09/11/23 10:39 AM) Potassium Level [3.5-5.1 mmol/L] 3.5 mmo l/L (09/11/23 10:39 AM) Baso Absolute [0.0-0.2 K/mcL] 0.0 K/mcL (09/11/23 10:39 AM) MCV [81.0-99.0 fL] 94.6 fL (09/11/23 10:39 AM) RBC Morph [Normal] Abnormal *ABN* (09/11/23 10:39 AM) AST [13-39 IntlUnit/L] 15 IntlUnit/L (09/11/23 10:39 AM) ALT [7-52 IntlUnit/L] 17 IntlUnit/L (09/11/23 10:39 AM) MCHC [32.0-37.0 g/dL] 33.6 g/dL (09/11/23 10:39 AM) Osmolality [275-295 mOsm/kg] 277 mOsm/kg (09/11/23 10:39 AM) Sodium Level [136-145 mmol/L] 140 mmol/L (09/11/23 10:39 AM) Lymph Absolute [1.2-3.4 K/mcL] 1.9 K/mcL (09/11/23 10:39 AM) Hct [37.0-47.0 %] 37.5 % (09/11/23 10:39 AM) Microcyte 1+ *ABN* (09/11/23 10:39 AM) Calcium Level [8.6-10.3 mg/dL] 8.3 mg/dL *LOW* (09/11/23 10:39 AM) [place] Absolute [0.1-0.6 K/mcL] 0.5 K/mcL (09/11/23 10:39 AM) Albumin Level [3.5-5.7 g/dL] 4.0 g/dL (09/11/23 10:39 AM) Protein Total [6.4-8.9 g/dL] 6.8 g/dL (09/11/23 10:39 AM) MCH [27.0-31.0 pg] 31.8 pg *HI* (09/11/23 10:39 AM) Neutro Absolute [1.4-6.5 K/mcL] 3.9 K/mc L (09/11/23 10:39 AM) Bilirubin Total [0.3-1.0 mg/dL] 0.4 mg/d L (09/11/23 10:39 AM) Hgb [12.0-16.0 g/dL] 12.6 g/dL (09/11/23 10:39 AM) Alk Phos [34-104 IntlUnit/L] 63 IntlUnit /L (09/11/23 10:39 AM) MPV [7.4-10.4 fL] 9.1 fL (09/11/23 10:39 AM) Platelets [130-400 K/mcL] 272 K/mcL (09/11/23 10:39 AM) CO2 [21-31 mmol/L] 24 mmol/L (09/11/23 10:39 AM) Eos Absolute [0.0-0.2 K/mcL] 0.2 K/mcL (09/11/23 10:39 AM) Macrocyte 1+ *ABN* (09/11/23 10:39 AM) BNP [<=100 pg/mL] 28 pg/mL (09/11/23 10:39 AM) Chloride Level [98-107 mmol/L] 107 mmol/ L (09/11/23 10:39 AM) RDW-CV [11.5-14.5 %] 17.1 % *HI* (09/11/23 10:39 AM) A/G Ratio [1.0-2.5 g/dL] 1.4 g/dL (09/11/23 10:39 AM) BUN/Creat Ratio [8.0-20.0] 12.0 (09/11/23 10:39 AM) Globulin [2.3-3.5 g/dL] 2.8 g/dL (09/11/23 10:39 AM) Ovalocytes 1+ *ABN* (09/11/23 10:39 AM) Slide Review Morph Only (09/11/23 10:39 AM) Anisocyte 1+ (09/11/23 10:39 AM) Creatinine Level [0.60-1.20 mg/dL] 0.50 mg/dL *LOW* (09/11/23 10:39 AM) Plt Estimation Normal (09/11/23 10:39 AM) Troponin-I HS [<=12 ng/L] 2 ng/L 1 (09/11/23 11:33 AM) 3 ng/L 2 (09/11/23 10:39 AM) Anion Gap [3.0-12.0] 9.0 (09/11/23 10:39 AM) Eos, Auto [0.00-3.00 %] 2.90 % (09/11/23 10:39 AM) eGFR CKD-EPI [>=60 mL/min/1.73 m2] 119 m L/min/1.73 m2 (09/11/23 10:39 AM) 1Interpretive Data: The [employer] ACCESS high-sensitivity Troponin I (hsTNI) 99 percentile cutoffs forhealthy adults are 12 ng/L or less for females and 20 ng/L or less for males. SERIAL MEASUREMENT IS HIGHLY RECOMMENDED for the diagnosis or exclusion of Acute Coronary Syndromes(ACS). Please refer to the High-Sensitivity Troponin Algorithm 2022 for guidance. As with all markers of cardiac injury, elevations of hsTnI do not in and of themselves indicate thepresence of an ischemic mechanism. Many other disease states can be associated with elevations via mechanisms different from those that cause injury in patients with ACS. These include trauma (contusion, ablation, pacing); congestive heart failure; pulmonary embolism; kidney failure; and myocarditis. Clinical judgement is necessary to distinguish patients who have ischemic heart disease from those who do not. 2Interpretive Data: The [employer] ACCESS high-sensitivity Troponin I (hsTNI) 99 percentile cutoffs forhealthy adults are 12 ng/L or less for females and 20 ng/L or less for males. SERIAL MEASUREMENT IS HIGHLY RECOMMENDED for the diagnosis or exclusion of Acute Coronary Syndromes(ACS). Please refer to the High-Sensitivity Troponin Algorithm 2022 for guidance. As with all markers of cardiac injury, elevations of hsTnI do not in and of themselves indicate thepresence of an ischemic mechanism. Many other disease states can be associated with elevations via mechanisms different from those that cause injury in patients with ACS. These include trauma (contusion, ablation, pacing); congestive heart failure; pulmonary embolism; kidney failure; and myocarditis. Clinical judgement is necessary to distinguish patients who have ischemic heart disease from those who do not. Radiology Reports * Exam Date Time Procedure Performing Provider Status 09/11/23 1:43 PM XR Shoulder Complete 2+ Views Left Mayra eMelissa E; Auth (Verified) Notes: (XR Shoulder Complete 2+ Views Left) Reason For Exam: shoulder pain after fall XR Shoulder Complete 2+ Views Left PROCEDURE INFORMATION: Exam: XR Left Shoulder Exam date and time: 09/11/2023 1:26 PM Age: 42 years old Clinical indication: Pain; Shoulder; Left; Additional info: Shoulder pain after fall TECHNIQUE: Imaging protocol: Radiologic exam of the left shoulder. Views: 2 or more views. COMPARISON: CT ANGIO CHEST 09/11/2023 12:09 PM FINDINGS: Bones/joints: No fractures or bone lesions. No dislocations. Soft tissues: No soft tissue abnormalities or radiopaque foreign bodies. No soft tissue gas. IMPRESSION: No acute findings in the left shoulder. THIS DOCUMENT HAS BEEN ELECTRONICALLY SIGNED BY RONEL BRENNAN MD on 09/11/2023 02:23 PM Final Signed by: Ronel Brennan MD Signed (Electronic Signature): 09/11/2023 2:23 pm * Exam Date Time Procedure Performing Provider Status 09/11/23 12:[address] Angio Chest Yen Drummond; Marlene Ross E; Auth (Verified) Notes: (CT Angio Chest) Reason For Exam: SOB/ chest pain CT Angio Chest PROCEDURE INFORMATION: Exam: CTA Chest With Contrast Exam date and time: 09/11/2023 12:09 PM Age: 42 years old Clinical indication: Dyspnea and other: Chest pain, syncope; Additional info: Sob/ chest pain TECHNIQUE: Imaging protocol: Computed tomographic angiography of the chest with contrast. Exam focused on the arteries. 3D rendering (Not supervised by radiologist): MIP and/or 3D reconstructed images were created by the technologist. Radiation optimization: All CT scans at this facility use at least one of these dose optimization techniques: automated exposure control; mA and/or kV adjustment per patient size (includes targeted exams where dose is matched to clinical indication); or iterative reconstruction. Contrast material: ISOVUE 370; Contrast volume: 100 ml; Contrast route: INTRAVENOUS (IV); COMPARISON: CT SPINE CERVICAL WO CONTRAST 09/11/2023 12:02 PM FINDINGS: Pulmonary arteries: No pulmonary emboli. Aorta: No aortic aneurysm. No aortic dissection. Lungs: No consolidation. No masses. Pleural spaces: No pneumothorax. No pleural effusion. Heart: No cardiomegaly. No pericardial effusion. Lymph nodes: No enlarged lymph nodes. Bones/joints: No acute fracture. Soft tissues: No soft tissue masses. IMPRESSION: 1. No pulmonary emboli. No aortic aneurysm or intimal dissection. 2. No acute findings in the the chest. THIS DOCUMENT HAS BEEN ELECTRONICALLY SIGNED BY RONEL BRENNAN MD on 09/11/2023 01:21 PM Final Signed by: Ronel Brennan MD Signed (Electronic Signature): 09/11/2023 1:21 pm * Exam Date Time Procedure Performing Provider Status 09/11/23 12:[address] Head w/o Contrast Yen Drummond; Melissa Balderas; Auth (Verified) Notes: (CT Head w/o Contrast) Reason For Exam: syncopal episode with fall CT Head w/o Contrast PROCEDURE INFORMATION: Exam: CT Head Without Contrast Exam date and time: 09/11/2023 12:02 PM Age: 42 years old Clinical indication: Injury or trauma; Fall; Blunt trauma (contusions or hematomas); Additional info: Syncopal episode with fall TECHNIQUE: Imaging protocol: Computed tomography of the head without contrast. Radiation optimization: All CT scans at this facility use at least one of these dose optimization techniques: automated exposure control; mA and/or kV adjustment per patient size (includes targeted exams where dose is matched to clinical indication); or iterative reconstruction. COMPARISON: CT SPINE CERVICAL WO CONTRAST 09/11/2023 12:02 PM FINDINGS: Brain: No intra or extra-axial masses, lesions or collections. [place] white matter distinction is maintained throughout the brain. No radiographic evidence of intracranial hemorrhage. No CT evidence of mass hemorrhage or acute infarction. Cerebral ventricles: Ventricles are of normal size and configuration. Paranasal sinuses: Visualized sinuses are unremarkable. No fluid levels. Mastoid air cells: Visualized mastoid air cells are well aerated. Bones/joints: Unremarkable. No acute fracture. Soft tissues: Unremarkable. IMPRESSION: No acute intracranial process is appreciated. THIS DOCUMENT HAS BEEN ELECTRONICALLY SIGNED BY ALEXANDER MOSES MD on 09/11/2023 01:05 PM Final Signed by: Alexander Moses MD Signed (Electronic Signature): 09/11/2023 1:05 pm * Exam Date Time Procedure Performing Provider Status 09/11/23 12:[address] Spine Cervical w/ o Contrast Yen Drummond; Melissa Ross; Auth (Verified) Notes: (CT Spine Cervical w/o Contrast) Reason For Exam: syncopal episode with fall CT Spine Cervical w/o Contrast PROCEDURE INFORMATION: Exam: CT Cervical Spine Without Contrast Exam date and time: 09/11/2023 12:02 PM Age: 42 years old Clinical indication: Injury or trauma; Fall; Blunt trauma; Additional info: Syncopal episode with fall TECHNIQUE: Imaging protocol: Computed tomography of the cervical spine without contrast. Radiation optimization: All CT scans at this facility use at least one of these dose optimization techniques: automated exposure control; mA and/or kV adjustment per patient size (includes targeted exams where dose is matched to clinical indication); or iterative reconstruction. COMPARISON: CT HEAD WO CONTRAST 09/11/2023 12:02 PM FINDINGS: Bones/joints: Alignment is normal. posterior vertebral line and the spinal laminar line normal. odontoid process normal. no fracture. disk space height preserved Lungs: Lung apices are normal. Thyroid: Thyroid nodule on the right superiorly of approximately 15 mm. Soft tissues: Unremarkable. IMPRESSION: Normal cervical spine series. COMMENTS: Consistent with the [employer]'s Incidental Findings Committee white paper (J Am Jakob Radiol 2015): In patients aged 35 years and older with an incidental thyroid nodule equal to or greater than 1.[address], MRI or extrathyroidal US, further evaluation with dedicated thyroid US is recommended for patients with normal life expectancy and without comorbidities. For smaller nodules without suspicious features, no further evaluation or follow up is recommended. THIS DOCUMENT HAS BEEN ELECTRONICALLY SIGNED BY ALEXANDER MOSES MD on 09/11/2023 01:03 PM Final Signed by: Alexander Moses MD Signed (Electronic Signature): 09/11/2023 1:03 pm Vital Signs Most recent to oldest [Reference Range]: 1 2 3 Temperature Oral [35.8-37.3 Deg C] 36.5 Deg C (09/11/23 10:11 AM) Peripheral Pulse Rate [60-100 bpm] 78 bpm (09/11/23 2:31 PM) 83 bpm (09/11/23 12:35 PM) 79 bpm (09/11/23 11:24 AM) Heart Rate Monitored [60-100 bpm] 80 bpm (09/11/23 2:31 PM) 81 bpm (09/11/23 12:35 PM) 77 bpm (09/11/23 11:24 AM) Respiratory Rate [12-24 br/min] 26 br/min *HI* (09/11/23 2:31 PM) 18 br/min (09/11/23 12:35 PM) 18 br/min (09/11/23 11:24 AM) Blood Pressure [90-140/60-90 mmHg] 118/82mmHg (09/11/23 12:35 PM) 115/80mmHg (09/11/23 11:24 AM) 149/90mmHg *HI* (09/11/23 10:11 AM) Mean Arterial Pressure, Cuff [65-140 mmHg] 94 mmHg (09/11/23 12:35 PM) 92 mmHg (09/11/23 11:24 AM) 110 mmHg (09/11/23 10:11 AM) Mean Arterial Pressure Cuff 94 mmHg (09/11/23 12:35 PM) 87 mmHg (09/11/23 11:24 AM) Weight 64.4 kg (09/11/23 10:11 AM) Weight Dosing 64.400 kg (09/11/23 10:11 AM) Height 158 cm (09/11/23 10:11 AM) Body Mass Index 25.8 kg/m2 (09/11/23 10:11 AM) Social History Social History Type Response Tobacco Never tobacco user T obacco Use:. Sex Hospital Discharge Instructions Patient Education 09/11/2023 13:13:26 Chest Wall Pain Chest Wall Pain Chest wall pain is pain in or around the bones and muscles of your chest. Sometimes, an injury causes this pain. Excessive coughing or overuse of arm and chest muscles may also cause chest wall pain.Sometimes, the cause may not be known. This pain may take several weeks or longer to get better. Follow these instructions at home: Managing pain, stiffness, and swelling ??? If directed, put ice on the painful area: ??? Put ice in a plastic bag. ??? Place a towel between your skin and the bag. ??? Leave the ice on for 20 minutes, 2???3 times per day. Activity ??? Rest as told by your health care provider. ??? Avoid activities that cause pain. These include any activities that use your chest muscles or your abdominal and side muscles to lift heavy items. Ask your health care provider what activities are safe for you. General instructions ??? Take evyx-[id number] and prescription medicines only as told by your health care provider. ??? Do not use any products that contain nicotine or tobacco, such as cigarettes, e-cigarettes, andchewing tobacco. These can delay healing after injury. If you need help quitting, ask your health care provider. ??? Keep all follow-up visits as told by your health care provider. This is important. Contact a health care provider if: ??? You have a fever. ??? Your chest pain becomes worse. ??? You have new symptoms. Get help right away if: ??? You have nausea or vomiting. ??? You feel sweaty or light-headed. ??? You have a cough with mucus from your lungs (sputum) or you cough up blood. ??? You develop shortness of breath. These symptoms may represent a serious problem that is an emergency. Do not wait to see if the symptoms will go away. Get medical help right away. Call your local emergency services (911 in the [place] Do not drive yourself to the hospital. Summary ??? Chest wall pain is pain in or around the bones and muscles of your chest. ??? Depending on the cause, it may be treated with ice, rest, medicines, and avoiding activities that cause pain. ??? Contact a health care provider if you have a fever, worsening chest pain, or new symptoms. ??? Get help right away if you feel light-headed or you develop shortness of breath. These symptomsmay be an emergency. This information is not intended to replace advice given to you by your health care provider. Make sure you discuss any questions you have with your health care provider. Document Revised: 09/02/2021 Document Reviewed: 09/05/2021 [employer] Patient Education ?? 2022 [employer]. Follow Up Care 09/11/2023 10:11:38 With:Follow up with primary care provider Address:Unknown When:1 month Physician Emergency department Note * CHINEDU Rosado: PERFORM Event Display: ED Note Physician Authored Date: [id number] SONG GUERRERO :1980 Age:42 years Sex:Female Visit Date:09/11/2023 Basic Information Time Seen: CHINDEU Rosado / 09/11/2023 10:15 Chief Complaint pt reports waking up with chest pain this morning and was found by sig other collapsed on ground, pt reports sqeezing pain to left side of body, tearful anxious and crying History Of Present Illness: This is a 42-year-old female here for concern of left-sided chest pain. ??Explains that she woke upwith chest pain??this??morning??describes it as a sharp pain in the left side of the chest radiating down the left side of the body with??paresthesias of the left arm.?? After waking and she??went tothe restroom and??has no memory of this but her significant other??told her that she lost consciousness while??having a bowel movement. ??When she woke up she continued to have this left-sided chest pain and has been feeling very anxious.?? Denies any dyspnea, vomiting. ??Does not know if she??hit her head and is not experiencing any??headache or neck pain. Patient denies any cardiac history, recent illness or fevers. Review of Systems: See HPI Physical Exam Vitals & Measurements T:??36.5?C ??(Oral)?? HR:??83??(Peripheral)?? HR:??81??(Monitored)?? RR:??18?? BP:??118/82?? SpO2:??94%?? HT:??158??cm?? WT:??64.4??kg?? BMI:??25.8?? O2 Therapy:??Room air?? General: Patient is alert and engaging, appears??anxious. ??Is in no acute distress. Speaking comfortably in full sentences.?? Constitutional: No fevers, chills or diaphoresis.?? HEENT: Head normocephalic and atraumatic. Neck supple with FROM w/o lymphadenopathy or JVD. Tracheamidline. No c-spine tenderness. EOMs intact w/o pain. Pupils equal and reactive to light. Respiratory: ??No obvious work of breathing, regular rate. BS equal b/l, clear to auscultation. Cardiovascular: Heart regular rate and rhythm w/o murmurs, rubs or gallops. No peripheral edema present.?? GI: normoactive BS. Abdomen soft non tender, nondistended without guarding, rebound or rigidity. NoHSM Extremities: No obvious deformities. FROM.?? Integumentary: Skin warm and pink. No rashes or ecchymosis present.?? Neuro: CN III-XII grossly intact.?? Psychiatric: acting appropriate for age and circumstance. Normal mood without obvious ??affect.?? Medical Decision Making: This is a 42-year-old female??here with concerns of chest pain and a syncopal episode.?? Patient isalert and oriented in no acute distress however she appears very anxious.?? Initial history was difficult to obtain due to??the anxiety.?? Vitals obtained and reviewed??she is afebrile. ??Patient is not hypoxic, tachypneic, tachycardic??and she is hemodynamically stable. EKG obtained showing NSR with a rate of 86. QTC 486. No??of??ischemia, arrhythmias, WPW or Brugada. She was given fluids, Tylenol and Ativan which significantly helped with the anxiety and was able to obtain a more detailed??history from the patient as well as her significant other who has not arrived in the emergency department. Cardiac??workup obtained. ??Because of the syncopal event as well as??the fall I did obtain a CT ofthe head and neck??as well.?? CTA obtained to rule out??PE??and aortic aneurysm. Labs unremarkable. ??Troponin??flat. ??BNP 28. ??There is no evidence of intracranial??hemorrhage mass??of the CT head. ??No cervical spine??injury. ??No evidence of a PE or aortic aneurysm on the CTA. ??Did obtain??plain films of the left shoulder as pain could be due to the fall however these were??normal as well. Patient has no history of congestive heart failure and BNP today was 28, hematocrit 37.5, no arrhythmia appreciated on EKG patient is not experiencing any shortness of breath and is hemodynamically stable.?? Stratifies is a low risk group per Lewis syncopal scale and does not warrant??admission for observation. Did have some improvement in pain with Tylenol. ??Was given additional Toradol without any improvement. Known cause of chest pain possible??muscular skeletal injury. Discussed??results of workup with patient and she seems very relieved??with these results. ??She agrees to close follow-up with her primary care physician within the next week. Procedure No Qualifying Data Assessment/Plan 1.??Vasovagal syncope??R55 Patient safe to be discharged home.?? Her parents are now with her at discharge.?? Plans to stay well-hydrated and continue alternating Tylenol and ibuprofen.?? PCP follow-up within the week strict return precautions with any worsening of chest pain, shortness of breath or fevers or cough. Ordered: Discharge Patient, 09/11/23 14:15:00 EST, Home Independently ?? 2.??Chest pain of unknown etiology??R07.9 Ordered: Discharge Patient, 09/11/23 14:15:00 EST, Home Independently ?? Orders: XR Shoulder Complete 2+ Views Left, 09/11/23 12:56:00 EST, Stat, Reason: shoulder pain after fall, Transport Mode: Portable Patient Education Chest Wall Pain Follow Up With When Contact Information Follow up with primary care provider Within 1 month Additional Instructions: Problem List/Past Medical History Ongoing No qualifying data Historical No qualifying data Medication Administration Given Sodium Chloride 0.9%, 1000 mL, Hydration Bolus acetaminophen, 1000 mg, IV Piggyback Ativan, 1 mg, IV Toradol, 30 mg, IV Allergies No Known Allergies Social History Electronic Cigarette/Vaping Electronic Cigarette Use: Use, within last 90 days. Tobacco Never tobacco user Tobacco Use:. Diagnostic Results CT Angio Chest 09/11/2023 13:[address] Head w/o Contrast 09/11/2023 13:[address] Spine Cervical w/o Contrast 09/11/2023 13:04 EST XR Shoulder Complete 2+ Views Left 09/11/2023 14:[address] Angio Chest ?? 09/11/23 12:09:39 PROCEDURE INFORMATION: Exam: CTA Chest With Contrast Exam date and time: 09/11/2023 12:09 PM Age: 42 years old Clinical indication: Dyspnea and other: Chest pain, syncope; Additional info: Sob/ chest pain ?? TECHNIQUE: Imaging protocol: Computed tomographic angiography of the chest with contrast. Exam focused on the arteries. 3D rendering (Not supervised by radiologist): MIP and/or 3D reconstructed images were created by the technologist. Radiation optimization: All CT scans at this facility use at least one of these dose optimization techniques: automated exposure control; mA and/or kV adjustment per patient size (includes targeted exams where dose is matched to clinical indication); or iterative reconstruction. Contrast material: ISOVUE 370; Contrast volume: 100 ml; Contrast route: INTRAVENOUS (IV); ?? COMPARISON: CT SPINE CERVICAL WO CONTRAST 09/11/2023 12:02 PM ?? FINDINGS: Pulmonary arteries: No pulmonary emboli. Aorta: No aortic aneurysm. No aortic dissection. ?? Lungs: No consolidation. No masses. Pleural spaces: No pneumothorax. No pleural effusion. Heart: No cardiomegaly. No pericardial effusion. Lymph nodes: No enlarged lymph nodes. ?? Bones/joints: No acute fracture. Soft tissues: No soft tissue masses. ?? IMPRESSION: 1. No pulmonary emboli. No aortic aneurysm or intimal dissection. 2. No acute findings in the the chest. ? THIS DOCUMENT HAS BEEN ELECTRONICALLY SIGNED BY RONEL BRENNAN MD on 09/11/2023 01:21 PM ?? Signed By: Ronel Brennan MD ?? CT Spine Cervical w/o Contrast ?? 09/11/23 12:02:55 PROCEDURE INFORMATION: Exam: CT Cervical Spine Without Contrast Exam date and time: 09/11/2023 12:02 PM Age: 42 years old Clinical indication: Injury or trauma; Fall; Blunt trauma; Additional info: Syncopal episode with fall ?? TECHNIQUE: Imaging protocol: Computed tomography of the cervical spine without contrast. Radiation optimization: All CT scans at this facility use at least one of these dose optimization techniques: automated exposure control; mA and/or kV adjustment per patient size (includes targeted exams where dose is matched to clinical indication); or iterative reconstruction. ?? COMPARISON: CT HEAD WO CONTRAST 09/11/2023 12:02 PM ?? FINDINGS: Bones/joints: Alignment is normal. posterior vertebral line and the spinal laminar line normal. odontoid process normal. no fracture. disk space height preserved ?? Lungs: Lung apices are normal. Thyroid: Thyroid nodule on the right superiorly of approximately 15 mm. ?? Soft tissues: Unremarkable. ?? IMPRESSION: Normal cervical spine series. ?? COMMENTS: Consistent with the [employer]???s Incidental Findings Committee white paper (J Am Jakob Radiol 2015): In patients aged 35 years and older with an incidental thyroid nodule equal to or greater than 1.[address], MRI or extrathyroidal US, further evaluation with dedicated thyroid US is recommended for patients with normal life expectancy and without comorbidities. For smaller nodules without suspicious features, no further evaluation or follow up is recommended. ? THIS DOCUMENT HAS BEEN ELECTRONICALLY SIGNED BY ALEXANDER MOSES MD on 09/11/2023 01:03 PM ?? Signed By: Alexander Moses MD ?? XR Shoulder Complete 2+ Views Left ?? 09/11/23 13:26:37 PROCEDURE INFORMATION: Exam: XR Left Shoulder Exam date and time: 09/11/2023 1:26 PM Age: 42 years old Clinical indication: Pain; Shoulder; Left; Additional info: Shoulder pain after fall ?? TECHNIQUE: Imaging protocol: Radiologic exam of the left shoulder. Views: 2 or more views. ?? COMPARISON: CT ANGIO CHEST 09/11/2023 12:09 PM ?? FINDINGS: Bones/joints: No fractures or bone lesions. No dislocations. Soft tissues: No soft tissue abnormalities or radiopaque foreign bodies. No soft tissue gas. ?? IMPRESSION: No acute findings in the left shoulder. ? THIS DOCUMENT HAS BEEN ELECTRONICALLY SIGNED BY RONEL BRENNAN MD on 09/11/2023 02:23 PM ?? Signed By: Ronel Brennan MD ?? CT Head w/o Contrast ?? 09/11/23 12:02:55 PROCEDURE INFORMATION: Exam: CT Head Without Contrast Exam date and time: 09/11/2023 12:02 PM Age: 42 years old Clinical indication: Injury or trauma; Fall; Blunt trauma (contusions or hematomas); Additional info: Syncopal episode with fall ?? TECHNIQUE: Imaging protocol: Computed tomography of the head without contrast. Radiation optimization: All CT scans at this facility use at least one of these dose optimization techniques: automated exposure control; mA and/or kV adjustment per patient size (includes targeted exams where dose is matched to clinical indication); or iterative reconstruction. ?? COMPARISON: CT SPINE CERVICAL WO CONTRAST 09/11/2023 12:02 PM ?? FINDINGS: Brain: No intra or extra-axial masses, lesions or collections. [place] white matter distinction is maintained throughout the brain. No radiographic evidence of intracranial hemorrhage. No CT evidence of mass hemorrhage or acute infarction. Cerebral ventricles: Ventricles are of normal size and configuration. Paranasal sinuses: Visualized sinuses are unremarkable. No fluid levels. Mastoid air cells: Visualized mastoid air cells are well aerated. Bones/joints: Unremarkable. No acute fracture. Soft tissues: Unremarkable. ?? IMPRESSION: No acute intracranial process is appreciated. ? THIS DOCUMENT HAS BEEN ELECTRONICALLY SIGNED BY ALEXANDER MOSES MD on 09/11/2023 01:05 PM ?? Signed By: Alexander Moses MD Lab Results CBC and Differential?? LATEST RESULTS?? HISTORICAL RESULTS?? WBC?? 09/11/23 10:39?? 6.6?? 04/07/23?? 6.7?? RBC?? 09/11/23 10:39?? 3.97 ??Low?? 04/07/23?? 3.63 ??Low?? Hgb?? 09/11/23 10:39?? 12.6?? 04/07/23?? 11.1 ??Low?? Hct?? 09/11/23 10:39?? 37.5?? 04/07/23?? 34.1 ??Low?? MCV?? 09/11/23 10:39?? 94.6?? 04/07/23?? 93.9?? MCH?? 09/11/23 10:39?? 31.8 ??High?? 04/07/23?? 30.6?? MCHC?? 09/11/23 10:39?? 33.6?? 04/07/23?? 32.6?? RDW-CV?? 09/11/23 10:39?? 17.1 ??High?? 04/07/23?? 14.6 ??High?? Platelets?? 09/11/23 10:39?? 272?? 04/07/23?? 254?? MPV?? 09/11/23 10:39?? 9.1?? 04/07/23?? 11.4 ??High?? Neutro Auto?? 09/11/23 10:39?? 59.7? Lymph Auto?? 09/11/23 10:39?? 29.3? [place] Auto?? 09/11/23 10:39?? 7.4? Eos, Auto?? 09/11/23 10:39?? 2.90? Basophil Auto?? 09/11/23 10:39?? 0.7? Neutro Absolute?? 09/11/23 10:39?? 3.9? Lymph Absolute?? 09/11/23 10:39?? 1.9? [place] Absolute?? 09/11/23 10:39?? 0.5? Eos Absolute?? 09/11/23 10:39?? 0.2? Baso Absolute?? 09/11/23 10:39?? 0.0? RBC Morph?? 09/11/23 10:39?? Abnormal Abnormal?? 04/07/23?? Abnormal Abnormal?? Anisocyte?? 09/11/23 10:39?? 1+? Microcyte?? 09/11/23 10:39?? 1+ Abnormal? Macrocyte?? 09/11/23 10:39?? 1+ Abnormal? Ovalocytes?? 09/11/23 10:39?? 1+ Abnormal?? 04/07/23?? 1+ Abnormal?? Plt Estimation?? 09/11/23 10:39?? Normal?? 04/07/23?? Normal?? Slide Review?? 09/11/23 10:39?? Morph Only?? 04/07/23?? Man Diff? Routine Chemistry?? LATEST RESULTS?? HISTORICAL RESULTS?? Sodium Level?? 09/11/23 10:39?? 140?? 04/07/23?? 140?? Potassium Level?? 09/11/23 10:39?? 3.5?? 04/07/23?? 3.1 ??Low?? Chloride Level?? 09/11/23 10:39?? 107?? 04/07/23?? 110?? CO2?? 09/11/23 10:39?? 24?? 04/07/23?? 21 ??Low?? Alk Phos?? 09/11/23 10:39?? 63?? 04/07/23?? 45?? AST?? 09/11/23 10:39?? 15?? 04/07/23?? 16?? ALT?? 09/11/23 10:39?? 17?? 04/07/23?? 10 ??Low?? BUN?? 09/11/23 10:39?? 6 ??Low?? 04/07/23?? 8?? Glucose Level?? 09/11/23 10:39?? 99?? 04/07/23?? 83?? Creatinine Level?? 09/11/23 10:39?? 0.50 ??Low?? 04/07/23?? 0.64?? BUN/Creat Ratio?? 09/11/23 10:39?? 12.0?? 04/07/23?? 12.5?? eGFR CKD-EPI?? 09/11/23 10:39?? 119?? 04/07/23?? 112?? Calcium Level?? 09/11/23 10:39?? 8.3 ??Low?? 04/07/23?? 8.3 ??Low?? Protein Total?? 09/11/23 10:39?? 6.8?? 04/07/23?? 6.5?? Albumin Level?? 09/11/23 10:39?? 4.0?? 04/07/23?? 3.6?? Globulin?? 09/11/23 10:39?? 2.8?? 04/07/23?? 2.9?? A/G Ratio?? 09/11/23 10:39?? 1.4?? 04/07/23?? 1.2?? Bilirubin Total?? 09/11/23 10:39?? 0.4?? 04/07/23?? 0.4?? Anion Gap?? 09/11/23 10:39?? 9.0?? 04/07/23?? 9.0?? Osmolality?? 09/11/23 10:39?? 277?? 04/07/23?? 277? Cardiac Isoenzymes?? LATEST RESULTS?? BNP?? 09/11/23 10:39?? 28?? Troponin-I HS?? 09/11/23 11:33?? 2? Electronically Signed on 09/11/23 02:28 PM [facility] Discharge instructions * [facility]: PERFORM Event Display: ED Discharge Information Authored Date: [id number] CAROLE SONG Janine :1980 Age:42 years Sex:Female Visit Date:09/11/2023 Discharge Instructions We would like to thank you for allowing us to assist you with your healthcare needs. The following includes patient education materials and information regarding your injury/illness. Diagnosis from Today's Visit Vasovagal syncope Chest pain of unknown etiology Discharge Vitals Temperature??(Oral) 97.7 ??F (36.5 ??C) Heart Rate??(Peripheral) 83 Heart Rate??(Monitored) 81 Respiratory Rate?? 18 Blood Pressure?? 118/82?? SpO2?? 94% Height?? 62.20 in (158 cm) Weight?? 142.00 lb (64.4 kg) BMI?? 25.8 Allergies No Known Allergies What to Do Next Instructions from Your Care Team You were seen here today for??chest pain and a syncopal episode. ??Fortunately??there was no maladies on your cardiac??workup or evidence of intracranial??bleeding??or mass??or any trauma on your head and neck CT.?? Otherwise labs were normal.?? The chest pain??could possibly be musculoskeletal in nature and I would continue alternating Tylenol and ibuprofen. ??I??would like you to have very close follow-up with your primary care within the week. ??Please stay well rested and hydrated and if atany time??you begin to experience any worsening of pain, shortness of breath or another syncopal epi sode please be reevaluated??in the emergency department. You Need to Schedule the Following Appointments Follow Up with??Follow up with primary care provider When:??Within 1 month You were treated today on an emergency basis; it may be castañeda to contact your primary care provider to notify them of your visit today. You may have been referred to your regular doctor or a specialist, please follow up as instructed. If your condition worsens or you can't get in to see the doctor, contact the Emergency Department. Education Materials Chest Wall Pain Chest wall pain is pain in or around the bones and muscles of your chest. Sometimes, an injury causes this pain. Excessive coughing or overuse of arm and chest muscles may also cause chest wall pain.Sometimes, the cause may not be known. This pain may take several weeks or longer to get better. Follow these instructions at home: Managing pain, stiffness, and swelling ? If directed, put ice on the painful area: ? Put ice in a plastic bag. ? Place a towel between your skin and the bag. ? Leave the ice on for 20 minutes, 2???3 times per day. Activity ? Rest as told by your health care provider. ? Avoid activities that cause pain. These include any activities that use your chest muscles or your abdominal and side muscles to lift heavy items. Ask your health care provider what activities are safe for you. General instructions ? Take [id number] and prescription medicines only as told by your health care provider. ? Do not use any products that contain nicotine or tobacco, such as cigarettes, e- cigarettes, and chewing tobacco. These can delay healing after injury. If you need help quitting, ask your health care provider. ? Keep all follow-up visits as told by your health care provider. This is important. Contact a health care provider if: ? You have a fever. ? Your chest pain becomes worse. ? You have new symptoms. Get help right away if: ? You have nausea or vomiting. ? You feel sweaty or light-headed. ? You have a cough with mucus from your lungs (sputum) or you cough up blood. ? You develop shortness of breath. These symptoms may represent a serious problem that is an emergency. Do not wait to see if the symptoms will go away. Get medical help right away. Call your local emergency services (911 in the [place] Do not drive yourself to the hospital. Summary ? Chest wall pain is pain in or around the bones and muscles of your chest. ? Depending on the cause, it may be treated with ice, rest, medicines, and avoiding activities that cause pain. ? Contact a health care provider if you have a fever, worsening chest pain, or new symptoms. ? Get help right away if you feel light-headed or you develop shortness of breath. These symptoms maybe an emergency. This information is not intended to replace advice given to you by your health care provider. Make sure you discuss any questions you have with your health care provider. Document Revised: 09/02/2021 Document Reviewed: 09/05/2021 Elsevier Patient Education ?? 2022 [employer] Tests Performed Radiology CT Angio Chest 09/11/2023 13:[address] Head w/o Contrast 09/11/2023 13:[address] Spine Cervical w/o Contrast 09/11/2023 13:04 EST Medications and Immunizations Administered Given Sodium Chloride 0.9%, 1000 mL, Hydration Bolus acetaminophen, 1000 mg, IV Piggyback Ativan, 1 mg, IV Toradol, 30 mg, IV Lab Test Name Test Result Date/Time WBC 6.6 K/mcL 09/11/2023 10:39 EST RBC 3.97 Million/mcL 09/11/2023 10:39 EST Hgb 12.6 g/dL 09/11/2023 10:39 EST Hct 37.5 % 09/11/2023 10:39 EST MCV 94.6 fL 09/11/2023 10:39 EST MCH 31.8 pg 09/11/2023 10:39 EST MCHC 33.6 g/dL 09/11/2023 10:39 EST RDW-CV 17.1 % 09/11/2023 10:39 EST Platelets 272 K/mcL 09/11/2023 10:39 EST MPV 9.1 fL 09/11/2023 10:39 EST Neutro Auto 59.7 % 09/11/2023 10:39 EST Lymph Auto 29.3 % 09/11/2023 10:39 EST [place] Auto 7.4 % 09/11/2023 10:39 EST Eos, Auto 2.90 % 09/11/2023 10:39 EST Basophil Auto 0.7 % 09/11/2023 10:39 EST Neutro Absolute 3.9 K/mcL 09/11/2023 10:39 EST Lymph Absolute 1.9 K/mcL 09/11/2023 10:39 EST [place] Absolute 0.5 K/mcL 09/11/2023 10:39 EST Eos Absolute 0.2 K/mcL 09/11/2023 10:39 EST Baso Absolute 0.0 K/mcL 09/11/2023 10:39 EST RBC Morph Abnormal 09/11/2023 10:39 EST Anisocyte 1+ 09/11/2023 10:39 EST Microcyte 1+ 09/11/2023 10:39 EST Macrocyte 1+ 09/11/2023 10:39 EST Ovalocytes 1+ 09/11/2023 10:39 EST Plt Estimation Normal 09/11/2023 10:39 EST Slide Review Morph Only 09/11/2023 10:39 EST Sodium Level 140 mmol/L 09/11/2023 10:39 EST Potassium Level 3.5 mmol/L 09/11/2023 10:39 EST Chloride Level 107 mmol/L 09/11/2023 10:39 EST CO2 24 mmol/L 09/11/2023 10:39 EST Alk Phos 63 IntlUnit/L 09/11/2023 10:39 EST AST 15 IntlUnit/L 09/11/2023 10:39 EST ALT 17 IntlUnit/L 09/11/2023 10:39 EST BUN 6 mg/dL 09/11/2023 10:39 EST Glucose Level 99 mg/dL 09/11/2023 10:39 EST Creatinine Level 0.50 mg/dL 09/11/2023 10:39 EST BUN/Creat Ratio 12.0 09/11/2023 10:39 EST eGFR CKD-EPI 119 mL/min/1.73 m2 09/11/2023 10:39 EST Calcium Level 8.3 mg/dL 09/11/2023 10:39 EST Protein Total 6.8 g/dL 09/11/2023 10:39 EST Albumin Level 4.0 g/dL 09/11/2023 10:39 EST Globulin 2.8 g/dL 09/11/2023 10:39 EST A/G Ratio 1.4 g/dL 09/11/2023 10:39 EST Bilirubin Total 0.4 mg/dL 09/11/2023 10:39 EST Anion Gap 9.0 09/11/2023 10:39 EST Osmolality 277 mOsm/kg 09/11/2023 10:39 EST BNP 28 pg/mL 09/11/2023 10:39 EST Troponin-I HS 2 ng/L 09/11/2023 11:33 EST Patient/Golf Technician Signature Patient Name:SONG LAM Janine I have received this information and my questions have been answered. Patient/Golf Technician Name: Patient/Golf Technician Signature: Relationship to Patient: Witness Name/Signature: Date: Electronically Signed on: 09/11/2023 14:15 ESTSigned by:MATTEO Patient Care team information Care Team Related Persons Name: BOBBY GUAMAN
--- OUTSIDE RECORDS SUMMARY | 2024-07-11 16:28 | XMS_ITS | Referral Summary ---
Author Organization [facility] Address [address] [place] [id number] Care Team Providers Care Automotive Refinisher Name Role Phone Unknown, Provider Primary Care Provider Unava ilable Social History Tobacco Use Types Packs/Day Years Used Date Smoking Tobacco: Never Assessed Comments Unknown Sex and Gender Information Value Date Recorded Sex Assigned at Not on file Legal Sex Female 18:24 EST Gender Identity Not on file Sexual Orientation Not on file Plan of Treatment Not on file Procedures Procedure Name Priority Date/Time Associated Diagnosis Comments HCV RNA DETECT QUANT Today 05/19/2021 9:20 EST from Last 3 Months or Most Recently Relevant to Health Maintenance Results * HCV RNA DETECT QUANT (05/19/2021 9:20 EST) HCV RNA Qualitative Undetected Undetected 05/21/2021 15:21 EST [facility] Blood VENOUS BLOOD / Unknown 05/19/2021 9:20 EST 05/19/2021 16:14 EST Narrative [facility] - 05/21/2021 15:21 EST New platform in use 01/27/2021 The quantification range of this assay is 15 IU/mL to 100,000,000 IU/mL. Testing was performed using the Chrissie HCV test ([employer] with the chrissie 6800 System. us Provider Outr Resulting Lab CHEMISTRY & BLOOD GA S ORDERABLES Final Result [facility] [address] [place] [address] from Last 3 Months or Most Recently Relevant to Health Maintenance Insurance MEDICA[place] Care Teams Automotive Refinisher Relationship Specialty Start Date End Date Unknown, Provider, PCP - General 07/05/22
--- OUTSIDE RECORDS SUMMARY | 2024-07-11 16:28 | XMS_ITS | Continuity of Care Document ---
Author Organization [facility] Address [address] [place] [id number] Care Team Providers Care Pressroom Worker Name Role Phone WILFRED LANDEROS Primary Care Physician Encounter [facility] [facility] [id number] Date(s): 04/15/24 - 04/15/[address] [id number] Encounter Diagnosis Cellulitis of finger(Discharge Diagnosis) - 04/15/24 Discharge Disposition: Home f/u External Provider Attending Physician: Jerardo Booker MD Admitting Physician: Jerardo Booker MD Allergies, Adverse Reactions, Alerts No Known Allergies Assessment and Plan Extracted from: Title:ED Provider Note Author:Ange Muhammad Date:04/15/24 Assessment/Plan 1.??Cellulitis of finger??L03.019 ??Patient be discharged she will remain on antibiotics as??prescribed. ??She is given the first dose here.?? She will follow-up with her primary care and return for any new or worsening conditions she agrees with discharge plan Orders: doxycycline hyclate 100 mg oral tablet, 100 mg = 1 tab, Oral, BID, X 10 days, # 20 tab, 0 Refill(s), 04/25/24 13:50:00 EDT, Pharmacy: [facility] #[id number], 158, cm, 04/15/24 12:42:00 EDT, Height, 62, kg, 04/15/24 12:44:00 EDT, Weight Dosing Discharge Patient, 04/15/24 13:50:00 EDT, Home Independently Patient Education Cellulitis, Adult Follow Up With When Contact Information Tylenol/Motrin for Pain/Fever Relief Additional Instructions: Utilize Motrin 400-600 mg??every 6-8 hours as needed discomfort, Tylenol 1000 mg every 8 hours??as needed Follow-up with your primary care Within 1 week Additional Instructions: Follow-up with your primary care as needed, they will be able to reevaluate if necessary Return to ED if concerns ?? Medications doxycycline hyclate 100 mg oral tablet 100 mg = 1 tab, Oral, BID, X 10 days, # 20 tab, 0 Refill(s), 04/25/24 12:50:00 PM CDT, Pharmacy: [facility] #[id number], 158, cm, 04/15/24 12:42:00 EDT, Height, 62, kg, 04/15/24 12:44:00 EDT, Weight Dosing Start Date: 04/15/24 Stop Date: 04/25/24 Status: Ordered Mental Status 04/15/24 Eye Opening Response [place] Spontaneous ly Best Verbal Response [place] Oriented Best Motor Response Katie Obeys comman ds [place] Coma Score 15 Results Radiology Reports * Exam Date Time Procedure Performing Provider Status 04/15/24 1:07 PM XR Hand Complete 3+ Views Right Gretta Diaz; Cleo (Verified) Notes: (XR Hand Complete 3+ Views Right) Reason For Exam: Injury to hand XR Hand Complete 3+ Views Right PROCEDURE INFORMATION: Exam: XR Right Hand Exam date and time: 04/15/2024 1:01 PM Age: 43 years old Clinical indication: Injury or trauma; Crushing; Hand; Right; Additional info: Injury to hand TECHNIQUE: Imaging protocol: Radiologic exam of the right hand. Views: 3 or more views. COMPARISON: No relevant prior studies available. FINDINGS: Bones/joints: Normal. Soft tissues: Normal. IMPRESSION: No acute findings. THIS DOCUMENT HAS BEEN ELECTRONICALLY SIGNED BY BRITANY DURAN MD on 04/15/2024 02:46 PM Final Signed by: Britany Duran MD Signed (Electronic Signature): 04/15/2024 2:46 pm Vital Signs Most recent to oldest [Reference Range]: 1 Temperature Temporal Artery [36-38 Deg C ] 36.2 Deg C (04/15/24 12:42 PM) Peripheral Pulse Rate [60-100 bpm] 84 bp m (04/15/24 12:42 PM) Respiratory Rate [12-24 br/min] 22 br/mi n (04/15/24 12:42 PM) Blood Pressure [90-120/60-80 mmHg] 120/7 6mmHg (04/15/24 12:42 PM) Mean Arterial Pressure, Cuff [65-140 mmH g] 91 mmHg (04/15/24 12:42 PM) Weight 62 kg (04/15/24 12:42 PM) Weight Dosing 62.000 kg (04/15/24 12:42 PM) Height 158 cm (04/15/24 12:42 PM) Body Mass Index 24.84 kg/m2 (04/15/24 12:42 PM) Social History Social History Type Response Tobacco Never tobacco user T obacco Use:. Sex Sex Representation Female (finding) Hospital Discharge Instructions Patient Education 04/15/2024 12:50:45 Cellulitis, Adult Cellulitis, Adult Cellulitis is a skin infection. The infected area is usually warm, red, swollen, and tender. This condition occurs most often in the arms and lower legs. The infection can travel to the muscles, blood, and underlying tissue and become serious. It is very important to get treated for this condition. What are the causes? Cellulitis is caused by bacteria. The bacteria enter through a break in the skin, such as a cut, burn, insect bite, open sore, or crack. What increases the risk? This condition is more likely to occur in people who: ??? Have a weak body defense system (immune system). ??? Have open wounds on the skin, such as cuts, berman, bites, and scrapes. Bacteria can enter the body through these open wounds. ??? Are older than 60 years of age. ??? Have diabetes. ??? Have a type of long-lasting (chronic) liver disease (cirrhosis) or kidney disease. ??? Are obese. ??? Have a skin condition such as: ??? Itchy rash (eczema). ??? Slow movement of blood in the veins (venous stasis). ??? Fluid buildup below the skin (edema). ??? Have had radiation therapy. ??? Use IV drugs. What are the signs or symptoms? Symptoms of this condition include: ??? Redness, streaking, or spotting on the skin. ??? Swollen area of the skin. ??? Tenderness or pain when an area of the skin is touched. ??? Warm skin. ??? A fever. ??? Chills. ??? Blisters. How is this diagnosed? This condition is diagnosed based on a medical history and physical exam. You may also have tests, including: ??? Blood tests. ??? Imaging tests. How is this treated? Treatment for this condition may include: ??? Medicines, such as antibiotic medicines or medicines to treat allergies (antihistamines). ??? Supportive care, such as rest and application of cold or warm cloths (compresses) to the skin. ??? Hospital care, if the condition is severe. The infection usually starts to get better within 1???2 days of treatment. Follow these instructions at home: Medicines ??? Take weng-zto-lhlpvcp and prescription medicines only as told by your health care provider. ??? If you were prescribed an antibiotic medicine, take it as told by your health care provider. Donot stop taking the antibiotic even if you start to feel better. General instructions ??? Drink enough fluid to keep your urine pale yellow. ??? Do not touch or rub the infected area. ??? Raise (elevate) the infected area above the level of your heart while you are sitting or lying down. ??? Apply warm or cold compresses to the affected area as told by your health care provider. ??? Keep all follow-up visits as told by your health care provider. This is important. These visitslet your health care provider make sure a more serious infection is not developing. Contact a health care provider if: ??? You have a fever. ??? Your symptoms do not begin to improve within 1???2 days of starting treatment. ??? Your bone or joint underneath the infected area becomes painful after the skin has healed. ??? Your infection returns in the same area or another area. ??? You notice a swollen bump in the infected area. ??? You develop new symptoms. ??? You have a general ill feeling (malaise) with muscle aches and pains. Get help right away if: ??? Your symptoms get worse. ??? You feel very sleepy. ??? You develop vomiting or diarrhea that persists. ??? You notice red streaks coming from the infected area. ??? Your red area gets larger or turns dark in color. These symptoms may represent a serious problem that is an emergency. Do not wait to see if the symptoms will go away. Get medical help right away. Call your local emergency services (911 in the [place] Do not drive yourself to the hospital. Summary ??? Cellulitis is a skin infection. This condition occurs most often in the arms and lower legs. ??? Treatment for this condition may include medicines, such as antibiotic medicines or antihistamines. ??? Take eqgy-pji-wintcmv and prescription medicines only as told by your health care provider. If you were prescribed an antibiotic medicine, do not stop taking the antibiotic even if you start to feel better. ??? Contact a health care provider if your symptoms do not begin to improve within 1???2 days of starting treatment or your symptoms get worse. ??? Keep all follow-up visits as told by your health care provider. This is important. These visitslet your health care provider make sure that a more serious infection is not developing. This information is not intended to replace advice given to you by your health care provider. Make sure you discuss any questions you have with your health care provider. Document Revised: 04/01/2022 Document Reviewed: 04/02/2022 [employer] Patient Education ?? 2022 [employer]. Follow Up Care 04/15/2024 12:34:55 With:Tylenol/Motrin for Pain/Fever Relief Address: When: Unknown Comments:Utilize Motrin 400-600 mg??every 6-8 hours as needed discomfort, Tylenol 1000 mg every 8 hours??as needed With:Follow-up with your primary care Address: When:1 week Comments:Follow-up with your primary care as needed, they will be able to reevaluate if necessaryReturn to ED if concerns Physician Emergency department Note * CHINEDU Muhammad: PERFORM Event Display: ED Note Physician Authored Date: [id number] SONG GUERRERO :1980 Age:43 years Sex:Female Visit Date:04/15/2024 Primary Care Physician: WILFRED LANDEROS Basic Information Time Seen: CHINEDU Muhammad / 04/15/2024 12:38 Chief Complaint pt reports caught 3 fingers changing a tire and has been having swelling and pain for 1 week History Of Present Illness: Patient 43-year-old female presents emergency department having??3 days ago had her hand crushed while changing a tire. ??She notes that it caught??her??right ring middle and??fifth finger.?? She is having pain throughout her main complaint is swelling of her ring finger.?? She notes that there is e rythema??and an area of skin breakdown??to the lateral aspect of the digit.?? She has been expressing some pus out of this??over the last 24 hours??but feels as though there is a significant amount more in there. ??Pain has ramped up to the point where she is unable to move the finger??and she presents for evaluation. ??She has had no fever chills nausea or vomiting??and??did not have this previously evaluated Review of Systems: See HPI Physical Exam Vitals & Measurements T:??36.2?C ??(Temporal Artery)?? HR:??84??(Peripheral)?? RR:??22?? BP:??120/76?? SpO2:??98%?? HT:??158??cm?? WT:??62??kg?? BMI:??24.84?? O2 Therapy:??Room air?? Patient is alert oriented age-appropriate moderately anxious about scenario but otherwise nontoxic Head is normocephalic atraumatic Neck is supple nontender EOM intact Regular rate and effort without respiratory distress Right hand is examined, there is significant swelling to the ring finger??with erythema on the medial aspect??however range of motion is intact but causes discomfort Skin is otherwise warm and dry strength is equal, capillary refill less than 3 seconds Medical Decision Making: I had the??patient was found to have significant swelling of the ring finger. ??A ring is placed and cannot be removed.?? This is cut off by supportive staff. Patient is agreeable to digital block for further evaluation A digital block is performed and is??quite successful. With patient permission verbally??and I&D of the lateral aspect of the finger is employed.?? Areas cleaned with chlorhexidine and saline and a??11 blade is utilized to make 1/2 cm incision??in the area of most swelling. ??A copious amount of pus is removed??and the area is covered with??tube gauze dressing Patient will be discharged as below Procedure No Qualifying Data Assessment/Plan 1.??Cellulitis of finger??L03.019 ??Patient be discharged she will remain on antibiotics as??prescribed. ??She is given the first dose here.?? She will follow-up with her primary care and return for any new or worsening conditions she agrees with discharge plan Orders: doxycycline hyclate 100 mg oral tablet, 100 mg = 1 tab, Oral, BID, X 10 days, # 20 tab, 0 Refill(s), 04/25/24 13:50:00 EDT, Pharmacy: [facility] #[id number], 158, cm, 04/15/24 12:42:00 EDT, Height, 62, kg, 04/15/24 12:44:00 EDT, Weight Dosing Discharge Patient, 04/15/24 13:50:00 EDT, Home Independently Patient Education Cellulitis, Adult Follow Up With When Contact Information Tylenol/Motrin for Pain/Fever Relief Additional Instructions: Utilize Motrin 400-600 mg??every 6-8 hours as needed discomfort, Tylenol 1000 mg every 8 hours??as needed Follow-up with your primary care Within 1 week Additional Instructions: Follow-up with your primary care as needed, they will be able to reevaluate if necessary Return to ED if concerns Medication Reconciliation New Prescription doxycycline (doxycycline hyclate 100 mg oral tablet)1 tab Oral (given by mouth) 2 times a day for 10 Days. Refills: 0. Problem List/Past Medical History Ongoing No qualifying data Historical No qualifying data Medication Administration Given doxycycline, 100 mg, Oral Allergies No Known Allergies Social History Electronic Cigarette/Vaping Electronic Cigarette Use: Use, within last 90 days. Tobacco Never tobacco user Tobacco Use:. Diagnostic Results XR Hand Complete 3+ Views Right 04/15/2024 14:46 EDT XR Hand Complete 3+ Views Right ?? 04/15/24 13:01:06 PROCEDURE INFORMATION: Exam: XR Right Hand Exam date and time: 04/15/2024 1:01 PM Age: 43 years old Clinical indication: Injury or trauma; Crushing; Hand; Right; Additional info: Injury to hand ?? TECHNIQUE: Imaging protocol: Radiologic exam of the right hand. Views: 3 or more views. ?? COMPARISON: No relevant prior studies available. ?? FINDINGS: Bones/joints: Normal. Soft tissues: Normal. ?? IMPRESSION: No acute findings. ? THIS DOCUMENT HAS BEEN ELECTRONICALLY SIGNED BY BRITANY DURAN MD on 04/15/2024 02:46 PM ?? Signed By: Britany Duran MD Electronically Signed on 04/15/2024 18:21 EDT CHINEDU Muhammad Emergency department Discharge instructions * CHINEDU Muhammad: PERFORM Event Display: ED Discharge Information Authored Date: [id number] SONG GUERRERO :1980 Age:43 years Sex:Female Visit Date:04/15/2024 Primary Care Physician: WILFRED LANDEROS Discharge Instructions We would like to thank you for allowing us to assist you with your healthcare needs. The following includes patient education materials and information regarding your injury/illness. Diagnosis from Today's Visit Cellulitis of finger Discharge Vitals Temperature??(Temporal Artery) 97.2 ??F (36.2 ??C) Heart Rate??(Peripheral) 84 Respiratory Rate?? 22 Blood Pressure?? 120/76?? SpO2?? 98% Height?? 62.20 in (158 cm) Weight?? 136.71 lb (62 kg) BMI?? 24.84 Allergies No Known Allergies What to Do Next Instructions from Your Care Team Take medications as prescribed Keep area clean and dry Follow-up with primary care as needed You Need to Schedule the Following Appointments Follow Up with??Tylenol/Motrin for Pain/Fever Relief Why: Utilize Motrin 400-600 mg??every 6-8 hours as needed discomfort, Tylenol 1000 mg every 8 hours??as needed Follow Up with??Follow-up with your primary care When:??Within 1 week Why: Follow-up with your primary care as needed, they will be able to reevaluate if necessary Return to ED if concerns You were treated today on an emergency [...] Emergency Department. Medications What How Much When Instructions Next Dose New doxycycline (doxycycline hyclate 100 mg oral tablet) 1 tab Oral (given by mouth) 2 times a day Duration: 10 Days Pickup at [facility] #[id number] [id number] [address] [place], [place] [id number] [phone] Education Materials Cellulitis, Adult Cellulitis is a skin infection. The infected area is usually warm, red, swollen, and tender. This condition occurs most often in the arms and lower legs. The infection can travel to the muscles, blood, and underlying tissue and become serious. It is very important to get treated for this condition. What are the causes? Cellulitis is caused by bacteria. The bacteria enter through a break in the skin, such as a cut, burn, insect bite, open sore, or crack. What increases the risk? This condition is more likely to occur in people who: ? Have a weak body defense system (immune system). ? Have open wounds on the skin, such as cuts, berman, bites, and scrapes. Bacteria can enter the body through these open wounds. ? Are older than 60 years of age. ? Have diabetes. ? Have a type of long-lasting (chronic) liver disease (cirrhosis) or kidney disease. ? Are obese. ? Have a skin condition such as: ? Itchy rash (eczema). ? Slow movement of blood in the veins (venous stasis). ? Fluid buildup below the skin (edema). ? Have had radiation therapy. ? Use IV drugs. What are the signs or symptoms? Symptoms of this condition include: ? Redness, streaking, or spotting on the skin. ? Swollen area of the skin. ? Tenderness or pain when an area of the skin is touched. ? Warm skin. ? A fever. ? Chills. ? Blisters. How is this diagnosed? This condition is diagnosed based on a medical history and physical exam. You may also have tests, including: ? Blood tests. ? Imaging tests. How is this treated? Treatment for this condition may include: ? Medicines, such as antibiotic medicines or medicines to treat allergies (antihistamines). ? Supportive care, such as rest and application of cold or warm cloths (compresses) to the skin. ? Hospital care, if the condition is severe. The infection usually starts to get better within 1???2 days of treatment. Follow these instructions at home: Medicines ? Take eruu-you-qfzaxle and prescription medicines only as told by your health care provider. ? If you were prescribed an antibiotic medicine, take it as told by your health care provider. Do notstop taking the antibiotic even if you start to feel better. General instructions ? Drink enough fluid to keep your urine pale yellow. ? Do not touch or rub the infected area. ? Raise (elevate) the infected area above the level of your heart while you are sitting or lying down. ? Apply warm or cold compresses to the affected area as told by your health care provider. ? Keep all follow-up visits as told by your health care provider. This is important. These visits letyour health care provider make sure a more serious infection is not developing. Contact a health care provider if: ? You have a fever. ? Your symptoms do not begin to improve within 1???2 days of starting treatment. ? Your bone or joint underneath the infected area becomes painful after the skin has healed. ? Your infection returns in the same area or another area. ? You notice a swollen bump in the infected area. ? You develop new symptoms. ? You have a general ill feeling (malaise) with muscle aches and pains. Get help right away if: ? Your symptoms get worse. ? You feel very sleepy. ? You develop vomiting or diarrhea that persists. ? You notice red streaks coming from the infected area. ? Your red area gets larger or turns dark in color. These symptoms may represent a serious problem that is an emergency. Do not wait to see if the symptoms will go away. Get medical help right away. Call your local emergency services (911 in the [place] Do not drive yourself to the hospital. Summary ? Cellulitis is a skin infection. This condition occurs most often in the arms and lower legs. ? Treatment for this condition may include medicines, such as antibiotic medicines or antihistamines. ? Take fbqe-pas-anxspho and prescription medicines only as told by your health care provider. If you were prescribed an antibiotic medicine, do not stop taking the antibiotic even if you start to feel better. ? Contact a health care provider if your symptoms do not begin to improve within 1???2 days of starting treatment or your symptoms get worse. ? Keep all follow-up visits as told by your health care provider. This is important. These visits letyour health care provider make sure that a more serious infection is not developing. This information is not intended to replace advice given to you by your health care provider. Make sure you discuss any questions you have with your health care provider. Document Revised: 04/01/2022 Document Reviewed: 04/02/2022 [employer] Patient Education ?? 2022 [employer] Tests Performed Medications and Immunizations Administered Given doxycycline, 100 mg, Oral Patient/Gas Leak Inspector Signature Patient Name:SONG GUERRERO I have received this information and my questions have been answered. Patient/Gas Leak Inspector Name: Patient/Gas Leak Inspector Signature: Relationship to Patient: Witness Name/Signature: Date: Electronically Signed on: 04/15/2024 13:51 EDTSigned by: Patient Care team information Care Team Personnel Name: WILFRED LANDEROS Position: No Access Member Role: Primary Care Physician Address: [address] [place] [address] [place] [address]- Care Team Related Persons Name: BOBBY GUAMAN Insurance Providers Guarantor name: SONG GUERRERO Health Plan Information #: 1 Payer: MEDICAID [place] Member Number: [id number] Policy Number: [place] Health Plan Information #: 2 Payer: [place]ICAID [place] Member Number: [id number] Policy Number: [place]
--- OUTSIDE RECORDS SUMMARY | 2024-07-11 16:28 | XMS_ITS | Clinical Summary ---
Author Organization [facility] Address [address] [place] [id number] Care Team Providers Care Regulatory Manager Name Role Phone Unknown, Provider Primary Care Provider Unava ilable Social History Tobacco Use Types Packs/Day Years Used Date Smoking Tobacco: Never Assessed Comments Unknown Sex and Gender Information Value Date Recorded Sex Assigned at Not on file Legal Sex Female 18:24 EST Gender Identity Not on file Sexual Orientation Not on file Plan of Treatment Health Maintenance Due Date Last Done Comments Hepatitis B Vaccine (1 of - 19+ 3-dose series) 10/29 COVID-19 Vaccine ( season) 2024 Hepatitis C Screen Completed 05/19/2021 Procedures Procedure Name Priority Date/Time Associated Diagnosis Comments HCV RNA DETECT QUANT Today 05/19/2021 9:20 EST from Last 3 Months or Most Recently Relevant to Health Maintenance Results * HCV RNA DETECT QUANT (05/19/2021 9:20 EST) HCV RNA Qualitative Undetected Undetected 05/21/2021 15:21 EST [facility] Blood VENOUS BLOOD / Unknown 05/19/2021 9:20 EST 05/19/2021 16:14 EST Narrative [facility] - 05/21/2021 15:21 EST New platform in use 01/27/2021 The quantification range of this assay is 15 IU/mL to 100,000,000 IU/mL. Testing was performed using the Chrissie HCV test ([employer] with the chrissie 6800 System. us Provider Outr Resulting Lab CHEMISTRY & BLOOD GA S ORDERABLES Final Result [facility] [address] [place] [phone] from Last 3 Months or Most Recently Relevant to Health Maintenance Insurance [place] Care Teams Regulatory Manager Relationship Specialty Start Date End Date Unknown, Provider, PCP - General 07/05/22
--- OUTSIDE RECORDS SUMMARY | 2024-07-11 16:28 | XMS_ITS | Continuity of Care Document ---
Author Organization [facility] Address [address] [place] [id number] Encounter [facility] FIN NBR [id number] Date(s): 07/05/22 - 07/05/[address] [address]- Encounter Diagnosis Back strain(Discharge Diagnosis) - 07/05/22 Muscle contusion(Discharge Diagnosis) - 07/05/22 Discharge Disposition: Home f/u Internal Provider Attending Physician: John Lagunas MD Admitting Physician: John Lagunas MD Allergies, Adverse Reactions, Alerts No Known Allergies Functional Status 07/05/22 Other exposure to Infectious Disease Non e Medications cyclobenzaprine 5 mg oral tablet 5 mg = 1 tab, Oral, TID, PRN as needed for muscle spasm, # 30 tab, 0 Refill(s), Pharmacy: [facility] #[id number], 127, cm, 07/05/22 11:45:00 EST, Height/Length Dosing, 61.69, kg, 07/05/22 11:45:00 EST, Weight Dosing Start Date: 07/05/22 Status: Ordered ibuprofen 800 mg oral tablet 800 mg = 1 tab, Oral, every 8 hr, # 30 tab, 0 Refill(s), Pharmacy: [facility] #[id number], 127, cm, 07/05/22 11:45:00 EST, Height/Length Dosing, 61.69, kg, 07/05/22 11:45:00 EST, Weight Dosing Start Date: 07/05/22 Status: Ordered Lidoderm 5% topical film 1 patches, Topical, Daily, remove patches after 12 hours, # 10 patches, 0 Refill(s), Pharmacy: [facility] #[id number], 127, cm, 07/05/22 11:45:00 EST, Height/Length Dosing, 61.69, kg, 07/05/22 11:45:00 EST, Weight Dosing Start Date: 07/05/22 Status: Ordered Multiple Vitamins oral tablet 1 tab, Oral, Daily, # 30 tab, 0 Refill(s) Start Date: 07/05/22 Status: Ordered Results Radiology Reports * Exam Date Time Procedure Performing Provider Status 07/05/22 12:02 PM XR Hip 2-3 Views w/A P Pelvis Right TRACKER, RAD; Auth (Verified) Notes: (XR Hip 2-3 Views w/AP Pelvis Right) Reason For Exam: fall pain XR Hip 2-3 Views w/AP Pelvis Right PROCEDURE INFORMATION: Exam: XR Right Hip Exam date and time: 07/05/2022 12:13 PM Age: 41 years old Clinical indication: Hip pain; Right hip; Additional info: Fall pain TECHNIQUE: Imaging protocol: Radiologic exam of the Right hip. Views: 2 or 3 views hip with pelvis when performed. COMPARISON: CR XR LUMBAR SPINE 2 OR 3 VIEW 07/05/2022 12:11 PM FINDINGS: Bones/joints: There are mild degenerative changes in the hips. No acute fracture. Soft tissues: Unremarkable. IMPRESSION: Mild degenerative changes THIS DOCUMENT HAS BEEN ELECTRONICALLY SIGNED BY OMAR SANCHEZ MD on 07/05/2022 03:29 PM Final Signed by: Omar Sanchez MD Signed (Electronic Signature): 07/05/2022 3:29 pm * Exam Date Time Procedure Performing Provider Status 07/05/22 12:02 PM XR Spine Lumbosacral 2 or 3 Views TRAC KER, RAD; Auth (Verified) Notes: (XR Spine Lumbosacral 2 or 3 Views) Reason For Exam: fall pain XR Spine Lumbosacral 2 or 3 Views PROCEDURE INFORMATION: Exam: XR Lumbosacral Spine Exam date and time: 07/05/2022 12:11 PM Age: 41 years old Clinical indication: Low back pain; Additional info: Fall pain TECHNIQUE: Imaging protocol: Radiologic exam of the lumbosacral spine. Views: 2 or 3 views. COMPARISON: No relevant prior studies available. FINDINGS: Bones/joints: There are mild degenerative changes lower lumbar spine. No acute fracture. Soft tissues: Unremarkable. IMPRESSION: Mild multilevel degenerative changes. THIS DOCUMENT HAS BEEN ELECTRONICALLY SIGNED BY OMAR SANCHEZ MD on 07/05/2022 03:29 PM Final Signed by: Omar Sanchez MD Signed (Electronic Signature): 07/05/2022 3:29 pm Vital Signs Most recent to oldest [Reference Range]: 1 Temperature Tympanic [36.6-37.9 Deg C] 3 6.2 Deg C *LOW* (07/05/22 11:34 AM) Peripheral Pulse Rate [60-100 bpm] 88 bp m (07/05/22 11:34 AM) Respiratory Rate [12-24 br/min] 16 br/mi n (07/05/22 11:34 AM) Blood Pressure [90-140/60-90 mmHg] 134/1 15mmHg (07/05/22 11:34 AM) Weight Dosing 61.69 kg (07/05/22 11:45 AM) Weight Estimated 61.69 kg (07/05/22 11:34 AM) Height/Length Dosing 127.000 cm (07/05/22 11:45 AM) Height/Length Estimated 127.000 cm (07/05/22 11:34 AM) Social History Social History Type Response Tobacco Never tobacco user T obacco Use:. Sex Hospital Discharge Instructions Patient Education 07/05/2022 11:42:13 Muscle Strain Muscle Strain A muscle strain is an injury that occurs when a muscle is stretched beyond its normal length. Usually, a small number of muscle fibers are torn when this happens. There are three types of muscle strains. First-degree strains have the least amount of muscle fiber tearing and the least amount of pain. Second-degree and third-degree strains have more tearing and pain. Usually, recovery from muscle strain takes 1???2 weeks. Complete healing normally takes 5???6 weeks. What are the causes? This condition is caused when a sudden, violent force is placed on a muscle and stretches it too far. This may occur with a fall, while lifting, or during sports. What increases the risk? This condition is more likely to develop in athletes and people who are physically active. What are the signs or symptoms? Symptoms of this condition include: ??? Pain. ??? Tenderness. ??? Bruising. ??? Swelling. ??? Trouble using the muscle. How is this diagnosed? This condition is diagnosed based on a physical exam and your medical history. Tests may also be done, including an X-ray, ultrasound, or MRI. How is this treated? This condition is initially treated with ONEILL therapy. This therapy involves: ??? Protecting the muscle from being injured again. ??? Resting the injured muscle. ??? Icing the injured muscle. ??? Applying pressure (compression) to the injured muscle. This may be done with a splint or elastic bandage. ??? Raising (elevating) the injured muscle. Your health care provider may also recommend medicine for pain. Follow these instructions at home: If you have a removable splint: ??? Wear the splint as told by your health care provider. Remove it only as told by your health care provider. ??? Check the skin around the splint every day. Tell your health care provider about any concerns. ??? Loosen the splint if your fingers or toes tingle, become numb, or turn cold and blue. ??? Keep the splint clean. ??? If the splint is not waterproof: ??? Do not let it get wet. ??? Cover it with a watertight covering when you take a bath or a shower. Managing pain, stiffness, and swelling ??? If directed, put ice on the injured area. To do this: ??? If you have a removable splint, remove it as told by your health care provider. ??? Put ice in a plastic bag. ??? Place a towel between your skin and the bag. ??? Leave the ice on for 20 minutes, 2???3 times a day. ??? Remove the ice if your skin turns bright red. This is very important. If you cannot feel pain, heat, or cold, you have a greater risk of damage to the area. ??? Move your fingers or toes often to reduce stiffness and swelling. ??? Raise (elevate) the injured area above the level of your heart while you are sitting or lying down. ??? Wear an elastic bandage as told by your health care provider. Make sure that it is not too tight. General instructions ??? Take nnuu-tap-yytqhzv and prescription medicines only as told by your health care provider. Treatment may include muscle relaxants or medicines for pain and inflammation that are taken by mouth or applied to the skin. ??? Restrict your activity and rest the injured muscle as told by your health care provider. Gentlemovements may be allowed. ??? If physical therapy was prescribed, do exercises as told by your health care provider. ??? Do not put pressure on any part of the splint until it is fully hardened. This may take severalhours. ??? Do not use any products that contain nicotine or tobacco. These products include cigarettes, chewing tobacco, and vaping devices, such as e-cigarettes. If you need help quitting, ask your health care provider. ??? Ask your health care provider when it is safe to drive if you have a splint. ??? Keep all follow-up visits. This is important. How is this prevented? Warm up before exercising. This helps to prevent future muscle strains. Contact a health care provider if: ??? You have more pain or swelling in the injured area. Get help right away if: ??? You have numbness or tingling in the injured area. ??? You lose a lot of strength in the injured area. Summary ??? A muscle strain is an injury that occurs when a muscle is stretched beyond its normal length. ??? This condition is caused when a sudden, violent force is placed on a muscle and stretches it too far. ??? This condition is initially treated with ONEILL therapy, which involves protecting, resting, icing, compressing, and elevating. ??? Gentle movements may be allowed. If physical therapy was prescribed, do exercises as told by your health care provider. This information is not intended to replace advice given to you by your health care provider. Make sure you discuss any questions you have with your health care provider. Document Revised: 09/08/2021 Document Reviewed: 09/08/2021 [employer] Patient Education ?? 2021 [email or web address]. 07/05/2022 11:42:10 Lumbosacral Strain Lumbosacral Strain Lumbosacral strain is an injury that causes pain in the lower back (lumbosacral spine). This injuryusually happens from overstretching the muscles or ligaments along your spine. Ligaments are cord-like tissues that connect bones to other bones. A strain can affect one or more muscles or ligaments. What are the causes? This condition may be caused by: ??? A hard, direct hit to the back. ??? Overstretching the lower back muscles. This may result from: ??? A fall. ??? Lifting something heavy. ??? Repetitive movements such as bending or crouching. What increases the risk? The following factors may make you more likely to develop this condition: ??? Participating in sports or activities that involve: ??? A sudden twist of the back. ??? Pushing or pulling motions. ??? Being overweight or obese. ??? Having poor strength and flexibility, especially tight hamstrings or weak muscles in the back or abdomen. ??? Having too much of a curve in the lower back. ??? Having a pelvis that is tilted forward. What are the signs or symptoms? The main symptom of this condition is pain in the lower back, at the site of the strain. Pain may also be felt down one or both legs. How is this diagnosed? This condition is diagnosed based on your symptoms, your medical history, and a physical exam. During the physical exam, your health care provider may push on certain areas of your back to find the source of your pain. You may be asked to bend forward, backward, and side to side to check your pain and range of motion. You may also have imaging tests, such as X-rays and an MRI. How is this treated? This condition may be treated by: ??? Applying heat and cold on the affected area. ??? Taking medicines to help relieve pain and relax your muscles. ??? Taking NSAIDs, such as ibuprofen, to help reduce swelling and discomfort. ??? Doing stretching and strengthening exercises for your lower back. Symptoms usually improve within several weeks of treatment. However, recovery time varies. When your symptoms improve, gradually return to your normal routine as soon as possible to reduce pain, avoid stiffness, and keep muscle strength. Follow these instructions at home: Medicines ??? Take vbmp-pbo-vihgtdz and prescription medicines only as told by your health care provider. ??? Ask your health care provider if the medicine prescribed to you: ??? Requires you to avoid driving or using heavy machinery. ??? Can cause constipation. You may need to take these actions to prevent or treat constipation: ??? Drink enough fluid to keep your urine pale yellow. ??? Take bpdi-mzv-oaeaspr or prescription medicines. ??? Eat foods that are high in fiber, such as beans, whole grains, and fresh fruits and vegetables. ??? Limit foods that are high in fat and processed sugars, such as fried or sweet foods. Managing pain, stiffness, and swelling ??? If directed, put ice on the injured area. To do this: ??? Put ice in a plastic bag. ??? Place a towel between your skin and the bag. ??? Leave the ice on for 20 minutes, 2???3 times a day. ??? If directed, apply heat on the affected area as often as told by your health care provider. Usethe heat source that your health care provider recommends, such as a moist heat pack or a heating pad. ??? Place a towel between your skin and the heat source. ??? Leave the heat on for 20???30 minutes. ??? Remove the heat if your skin turns bright red. This is especially important if you are unable to feel pain, heat, or cold. You may have a greater risk of getting burned. Activity ??? Rest as told by your health care provider. ??? Do not stay in bed. Staying in bed for more than 1???2 days can delay your recovery. ??? Return to your normal activities as told by your health care provider. Ask your health care provider what activities are safe for you. ??? Avoid activities that take a lot of energy for as long as told by your health care provider. ??? Do exercises as told by your health care provider. This includes stretching and strengthening exercises. General instructions ??? Sit up and stand up straight. Avoid leaning forward when you sit, or hunching over when you stand. ??? Do not use any products that contain nicotine or tobacco, such as cigarettes, e-cigarettes, andchewing tobacco. If you need help quitting, ask your health care provider. ??? Keep all follow-up visits as told by your health care provider. This is important. How is this prevented? Use correct form when playing sports and lifting heavy objects. ??? Use good posture when sitting and standing. ??? Maintain a healthy weight. ??? Sleep on a mattress with medium firmness to support your back. ??? Do at least 150 minutes of moderate-intensity exercise each week, such as brisk walking or water aerobics. Try a form of exercise that takes stress off your back, such as swimming or stationary cycling. ??? Maintain physical fitness, including: ??? Strength. ??? Flexibility. Contact a health care provider if: ??? Your back pain does not improve after several weeks of treatment. ??? Your symptoms get worse. Get help right away if: ??? Your back pain is severe. ??? You cannot stand or walk. ??? You have difficulty controlling when you urinate or when you have a bowel movement. ??? You feel nauseous or you vomit. ??? Your feet or legs get very cold, turn pale, or look blue. ??? You have numbness, tingling, weakness, or problems using your arms or legs. ??? You develop any of the following: ??? Shortness of breath. ??? Dizziness. ??? Pain in your legs. ??? Weakness in your buttocks or legs. Summary ??? Lumbosacral strain is an injury that causes pain in the lower back (lumbosacral spine). ??? This injury usually happens from overstretching the muscles or ligaments along your spine. ??? This condition may be caused by a direct hit to the lower back or by overstretching the lower back muscles. ??? Symptoms usually improve within several weeks of treatment. This information is not intended to replace advice given to you by your health care provider. Make sure you discuss any questions you have with your health care provider. Document Revised: 11/14/2019 Document Reviewed: 11/14/2019 [employer] Patient Education ?? 2021 [email or web address]. Follow Up Care 07/05/2022 11:34:01 With:Follow up with primary care provider Address: When:1 to 2 weeks Physician Emergency department Note * CHINEDU Machado: PERFORM Event Display: ED Note Physician Authored Date: [id number] SONG LAM :1980 Age:41 years Sex:Female Visit Date:07/05/2022 Basic Information Time Seen: CHINEDU Machado / 07/05/2022 11:42 Chief Complaint fell a week ago. Complaining of 8/10 pain that starts on her spine and spreads to her right hip. History Of Present Illness: Patient is a 41-year-old female presenting to the emergency department for right hip and lower backpain.?? 1 week ago she slipped down 3 steps.?? Has had worsening pain in the right hip since.?? Today pain significantly worst, unable to sleep well last night prompting her to come to the emergency room for evaluation.?? Denies any radicular pain.?? No stool or urinary incontinence.?? No paresthesias or saddle paresthesias.?? Denies history of similar issues in the past.?? Has been taking ankq-scm-rvhtryb Tylenol Motrin with minimal relief in pain. Pain worst with weight bearing Review of Systems: Constitutional:?No??fevers,?No??chills,?No??sweats Gastrointestinal:?Nonausea,?NoAbdominal pain Genitourinary:?No??hematuria Musculoskeletal:??Positive for??back pain,??No??neck pain,??No??joint pain,??Positive for??muscle pain,??No??decreased range of motion Integumentary:?No??rash,?No??abrasions Physical Exam Vitals & Measurements T:??36.2?C ??(Tympanic)?? HR:??88??(Peripheral)?? RR:??16?? BP:??134/115?? SpO2:??100%?? HT:??127.000??cm?? WT:??61.69??kg??(Estimated)?? Pain Score:??10?? O2 Therapy:??Room air?? GENERAL: Awake and alert. No acute distress ?? CARDIOVASCULAR: Regular rate and rhythm, no murmur no rub ?? LUNGS: No respiratory distress. Chest nontender. Normal breath sounds. No wheezing or crackles ?? ABDOMEN: Abdomen soft nontender nondistended. No CVA/flank tenderness ?? BACK: no midline tenderness but tenderness just lateral of spine over paraspinal muscles extending to the right hip. no bruising , swelling or deformity. ?? EXTREMITIES:? normal range of motion. tenderness along upper right hip in area of iliac crest.No greater trochanter or low hip tenderness. ?? NEUROLOGIC: Alert and oriented x4. Motor normal.?Sensation normal. normal ?? SKIN: Color normal. ??Warm dry intact. No Rash ?? VASCULAR: Normal pedal pulses. No peripheral edema. Procedure No Qualifying Data Assessment/Plan 1.??Back strain??S39.012A Neurovascularly intact. ??We will have her start??Flexeril. ??Continue??Tylenol and ibuprofen. ??Ibuprofen prescription provided.?? Instructed to start Lidoderm patches. ??Patch applied while in the emergency room.?? Supportive measures reviewed. ??Follow-up with primary care provider for recheck. ??Return to ER if any worsening or changes.?? Patient states understanding and agrees with above plan. Ordered: cyclobenzaprine 5 mg oral tablet, 5 mg = 1 tab, Oral, TID, PRN as needed for muscle spasm, # 30 tab, 0 Refill(s), Pharmacy: [facility] #[id number], 127, cm, 07/05/22 11:45:00 EST, Height/Length Dosing, 61.69, kg, 07/05/22 11:45:00 EST, Weight Dosing ibuprofen 800 mg oral tablet, 800 mg = 1 tab, Oral, every 8 hr, # 30 tab, 0 Refill(s), Pharmacy: [facility] #[id number], 127, cm, 07/05/22 11:45:00 EST, Height/Length Dosing, 61.69, kg, 07/05/2310:45:00 EST, Weight Dosing Lidoderm 5% topical film, 1 patches, Topical, Daily, remove patches after 12 hours, # 10 patches, 0Refill(s), Pharmacy: [facility] #[id number], 127, cm, 07/05/22 11:45:00 EST, Height/Length Dosing, 61.69, kg, 07/05/22 11:45:00 EST, Weight Dosing ?? 2.??Muscle contusion??T14.8XXA ?? Orders: Discharge Patient, 07/05/22 12:58:00 EST XR Hip 2-3 Views w/AP Pelvis Right, 07/05/22 11:51:00 EST, Stat, Reason: fall pain, Transport Mode:Stretcher XR Spine Lumbosacral 2 or 3 Views, 07/05/22 11:50:00 EST, Stat, Reason: fall pain, Transport Mode: Ambulatory Patient Education Muscle Strain Lumbosacral Strain Follow Up With When Contact Information Follow up with primary care provider Within 1 to 2 weeks Additional Instructions: Medication Reconciliation New Prescription cyclobenzaprine (cyclobenzaprine 5 mg oral tablet)1 tab Oral (given by mouth) 3 times a day as needed as needed for muscle spasm. Refills: 0. ?? ibuprofen (ibuprofen 800 mg oral tablet)1 tab Oral (given by mouth) every 8 hours. Refills: 0. ?? lidocaine topical (Lidoderm 5% topical film)1 patch(es) Topical (on the skin) every day. remove patches after 12 hours. Refills: 0. ?? Unchanged multivitamin (Multiple Vitamins oral tablet)1 tab Oral (given by mouth) every day. Problem List/Past Medical History Ongoing No qualifying data Historical No qualifying data Medication Administration Given cyclobenzaprine, 5 mg, Oral ibuprofen, 800 mg, Oral lidocaine 5% topical film, 1 patches, TD Allergies No Known Allergies Social History Electronic Cigarette/Vaping Electronic Cigarette Use: Use, within last 90 days. Use per Day: 1-25 Inhales/day. Tobacco Never tobacco user Tobacco Use:. Diagnostic Results Diagnostic Study Interpretation: X-ray??right hip with AP pelvis??and lumbar spine: No obvious deformities or fractures.? Electronically Signed on 07/05/22 01:24 PM CHINEDU Machado Emergency department Discharge instructions * CHINEDU Machado: PERFORM Event Display: ED Discharge Information Authored Date: [id number] SONG LAM :1980 Age:41 years Sex:Female Visit Date:07/05/2022 Discharge Instructions We would like to thank you for allowing us to assist you with your healthcare needs. The following includes patient education materials and information regarding your injury/illness. Diagnosis from Today's Visit Back strain Muscle contusion Discharge Vitals Temperature??(Tympanic) 97.2 ??F (36.2 ??C) Heart Rate??(Peripheral) 88 Respiratory Rate?? 16 Blood Pressure?? 134/115?? Height?? 50.00 in (127.000 cm) Weight??(Estimated) 136.03 lb (61.69 kg) Allergies No Known Allergies What to Do Next You Need to Schedule the Following Appointments Follow Up with??Follow up with primary care provider When:??Within 1 to 2 weeks You were treated today on an emergency [...] Much When Why Instructions Next Dose New cyclobenzaprine (cyclobenzaprine 5 mg oral tablet) 1 tab Oral (given by mouth) 3 times a day as needed for as needed for muscle spasm Back strain Pickup at [facility] #[id number] New ibuprofen (ibuprofen 800 mg oral tablet) 1 tab Oral (given by mouth) Every 8 hours [id number] New lidocaine topical (Lidoderm 5% topical film) 1 patch(es) Topical (on the skin) Every day Back strain remove patches after 12 hours ?? Pickup at [facility] #[id number] Unchanged multivitamin (Multiple Vitamins oral tablet) 1 tab Oral (given by mouth) Every day Pharmacy Information [facility] #[id number]: [address] [place], [place] [phone] Education Materials Muscle Strain A muscle strain is an injury that occurs when a muscle is stretched beyond its normal length. Usually, a small number of muscle fibers are torn when this happens. There are three types of muscle strains. First-degree strains have the least amount of muscle fiber tearing and the least amount of pain. Second-degree and third-degree strains have more tearing and pain. Usually, recovery from muscle strain takes 1???2 weeks. Complete healing normally takes 5???6 weeks. What are the causes? This condition is caused when a sudden, violent force is placed on a muscle and stretches it too far. This may occur with a fall, while lifting, or during sports. What increases the risk? This condition is more likely to develop in athletes and people who are physically active. What are the signs or symptoms? Symptoms of this condition include: ? Pain. ? Tenderness. ? Bruising. ? Swelling. ? Trouble using the muscle. How is this diagnosed? This condition is diagnosed based on a physical exam and your medical history. Tests may also be done, including an X-ray, ultrasound, or MRI. How is this treated? This condition is initially treated with ONEILL therapy. This therapy involves: ? Protecting the muscle from being injured again. ? Resting the injured muscle. ? Icing the injured muscle. ? Applying pressure (compression) to the injured muscle. This may be done with a splint or elastic bandage. ? Raising (elevating) the injured muscle. Your health care provider may also recommend medicine for pain. Follow these instructions at home: If you have a removable splint: ? Wear the splint as told by your health care provider. Remove it only as told by your health care provider. ? Check the skin around the splint every day. Tell your health care provider about any concerns. ? Loosen the splint if your fingers or toes tingle, become numb, or turn cold and blue. ? Keep the splint clean. ? If the splint is not waterproof: ? Do not let it get wet. ? Cover it with a watertight covering when you take a bath or a shower. Managing pain, stiffness, and swelling ? If directed, put ice on the injured area. To do this: ? If you have a removable splint, remove it as told by your health care provider. ? Put ice in a plastic bag. ? Place a towel between your skin and the bag. ? Leave the ice on for 20 minutes, 2???3 times a day. ? Remove the ice if your skin turns bright red. This is very important. If you cannot feel pain, heat, or cold, you have a greater risk of damage to the area. ? Move your fingers or toes often to reduce stiffness and swelling. ? Raise (elevate) the injured area above the level of your heart while you are sitting or lying down. ? Wear an elastic bandage as told by your health care provider. Make sure that it is not too tight. General instructions ? Take syhq-xmf-qifnxlf and prescription medicines only as told by your health care provider. Treatment may include muscle relaxants or medicines for pain and inflammation that are taken by mouth or applied to the skin. ? Restrict your activity and rest the injured muscle as told by your health care provider. Gentle movements may be allowed. ? If physical therapy was prescribed, do exercises as told by your health care provider. ? Do not put pressure on any part of the splint until it is fully hardened. This may take several hours. ? Do not use any products that contain nicotine or tobacco. These products include cigarettes, chewing tobacco, and vaping devices, such as e-cigarettes. If you need help quitting, ask your health careprovider. ? Ask your health care provider when it is safe to drive if you have a splint. ? Keep all follow-up visits. This is important. How is this prevented? Warm up before exercising. This helps to prevent future muscle strains. Contact a health care provider if: ? You have more pain or swelling in the injured area. Get help right away if: ? You have numbness or tingling in the injured area. ? You lose a lot of strength in the injured area. Summary ? A muscle strain is an injury that occurs when a muscle is stretched beyond its normal length. ? This condition is caused when a sudden, violent force is placed on a muscle and stretches it too far. ? This condition is initially treated with ONEILL therapy, which involves protecting, resting, icing, compressing, and elevating. ? Gentle movements may be allowed. If physical therapy was prescribed, do exercises as told by your health care provider. This information is not intended to replace advice given to you by your health care provider. Make sure you discuss any questions you have with your health care provider. Document Revised: 09/08/2021 Document Reviewed: 09/08/2021 Elsevier Patient Education ?? 2021 [employer] Lumbosacral Strain Lumbosacral strain is an injury that causes pain in the lower back (lumbosacral spine). This injuryusually happens from overstretching the muscles or ligaments along your spine. Ligaments are cord-like tissues that connect bones to other bones. A strain can affect one or more muscles or ligaments. What are the causes? This condition may be caused by: ? A hard, direct hit to the back. ? Overstretching the lower back muscles. This may result from: ? A fall. ? Lifting something heavy. ? Repetitive movements such as bending or crouching. What increases the risk? The following factors may make you more likely to develop this condition: ? Participating in sports or activities that involve: ? A sudden twist of the back. ? Pushing or pulling motions. ? Being overweight or obese. ? Having poor strength and flexibility, especially tight hamstrings or weak muscles in the back or abdomen. ? Having too much of a curve in the lower back. ? Having a pelvis that is tilted forward. What are the signs or symptoms? The main symptom of this condition is pain in the lower back, at the site of the strain. Pain may also be felt down one or both legs. How is this diagnosed? This condition is diagnosed based on your symptoms, your medical history, and a physical exam. During the physical exam, your health care provider may push on certain areas of your back to find the source of your pain. You may be asked to bend forward, backward, and side to side to check your pain and range of motion. You may also have imaging tests, such as X-rays and an MRI. How is this treated? This condition may be treated by: ? Applying heat and cold on the affected area. ? Taking medicines to help relieve pain and relax your muscles. ? Taking NSAIDs, such as ibuprofen, to help reduce swelling and discomfort. ? Doing stretching and strengthening exercises for your lower back. Symptoms usually improve within several weeks of treatment. However, recovery time varies. When your symptoms improve, gradually return to your normal routine as soon as possible to reduce pain, avoid stiffness, and keep muscle strength. Follow these instructions at home: Medicines ? Take dyqq-ufe-cferakk and prescription medicines only as told by your health care provider. ? Ask your health care provider if the medicine prescribed to you: ? Requires you to avoid driving or using heavy machinery. ? Can cause constipation. You may need to take these actions to prevent or treat constipation: ? Drink enough fluid to keep your urine pale yellow. ? Take npvs-whk-kdokaqp or prescription medicines. ? Eat foods that are high in fiber, such as beans, whole grains, and fresh fruits and vegetables. ? Limit foods that are high in fat and processed sugars, such as fried or sweet foods. Managing pain, stiffness, and swelling ? If directed, put ice on the injured area. To do this: ? Put ice in a plastic bag. ? Place a towel between your skin and the bag. ? Leave the ice on for 20 minutes, 2???3 times a day. ? If directed, apply heat on the affected area as often as told by your health care provider. Use theheat source that your health care provider recommends, such as a moist heat pack or a heating pad. ? Place a towel between your skin and the heat source. ? Leave the heat on for 20???30 minutes. ? Remove the heat if your skin turns bright red. This is especially important if you are unable to feel pain, heat, or cold. You may have a greater risk of getting burned. Activity ? Rest as told by your health care provider. ? Do not stay in bed. Staying in bed for more than 1???2 days can delay your recovery. ? Return to your normal activities as told by your health care provider. Ask your health care provider what activities are safe for you. ? Avoid activities that take a lot of energy for as long as told by your health care provider. ? Do exercises as told by your health care provider. This includes stretching and strengthening exercises. General instructions ? Sit up and stand up straight. Avoid leaning forward when you sit, or hunching over when you stand. ? Do not use any products that contain nicotine or tobacco, such as cigarettes, e- cigarettes, and chewing tobacco. If you need help quitting, ask your health care provider. ? Keep all follow-up visits as told by your health care provider. This is important. How is this prevented? Use correct form when playing sports and lifting heavy objects. ? Use good posture when sitting and standing. ? Maintain a healthy weight. ? Sleep on a mattress with medium firmness to support your back. ? Do at least 150 minutes of moderate-intensity exercise each week, such as brisk walking or water aerobics. Try a form of exercise that takes stress off your back, such as swimming or stationary cycling. ? Maintain physical fitness, including: ? Strength. ? Flexibility. Contact a health care provider if: ? Your back pain does not improve after several weeks of treatment. ? Your symptoms get worse. Get help right away if: ? Your back pain is severe. ? You cannot stand or walk. ? You have difficulty controlling when you urinate or when you have a bowel movement. ? You feel nauseous or you vomit. ? Your feet or legs get very cold, turn pale, or look blue. ? You have numbness, tingling, weakness, or problems using your arms or legs. ? You develop any of the following: ? Shortness of breath. ? Dizziness. ? Pain in your legs. ? Weakness in your buttocks or legs. Summary ? Lumbosacral strain is an injury that causes pain in the lower back (lumbosacral spine). ? This injury usually happens from overstretching the muscles or ligaments along your spine. ? This condition may be caused by a direct hit to the lower back or by overstretching the lower back muscles. ? Symptoms usually improve within several weeks of treatment. This information is not intended to replace advice given to you by your health care provider. Make sure you discuss any questions you have with your health care provider. Document Revised: 11/14/2019 Document Reviewed: 11/14/2019 [employer] Patient Education ?? 2021 [employer] Tests Performed Medications and Immunizations Administered Given cyclobenzaprine, 5 mg, Oral ibuprofen, 800 mg, Oral Patient/Director Validation Signature Patient Name:SONG LAM I have received this information and my questions have been answered. Patient/Director Validation Name: Patient/Director Validation Signature: Relationship to Patient: Witness Name/Signature: Date: Electronically Signed on: 07/05/2022 12:57 ESTSigned by:LISANDRO MEDINA Spine Lumbar and Sacrum GE 2 Views * Omar Sanchez MD: VERIFY, VERIFY Event Display: Report PROCEDURE INFORMATION: Exam: XR Lumbosacral Spine Exam date and time: 07/05/2022 12:11 PM Age: 41 years old Clinical indication: Low back pain; Additional info: Fall pain TECHNIQUE: Imaging protocol: Radiologic exam of the lumbosacral spine. Views: 2 or 3 views. COMPARISON: No relevant prior studies available. FINDINGS: Bones/joints: There are mild degenerative changes lower lumbar spine. No acute fracture. Soft tissues: Unremarkable. IMPRESSION: Mild multilevel degenerative changes. THIS DOCUMENT HAS BEEN ELECTRONICALLY SIGNED BY OMAR SANCHEZ MD on 07/05/2022 03:29 PM Final Signed by: Omar Sanchez MD Signed (Electronic Signature): 07/05/2022 3:29 pm XR Pelvis and Hip - right Views * Omar Sanchez MD: VERIFY, VERIFY Event Display: Report PROCEDURE INFORMATION: Exam: XR Right Hip Exam date and time: 07/05/2022 12:13 PM Age: 41 years old Clinical indication: Hip pain; Right hip; Additional info: Fall pain TECHNIQUE: Imaging protocol: Radiologic exam of the Right hip. Views: 2 or 3 views hip with pelvis when performed. COMPARISON: CR XR LUMBAR SPINE 2 OR 3 VIEW 07/05/2022 12:11 PM FINDINGS: Bones/joints: There are mild degenerative changes in the hips. No acute fracture. Soft tissues: Unremarkable.
--- OUTSIDE RECORDS SUMMARY | 2024-07-11 16:29 | XMS_ITS | Encounter Summary ---
Author Organization [facility] Address [address] [place] [address] Care Team Providers Care Automobile Seat Cover Installer Name Role Phone Unavailable Primary Care Provider Unavailabl e Encounter Details Date Type Department Care Team (Latest Contact Info) Description 10/22/2000 19:17 EDT Hospital Encounter [facility] - Other [address] [place] [address] Ismael Logan MD [address] [place], [place] [address] Unknown, Provider, Discharge Disposition: Auto Discharge Social History Tobacco Use Types Packs/Day Years Used Date Smoking Tobacco: Never Assessed Comments Unknown Sex and Gender Information Value Date Recorded Sex Assigned at Not on file Legal Sex Female 18:24 EST Gender Identity Not on file Sexual Orientation Not on file documented as of this encounter Discharge Disposition Disposition Code Departure Means Destination Auto Discharge documented in this encounter Plan of Treatment Not on file documented as of this encounter Procedures Procedure Name Priority Date/Time Associated Diagnosis Comments SURGICAL PATHOLOGY Routine 10/22/2000 0:00 EDT documented in this encounter Results * SURGICAL PATHOLOGY (10/22/2000 0:00 EDT) Pathology Report: SURGICAL PATHOLOGY REPORT Reports generated via electronic interface contain original data; however they are lacking the format of the original report. Caution should be taken when reading/interpreti ng unformatted reports. Name: ? SONG GUERRERO ? Accession #: ? [id number] ? : ? 1980 (Age: 19) ??F ? Collect Date: ? 10/22/2000 ? Location: ? [facility] ? Receive Date: ? 10/26/2000 ? Provider: ISMAEL LOGAN MD Copy to: AYLIN EVANS MD ? Final Pathologic Diagnosis: ? Endocervix, curettage: - Fragments of benign endocervical tissue. ??See comment. Comment: ? Pap smear ([id number]) has been reviewed. ??The low grade squamous intraepithelial lesion cells identified on the pap smear are not present on the endocervical curettage specimen. ??Deeper levels have been examined. ??(Dr. Humphreys)/n Document reviewed and electronically signed by: GONZALO HUMPHREYS MD Report ??Date: 10/28/2000 09:51 By the signature above, the attending physician certifies that he/she has personally conducted a gross and/or microscopic examination of the described specimens and rendered or confirmed the above diagnosis. Specimen(s) Received: ? ECC Clinical History: ? PAP ??LGSIL (no prev abnl) Gross Description: ? Received in formalin labelled [place] and EM are 0.5 cc of dhaliwal-red mucinous material. ??The specimen is entirely submitted in one cassette. ??(Marlon Mckeon)/[facility] End of Report [facility] 10/22/2000 10/26/2000 9:0 5 EDT us Ismael Logan MD PATHOLOGY ORDERABLES Final Resul t [facility] [address] [place] [address] documented in this encounter Visit Diagnoses Not on filedocumented in this encounter
--- OUTSIDE RECORDS SUMMARY | 2024-07-11 16:29 | XMS_ITS | Encounter Summary ---
Author Organization [facility] Address [address] [place] [address] Care Team Providers Care Millinery Copyist Name Role Phone Unavailable Primary Care Provider Unavailabl e Encounter Details Date Type Department Care Team (Late st Contact Info) Description 12/16/1999 Results Only [facility] - Map conversion [address] [place] [address] Kayy Villeda, [facility] [address] [place] [address] [place] [address] Social History Tobacco Use Types Packs/Day Years [...] Procedure Name Priority Date/Time Associated Diagnosis Comments CYTOPATHOLOGY Routine 12/16/1999 0:00 EDT documented in this encounter Results * CYTOPATHOLOGY (12/16/1999 0:00 EDT) Pathology Report: CYTOPATHOLOGY REPORT Reports generated via electronic interface contain original data; however they are lacking the format of the original report. Caution should be taken when reading/interpreti ng unformatted reports. Name: ? KALPESHSONG JEONG ? Accession #: ? [id number] : ? 1980 (Age: 19) ??F ?Collect Date: ? 12/16/1999 Location: ? [facility] ? Receive Date: ? 12/18/1999 Provider: ?KAYY VILLEDA DENTAL COORDINATOR Copy to: ? Specimen/Source: ?ThinPrep Pap Test, Cervix/Endocervix Last Menstrual Period: ? 10/26/99 Menstrual/Pregnanc y Status: ? SPECIMEN ADEQUACY ? Satisfactory for evaluation. GENERAL CATEGORIZATION ? Benign Cellular Changes DESCRIPTIVE DIAGNOSIS ? Reactive cellular changes associated with inflammation present (includes repair). ? COMMENT ? Rare cells show enlarged nuclei which may be related to decreased folate levels associated with . ? Document reviewed and electronically signed by: ? GONZALO HUMPHREYS MD ? Report Date: ??12/23/1999 11:51 End of Report [facility] 12/16/1999 12/18/1999 us Kayy Villeda DENTAL COORDINATOR PATHOLOGY ORDERABLES Final R esult [facility] [address] [place] [address] documented in this encounter Visit Diagnoses Not on filedocumented in this encounter
--- OUTSIDE RECORDS SUMMARY | 2024-07-11 16:29 | XMS_ITS | Encounter Summary ---
Author Organization [facility] Address [address] [place] [address] Care Team Providers Care Wireless Retail Manager Name Role Phone Unknown, Provider Primary Care Provider Unava ilable Encounter Details Date Type Department Care Team (Late st Contact Info) Description 05/20/2021 Lab Requisition [facility] Pathology & Laboratory Medicine - [address] [address] Outr Resulting Lab, Provider Social History Tobacco Use Types Packs/Day Years [...] Procedure Name Priority Date/Time Associated Diagnosis Comments LEGIONELLA ANTIGEN DETECTION, URINE Routine 05/20/2021 9:30 EST documented in this encounter Results * LEGIONELLA ANTIGEN DETECTION, URINE (05/20/2021 9:30 EST) Legionella Antigen Detection Negative Negative 05/20/2021 18:32 EST [facility] Urine URINE / Unknown 05/20/2021 9 :30 EST 05/20/2021 17:17 EST us Provider Outr Resulting Lab MICROBIOLOGY - GENER AL ORDERABLES Final Result [facility] [address] [place] [address] documented in this encounter Visit Diagnoses Not on filedocumented in this encounter Care Teams Wireless Retail Manager Relationship Specialty Start Date End Date Unknown, Provider, PCP - General 07/05/22 documented as of this encounter
--- OUTSIDE RECORDS SUMMARY | 2024-07-11 16:29 | XMS_ITS | Encounter Summary ---
Author Organization [facility] Address [address] [place] [address] Care Team Providers Care Suction Operator Name Role Phone Unknown, Provider Primary Care Provider Unava ilable Encounter Details Date Type Department Care Team (Late st Contact Info) Description 05/19/2023 Lab Requisition [facility] Pathology & Laboratory Medicine - [address] [address] Outr Resulting Lab, Provider Social History Tobacco [...] Procedure Name Priority Date/Time Associated Diagnosis Comments CHLAMYDIA/N. GONORRHOEAE AMPLIFIED NUCLEIC ACID, THINPREP Today 05/19/2023 8:20 EST documented in this encounter Results * CHLAMYDIA/N. GONORRHOEAE AMPLIFIED RNA, THINPREP (05/19/2023 8:20 EST) Neisseria gonorrhoeae Result Negative Negative 05/20/2023 14:31 EST [facility] Chlamydia trachomatis Result Negative Negative 05/20/2023 14:31 EST [facility] Pap Test CERVIX UTERI STRUCTURE / Unknown 05/19/2023 8:20 EST 05/20/2023 7:44 EST us Provider Outr Resulting Lab MICROBIOLOGY - GENER AL ORDERABLES Final Result [facility] [address] [place] [address] documented in this encounter Visit Diagnoses Not on filedocumented in this encounter Care Teams Suction Operator Relationship Specialty Start Date End Date Unknown, Provider, PCP - General 07/05/22 documented as of this encounter
--- OUTSIDE RECORDS SUMMARY | 2024-07-11 16:29 | XMS_ITS | Encounter Summary ---
Author Organization [facility] Address [address] [place] [address] Care Team Providers Care Web Press Operator Name Role Phone Unavailable Primary Care Provider Unavailabl e Encounter Details Date Type Department Care Team (Late st Contact Info) Description 09/20/2000 Results Only [facility] - Maple conversion [address] [place] [address] [place] [address] Social History Tobacco Use Types Packs/Day Years [...] Priority Date/Time Associated Diagnosis Comments CYTOPATHOLOGY Routine 09/20/2000 0:00 EST documented in this encounter Results * CYTOPATHOLOGY (09/20/2000 0:00 EST) Pathology Report: CYTOPATHOLOGY REPORT Reports generated via electronic interface contain original data; however they are lacking the format of the original report. Caution should be taken when reading/interpreti ng unformatted reports. Name: ? SONG GUERRERO ? Accession #: ? [id number] : ? 1980 (Age: 19) ??F ?Collect Date: ? 09/20/2000 Location: ? [facility] ? Receive Date: ? 09/22/2000 Provider: ?MORENITA SANCHES CNM Copy to: ? Specimen/Source: ?ThinPrep Pap Test, Cervix/Endocervix Last Menstrual Period: ? 09/13/00 Menstrual/Pregnanc y Status: ? Post Previous Gynecologic Pathology: ? Benign cellular changes: Other: ? Additional clinical information: Rare cells show enlarged nuclei, maybe assoc with . ? SPECIMEN ADEQUACY ? Satisfactory for evaluation. GENERAL CATEGORIZATION ? Epithelial Cell Abnormality DESCRIPTIVE DIAGNOSIS ? Low grade squamous intraepithelial lesion (LSIL). ? Document reviewed and electronically signed by: ? Nalini Goff MD ? Report Date: ??09/27/2000 18:17 End of Report [facility] 09/20/2000 09/22/2000 Morenita Sanches CNM PATHOLOGY ORDERABLES Final Res ult [facility] [address] [place] [address] documented in this encounter Visit Diagnoses Not on filedocumented in this encounter
--- OUTSIDE RECORDS SUMMARY | 2024-07-11 16:29 | XMS_ITS | Encounter Summary ---
Author Organization [facility] Address [address] [place] [address] Care Team Providers Care Circuit Board Inspector Name Role Phone Unknown, Provider Primary Care Provider Unava ilable Encounter Details Date Type Department Care Team (Late st Contact Info) Description 05/19/2023 Lab Requisition [facility] Pathology & Laboratory Medicine - [address] [address] Shruti Resendez [address] [place] [address] [place] [id number] Encounter for other general examination Social History [...] Date/Time Associated Diagnosis Comments SURGICAL PATHOLOGY Today 05/19/2023 8: 20 EST Encounter for other general examination documented in this encounter Results * SURGICAL PATHOLOGY (05/19/2023 8:20 EST) Note to Patient The following pathology results have been interpreted by your pathologist and may be available to you before your health provider has had the opportunity to review them. Please allow time for your provider to receive these results and explore management options, if applicable. 05/20/2023 13:28 EST [facility] Final Diagnosis A. ENDOMETRIUM, BIOPSY: - Very scant fragments of benign endocervix. - Endometrial tissue insufficient for diagnosis. 05/20/2023 13:28 EST [facility] Attestation By the signature below, the attending physician certifies that they have 1) personally conducted a gross and/or microscopic examination of the described specimen(s), and/or personally interpreted the results of laboratory testing of the described specimen(s), and 2) personally rendered or confirmed the above diagnosis. 05/20/2023 13:28 [facility] at 1328 Clinical History Fibroid pre-op 05/20/2023 13:28 [facility] Gross Description A. Received in formalin labelled with proper patient identification (initials C, B) and endometrial bx is an aggregate of blood-tinged mucus measuring 1.2 x 0.7 x 0.3 cm. Submitted entirely in A1 following filtration. CHINEDU MENESES(ASCP) 05/19/2023 19:00 05/20/2023 13:28 [facility] Performing Lab [facility] 05/20/2023 13:28 [facility] Scanned Images 05/20/2023 13:28 [facility] Tissue ENDOMETRIAL STRUCTURE / Unknown 05/19/2023 8:20 EST 05/19/2023 17:18 EST Shruti Resendez PATHOLOGY ORDERABLES Final Resul t [facility] [address] [place] [address] documented in this encounter Visit Diagnoses Diagnosis Encounter for other general examination documented in this encounter Care Teams Circuit Board Inspector Relationship Specialty Start Date End Date Unknown, Provider, PCP - General 07/05/22 documented as of this encounter
--- OUTSIDE RECORDS SUMMARY | 2024-07-11 16:29 | XMS_ITS | Encounter Summary ---
Author Organization [facility] Address [address] [place] [address] Care Team Providers Care Supervisor Ticket Sales Name Role Phone Unknown, Provider Primary Care Provider Amando ilmitul Encounter Details Date Type Department Care Team (Late st Contact Info) Description 05/19/2021 Lab Requisition [facility] Pathology & Laboratory Medicine - [address] [address] Outr Resulting Lab, Provider Social History Tobacco [...] Procedure Name Priority Date/Time Associated Diagnosis Comments HIV 1/2 ANTIGEN AND ANTIBODY, 4TH GENERATION Routine 05/19/2021 9:20 EST documented in this encounter Results * HIV 1/2 ANTIGEN AND ANTIBODY, 4TH GENERATION (05/19/2021 9:20 EST) HIV 1 and 2 Antibody/p24 Antigen, 4th Generation Negative Negative 05/20/2021 11:[address] [facility] Comment:If acute HIV-1 infec tion is suspected in a high risk patient, submit plasma specimen for HIV-1 RNA quantitation test. Blood VENOUS BLOOD / Unknown 05/19/2021 9:20 EST 05/19/2021 16:[address] [facility] - 05/20/2021 11:08 EST Fourth Generation assay performed on the Siemens Mass Fidelity[employer] XPT. us Provider Outr Resulting Lab IMMUNOLOGY AND SEROL OGY ORDERABLES Final Result [facility] [address] [place] [address] documented in this encounter Visit Diagnoses Not on filedocumented in this encounter Care Teams Supervisor Ticket Sales Relationship Specialty Start Date End Date Unknown, Provider, PCP - General 07/05/22 documented as of this encounter
--- OUTSIDE RECORDS SUMMARY | 2024-07-11 16:29 | XMS_ITS | Encounter Summary ---
Author Organization [facility] Address [address] [place] [address] Care Team Providers Care Senior Cyber Intelligence Analyst Name Role Phone Unavailable Primary Care Provider Unavailabl e Encounter Details Date Type Department Care Team (Late st Contact Info) Description 06/21/2017 Results Only [facility] [phone] Nancie Be MD [address] [facility] [address] [place] [address] Social History Tobacco Use Types Packs/Day Years [...] Name Priority Date/Time Associated Diagnosis Comments PAP TEST- RESULT ONLY Routine 06/21/2017 0:00 EST documented in this encounter Results * PAP TEST- RESULT ONLY (06/21/2017 0:00 EST) Pathology Report: CYTOPATHOLOGY REPORT Reports generated via electronic interface contain original data; however they are lacking the format of the original report. Caution should be taken when reading/interpreti ng unformatted reports. Name: ? YOLANDASONG ? Accession #: ? [id number] : ? 1980 (Age: 36) ??F ?Collect Date: ? 06/21/2017 Location: ? [facility] ? Receive Date: ? 06/22/2017 Provider: ?NANCIE BE MD Copy to: ? Specimen/Source: ?Pap Test, Cervix/Endocervix, ThinPrep Imaging System with manual evaluation Last Menstrual Period: ? 06/08/2017 Hormonal/Contracep tive Status: ? Tubal ligation Previous Gynecologic Pathology: ? Yes: Prior abnormal pap per patient. No results. ? SPECIMEN ADEQUACY ? Satisfactory for Evaluation - transformation zone component present GENERAL CATEGORIZATION ? Negative for Intraepithelial Lesion or Malignancy ? Document reviewed and electronically signed by: ? ALEXANDER Stark(ASCP) ? Report Date: ??07/02/2017 15:09 End of Report [facility] 06/21/2017 06/22/2017 us Nancie Be MD PATHOLOGY ORDERABLES Final Resul t [facility] [address] [place] [address] documented in this encounter Visit Diagnoses Not on filedocumented in this encounter
--- OUTSIDE RECORDS SUMMARY | 2024-07-11 16:29 | XMS_ITS | Encounter Summary ---
Author Organization [facility] Address [address] [place] [address] Care Team Providers Care Manager Public Name Role Phone Unknown, Provider Primary Care Provider Unadebbie ilable Encounter Details Date Type Department Care Team (Late st Contact Info) Description 05/21/2021 Lab Requisition [facility] Pathology & Laboratory Medicine - [address] [address] Outr Resulting Lab, Provider Social History Tobacco [...] Procedure Name Priority Date/Time Associated Diagnosis Comments FECAL BACTERIAL PATHOGENS BY PCR Routine 05/20/2021 14:30 EST documented in this encounter Results * FECAL BACTERIAL PATHOGENS BY PCR (05/20/2021 14:30 EST) Salmonella PCR Negative Negative 05/21/2021 20:12 EST [facility] Shigella/Enteroin vasive E. coli Negative Negative 05/21/2021 20:12 EST [facility] HN LAB CAMPYLOBACTER PCR Negative Negative 05/21/2021 20:12 EST [facility] Shiga Toxin PCR Negative Negative 20:12 EST [facility] Feces SPECIMEN FROM RECTUM / Unknown 05/20/2021 14:30 EST 05/21/2021 16:36 EST us Provider Outr Resulting Lab MICROBIOLOGY - GENER AL ORDERABLES Final Result [facility] [address] [place] [address] documented in this encounter Visit Diagnoses Not on filedocumented in this encounter Care Teams Manager Public Relationship Specialty Start Date End Date Unknown, Provider, PCP - General 07/05/22 documented as of this encounter
--- OUTSIDE RECORDS SUMMARY | 2024-07-11 16:29 | XMS_ITS | Encounter Summary ---
Author Organization [facility] Address [address] [place] [address] Care Team Providers Care Assurance Auditor Name Role Phone Unknown, Provider Primary Care Provider Unadebbie ilable Encounter Details Date Type Department Care Team (Late st Contact Info) Description 05/19/2021 Lab Requisition [facility] Pathology & Laboratory Medicine - [address] [id number] Outr Resulting Lab, Provider Social History Tobacco [...] RNA DETECT QUANT Today 05/19/2021 9:20 EST CHRONIC HEPATITIS PROFILE, UNKNOWN TYPE Routine 05/19/2021 9:20 EST documented in this encounter Results * HCV RNA DETECT QUANT (05/19/2021 9:20 EST) HCV RNA Qualitative Undetected Undetected 05/21/2021 15:21 EST [facility] Blood VENOUS BLOOD / Unknown 05/19/2021 9:20 EST 05/19/2021 16:14 EST Narrative [facility] - 05/21/2021 15:21 EST New platform in use 01/27/2021 The quantification range of this assay is 15 IU/mL to 100,000,000 IU/mL. Testing was performed using the Chrissie HCV test ([employer] with the chrissie 6800 System. Provider Outr Resulting Lab CHEMISTRY & BLOOD GA S ORDERABLES Final Result Performing Organization Address [facility] Co de Phone Number [facility] [address] [place] [address] * (ABNORMAL) CHRONIC HEPATITIS PROFILE, UNKNOWN TYPE (05/19/2021 9:20 EST) Hep B Surface Ag Negative Negative 05/20/20 12:34 [facility] Hep B Surface Ab, Quantitative <3.1 See Note mIU/mL 05/20/2021 12:34 [facility] Comment: Reference Range for Hep B Surface Ab, Quant: Positive: >= 10.0 mIU/mL Negative: ??< 10.0 mIU/mL Patient is presumed to not be immune to infection with Hepatitis B Virus. Hep B Surface Ab, Qualitative Negative See Note 05/20/2021 12:34 [facility] Comment: Reference Range for Hep B Surface Ab, Qual: Unvaccinated: ??Negative Vaccinated: ??Positive Hepatitis B Core Ab, Total Negative Negative 05/20/2021 12:34 [facility] Hep C Antibody Reactive(A) Negative 12:34 [facility] Comment: Supplemental testing for HCV RNA is ordered to rule out active HCV infection. Blood VENOUS BLOOD / Unknown 05/19/2021 9:20 EST 05/19/2021 16:14 EST us Provider Outr Resulting Lab CHEMISTRY & BLOOD GA S ORDERABLES Final Result Performing Organization Address City/[facility]/ZIP Co de Phone Number [facility] [address] [place] [address] documented in this encounter Visit Diagnoses Not on filedocumented in this encounter Care Teams Assurance Auditor Relationship Specialty Start Date End Date Unknown, Provider, PCP - General 07/05/22 documented as of this encounter
--- OUTSIDE RECORDS SUMMARY | 2024-07-11 16:29 | XMS_ITS | Encounter Summary ---
Author Organization [facility] Address [address] [place] [address] Care Team Providers Care Law Reporter Name Role Phone Unknown, Provider Primary Care Provider Amando ilable Encounter Details Date Type Department Care Team (Late st Contact Info) Description 05/20/2021 Lab Requisition [facility] Pathology & Laboratory Medicine - [address] [address] Outr Resulting Lab, Provider Social History Tobacco [...] Procedure Name Priority Date/Time Associated Diagnosis Comments SUNSHINE INFLUENZA A AND B, RSV PCR Routine 05/19/2021 21:00 EST documented in this encounter Results * INFLUENZA A AND B,RSV PCR (05/19/2021 21:00 EST) FLU A RNA Result (FLARES) Negative Negative 05/20/2021 21:55 EST [facility] FLU B RNA Result (FLBRES) Negative Negative 05/20/2021 21:55 EST [facility] RSV RNA Result (RSVRES) Negative Negative 05/20/2021 21:55 EST [facility] Swab ENTIRE NASOPHARYNX / Unknown 05/19/2021 21:00 EST 05/20/2021 17:17 EST us Provider Outr Resulting Lab MICROBIOLOGY - GENER AL ORDERABLES Final Result Performing Organization Address City/State/[facility] Co de Phone Number [facility] [address] [place] [address] documented in this encounter Visit Diagnoses Not on filedocumented in this encounter Care Teams Law Reporter Relationship Specialty Start Date End Date Unknown, Provider, PCP - General 07/05/22 documented as of this encounter
--- OUTSIDE RECORDS SUMMARY | 2024-07-11 16:29 | XMS_ITS | Encounter Summary ---
Author Organization [facility] Address [address] [place] [address] Care Team Providers Care Services Executive Name Role Phone Unavailable Primary Care Provider Unavailabl e Encounter Details Date Type Department Care Team (Late st Contact Info) Description 08/22/2003 Results Only [facility] [address] [place] [address] [place] [address] Social History Tobacco Use Types Packs/Day Years [...] Priority Date/Time Associated Diagnosis Comments CYTOPATHOLOGY Routine 08/22/2003 0:00 EST documented in this encounter Results * CYTOPATHOLOGY (08/22/2003 0:00 EST) Pathology Report: CYTOPATHOLOGY REPORT Reports generated via electronic interface contain original data; however they are lacking the format of the original report. Caution should be taken when reading/interpreti ng unformatted reports. Name: ? SONG GUERRERO ? Accession #: ? [id number] : ? 1980 (Age: 22) ??F ?Collect Date: ? 08/22/2003 Location: ? [facility] ? Receive Date: ? 08/24/2003 Provider: ?MORENITA SANCHES CNM Copy to: ? Specimen/Source: ?ThinPrep Pap Test, Cervix/Endocervix Last Menstrual Period: ? 06/17/03 Menstrual/Pregnanc y Status: ? Previous Gynecologic Pathology: ? Benign cellular changes: LSIL: 09/20/00 Treatment History: ? Miscellaneous treatment: Endocx curettings benign endocx tissue 10/22/00 ? SPECIMEN ADEQUACY ? Satisfactory for Evaluation - transformation zone component present GENERAL CATEGORIZATION ? Negative for Intraepithelial Lesion or Malignancy ? Document reviewed and electronically signed by: ? Wale Torres, YE(ASCP) ? Report Date: ??08/29/2003 11:52 End of Report [facility] 08/22/2003 08/24/2003 us Morenita Sanches CNM PATHOLOGY ORDERABLES Final Res ult [facility]NE[facility] [address] [place] [address] documented in this encounter Visit Diagnoses Not on filedocumented in this encounter
--- OUTSIDE RECORDS SUMMARY | 2024-07-11 16:29 | XMS_ITS | Encounter Summary ---
Author Organization [facility] Address [address] [place] [address] Care Team Providers Care Channel Cementer Insole Machine Name Role Phone Unavailable Primary Care Provider Unavailabl e Encounter Details Date Type Department Care Team (Late st Contact Info) Description 08/17/2005 Results Only [facility] [address] [place] [address] Ismael Logan MD [address] [place], [place] [id number] Social History Tobacco Use Types Packs/Day Years [...] Priority Date/Time Associated Diagnosis Comments CYTOPATHOLOGY Routine 08/17/2005 0:00 EST documented in this encounter Results * CYTOPATHOLOGY (08/17/2005 0:00 EST) Pathology Report: CYTOPATHOLOGY REPORT Reports generated via electronic interface contain original data; however they are lacking the format of the original report. Caution should be taken when reading/interpreti ng unformatted reports. Name: ? SONG GUERRERO ? Accession #: ? [id number] : ? 1980 (Age: 24) ??F ?Collect Date: ? 08/17/2005 Location: ? [facility] ? Receive Date: ? 08/18/2005 Provider: ?ISMAEL LOGAN MD Copy to: ? Specimen/Source: ?ThinPrep Pap Test, Cervix/Endocervix, processed on [employer]. [employer] NetworkPrep Imaging System, with manual evaluation Last Menstrual Period: ? 08/09/05 Hormonal/Contracep tive Status: ? Condoms Previous Gynecologic Pathology: ? LSIL: 3.01 ? SPECIMEN ADEQUACY ? Satisfactory for Evaluation - transformation zone component present GENERAL CATEGORIZATION ? Negative for Intraepithelial Lesion or Malignancy ? Document reviewed and electronically signed by: ? YE Romero(ASCP) ? Report Date: ??08/20/2005 12:52 End of Report [facility] ODONNELL 08/17/2005 08/18/2005 us Ismael Logan MD PATHOLOGY ORDERABLES Final Resul t [facility] ODONNELL [address] [place] [address] documented in this encounter Visit Diagnoses Not on filedocumented in this encounter
[2024-07-11 16:59] LABS: HCT 38.4 % (36.0-46.0); HGB 13.3 g/dL (11.2-15.7); MCH 33.5 pg (27.0-33.0); MCHC 34.6 % (32.0-36.0); MCV 97 fL (80-95); MPV 11.1 fL (8.0-11.0); Platelet Count 223 10^3/uL (130-400); RBC 3.97 10^6/uL (3.93-5.22); RDW 14.7 % (11.7-14.6); RDW-SD 52.8 fL; WBC 8.16 10^3/uL (4.4-10.8)
[2024-07-11 17:20] LABS: ALT 19 U/L (14-59); AST 13 U/L (15-37); Albumin 3.6 g/dL (3.4-5.0); Alkaline Phosphatase 81 U/L (46-116); Anion Gap 8.9 mmol/L (3-11); BUN 5 mg/dL (7-18); Bilirubin, Total 0.26 mg/dL (0.2-1.0); CO2 25.1 mmol/L (21.0-32.0); CREATININE 0.7 mg/dL (0.55-1.02); Calcium 9.1 mg/dL (8.5-10.1); Chloride 106 mmol/L (98-107); Glucose 97 mg/dL (74-106); Potassium 3.8 mmol/L (3.5-5.1); Sodium 140 mmol/L (136-145); TSH (W/Ref FT4) 2.53 uIU/mL (0.36-3.74); Total Protein 7.3 g/dL (6.4-8.2)
== END 2024-07-11 16:27 | disposition home or self-care (01) ==
LOC: LBO 16:27
PROVIDERS: PCP Student in an Organized Health Care Education/Training Program; Visit Provider Nurse Practitioner Family
DX: R55 Syncope and collapse (principal)
CPT/HCPCS: 36415; 80053; 85027; 84443

== ENCOUNTER 2025-03-30 20:31 | Observation (INO) | payer MEDICAID, SELFPAY ==
[2025-03-30] VITALS (33 sets, daily range): BP systolic 106–168; BP diastolic 63–137; PULSE 87–129; RESP 10–29; TEMP 36.9; O2SAT 94–99
--- NOTE | 2025-03-30 20:30 | RT.EKG_ITS ---
APPROVED REPORT Exam: Resting ECG Reason for Exam: chest pain Patient Location: E HR:104 bpm ECG Measurements Heart Rate 104 AXIS VA 162 P 36 QRSd 136 QRS 18 QT 390 T 159 QTc 512 Conclusion Sinus tachycardia, rate 104 Prolonged QTc 502ms LBBB, present on priors New T wave inversion I, aVL, V5/V6 No STEMI
--- NOTE | 2025-03-30 20:45 | DI.CT_ITS ---
Exam(s) CT BRAIN NECK CTA EXAM: CT BRAIN NECK CTA CLINICAL HISTORY: headache, new facial droop. TECHNIQUE: Imaging Protocol: Axial CT angiography was performed with multi- slice acquisition and multi-planar and MIP reconstructions. CONTRAST MATERIAL: Intravenous: Omnipaque 350 Contrast volume:100 ml COMPARISON: CT CT HEAD WO from 10/10/2023 FINDINGS: CT Head W/O and W contrast: Ventricles and Extra axial spaces: Normal in size and morphology for the patient's age. Hemorrhage: None. Cerebral parenchyma: No evidence of acute infarct or mass. Midline shift: None. Brainstem/Cerebellum: No acute findings.. Calvarium: Normal. Visualized Paranasal sinuses/Mastoids: Clear. Soft Tissues: Unremarkable. Enhancement: Normal. Venous sinuses are patent. CTA Brain W: Internal Carotid Arteries: Right: No aneurysm, occlusion or significant stenosis. Left: No aneurysm, occlusion or significant stenosis. Middle Cerebral Arteries: Right: No aneurysm, occlusion or significant stenosis. Left: No aneurysm, occlusion or significant stenosis. Anterior Cerebral Arteries: Right: No aneurysm, occlusion or significant stenosis. Left: No aneurysm, occlusion or significant stenosis. Posterior cerebral Arteries: Right: No aneurysm, occlusion or significant stenosis. Left: No aneurysm, occlusion or significant stenosis. Vertebral Arteries: Right: No aneurysm, occlusion or significant stenosis. Left: No aneurysm, occlusion or significant stenosis. Basilar Artery: No aneurysm, occlusion or significant stenosis. CTA Neck W: Visualized aorta: Unremarkable. Visualized pulmonary arteries: Unremarkable. Subclavian arteries: Unremarkable. Common Carotid: Right: No dissection, occlusion or significant stenosis. Left: No dissection, occlusion or significant stenosis. External Carotid: Right: No dissection, occlusion or significant stenosis. Left: No dissection, occlusion or significant stenosis. Internal Carotid: Right: No dissection, occlusion or significant stenosis. Left: No dissection, occlusion or significant stenosis. Vertebral Artery: Right: No dissection, occlusion or significant stenosis. Left: No dissection, occlusion or significant stenosis. Lung Apices: No acute findings. Bones: No acute abnormality. Soft Tissues: Normal. IMPRESSION: 1. CTA brain: Normal CTA examination of the [place]. 2. Head CT: No acute abnormality. 3. CTA neck: No visible atherosclerotic disease. No evidence of occlusion, significant stenosis or dissection. The preliminary [facility] report was reviewed. RADIATION DOSE DELIVERED: Total DLP DATA REPOSITORY: All CT scans at this facility are submitted to the National Radiology Data Registry (NRDR) Dose Index Registry (DIR) with the [employer] (ACR). RADIATION OPTIMIZATION: All CT scans at this facility use at least one of these dose optimization techniques: automated exposure control; mA and/or kV adjustment per patient size (includes targeted exams where dose is matched to clinical indication); or iterative reconstruction.
--- NOTE | 2025-03-30 20:48 | DI.RAD_ITS ---
Exam(s) XR CHEST 2V PA LATERAL EXAM: XR CHEST 2V PA LATERAL CLINICAL HISTORY: CP TECHNIQUE: 2D digital imaging was performed. Two views. AP and lateral views performed semi upright in stretcher. COMPARISON: CR,XR XR CHEST 1V IN DI DEPT from 10/10/2023 FINDINGS: HEART: Normal size. Aorta: Not dilated. PULMONARY VASCULATURE: Normal. MEDIASTINUM: Unremarkable. LUNGS: Clear. PLEURAL SPACE: No pleural effusion or pneumothorax. BONE:Unremarkable for age. SOFT TISSUES: Unremarkable. IMPRESSION: No acute abnormality. The preliminary [facility] report was reviewed. DATA REPOSITORY: RADIATION DOSE DELIVERED:
[2025-03-30] MEDS: Aspirin 81 MG CHEW 243 MG CH (20:56)
[2025-03-30] MEDS: ACETAMINOPHEN 1,000 MG/100 ML BAG 400 MG IVPB (20:56)
--- NOTE | 2025-03-30 20:57 | W.ED.GENAD ---
Discharge Plan Disposition Patient Disposition: Admit to [facility] Condition: Fair Discharge Details Clinical Impression: Facial droop, Chest pain, Cocaine use, Headache Primary Care Provider: Lesli Davis ED Provider: Minerva Medrano Home Meds and New Rx's Prescriptions: No Action acetaminophen [Tylenol] 325 mg capsule 650 mg PO TID PRN ibuprofen 200 mg capsule 800 mg PO Q6H PRN HPI General Mode of arrival: ambulatory. Date/Time Provider Initiated Documentation: 03/30/25 20:34. Limitations to Documentation: no limitations. Information obtained by: patient and old records reviewed. HPI Narrative: This is a 44-year-old female patient with a past medical history significant for DVT, not currently anticoagulated, a history of uterine fibroids, status post hysterectomy, and history of crack cocaine use, presenting for evaluation of headache and chest pain. The patient reports that her symptoms started 6 hours ago, is not sure what she was doing when they started but they have been resistant to ibuprofen taken at home. She was noted in triage to have some left-sided facial droop, patient reports that that is new for her, she otherwise does not have any focal/unilateral numbness or tingling. No history of stroke, no history of cardiac disease, no recent fevers though she does report that she felt generally unwell yesterday. She does not take blood thinning medications. Related Data Home Medications ?Medication ?Instructions ?Recorded ?Confirmed acetaminophen 325 mg capsule 650 mg PO TID PRN 10/27/23 03/30/25 (Tylenol) ibuprofen 200 mg capsule 800 mg PO Q6H PRN 06/07/24 03/30/25 Allergies Allergy/AdvReac Type Severity Reaction Status Date / Time ketorolac (From Toradol) AdvReac Intermediate Diarrhea Unverified 11/08/24 10:23 General Stated Complaint: Chest Pain JACQUELINE: 2 Exam Narrative Exam Narrative: Gen: awake and alert, appears uncomfortable HEENT: PERRL, EOMs full and without nystagmus. External ears and nose normal, mucous membranes moist. Neck: Supple, full range of motion Lungs: No increased work of breathing, lung sounds clear and equal bilaterally without wheezes, rhonchi, or rales. CV: Heart with tachycardic rate but regular rhythm, no murmurs auscultated. Strong and symmetrical radial pulses. Abdomen: Soft, nondistended, non-tender to palpation. No rigidity, rebound tenderness, or guarding. MSK: No joint swelling, no redness. Full ROM without limitation, no external traumatic findings. Skin: No rashes or lesions to visualized skin. Normal color, warm, and dry. Neuro: Cranial nerves II-XII intact and symmetrical bilaterally, with the exception of the left sided corner of the mouth droop, mentioned above. Forehead sparing is appreciated. 5/5 strength in all muscle groups x4 extremities. No sensory deficits. Ambulates with steady gait. Psych: Appropriate for situation. Course Vital Signs Vital signs: Vital Signs Temperature 36.9 C 03/30/25 20:36 Pulse 112 H 03/30/25 20:36 Respiratory Rate 18 03/30/25 20:36 Blood Pressure 162/109 H 03/30/25 20:36 Pulse Oximetry 98 03/30/25 20:36 Temperature 36.9 C 03/30/25 20:36 Pulse 112 H 03/30/25 20:36 Respiratory Rate 18 03/30/25 20:36 Blood Pressure 162/109 H 03/30/25 20:36 Pulse Oximetry 98 03/30/25 20:36 Pain Level 10 03/30/25 20:36 Medical Decision Making This is a 44-year-old female patient presenting for evaluation of headaches, facial droop, and chest pain. My differential includes but is not limited to acute stroke, intracranial hemorrhage, vascular abnormality, ACS including STEMI, NSTEMI, unstable angina. Given the patient's cocaine use I did consider vasospasms, considered metabolic electrolyte derangement, kidney injury, liver pathology. Considered pulmonary abnormalities including pneumonia, pneumothorax, bronchitis. We obtained an EKG, which shows a sinus tachycardia with a left bundle branch block which is not new for the patient. She does have new T wave inversions in 1, aVL, and V5/V6, most recent prior was 1 year ago. I will provide the patient with aspirin, make up dose as the patient reports that she takes a daily aspirin at home. We will obtain a CTA brain and neck, stroke protocol given the patient is within thrombectomy window for large vessel occlusions. She is not a candidate for thrombolytics given the duration of symptoms greater than 4-1/2 hours. We will obtain labs to include CBC, CMP, magnesium, troponin, INR, urinalysis, urine Preg and UDS. I will provide the patient with Tylenol and morphine for management of pain. - I reviewed the patient's laboratory studies, which show no leukocytosis, anemia or thrombocytopenia. INR 1.0, chemistry panel without electrolyte derangements, evidence of kidney dysfunction or liver pathology. Initial troponin is negative. I reviewed the patient's imaging, CTA of the brain and neck does not show any intracranial hemorrhage, vessel occlusion or other acute abnormality. Chest x-ray is negative. The patient remains with discomfort in her chest and her head, appears quite tearful and writhing on the bed. We will provide the patient with a dose of oral Ativan. Teleneuro evaluated the patient, and feel that her facial droop may be event marketing representative of a West's palsy. However, the patient does have some numbness less characteristic of a West's palsy, and her headache and chest pain are certainly not typical of this etiology. They recommend that the patient be admitted for MRI to evaluate for stroke, and I added on a tick and Lyme panel, hemoglobin A1c which was negative for diabetes, and a lipid panel that showed elevation in her cholesterol and LDL. I did discuss admission with the patient and her family member, unfortunately, MRI in our facility is not available until Wednesday, but I do feel that the patient warrants admission regardless for her ongoing chest pain and headache. I reached out to the hospitalist who has graciously accepted this patient for admission for ongoing workup and management, patient remained hemodynamically appropriate while under my care. She will be boarding in the emergency department until a bed becomes available upstairs. Minerva Medrano MD [facility] All Active Problems (Updated 03/30/25 @ 23:06 by Minerva Medrano MD) Headache (Acute) Cocaine use (Acute) Chest pain (Acute) Facial droop (Acute) Mood disorder (Acute) Hot flashes (Acute) Anxiety (Chronic) Cyst of left breast (Acute) Painful total knee replacement, left (Acute) Status post total abdominal hysterectomy (Acute) Operative laparoscopy converted to total abdominal hysterectomy with bilateral salpingectomy. Positive urine drug screen (Acute) Cocaine + 05/15/2023, denies use in the last 6 years History of DVT of lower extremity (Acute) Abdominal pain, right lower quadrant (Acute) Suspect pain from fibroids and vascular compromise due to cocaine use. Suspect fibroid necrosis Medical History (Updated 03/30/25 @ 23:06 by Minerva Medrano MD) Atypical pneumonia Hepatitis C Per pt Treated Hyperlipidemia, unspecified (06/16/17) IFG (impaired fasting glucose) (06/16/17) Cocaine use disorder remission last 4 years Opioid use disorder Acute necrotizing gingivitis Tobacco use disorder Substance use disorder Surgical History (Updated 09/06/23 @ 08:44 by CHINEDU Linton) History of total left knee replacement (TKR) (12/30/15) left medial minisectomy (03/17/10) Ligation of fallopian tube (08/19/05) Family History Mother Diabetes Essential hypertension HF (heart failure) Neoplasm Colon CA COPD (chronic obstructive pulmonary disease) Smoker MS (multiple sclerosis) Father No problems noted. Maternal Aunt , Breast CA at age 41. Neoplasm Breast CA Maternal Aunt , Breast CA at age 43. Neoplasm Breast CA Maternal Aunt , Breast CA at age 44. Neoplasm Breast CA Maternal Aunt Neoplasm Breast CA Grandmother Diabetes Social History Smoking/Tobacco Use Status: Current-Occasional Tobacco Type: e-cigarettes Smoking risk assessment performed?: Yes Alcohol Intake: current Alcohol Intake frequency: a few times a week Alcohol type: beer Drug use: Current Sobriety Substance use type: former substance user, marijuana, crack/cocaine, heroin and opiates Details: cocaine yesterday Housing: house Do you feel safe at home: Yes (unabe to assess privately) Do you feel safe in your relationship?: Yes Female Reproductive History Menstrual Age of Menarche: 11 Duration of menses: 3-5 days control method: permanent sterilization History History 2 Para Hx # Term Pregnancies 2 Multiple births Hx # Pregnancies Ectopic pregnancies AB induced Hx Number of Living Children 2 AB spontaneous
[2025-03-30 20:59] LABS: Abs Immature Grans 0.02 10^3/uL (0.0-0.06); HCT 40.3 % (36.0-46.0); HGB 13.8 g/dL (11.2-15.7); Immature Grans % 0.2 %; MCH 33.9 pg (27.0-33.0); MCHC 34.2 % (32.0-36.0); MCV 99 fL (80-95); MPV 11.0 fL (8.0-11.0); Platelet Count 223 10^3/uL (130-400); RBC 4.07 10^6/uL (3.93-5.22); RDW 12.7 % (11.7-14.6); RDW-SD 46.0 fL; WBC 8.29 10^3/uL (4.4-10.8)
[2025-03-30] MEDS: Normal Saline - Diluent 50 ML VIAL IJ (21:08)
[2025-03-30] MEDS: Omnipaque 350 MG/ML 100 ML BTL IJ (21:09)
[2025-03-30 21:10] LABS: INR 1.0 (0.9-1.1); Prothrombin Time 10.3 sec (9.1-11.1)
--- NOTE | 2025-03-30 21:43 | NUR.NOTE ---
Nursing Note: At pt's request, called Matthew (stated was michael) to let him know she was here being evaluated in ED. Call dropped mid conversation.
[2025-03-30] MEDS: MORPHine 4 MG/ML SYR IVP (21:47)
--- NOTE | 2025-03-30 21:57 | DI.VRAD_ITS ---
PROCEDURE INFORMATION: Exam: XR Chest Exam date and time: 03/30/2025 9:32 PM Age: 44 years old Clinical indication: Other: Chest pain TECHNIQUE: Imaging protocol: Radiologic exam of the chest. Views: 2 views. COMPARISON: CT THORAX ABD/PEL CTA 10/27/2023 8:27 PM FINDINGS: Lungs: Unremarkable. No consolidation. Pleural spaces: Unremarkable. No pleural effusion. No pneumothorax. Heart/Mediastinum: Unremarkable. No cardiomegaly. Bones/joints: Unremarkable. IMPRESSION: No acute findings. Dictated and Authenticated by: Mario Cavanaugh MD. Orderin [facility] Jovani Palma MD
--- NOTE | 2025-03-30 21:57 | DI.VRAD_ITS ---
PROCEDURE INFORMATION: Exam: CTA Head Without And With Contrast, Arteriography Exam date and time: 03/30/2025 9:06 PM Age: 44 years old Clinical indication: Stroke-like symptoms; Left facial droop TECHNIQUE: Imaging protocol: Computed tomographic angiography of the head without and with contrast. Exam focused on the arteries. 3D rendering (Not supervised by radiologist): MIP and/or 3D reconstructed images were created by the technologist. Contrast material: 350; Contrast volume: 100 ml; Contrast route: INTRAVENOUS (IV); Other technique: STROKE PROTOCOL was implemented. COMPARISON: CT HEAD WO 10/10/2023 4:56 AM FINDINGS: ANTERIOR CIRCULATION: Right internal carotid artery: Intracranial segment is patent with no significant stenosis or occlusion. No aneurysm. Right middle cerebral artery: No occlusion or significant stenosis. No aneurysm. Right anterior cerebral artery: No occlusion or significant stenosis. No aneurysm. Left internal carotid artery: Intracranial segment is patent with no significant stenosis. No aneurysm. Left middle cerebral artery: No occlusion or significant stenosis. No aneurysm. Left anterior cerebral artery: No occlusion or significant stenosis. No aneurysm. POSTERIOR CIRCULATION: Right vertebral artery: No occlusion or significant stenosis. No aneurysm. Left vertebral artery: No occlusion or significant stenosis. No aneurysm. Basilar artery: No occlusion or significant stenosis. No aneurysm. Right posterior cerebral artery: No occlusion or significant stenosis. No aneurysm. Left posterior cerebral artery: No occlusion or significant stenosis. No aneurysm. HEAD: Brain: Normal. No hemorrhage. Unremarkable white matter. No mass effect. Cerebral ventricles: Normal. No ventriculomegaly. Bones: Unremarkable. No acute fracture. Paranasal sinuses: Visualized sinuses are normal. No fluid levels. Mastoid air cells: Visualized mastoids are normal. No mastoid effusion. Soft tissues: Unremarkable. IMPRESSION: 1. No large vessel occlusion. 2. Unremarkable CT head. ASSESSMENT: ASPECTS ([place] Stroke Program Early CT Score) is 10. PROCEDURE INFORMATION: Exam: CTA Neck Without And With Contrast Exam date and time: 03/30/2025 9:06 PM Age: 44 years old Clinical indication: Stroke-like symptoms; Left facial droop TECHNIQUE: Imaging protocol: Computed tomographic angiography of the neck without and with contrast. Exam focused on the cervical segments of the vasculature. 3D rendering (Not supervised by radiologist): MIP and/or 3D reconstructed images were created by the technologist. Contrast material: 350; Contrast volume: 100 ml; Contrast route: INTRAVENOUS (IV); COMPARISON: CT THORAX ABD/PEL CTA 10/27/2023 8:27 PM FINDINGS: Right common carotid artery: No stenosis. No dissection or occlusion. Right internal carotid artery: No stenosis of the extracranial segment. No dissection or occlusion. Right external carotid artery: No occlusion or stenosis of the origin. Left common carotid artery: No stenosis. No dissection or occlusion. Left internal carotid artery: No stenosis of the extracranial segment. No dissection or occlusion. Left external carotid artery: No occlusion or stenosis of the origin. Right vertebral artery: No stenosis. No dissection or occlusion. Left vertebral artery: No stenosis. No dissection or occlusion. Soft tissues: Normal. No significant soft tissue swelling. Bones/joints: No acute fracture. IMPRESSION: No stenosis or occlusion. REFERENCES: NASCET CRITERIA. The degree of stenosis in the cervical segment of the internal carotid artery is based on NASCET criteria. Normal is no stenosis. Mild is less than 50% stenosis. Moderate is 50-69% stenosis. Severe is 70% to 99% stenosis. Total occlusion is no detectable patent lumen. Dictated and Authenticated by: Mario Cavanaugh MD. Orderin [facility] Jovani Palma MD
[2025-03-30 21:58] LABS: ALT 26 U/L (14-59); AST 18 U/L (15-37); Albumin 3.9 g/dL (3.4-5.0); Alkaline Phosphatase 68 U/L (46-116); Anion Gap 13.5 mmol/L (3-11); BUN 11 mg/dL (7-18); Bilirubin, Total 0.7 mg/dL (0.2-1.0); CO2 22.5 mmol/L (21.0-32.0); Calcium 8.7 mg/dL (8.5-10.1); Chloride 101 mmol/L (98-107); Estimated GFR 112.73 (mL/min/1.73m2); Glucose 117 mg/dL (74-106); Magnesium 2.0 mg/dL (1.8-2.4); Potassium 3.6 mmol/L (3.5-5.1); Sodium 137 mmol/L (136-145); Total Protein 7.3 g/dL (6.4-8.2); Troponin I 8 ng/L (<or=51)
[2025-03-30] MEDS: nitroGLYcerin 0.4 MG TAB SL ×2 (22:05→22:10)
[2025-03-30] MEDS: LORazepam 1 MG TAB PO (22:05)
[2025-03-30 22:39] LABS: Calculated LDL 138 mg/dL (<100); Cholesterol 228 mg/dL (<200); HDL Cholesterol 77 mg/dL (>or=50); Triglyceride 68 mg/dL (<150)
[2025-03-30 22:40] LABS: Hemoglobin A1C 5.3 % (<5.7)
--- NOTE | 2025-03-30 22:54 | W.PM.HP.N ---
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 Patient has lengthy history of cocaine use, last used about 24 hours before arrival. Patient reports that she took ibuprofen without relief. She was unaware that the left side of her face was visibly drooping in ED triage. Other than feeling unwell the previous day, she denies other symptoms. No shortness of breath, no abdominal pain, no N/V/D. In the ED, the left corner of her mouth was drooping, raising concern for CVA. Tachycardia 112. Hypertension 162/109. EKG showed LBBB seen previously, with sinus tachycardia and mildly prolonged QTc 502, new T wave inversion in lead I, aVL, V5/6. Troponin negative x2. CXR unremarkable. CTA head without large vessel occlusion. Lipid panel with mild elevations in total and LDL cholesterol. Tick&Lyme panel sent. Patient decined to offer urine sample for UDS. Teleneurology recommended admission for MRI to rule out CVA before presumptive West's palsy diagnosis. PMH includes cocaine use, DVT, left TKA, hysterectomy. She was seen in clinic for anxiety twice earlier this year, with poor response to SSRI, which is discontinued. 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 Positive urine drug screen (Acute) Cocaine + 05/15/2023, denies use in the last 6 years History of DVT of lower extremity (Acute) Abdominal pain, right lower quadrant (Acute) Suspect pain from fibroids and vascular compromise due to cocaine use. Suspect fibroid necrosis Medical History (Updated 03/31/25 @ 01:42 by Cleve Hope MD) Atypical pneumonia Hepatitis C Per pt Treated Hyperlipidemia, unspecified (06/16/17) IFG (impaired fasting glucose) (06/16/17) Cocaine use disorder remission last 4 years Opioid use disorder Acute necrotizing gingivitis Tobacco use disorder Substance use disorder Surgical History (Updated 09/06/23 @ 08:44 by CHINEDU Linton) History of total left knee replacement (TKR) (12/30/15) left medial minisectomy (03/17/10) Ligation of fallopian tube (08/19/05) Family History Mother Diabetes Essential hypertension HF (heart failure) Neoplasm Colon CA COPD (chronic obstructive pulmonary disease) Smoker MS (multiple sclerosis) Father No problems noted. Maternal Aunt , Breast CA at age 41. Neoplasm Breast CA Maternal Aunt , Breast CA at age 43. Neoplasm Breast CA Maternal Aunt , Breast CA at age 44. Neoplasm Breast CA Maternal Aunt Neoplasm Breast CA Grandmother Diabetes Social History Smoking/Tobacco Use Status: Current-Occasional Tobacco Type: e-cigarettes Smoking risk assessment performed?: Yes Alcohol Intake: current Alcohol Intake frequency: a few times a week Alcohol type: beer Drug use: Current Sobriety Substance use type: former substance user, marijuana, crack/cocaine, heroin and opiates Details: cocaine yesterday Housing: house Do you feel safe at home: Yes (unabe to assess privately) Do you feel safe in your relationship?: Yes Female Reproductive History Menstrual Age of Menarche: 11 Duration of menses: 3-5 days control method: permanent sterilization History History 2 Para Hx # Term Pregnancies 2 Multiple births Hx # Pregnancies Ectopic pregnancies AB induced Hx Number of Living Children 2 AB spontaneous Meds Allergies and Home Medications Allergies Allergy/AdvReac Type Severity Reaction Status Date / Time ketorolac (From Toradol) AdvReac Intermediate Diarrhea Unverified 11/08/24 10:23 Home Medications ?Medication ?Instructions ?Recorded ?Confirmed ?Type acetaminophen 325 mg capsule 650 mg PO TID PRN 10/27/23 03/30/25 History (Tylenol) ibuprofen 200 mg capsule 800 mg PO Q6H PRN 06/07/24 03/30/25 History Exam Narrative Exam Narrative: General: This is an agitated, anxious woman HEENT: Normocephalic, atraumatic CV: RRR Resp: CTAB Abd: soft, NTND MSK: voluntary motion x4 Neuro: awake, alert, agitated. Left corner of the mouth is drooping. Results Labs 03/30/25 20:50 03/30/25 21:35 Labs: Laboratory Results - last 24 hr 03/30/25 03/30/25 03/30/25 20:50 21:35 21:55 WBC 8.29 RBC 4.07 Hgb 13.8 Hct 40.3 MCV 99 H MCH 33.9 H MCHC 34.2 RDW 12.7 Plt Count 223 MPV 11.0 Immature Gran % 0.2 Neutrophils % 69.3 Lymphocytes % 23.6 Monocytes % 5.8 Eosinophils % 0.7 Basophils % 0.4 Nucleated RBC % 0.0 Absolute Neutrophils 5.74 Absolute Lymphocytes 1.96 Absolute Monocytes 0.48 Absolute Eosinophils 0.06 Absolute Basophils 0.03 PT 10.3 INR 1.0 Sodium Cancelled 137 Potassium Cancelled 3.6 Chloride Cancelled 101 Carbon Dioxide Cancelled 22.5 Anion Gap Cancelled 13.5 H BUN Cancelled 11 Creatinine Cancelled 0.6 Est GFR (CKD-EPI 2020) Cancelled 112.73 Glucose Cancelled 117 H Hemoglobin A1c 5.3 Calcium Cancelled 8.7 Magnesium Cancelled 2.0 Total Bilirubin Cancelled 0.7 AST Cancelled 18 ALT Cancelled 26 Alkaline Phosphatase Cancelled 68 Troponin I Cancelled 8 Total Protein Cancelled 7.3 Albumin Cancelled 3.9 Triglycerides 68 Total Cholesterol 228 H LDL Cholesterol, Calc 138 H HDL Cholesterol 77 Last Vital Signs Temp 36.9 C 03/30/25 20:36 Pulse 96 H 03/30/25 22:01 Resp 15 03/30/25 22:01 BP 168/137 H 03/30/25 22:01 Pulse Ox 97 03/30/25 22:01 Time Spent Time spent with Patient: 40-54 minutes Time was spent: preparing to see the patient(eg.review tests), obtaining and/or reviewing separately otained hiistory, ordering medications,tests, procedures, referring, communicating with other health patient care technician, indepentently interpreting results, counseling the patient and care coordination
[2025-03-30 23:01] LABS: Troponin I 8 ng/L (<or=51)
[2025-03-31] VITALS (140 sets, daily range): BP systolic 93–122; BP diastolic 62–83; PULSE 72–98; RESP 9–26; TEMP 36.6–37; O2SAT 93–98
[2025-03-31] MEDS: LORazepam 20 MG/10 ML VIAL IVP ×2 (00:03→21:21)
[2025-03-31 05:22] LABS: Glucose Negative (Negative)
[2025-03-31 05:25] LABS: Abs Immature Grans 0.02 10^3/uL (0.0-0.06); HCT 40.6 % (36.0-46.0); HGB 13.8 g/dL (11.2-15.7); Immature Grans % 0.3 %; MCH 33.8 pg (27.0-33.0); MCHC 34.0 % (32.0-36.0); MCV 100 fL (80-95); MPV 11.1 fL (8.0-11.0); Platelet Count 223 10^3/uL (130-400); RBC 4.08 10^6/uL (3.93-5.22); RDW 12.8 % (11.7-14.6); RDW-SD 46.9 fL; WBC 7.22 10^3/uL (4.4-10.8)
[2025-03-31 05:36] LABS: C & S Indicated? No; RBC 0-2 HPF (0-2)
[2025-03-31 05:50] LABS: ALT 28 U/L (14-59); AST 19 U/L (15-37); Albumin 3.9 g/dL (3.4-5.0); Alkaline Phosphatase 75 U/L (46-116); Anion Gap 11.2 mmol/L (3-11); BUN 10 mg/dL (7-18); Bilirubin, Total 0.8 mg/dL (0.2-1.0); CO2 24.8 mmol/L (21.0-32.0); Calcium 8.8 mg/dL (8.5-10.1); Chloride 104 mmol/L (98-107); Estimated GFR 112.73 (mL/min/1.73m2); Glucose 97 mg/dL (74-106); Potassium 3.6 mmol/L (3.5-5.1); Sodium 140 mmol/L (136-145); TSH (W/Ref FT4) 6.20 uIU/mL (0.36-3.74); Total Protein 7.4 g/dL (6.4-8.2)
--- NOTE | 2025-03-31 08:38 | INITIAL_ITS ---
Date of service: 03/31/25 Time of Service: 15:28 Care Management Initial Assmt Initial Assessment Reason for Hospitalization: facial droop Functional Status/Living Situation Patient Presentation: Mora was lying down in bed and sleeping upon both attempts to visit with Mora. She presented to the ED yesterday evening for evaluation of headache and chest pain. MRI is ordered for Wednesday. The following information was obtained through chart review and discussions with clinical staff: Mora resides in [place] with her partner, Matthew. She has two children, one of whom is expected to visit today. Mora is independent at baseline and has had prior involvement with [facility]. Per RN, Mora recieved PRN Ativan earlier. CM will continue to follow. Town of Residence: [place] Resides with: Spouse (Mattehw) Significant Other/Family: Local (2 daughters) Natural Supports: Mother Linsey. daughters Instrumental Activities of Daily Living (ADLs): Independent Medications Medication Management: No Issues/Barriers identified Physical Functioning/Mobility Assistive Device: none known Advance Directives Advance Directives: Do you have an Advance Directive: N , 12:36 AD On File at [facility]: N 10/14/12, 10:17 Date Asked 03/30/25 03/30/25, 20:48 AD Date Reviewed COLST On File at [facility] No 11/04/23, 21:29 COLST Date Scanned Code Status Resuscitation Status Full Code Portal Pt does not currently have a portal and education provided: Yes Insurance Coverage/Financial Issues Insurance: Medicaid of [place] - [id number] Care Team Visit Care Team Role Provider Type Lesli Davis APRN Primary Care Provider NURSE PRACTITIONER Minerva Medrano MD Emergency Provider [facility] STAFF PHYSICIAN Cleve Hope MD Admit Provider [facility] STAFF PHYSICIAN Attending Provider Discharge Potential Discharge Needs: Imaging/labs and PCP F/U Appt Anticipated Barriers to Discharge: None Identified Patient/Family Education Needs: Review discharge instructions, discuss Ask Me Three Transportation: Private vehicle Plan: Anticipate Mora will be discharged home with no new services indicated at this time, once medically ready. It is recommended that she will follow up with her community providers and continue per her discharge plan of care. She will likely transport via private vehicle by family. CM will continue to follow. 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 Positive urine drug screen (Acute) Cocaine + 05/15/2023, denies use in the last 6 years History of DVT of lower extremity (Acute) Abdominal pain, right lower quadrant (Acute) Suspect pain from fibroids and vascular compromise due to cocaine use. Suspect fibroid necrosis Medical History (Updated 03/31/25 @ 01:42 by Cleve Hope MD) Atypical pneumonia Hepatitis C Per pt Treated Hyperlipidemia, unspecified (06/16/17) IFG (impaired fasting glucose) (06/16/17) Cocaine use disorder remission last 4 years Opioid use disorder Acute necrotizing gingivitis Tobacco use disorder Substance use disorder Surgical History (Updated 09/06/23 @ 08:44 by CHINEDU Linton) History of total left knee replacement (TKR) (12/30/15) left medial minisectomy (03/17/10) Ligation of fallopian tube (08/19/05) Family History Mother Diabetes Essential hypertension HF (heart failure) Neoplasm Colon CA COPD (chronic obstructive pulmonary disease) Smoker MS (multiple sclerosis) Father No problems noted. Maternal Aunt , Breast CA at age 41. Neoplasm Breast CA Maternal Aunt , Breast CA at age 43. Neoplasm Breast CA Maternal Aunt , Breast CA at age 44. Neoplasm Breast CA Maternal Aunt Neoplasm Breast CA Grandmother Diabetes Social History Smoking/Tobacco Use Status: Current-Occasional Tobacco Type: e-cigarettes Smoking risk assessment performed?: Yes Alcohol Intake: current Alcohol Intake frequency: a few times a week Alcohol type: beer Drug use: Current Sobriety Substance use type: former substance user, marijuana, crack/cocaine, heroin and opiates Details: cocaine yesterday Housing: house Do you feel safe at home: Yes (unabe to assess privately) Do you feel safe in your relationship?: Yes Female Reproductive History Menstrual Age of Menarche: 11 Duration of menses: 3-5 days control method: permanent sterilization History History 2 Para Hx # Term Pregnancies 2 Multiple births Hx # Pregnancies Ectopic pregnancies AB induced Hx Number of Living Children 2 AB spontaneous Readmission Within the Past 30 Days Yes or No: No
[2025-03-31 10:06] LABS: Cannabinoids THC Negative (Negative); METHADONE URINE SCREEN Negative (Negative)
[2025-03-31] MEDS: Acetaminophen 325 MG TAB (10:25)
--- NOTE | 2025-03-31 12:15 | RT.EKG_ITS ---
APPROVED REPORT Exam: Resting ECG Reason for Exam: chest pain Patient Location: I HR:94 bpm ECG Measurements Heart Rate 94 AXIS DC 158 P 28 QRSd 91 QRS 50 QT 367 T -1 QTc 459 Conclusion Sinus rhythm...normal P axis, V-rate 50- 99 Low voltage, extremity leads...all extremity leads <0.5mV Nonspecific T abnrm, anterolateral leads...T <-0.10mV, I aVL V2-V6
--- NOTE | 2025-03-31 12:18 | PGE_ITS ---
Date of Service Date of service: 03/31/25 Time of Service: 12:18 Assessment and Plan Assessment and plan (1) Facial droop: Status: Acute Assessment and plan: CVA vs West's Palsy Admitting for observation and MRI when able Hold steroids until MRI results 03/31/25 still with facial droop but not clasical presentation. 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 Does complain of a bitemporal headache with associated phono/photophobia. Still with some chest pain. Exam Narrative Exam Narrative: heent-left facial droop. can raise both eyebrown rrr no mrg 5/5 bue 5/5 lue sntnd Objective Last Vital Signs Temp 36.6 C 03/31/25 11:58 Pulse 88 03/31/25 11:58 Resp 16 03/31/25 11:58 BP 98/74 L 03/31/25 11:58 Pulse Ox 98 03/31/25 11:58 Laboratory Results - last 24 hr 03/30/25 03/30/25 03/30/25 20:50 21:35 21:55 WBC 8.29 RBC 4.07 Hgb 13.8 Hct 40.3 MCV 99 H MCH 33.9 H MCHC 34.2 RDW 12.7 Plt Count 223 MPV 11.0 Immature Gran % 0.2 Neutrophils % 69.3 Lymphocytes % 23.6 Monocytes % 5.8 Eosinophils % 0.7 Basophils % 0.4 Nucleated RBC % 0.0 Absolute Neutrophils 5.74 Absolute Lymphocytes 1.96 Absolute Monocytes 0.48 Absolute Eosinophils 0.06 Absolute Basophils 0.03 PT 10.3 INR 1.0 Sodium Cancelled 137 Potassium Cancelled 3.6 Chloride Cancelled 101 Carbon Dioxide Cancelled 22.5 Anion Gap Cancelled 13.5 H BUN Cancelled 11 Creatinine Cancelled 0.6 Est GFR (CKD-EPI 2020) Cancelled 112.73 Glucose Cancelled 117 H Hemoglobin A1c 5.3 Calcium Cancelled 8.7 Magnesium Cancelled 2.0 Total Bilirubin Cancelled 0.7 AST Cancelled 18 ALT Cancelled 26 Alkaline Phosphatase Cancelled 68 Troponin I Cancelled 8 Total Protein Cancelled 7.3 Albumin Cancelled 3.9 Triglycerides 68 Total Cholesterol 228 H LDL Cholesterol, Calc 138 H HDL Cholesterol 77 TSH Free T4 Urine Color Urine Clarity Urine pH Ur Specific [place] Urine Protein Urine Ketones Urine Blood Urine Nitrite Urine Bilirubin Urine Urobilinogen Ur Leukocyte Esterase Urine RBC Urine WBC Ur Epithelial Cells Urine Crystals Urine Bacteria Urine Casts Urine Mucus Ur Culture Indicated? Urine Glucose Urine Opiates Screen Urine Methadone Screen Ur Barbiturates Screen Ur Tricyclics Screen Ur Amphetamines Screen U Benzodiazepines Scrn Urine Cocaine Screen Ur THC Screen 03/30/25 03/30/25 03/31/25 22:36 23:48 05:10 WBC RBC Hgb Hct MCV MCH MCHC RDW Plt Count MPV Immature Gran % Neutrophils % Lymphocytes % Monocytes % Eosinophils % Basophils % Nucleated RBC % Absolute Neutrophils Absolute Lymphocytes Absolute Monocytes Absolute Eosinophils Absolute Basophils PT INR Sodium Potassium Chloride Carbon Dioxide Anion Gap BUN Creatinine Est GFR (CKD-EPI 2020) Glucose Hemoglobin A1c Calcium Magnesium Total Bilirubin AST ALT Alkaline Phosphatase Troponin I 8 Cancelled Total Protein Albumin Triglycerides Total Cholesterol LDL Cholesterol, Calc HDL Cholesterol TSH Free T4 Urine Color Yellow Urine Clarity Clear Urine pH 6.0 Ur Specific [place] 1.020 Urine Protein 30 H Urine Ketones 40 H Urine Blood Trace-intact H Urine Nitrite Negative Urine Bilirubin Small H Urine Urobilinogen 0.2 Ur Leukocyte Esterase Negative Urine RBC 0-2 Urine WBC 3-5 Ur Epithelial Cells Few Urine Crystals Negative Urine Bacteria Few Urine Casts Negative Urine Mucus Negative Ur Culture Indicated? No Urine Glucose Negative Urine Opiates Screen Positive A Urine Methadone Screen Negative Ur Barbiturates Screen Negative Ur Tricyclics Screen Negative Ur Amphetamines Screen Negative U Benzodiazepines Scrn Negative Urine Cocaine Screen Positive A Ur THC Screen Negative 03/31/25 05:15 WBC 7.22 RBC 4.08 Hgb 13.8 Hct 40.6 MCV 100 H MCH 33.8 H MCHC 34.0 RDW 12.8 Plt Count 223 MPV 11.1 H Immature Gran % 0.3 Neutrophils % 51.9 Lymphocytes % 38.0 Monocytes % 6.4 Eosinophils % 2.8 Basophils % 0.6 Nucleated RBC % 0.0 Absolute Neutrophils 3.76 Absolute Lymphocytes 2.74 Absolute Monocytes 0.46 Absolute Eosinophils 0.20 Absolute Basophils 0.04 PT INR Sodium 140 Potassium 3.6 Chloride 104 Carbon Dioxide 24.8 Anion Gap 11.2 H BUN 10 Creatinine 0.6 Est GFR (CKD-EPI 2020) 112.73 Glucose 97 Hemoglobin A1c Calcium 8.8 Magnesium Total Bilirubin 0.8 AST 19 ALT 28 Alkaline Phosphatase 75 Troponin I Total Protein 7.4 Albumin 3.9 Triglycerides Total Cholesterol LDL Cholesterol, Calc HDL Cholesterol TSH 6.20 H Free T4 1.18 Urine Color Urine Clarity Urine pH Ur Specific [place] Urine Protein Urine Ketones Urine Blood Urine Nitrite Urine Bilirubin Urine Urobilinogen Ur Leukocyte Esterase Urine RBC Urine WBC Ur Epithelial Cells Urine Crystals Urine Bacteria Urine Casts Urine Mucus Ur Culture Indicated? Urine Glucose Urine Opiates Screen Urine Methadone Screen Ur Barbiturates Screen Ur Tricyclics Screen Ur Amphetamines Screen U Benzodiazepines Scrn Urine Cocaine Screen Ur THC Screen Time Spent with Patient Time Spent with Patient: <25 minutes Time was spent: preparing to see the patient(eg.review tests), obtaining and/or reviewing separately otained hiistory, ordering medications,tests, procedures, referring, communicating with other health youth care specialist, indepentently interpreting results, counseling the patient and care coordination
--- NOTE | 2025-03-31 12:22 | W.PC.ACHO ---
Registration Status: ADM QAMAR Primary Language: Preferred Language: Kyrgyz ED Information & Data Chief Complaint Chest Pain 03/30/25 20:59 Other Complaint CVA/TIA 03/30/25 20:36 Triage Note chest pressure and head ache 03/30/25 20:36 started ~ 6hr go, L facial droop Medical / Surgical History (Last Reviewed 06/16/23 @ 06:39 by Carey Dove RN) Atypical pneumonia Hepatitis C Hyperlipidemia, unspecified (06/16/17) IFG (impaired fasting glucose) (06/16/17) Cocaine use disorder Opioid use disorder Acute necrotizing gingivitis Tobacco use disorder Substance use disorder (Last Updated 09/06/23 @ 08:44 by CHINEDU Linton) History of total left knee replacement (TKR) (12/30/15) left medial minisectomy (03/17/10) Ligation of fallopian tube (08/19/05) Most Recent Vital Signs Temperature 36.6 C 03/31/25 11:58 Temperature Source Temporal Artery Scan 03/31/25 11:58 Pulse 88 03/31/25 11:58 Pulse 86 03/31/25 11:10 Respiratory Rate 16 03/31/25 11:58 Respiratory Effort Normal, Non-Labored 03/30/25 21:48 Respiratory Depth Normal 03/30/25 21:48 Respiratory Pattern Normal 03/30/25 21:45 Blood Pressure 98/74 L 03/31/25 11:58 Blood Pressure Mean 82 03/31/25 11:58 Pulse Oximetry 98 03/31/25 11:58 Oxygen Delivery Method Room Air 03/31/25 11:58 Oxygen Flow Rate 0 03/31/25 11:58 Pain Level 8 03/31/25 11:58 Allergies ketorolac (From Toradol) Adverse Reaction (Intermediate, Unverified 11/08/24 10:23) Diarrhea Active Medications Generic Name Dose Route Start Last Admin Trade Name Freq PRN Reason Stop Dose Admin Iohexol 100 ml 03/30/25 21:15 03/30/25 21:09 Omnipaque 350 Mg/Ml 100 Ml Btl IJ 04/29/25 23:59 100 ml DIRECTED RADHA Administration Nitroglycerin 0.4 mg 03/30/25 22:01 03/30/25 22:10 Nitroglycerin 0.4 Mg Tab SL 0.4 mg Q5 MIN PRN X3 PRN Administration Sodium Chloride 50 ml 03/30/25 21:15 03/30/25 21:08 Normal Saline - Diluent 50 Ml Vial IJ 50 ml .FOR DI USE RADHA Administration IV IV Catheter Type [Right Wrist] Saline Lock IV Catheter Gauge [Left Wrist] 18 IV Catheter Gauge [Right Wrist 20 ] Diet Orders Category Date Time Status Regular/Normal [DIET] Nutrition 03/31/25 Breakfast Active Diagnostics 03/31/25 03/31/25 03/30/25 Range/Units 05:15 05:10 23:48 WBC 7.22 (4.4-10.8) 10^3/uL RBC 4.08 (3.93-5.22) 10^6/uL Hgb 13.8 (11.2-15.7) g/dL Hct 40.6 (36.0-46.0) % MCV 100 H (80-95) fL MCH 33.8 H (27.0-33.0) pg MCHC 34.0 (32.0-36.0) % RDW 12.8 (11.7-14.6) % Plt Count 223 (130-400) 10^3/uL MPV 11.1 H (8.0-11.0) fL Immature Gran % 0.3 % Neutrophils % 51.9 % Lymphocytes % 38.0 % Monocytes % 6.4 % Eosinophils % 2.8 % Basophils % 0.6 % Nucleated RBC % 0.0 (0.0-0.3) % Absolute Neutrophils 3.76 (1.2-6.7) 10^3/uL Absolute Lymphocytes 2.74 (1.2-3.4) 10^3/uL Absolute Monocytes 0.46 (0.1-0.8) 10^3/uL Absolute Eosinophils 0.20 (0.0-0.7) 10^3/uL Absolute Basophils 0.04 (0.0-0.2) 10^3/uL PT (9.1-11.1) sec INR (0.9-1.1) Sodium 140 Potassium 3.6 Chloride 104 Carbon Dioxide 24.8 Anion Gap 11.2 H BUN 10 Creatinine 0.6 Est GFR (CKD-EPI 2020) 112.73 Glucose 97 Hemoglobin A1c (<5.7) % Calcium 8.8 Magnesium Total Bilirubin 0.8 AST 19 ALT 28 Alkaline Phosphatase 75 Troponin I Cancelled Total Protein 7.4 Albumin 3.9 Triglycerides (<150) mg/dL Total Cholesterol (<200) mg/dL LDL Cholesterol, Calc (<100) mg/dL HDL Cholesterol (>or=50) mg/dL TSH 6.20 H (0.36-3.74) uIU/mL Free T4 1.18 (0.76-1.46) ng/dL Urine Color Yellow (Yellow) Urine Clarity Clear (Clear) Urine pH 6.0 (5-8) Ur Specific [place] 1.020 (1.005-1.025) Urine Protein 30 H (Neg-Trace) mg/dL Urine Ketones 40 H (Negative) mg/dL Urine Blood Trace-intact H (Negative) Urine Nitrite Negative (Negative) Urine Bilirubin Small H (Negative) Urine Urobilinogen 0.2 (Up to 0.2) mg/dL Ur Leukocyte Esterase Negative (Negative) Urine RBC 0-2 (0-2) HPF Urine WBC 3-5 (0-5) HPF Ur Epithelial Cells Few (Negative) HPF Urine Crystals Negative (Negative) HPF Urine Bacteria Few (Negative) HPF Urine Casts Negative (Negative) LPF Urine Mucus Negative (Negative) Ur Culture Indicated? No Urine Glucose Negative (Negative) mg/dL Urine Opiates Screen Positive A (Negative) Urine Methadone Screen Negative (Negative) Ur Barbiturates Screen Negative (Negative) Ur Tricyclics Screen Negative (Negative) Ur Amphetamines Screen Negative (Negative) U Benzodiazepines Scrn Negative (Negative) Urine Cocaine Screen Positive A (Negative) Ur THC Screen Negative (Negative) B. divergens/MO-1 PCR Babesia duncani (PCR) Babesia microti DNA PCR Lyme Disease Antibody E.chaffeensis DNA (PCR) E.ewingii/canis DNA PCR E.muris eauclairensis (PCR) A. phagocytophilum (PCR) Blood B. miyamotoi (PCR) 03/30/25 03/30/25 03/30/25 Range/Units 22:36 21:55 21:35 WBC (4.4-10.8) 10^3/uL RBC (3.93-5.22) 10^6/uL Hgb (11.2-15.7) g/dL Hct (36.0-46.0) % MCV (80-95) fL MCH (27.0-33.0) pg MCHC (32.0-36.0) % RDW (11.7-14.6) % Plt Count (130-400) 10^3/uL MPV (8.0-11.0) fL Immature Gran % % Neutrophils % % Lymphocytes % % Monocytes % % Eosinophils % % Basophils % % Nucleated RBC % (0.0-0.3) % Absolute Neutrophils (1.2-6.7) 10^3/uL Absolute Lymphocytes (1.2-3.4) 10^3/uL Absolute Monocytes (0.1-0.8) 10^3/uL Absolute Eosinophils (0.0-0.7) 10^3/uL Absolute Basophils (0.0-0.2) 10^3/uL PT (9.1-11.1) sec INR (0.9-1.1) Sodium 137 Potassium 3.6 Chloride 101 Carbon Dioxide 22.5 Anion Gap 13.5 H BUN 11 Creatinine 0.6 Est GFR (CKD-EPI 2020) 112.73 Glucose 117 H Hemoglobin A1c (<5.7) % Calcium 8.7 Magnesium 2.0 Total Bilirubin 0.7 AST 18 ALT 26 Alkaline Phosphatase 68 Troponin I 8 8 Total Protein 7.3 Albumin 3.9 Triglycerides 68 (<150) mg/dL Total Cholesterol 228 H (<200) mg/dL LDL Cholesterol, Calc 138 H (<100) mg/dL HDL Cholesterol 77 (>or=50) mg/dL TSH (0.36-3.74) uIU/mL Free T4 (0.76-1.46) ng/dL Urine Color (Yellow) Urine Clarity (Clear) Urine pH (5-8) Ur Specific [place] (1.005-1.025) Urine Protein (Neg-Trace) mg/dL Urine Ketones (Negative) mg/dL Urine Blood (Negative) Urine Nitrite (Negative) Urine Bilirubin (Negative) Urine Urobilinogen (Up to 0.2) mg/dL Ur Leukocyte Esterase (Negative) Urine RBC (0-2) HPF Urine WBC (0-5) HPF Ur Epithelial Cells (Negative) HPF Urine Crystals (Negative) HPF Urine Bacteria (Negative) HPF Urine Casts (Negative) LPF Urine Mucus (Negative) Ur Culture Indicated? Urine Glucose (Negative) mg/dL Urine Opiates Screen (Negative) Urine Methadone Screen (Negative) Ur Barbiturates Screen (Negative) Ur Tricyclics Screen (Negative) Ur Amphetamines Screen (Negative) U Benzodiazepines Scrn (Negative) Urine Cocaine Screen (Negative) Ur THC Screen (Negative) B. divergens/MO-1 PCR Babesia duncani (PCR) Babesia microti DNA PCR Lyme Disease Antibody E.chaffeensis DNA (PCR) E.ewingii/canis DNA PCR E.muris eauclairensis (PCR) A. phagocytophilum (PCR) Blood B. miyamotoi (PCR) 03/30/25 Range/Units 20:50 WBC 8.29 (4.4-10.8) 10^3/uL RBC 4.07 (3.93-5.22) 10^6/uL Hgb 13.8 (11.2-15.7) g/dL Hct 40.3 (36.0-46.0) % MCV 99 H (80-95) fL MCH 33.9 H (27.0-33.0) pg MCHC 34.2 (32.0-36.0) % RDW 12.7 (11.7-14.6) % Plt Count 223 (130-400) 10^3/uL MPV 11.0 (8.0-11.0) fL Immature Gran % 0.2 % Neutrophils % 69.3 % Lymphocytes % 23.6 % Monocytes % 5.8 % Eosinophils % 0.7 % Basophils % 0.4 % Nucleated RBC % 0.0 (0.0-0.3) % Absolute Neutrophils 5.74 (1.2-6.7) 10^3/uL Absolute Lymphocytes 1.96 (1.2-3.4) 10^3/uL Absolute Monocytes 0.48 (0.1-0.8) 10^3/uL Absolute Eosinophils 0.06 (0.0-0.7) 10^3/uL Absolute Basophils 0.03 (0.0-0.2) 10^3/uL PT 10.3 (9.1-11.1) sec INR 1.0 (0.9-1.1) Sodium Cancelled Potassium Cancelled Chloride Cancelled Carbon Dioxide Cancelled Anion Gap Cancelled BUN Cancelled Creatinine Cancelled Est GFR (CKD-EPI 2020) Cancelled Glucose Cancelled Hemoglobin A1c 5.3 (<5.7) % Calcium Cancelled Magnesium Cancelled Total Bilirubin Cancelled AST Cancelled ALT Cancelled Alkaline Phosphatase Cancelled Troponin I Cancelled Total Protein Cancelled Albumin Cancelled Triglycerides (<150) mg/dL Total Cholesterol (<200) mg/dL LDL Cholesterol, Calc (<100) mg/dL HDL Cholesterol (>or=50) mg/dL TSH (0.36-3.74) uIU/mL Free T4 (0.76-1.46) ng/dL Urine Color (Yellow) Urine Clarity (Clear) Urine pH (5-8) Ur Specific [place] (1.005-1.025) Urine Protein (Neg-Trace) mg/dL Urine Ketones (Negative) mg/dL Urine Blood (Negative) Urine Nitrite (Negative) Urine Bilirubin (Negative) Urine Urobilinogen (Up to 0.2) mg/dL Ur Leukocyte Esterase (Negative) Urine RBC (0-2) HPF Urine WBC (0-5) HPF Ur Epithelial Cells (Negative) HPF Urine Crystals (Negative) HPF Urine Bacteria (Negative) HPF Urine Casts (Negative) LPF Urine Mucus (Negative) Ur Culture Indicated? Urine Glucose (Negative) mg/dL Urine Opiates Screen (Negative) Urine Methadone Screen (Negative) Ur Barbiturates Screen (Negative) Ur Tricyclics Screen (Negative) Ur Amphetamines Screen (Negative) U Benzodiazepines Scrn (Negative) Urine Cocaine Screen (Negative) Ur THC Screen (Negative) B. divergens/MO-1 PCR Pending Babesia duncani (PCR) Pending Babesia microti DNA PCR Pending Lyme Disease Antibody Pending E.chaffeensis DNA (PCR) Pending E.ewingii/canis DNA PCR Pending E.muris eauclairensis (PCR) Pending A. phagocytophilum (PCR) Pending Blood B. miyamotoi (PCR) Pending [id number] Documentation Fingerstick Glucose Start: 03/30/25 20:52 Freq: Status: Active Protocol: Activity Type Activity Date Activity User E-sign Co-sign Detail Recorded Client Recorded Date Recorded By Document 03/30/25 20:39 JEFF AMIN(10) [id number] 03/30/25 20:52 JEFF AMIN(10) POC Urine Test Start: 03/30/25 20:48 Freq: .Urine Test Status: Active Protocol: Activity Type Activity Date Activity User E-sign Co-sign Detail Recorded Client Recorded Date Recorded By Document 03/31/25 06:04 LB [id number] 03/31/25 06:04 LB Intake and Output - 24 Hour Total 03/30/25 20:31 thru 03/30/25 21:11 Intake Total 100 Balance 100 Weight 72.575 kg Intake: IV 100 Falls Risk Assessment History of Falls No History 03/30/25 21:40 Contributing Factors Impairments 03/30/25 21:40 Ambulatory Aids Independent 03/30/25 21:40 Tubes/Lines None 03/30/25 21:40 Gait Evaluation No gait disturbance 03/30/25 21:40 Cognition No cognitive impairment 03/30/25 21:40 Fall Total Score 3 03/30/25 21:40 Level of Risk Standard/Low Risk 03/30/25 21:40 Problems (Last Reviewed 06/16/23 @ 06:39 by Carey Dove RN) 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 Call dropped mid conversation. Initialized on 03/30/25 21:43 - END OF NOTE v v v v v v v v v Sending and/or Receiving Nurses: Please use comment section below to note any information pertinent to the patient hand-off not included above. Information / Comments: AOx4, however, still present signs of intoxication: emothional lability, ataxic. VSS. C/O severe headache, photosensivity, CP. NSR on telemetry. Minor left sided facial droop. Report received from: JUANA Mclean
[2025-03-31] MEDS: SUMAtriptan 6 MG/0.5 ML VIAL SC ×2 (13:30→20:33)
[2025-03-31] MEDS: Normal Saline Flush 10 ML SYR IVP ×2 (14:19→20:33)
[2025-03-31] MEDS: Nicotine 21 MG/24 HR PATCH TD (14:26)
[2025-03-31] MEDS: LORazepam 0.5 MG TAB PO ×2 (14:26→20:33)
[2025-03-31] MEDS: nitroGLYcerin 0.4 MG TAB SL (20:34)
[2025-04-01] MEDS: Normal Saline Flush 10 ML SYR IVP ×3 (02:10→20:07)
[2025-04-01] MEDS: LORazepam 20 MG/10 ML VIAL IVP ×4 (02:10→20:06)
[2025-04-01 06:39] LABS: Abs Immature Grans 0.02 10^3/uL (0.0-0.06); HCT 39.6 % (36.0-46.0); HGB 13.5 g/dL (11.2-15.7); Immature Grans % 0.2 %; MCH 34.3 pg (27.0-33.0); MCHC 34.1 % (32.0-36.0); MCV 101 fL (80-95); MPV 11.8 fL (8.0-11.0); Platelet Count 204 10^3/uL (130-400); RBC 3.94 10^6/uL (3.93-5.22); RDW 12.5 % (11.7-14.6); RDW-SD 46.5 fL; WBC 8.37 10^3/uL (4.4-10.8)
[2025-04-01 07:09] LABS: Troponin I 4 ng/L (<or=51)
[2025-04-01 07:14] LABS: ALT 24 U/L (14-59); AST 11 U/L (15-37); Albumin 3.4 g/dL (3.4-5.0); Alkaline Phosphatase 68 U/L (46-116); Anion Gap 9.5 mmol/L (3-11); BUN 11 mg/dL (7-18); Bilirubin, Total 0.3 mg/dL (0.2-1.0); CO2 26.5 mmol/L (21.0-32.0); Calcium 9.0 mg/dL (8.5-10.1); Chloride 105 mmol/L (98-107); Estimated GFR 112.73 (mL/min/1.73m2); Glucose 113 mg/dL (74-106); Potassium 3.3 mmol/L (3.5-5.1); Sodium 141 mmol/L (136-145); Total Protein 6.8 g/dL (6.4-8.2)
[2025-04-01 07:25] VITALS: BP 100/66; PULSE 89; RESP 18; TEMP 36.8; O2SAT 96
[2025-04-01 11:18] VITALS: BP 103/77; PULSE 101; RESP 18; TEMP 36.7; O2SAT 96
--- NOTE | 2025-04-01 11:22 | W.PM.PROGNOT ---
Date of Service Date of service: 04/01/25 Time of Service: 11:22 Assessment and Plan Assessment and plan (1) Facial droop: Status: Acute Assessment and plan: CVA vs West's Palsy Admitting for observation and MRI when able Hold steroids until MRI results 03/31/25 still with facial droop but not clasical presentation. Pt does complain of phono/photophobia so will try imitrex 04/01/25 MRI pending for am. Bubble study ordered. 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 Was resting comfortably. Pt denies any headache or chest pain Exam Narrative Exam Narrative: heent-ncat mmm eomi perrla neck-no lad no jvd cv-rrr no mrg pulm-ctab no amu mild facial droop left side 4/5 LUE 4/5 LLE Objective Last Vital Signs Temp 36.7 C 04/01/25 11:18 Pulse 101 H 04/01/25 11:18 Resp 18 04/01/25 11:18 BP 103/77 04/01/25 11:18 Pulse Ox 96 04/01/25 11:18 Laboratory Results - last 24 hr 04/01/25 05:54 WBC 8.37 RBC 3.94 Hgb 13.5 Hct 39.6 MCV 101 H MCH 34.3 H MCHC 34.1 RDW 12.5 Plt Count 204 MPV 11.8 H Immature Gran % 0.2 Neutrophils % 68.8 Lymphocytes % 23.1 Monocytes % 5.5 Eosinophils % 2.0 Basophils % 0.4 Nucleated RBC % 0.0 Absolute Neutrophils 5.76 Absolute Lymphocytes 1.93 Absolute Monocytes 0.46 Absolute Eosinophils 0.17 Absolute Basophils 0.03 Sodium 141 Potassium 3.3 L Chloride 105 Carbon Dioxide 26.5 Anion Gap 9.5 BUN 11 Creatinine 0.6 Est GFR (CKD-EPI 2020) 112.73 Glucose 113 H Calcium 9.0 Total Bilirubin 0.3 AST 11 L ALT 24 Alkaline Phosphatase 68 Troponin I 4 Total Protein 6.8 Albumin 3.4 Time Spent with Patient Time Spent with Patient: <25 minutes Time was spent: preparing to see the patient(eg.review tests), obtaining and/or reviewing separately otained hiistory, ordering medications,tests, procedures, referring, communicating with other health health care specialist, indepentently interpreting results, counseling the patient and care coordination
[2025-04-01] MEDS: Nicotine 21 MG/24 HR PATCH TD (12:54)
[2025-04-01] MEDS: LORazepam 1 MG TAB PO ×2 (12:55→15:26)
[2025-04-01] MEDS: cloNIDine 0.1 MG TAB 0.2 MG PO (13:57)
[2025-04-01 15:20] VITALS: BP 93/71; PULSE 82; RESP 14; TEMP 36.6; O2SAT 95
[2025-04-01] MEDS: diphenhydrAMINE 50 MG/ML VIAL 25 MG IVP (17:38)
[2025-04-02 06:53] LABS: Abs Immature Grans 0.02 10^3/uL (0.0-0.06); HCT 36.9 % (36.0-46.0); HGB 12.7 g/dL (11.2-15.7); Immature Grans % 0.3 %; MCH 34.7 pg (27.0-33.0); MCHC 34.4 % (32.0-36.0); MCV 101 fL (80-95); MPV 11.8 fL (8.0-11.0); Platelet Count 169 10^3/uL (130-400); RBC 3.66 10^6/uL (3.93-5.22); RDW 12.3 % (11.7-14.6); RDW-SD 46.6 fL; WBC 6.76 10^3/uL (4.4-10.8)
[2025-04-02 07:16] LABS: ALT 20 U/L (14-59); AST 10 U/L (15-37); Albumin 3.2 g/dL (3.4-5.0); Alkaline Phosphatase 64 U/L (46-116); Anion Gap 9.5 mmol/L (3-11); BUN 11 mg/dL (7-18); Bilirubin, Total 0.3 mg/dL (0.2-1.0); CO2 25.5 mmol/L (21.0-32.0); Calcium 8.8 mg/dL (8.5-10.1); Chloride 107 mmol/L (98-107); Estimated GFR 112.73 (mL/min/1.73m2); Glucose 107 mg/dL (74-106); Potassium 3.4 mmol/L (3.5-5.1); Sodium 142 mmol/L (136-145); Total Protein 6.4 g/dL (6.4-8.2)
[2025-04-02 07:48] VITALS: BP 98/74; PULSE 87; RESP 16; TEMP 36.9; O2SAT 95
--- NOTE | 2025-04-02 08:00 | DI.MRI_ITS ---
Exam(s) MR BRAIN WO EXAM: MR BRAIN WO CLINICAL HISTORY: rule out CVA TECHNIQUE: Multiplanar multisequence MRI of the brain was performed. COMPARISON: CT CT BRAIN NECK CTA from 03/30/2025 FINDINGS: CEREBRAL PARENCHYMA: There is no evidence of intracranial hemorrhage, mass effect, or shift of midline structures. There are no extra-axial fluid collections. Ventricles are not enlarged or shifted. There is no significant focal signal abnormality in the cerebellar hemispheres nor within the fam, midbrain, and thalami. There are multiple FLAIR bright foci of signal abnormality in the bilateral periventricular white matter, these measuring up to 4 mm and not associated with hemorrhage, surrounding edema, nor restricted diffusion. These are more numerous on the right than on the left side of the brain. There is no significant focal signal abnormality evident on diffusion imaging to suggest acute ischemic event. PITUITARY GLAND: No mass nor parasellar abnormality. No obvious abnormality in the cavernous sinuses. FLOW VOIDS: The expected flow void are noted. No evidence of obvious aneurysm nor obvious vascular malformation. PARANASAL SINUSES: The visualized paranasal sinuses appear unremarkable. No obvious finding ORBITS: No obvious findings. IMPRESSION: There are multiple small nonspecific foci of bilateral white matter signal abnormality as described above (more numerous on the right side of the brain) which are not associated with hemorrhage, surrounding edema, nor restricted diffusion to suggest acute ischemic event(s). These do not have typical appearance of demyelinating disease. Recommend follow-up MRI scan in 6 months, earlier if clinically indicated. DATA REPOSITORY:
--- NOTE | 2025-04-02 08:49 | PDOC.CMPRO ---
Care Management Progress Note Progress Note Text Progress Note Text: MRI pendi Discharge Potential Discharge Needs: PCP F/U Appt Anticipated Barriers to Discharge: None Identified Patient/Family Education Needs: Review discharge instructions, discuss Ask Me Three Transportation: Private vehicle Plan: Anticipate Mora will be discharged home with no new services indicated at this time, once medically ready. It is recommended that she will follow up with her community providers and continue per her discharge plan of care. She will likely transport via private vehicle by family. CM will continue to follow. Social Determinants of Health Screening Will the Patient Participate in the Screening?: Declined to provide
[2025-04-02] MEDS: LORazepam 20 MG/10 ML VIAL IVP ×3 (09:13→13:33)
[2025-04-02] MEDS: Normal Saline Flush 10 ML SYR IVP (09:13)
[2025-04-02 11:34] LABS: Lyme Ab w Rflx to Lyme Confirm Negative (Negative)
[2025-04-02 12:15] VITALS: BP 104/78; PULSE 80; RESP 16; TEMP 36.8; O2SAT 97
--- NOTE | 2025-04-02 13:25 | PDOC.CMDIS ---
Date of service: 04/02/25 Time of Service: 13:25 LACE Index Scoring Tool Questions: Length of Stay (in days): 3 Was the patient admitted via the E.D.?: Yes E.D. Visits: 1 Answers: Total Score: 7 Risk of Readmission: Low Risk Care Management Discharge Plan Reason for Hospitalization: Facial droop Discharge Plan: Mora is discharged home via private vehicle with family. She will follow up with community providers and continue per her discharge plan of care. No new services are ordered prior to discharge. Patient/Family Education Needs: Review discharge instructions and plan to follow up after discharge. Discuss ask me three.
--- NOTE | 2025-04-02 15:15 | DSE_ITS ---
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 During her admission she was seen in consultation [facility] neurology no consultation is available in regards to diagnostic data her CT scan was negative for any acute images MRI did show nonspecific foci of bilateral white matter signal. I did discuss this with Dr. Morrow who is the reading radiologist. Dr. Morrow assured me that this was not a sign of a CVA and just recommended repeat evaluation in 4 to 6 months. This also did not appear to be consistent with demyelinating disease. Patient also had an echocardiogram done which did not show any PFO. Labs did indicate an elevated total cholesterol associated with statin. She will need to be optimized in the outpatient setting. She will be discharged in good health. Let me that she did have an elevation in her MCV so we will go up with B12 folate and iron should be considered in the outpatient setting will defer to PCP on the day of discharge she also had mild hypokalemia and potassium replacement ordered as well. Further note she did have an elevated TSH at 6.2 but free T4 was 1.8. Will defer to the outpatient setting for workup of subacute hypothyroidism. Recommendations for Follow Up Recommended tests to be ordered by follow up provider: b12/folate/iron/tsh/bmp/cbc in 2-3 weeks repeat MRI in 4-6 months (pt voiced understanding of this recommendation). fasting lipids in 2 months Home Meds and New Rx's Prescriptions: New potassium chloride 20 mEq packet 20 meq PO DAILY Qty: 30 0RF simvastatin 10 mg tablet 10 mg PO DAILY Qty: 30 0RF No Action acetaminophen [Tylenol] 325 mg capsule 650 mg PO TID PRN ibuprofen 200 mg capsule 800 mg PO Q6H PRN Discharge Instructions Referrals: Lesli Davis APRN [Primary Care Provider, Family Practice] Referral Note: follow up in 7-10 days Activity:: Activity as Tolerated Equipment/Supplies:: No Equipment Needed Diet:: low cholesterol Discharge Orders Discharge Orders: Discharge Order (Routine); Ordered 04/02/25 Ordered By: Ag Dumont DS: Summary Time Spent with Patient providing and/or coordinating discharge services: Greater than 30 minutes Status at Discharge Functional status at discharge: independent ambulation Overall status at discharge: patient is back to baseline Mental Status: mental status grossly normal Speech and Movement: speech and movement normal Mood: congruent mood Affect: normal affect Exam Narrative Exam Narrative: heent-ncat mmm eomi perrla neck-no lad no jvd cv-rrr no mrg pulm-ctab no amu mild facial droop left side 4/5 LUE 4/5 LLE Psych Mental Status: mental status grossly normal Speech and Movement: speech and movement normal Mood: congruent mood Affect: normal affect DS: Data Vitals/I&O Vitals and I&O: Vital Signs Temperature 36.8 C 04/02/25 12:15 Temperature Source Temporal Artery Scan 04/02/25 12:15 Pulse 80 04/02/25 12:15 Pulse Rhythm Regular 03/31/25 12:30 Pulse 86 03/31/25 11:10 Respiratory Rate 16 04/02/25 12:15 Respiratory Effort Normal 03/31/25 12:30 Respiratory Depth Normal 03/30/25 21:48 Respiratory Pattern Normal 03/30/25 21:45 Blood Pressure 104/78 04/02/25 12:15 Blood Pressure Mean 86 04/02/25 12:15 Pulse Oximetry 97 04/02/25 12:15 Oxygen Delivery Method Room Air 04/02/25 12:15 Oxygen Flow Rate 0 04/02/25 12:15 Pain Level 7 04/02/25 12:15 Comment refused 04/02/25 05:03 Intake & Output 04/01/25 04/02/25 04/02/25 23:59 11:59 23:59 Intake Total 100 / 340 240 / 340 Balance 100 / 340 240 / 340 Intake: Oral 100 / 340 240 / 340 Other: Urine Color Yellow Urine Appearance Clear Data Completed and Pending Labs on day of discharge: Labs from last 24 hours 04/02/25 03/30/25 06:28 20:50 WBC 6.76 RBC 3.66 L Hgb 12.7 Hct 36.9 MCV 101 H MCH 34.7 H MCHC 34.4 RDW 12.3 Plt Count 169 MPV 11.8 H Immature Gran % 0.3 Neutrophils % 67.3 Lymphocytes % 23.1 Monocytes % 6.2 Eosinophils % 2.7 Basophils % 0.4 Nucleated RBC % 0.0 Absolute Neutrophils 4.55 Absolute Lymphocytes 1.56 Absolute Monocytes 0.42 Absolute Eosinophils 0.18 Absolute Basophils 0.03 Sodium 142 Potassium 3.4 L Chloride 107 Carbon Dioxide 25.5 Anion Gap 9.5 BUN 11 Creatinine 0.6 Est GFR (CKD-EPI 2020) 112.73 Glucose 107 H Calcium 8.8 Total Bilirubin 0.3 AST 10 L ALT 20 Alkaline Phosphatase 64 Total Protein 6.4 Albumin 3.2 L Lyme Disease Antibody Negative PFSH All Active Problems (Updated 04/02/25 @ 15:15 by Ag Dumont MD) 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 Positive urine drug screen (Acute) Cocaine + 05/15/2023, denies use in the last 6 years History of DVT of lower extremity (Acute) Abdominal pain, right lower quadrant (Acute) Suspect pain from fibroids and vascular compromise due to cocaine use. Suspect fibroid necrosis Medical History (Updated 04/02/25 @ 15:15 by Ag Dumont MD) Atypical pneumonia Hepatitis C Per pt Treated Hyperlipidemia, unspecified (06/16/17) IFG (impaired fasting glucose) (06/16/17) Cocaine use disorder remission last 4 years Opioid use disorder Acute necrotizing gingivitis Tobacco use disorder Substance use disorder Surgical History (Updated 09/06/23 @ 08:44 by CHINEDU Linton) History of total left knee replacement (TKR) (12/30/15) left medial minisectomy (03/17/10) Ligation of fallopian tube (08/19/05) Family History Mother Diabetes Essential hypertension HF (heart failure) Neoplasm Colon CA COPD (chronic obstructive pulmonary disease) Smoker MS (multiple sclerosis) Father No problems noted. Maternal Aunt , Breast CA at age 41. Neoplasm Breast CA Maternal Aunt , Breast CA at age 43. Neoplasm Breast CA Maternal Aunt , Breast CA at age 44. Neoplasm Breast CA Maternal Aunt Neoplasm Breast CA Grandmother Diabetes Social History Smoking/Tobacco Use Status: Current-Occasional Tobacco Type: e-cigarettes Smoking risk assessment performed?: Yes Alcohol Intake: current Alcohol Intake frequency: a few times a week Alcohol type: beer Drug use: Current Sobriety Substance use type: former substance user, marijuana, crack/cocaine, heroin and opiates Details: cocaine yesterday Housing: house Do you feel safe at home: Yes (unabe to assess privately) Do you feel safe in your relationship?: Yes Female Reproductive History Menstrual Age of Menarche: 11 Duration of menses: 3-5 days control method: permanent sterilization History History 2 Para Hx # Term Pregnancies 2 Multiple births Hx # Pregnancies Ectopic pregnancies AB induced Hx Number of Living Children 2 AB spontaneous Time Spent with Patient Time Spent with Patient: 45-69 minutes Time was spent: preparing to see the patient(eg.review tests), obtaining and/or reviewing separately otained hiistory, ordering medications,tests, procedures, referring, communicating with other health respiratory care assistant, indepentently interpreting results, counseling the patient and care coordination
[2025-04-03 14:03] LABS: B. miyamotoi PCR Negative (Negative); Babesia divergens/MO-1 Negative (Negative); Ehrlichia muris eauclairensis Negative (Negative)
== END 2025-04-02 17:25 | disposition home or self-care (01) ==
LOC: ER 23:06 → EDHOLD 23:26 → MS 03-31 12:00
PROVIDERS: Admitting Provider Family Medicine; Emergency Provider Emergency Medicine; PCP Nurse Practitioner Family; Responsible Provider Hospitalist; Visit Provider Family Medicine
DX: R29.810 Facial weakness (principal); F14.929 Cocaine use, unspecified with intoxication, unspecified; F14.980 Cocaine use, unspecified with cocaine-induced anxiety disorder; E78.00 Pure hypercholesterolemia, unspecified; E87.6 Hypokalemia; E03.9 Hypothyroidism, unspecified; R07.89 Other chest pain; R51.9 Headache, unspecified; Z86.718 Personal history of other venous thrombosis and embolism; F11.90 Opioid use, unspecified, uncomplicated; R73.01 Impaired fasting glucose; T84.84XA Pain due to internal orthopedic prosthetic devices, implants and grafts, initial encounter; F17.290 Nicotine dependence, other tobacco product, uncomplicated; I44.7 Left bundle-branch block, unspecified
CPT/HCPCS: 00123; 36415; 36416; 70496; 70498; 80053; 80061; 80307; 81025; 82962; 87798; 93005; 96372; 96374; 96375; 96376; 99285; 70551; 71046; 81003; 81015; 83036; 83735; 84439; 84443; 84484; 85025; 85610; 86618; 93010; 93306; 99222; 99231; 99239; G0378; J0131; J1200; J2060; J2270; J3030; J3490